=== PATIENT | female | born 1955 | race African-American/Black ===

== ENCOUNTER 2017-01-16 23:35 | Inpatient (IN) | payer MEDICARE, OTHER ==
[~2017-01-16] VITALS: Ht 165.1 cm; Wt 67.1 kg
[~2017-01-16 23:35] MED LIST: CARAFATE1 G1 ORAL; CYCLOBENZAPRINE10 MG ORAL; IBUPROFEN600 M1 PO; LYRICA75 M1 ORAL; NKM; NORCO 5-325 TA1 EAC1 ORAL; OMEPRAZOLE40 M1 ORAL; PERCOCET 5-3251 EACH ORAL; PROTONIX40 MG ORAL; TESSALON PERLE100 MG ORAL; ZOFRAN ODT4 MG ORAL
[2017-01-17] VITALS (8 sets, daily range): BP systolic 127–157; BP diastolic 74–93
[2017-01-17] MEDS ORDERED: Morphine Sulfate 4mg/ml Inj IVP ONE (00:45)
[2017-01-17 00:47] LABS: MEAN CORPUSCULAR HEMOGLOBIN 33.6 PG (27.0-31.0); MEAN CORPUSCULAR HGB CONC 34.5 G/DL (32.0-36.0); MEAN CORPUSCULAR VOLUME 97 FL (80-99); MEAN PLATELET VOLUME 7.5 FL (6.5-10.1); PLATELET COUNT 262 K/UL (150-450); RED BLOOD COUNT 4.36 M/UL (4.20-5.40); RED CELL DISTRIBUTION WIDTH 11.5 % (11.6-14.8); WHITE BLOOD COUNT 11.1 K/UL (4.8-10.8)
[2017-01-17 00:58] LABS: INR 1.1 (0.9-1.1); PROTHROMBIN TIME 11.1 SEC (9.30-11.50)
[2017-01-17] MEDS ORDERED: Metoclopramide 10mg/2ml Inj IVP ONE (01:00)
[2017-01-17 01:05] LABS: ALANINE AMINOTRANSFERASE 18 U/L (3-33); ALBUMIN/GLOBULIN RATIO 1.3 (1.0-2.7); ANION GAP 18 (5-15); ASPARTATE AMINO TRANSFERASE 17 U/L (5-40); CARBON DIOXIDE 24 mEQ/L (20-30); CHLORIDE 99 mEQ/L (98-107); CREATININE 0.7 mg/dL (0.5-0.9); GLOMERULAR FILTRATION RATE > 60 mL/min (>60); HEMOLYSIS 9; POTASSIUM 3.6 mEQ/L (3.4-4.9); SODIUM 141 mEQ/L (135-145); TOTAL PROTEIN 7.6 g/dL (6.6-8.7)
--- NOTE | 2017-01-17 01:06 | Emergency Room Report ---
History of Present Illness General Chief Complaint: Chest Pain Source: Patient, EMS Present Illness HPI Patient is a 61-year-old female who presented after increased tightness in her chest. Patient gradual onset of symptoms. Patient had been given aspirin nitroglycerin by paramedics. Patient noted have no change in her chest pain. Patient states that chronic episodes of back pain which seem to be related to this incident. Patient stated that she had prior history of cardiac disease. She denies any definite fever but she reports having some recent chills. She denied any productive cough. Allergies: Coded Allergies: CODEINE (Unverified Allergy, Unknown, 08/05/14) IBUPROFEN (Verified Allergy, Unknown, 08/05/15) Patient History Past Medical History: see triage record Last Menstrual Period: NA Reviewed Nursing Documentation: PMH: Agreed, PSxH: Agreed Nursing Documentation-PMH Past Medical History: No Stated History Hx Cardiac Problems: No Hx Cancer: No Hx Gastrointestinal Problems: Yes - Hiatal hernia Hx Neurological Problems: No Review of Systems All Other Systems: negative except mentioned in HPI Physical Exam Vital Signs Date Time Temp Pulse Resp B/P Pulse Ox O2 Delivery O2 Flow Rate FiO2 01/16/17 23:36 98.4 98 18 150/96 96 Room Air Sp02 EP Interpretation: reviewed, normal General Appearance: normal inspection, alert, mild distress, thin, Chronically Ill Head: atraumatic ENT: normal ENT inspection, hearing grossly normal, normal voice Neck: normal inspection, full range of motion, supple, no bony tend Respiratory: normal inspection, lungs clear, normal breath sounds, no respiratory distress, no retraction, no wheezing Cardiovascular #1: regular rate, rhythm, no edema Gastrointestinal: normal inspection, normal bowel sounds, non tender, soft, no guarding, no hernia Genitourinary: no CVA tenderness Musculoskeletal: normal inspection, back normal, normal range of motion Neurologic: normal inspection, alert, oriented x3, responsive, customs 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 Differential diagnosis included but was not limited to acute coronary syndrome, pulmonary embolism, pneumonia, aortic dissection, shingles, pneumothorax, aortic dissection, esophageal rupture. Because of complexity of patient's case laboratory testing and imaging studies were ordered. Patient was noted to have evidence of persistent vomiting. Patient was noted to be somewhat dehydrated. Lactic acid levels of the elevated. Initial troponin testing was normalThe patient was given IV antiemetics as well as pain medications. EKG interpreted by me showed normal sinus rhythm with a rate of [address] or T wave changes. Patient noted have some T wave flattening laterally.The patient given IV antibiotics.The patient be admitted hospital for further management of his vomiting and urinary tract infection as well as IV hydration Labs Test 01/17/17 00:14 White Blood Count 11.1 K/UL (4.8-10.8) Red Blood Count 4.36 M/UL (4.20-5.40) Hemoglobin 14.6 G/DL (12.0-16.0) Hematocrit 42.4 % (37.0-47.0) Mean Corpuscular Volume 97 FL (80-99) Mean Corpuscular Hemoglobin 33.6 PG (27.0-31.0) Mean Corpuscular Hemoglobin Concent 34.5 G/DL (32.0-36.0) Red Cell Distribution Width 11.5 % (11.6-14.8) Platelet Count 262 K/UL (150-450) Mean Platelet Volume 7.5 FL (6.5-10.1) Neutrophils (%) (Auto) % (45.0-75.0) Lymphocytes (%) (Auto) % (20.0-45.0) Monocytes (%) (Auto) % (1.0-10.0) Eosinophils (%) (Auto) % (0.0-3.0) Basophils (%) (Auto) % (0.0-2.0) Prothrombin Time 11.1 SEC (9.30-11.50) Prothromb Time International Ratio 1.1 (0.9-1.1) Activated Partial Thromboplast Time 20 SEC (23-33) Sodium Level 141 mEQ/L (135-145) Potassium Level 3.6 mEQ/L (3.4-4.9) Chloride Level 99 mEQ/L (98-107) Carbon Dioxide Level 24 mEQ/L (20-30) Anion Gap 18 (5-15) Blood Urea Nitrogen 12 mg/dL (7-23) Creatinine 0.7 mg/dL (0.5-0.9) Estimat Glomerular Filtration Rate > 60 mL/min (>60) Glucose Level 187 mg/dL (74-106) Lactic Acid Level 2.30 mmol/L (0.66-2.22) Calcium Level 10.0 mg/dL (8.6-10.2) Total Bilirubin 1.1 mg/dL (0.0-1.2) Direct Bilirubin 0.2 mg/dL (0.1-0.3) Aspartate Amino Transf (AST/SGOT) 17 U/L (5-40) Alanine Aminotransferase (ALT/SGPT) 18 U/L (3-33) Alkaline Phosphatase 111 U/L (35-104) Total Creatine Kinase 49 U/L (26-140) Creatine Kinase MB < 1.5 ng/mL (< 3.8) Creatine Kinase MB Relative Index 3.0 Troponin I < 0.30 ng/mL (<=0.30) Pro-B-Type Natriuretic Peptide 10 pg/mL (0-125) Total Protein 7.6 g/dL (6.6-8.7) Albumin 4.4 g/dL (3.5-5.2) Globulin 3.2 g/dL Albumin/Globulin Ratio 1.3 (1.0-2.7) EKG Diagnostic Results Rate: normal Rhythm: NSR ST Segments: no acute changes Rhythm Strip Diag. Results EP Interpretation: yes Rhythm: NSR, no PVC's, no ectopy Chest X-Ray Diagnostic Results EP Interpretation: Yes Findings: no consolidation, no effusion, no pneumothorax, no acute cardiopulmonary disease Number of Views: 1 Last Vital Signs Date Time Temp Pulse Resp B/P Pulse Ox O2 Delivery O2 Flow Rate FiO2 01/16/17 23:36 98.4 98 18 150/96 96 Room Air Status: unchanged Disposition: ADMITTED INPATIENT Condition: Arben Pardo Jan 17, 2017 01:06
[2017-01-17 01:07] LABS: REFLEX LACTIC ACID YES OR NO YES
[2017-01-17 01:08] LABS: TROPONIN I < 0.30 ng/mL (<=0.30)
[2017-01-17] MEDS ORDERED: Unasyn 3gm Inj ONE (01:13)
[2017-01-17] MEDS ORDERED: Ampicillin/Sulbactam Sod 3 GM in NS 110 ML IVPB ONE (01:15)
[2017-01-17 01:16] LABS: CKMB < 1.5 ng/mL (< 3.8)
[2017-01-17 01:27] LABS: BILIRUBIN,DIRECT 0.2 mg/dL (0.1-0.3)
[2017-01-17] MEDS ORDERED: HYDROmorphone 1mg/NS 50ml IVPB 50 ML IVPB ONE (03:00)
[2017-01-17] MEDS ORDERED: Famotidine 20 MG/ 2ML VIAL IVP ONE (03:00)
[2017-01-17 03:34] LABS: APPEARANCE,URINE CLEAR; KETONES,URINE NEGATIVE (NEGATIVE); LEUKOCYTE ESTERASE ,URINE 3+ (NEGATIVE); NITRITE,URINE NEGATIVE (NEGATIVE); PH,URINE 7 (4.5-8.0); PROTEIN,URINE 1+ (NEGATIVE); UROBILINOGEN,URINE NORMAL MG/DL (0.0-1.0)
[2017-01-17 03:47] LABS: BACTERIA,URINE FEW /HPF; SQUAMOUS EPITHELIAL CELL,UR FEW /LPF (NONE/OCC); WBC,URINE 15-20 /HPF (0 - 2)
[2017-01-17] MEDS ORDERED: Miralax 17gm pkt ORAL PRN (06:45)
[2017-01-17] MEDS ORDERED: Nitroglycerin Subl 0.4mg tab (Bottle Of 25) SL PRN (06:45)
[2017-01-17] MEDS ORDERED: DuoNeb 0.5-3(2.5)mg/3ml neb HHN PRN (06:45)
[2017-01-17] MEDS ORDERED: Ketorolac 30mg Inj IV PRN ×2 (06:45→12:45)
[2017-01-17] MEDS: Heparin 5000 units/ml inj SUBQ SCH ×2 (09:00→21:00)
[2017-01-17] MEDS ORDERED: Enalaprilat 2.5mg/2ml Inj IV PRN (09:00)
[2017-01-17] MEDS ORDERED: Diltiazem 25mg/5ml IV PRN (09:00)
--- NOTE | 2017-01-17 09:00 | Diagnostic Imaging Report ---
Indications: Abdominal pain, nausea and vomiting Technique: Continuous helical CT imaging of the abdomen and pelvis was performed with automatic exposure control following administration of nonionic IV contrast only, on a Siemens sensation [address] scanner. Axial, coronal, sagittal images were reconstructed at 5 mm slice thickness. No oral contrast was administered per requesting physician's order, despite no contraindications listed in either submitted clinical data or tech note.. CTDI volume(s): 24 mGy Total DLP: 1170 mGy-cm Findings: Comparison: 08/02/2016 Lack of oral contrast limits evaluation of gastrointestinal tract, nondilated throughout. All hiatal hernia unchanged. Appendix unremarkable. Portions of left colon, rectum poorly distended, limiting evaluation. Multiple images through the lower pelvis degraded by artifact from bilateral hip prostheses, further limiting evaluation. No adjacent stranding, extraluminal gas or fluid collections identified. Multiple subcentimeter circumscribed low-attenuation foci again noted in both renal cortices, not further characterizable, unchanged. Circumscribed soft tissue mass in the posterior pelvis is unchanged, most likely representing uterus, significantly obscured by aforementioned artifact. Bilateral adnexal regions, urinary bladder partially obscured. Scattered arterial mural calcification without obvious flow-limiting stenosis or occlusion. Liver, gallbladder, pancreas, spleen, adrenal glands, unopacified ureters, retroperitoneum, mesentery, remainder visualized abdominopelvic anatomy unremarkable. Irregular pleural-based linear densities in both lung bases. Multilevel disc space narrowing with marginal osteophyte formation, vacuum phenomenon, facet hypertrophy again noted in lumbar spine. IMPRESSION: No evidence of acute abdominopelvic disease, with significant technical limitations as described. Subtle but potentially significant abnormalities the gastrointestinal tract, pelvic organs may be missed. Repeat CT scan with full oral and IV contrast preparation, pelvic ultrasound should be considered for more complete evaluation, as clinically indicated Probable bilateral renal cortical cysts, unchanged Small hiatal hernia, unchanged Arteriosclerosis Pulmonary bibasal subsegmental atelectasis versus scarring Degenerative spondylosis This correlates with [facility] preliminary report.
[2017-01-17] MEDS: Aspirin Baby 81mg ORAL SCH (09:01)
[2017-01-17] MEDS: Sucralfate 1gm tab ORAL SCH ×4 (09:01→21:00)
[2017-01-17] MEDS: Lyrica 50mg cap ORAL SCH (09:01)
[2017-01-17 11:33] LABS: TROPONIN I < 0.30 ng/mL (<=0.30)
--- NOTE | 2017-01-17 12:15 | Consultation ---
History of Present Illness General Date patient seen: Jan 17, 2017 Chief Complaint: Chest Pain Referring physician: Dr. Zapata Reason for Consultation: chest pain Present Illness HPI 61-year-old female with extensive pmhx ( all of them vague) presented to ER with CC of increased tightness in her chest. . Patient had been given aspirin nitroglycerin by paramedics. Patient noted have no change in her chest pain. Patient states that chronic episodes of back pain. She has multiple complains including mid-sternal pain, lower back pain, bilateral knee pain and apparently only [employer] works for her. Allergies: Coded Allergies: CODEINE (Unverified Allergy, Unknown, 08/05/14) IBUPROFEN (Verified Allergy, Unknown, 08/05/15) Medication History Scheduled No Known Medications* (NKM - No Known Medications*), 0 ., (Reported) Omeprazole (Omeprazole), 40 MG ORAL DAILY Pantoprazole* (Protonix*), 40 MG ORAL DAILY, (Reported) Pantoprazole* (Protonix*), 40 MG ORAL DAILY, (Reported) Pregabalin* (Lyrica*), 50 MG ORAL DAILY, (Reported) Pregabalin* (Lyrica*), 75 MG ORAL DAILY, (Reported) Sucralfate* (Carafate*), 1 GM ORAL FOUR TIMES A DAY Scheduled PRN Benzonatate* (Tessalon Perle*), 100 MG ORAL THREE TIMES A DAY PRN for For Cough, (Reported) Ondansetron Odt* (Zofran Odt*), 4 MG ORAL Q6H PRN for Nausea & Vomiting, ( Reported) Patient History Healthcare decision maker Resuscitation status Full Code Advanced Directive on File Past Medical/Surgical History Past Medical/Surgical History: (1) Gastritis (2) Low back pain Review of Systems All Other Systems: negative except mentioned in HPI Physical Exam General Appearance: WD/WN, no apparent distress Lines, tubes and drains: peripheral HEENT: normocephalic, atraumatic Neck: non-tender, normal alignment Respiratory/Chest: chest wall non-tender, lungs clear Cardiovascular/Chest: normal peripheral pulses, normal rate Abdomen: normal bowel sounds, non tender Genitourinary/Rectal: normal genital exam Extremities: normal range of motion Skin Exam: normal pigmentation 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 Last 24 Hour Vital Signs Date Time Temp Pulse Resp B/P Pulse Ox O2 Delivery O2 Flow Rate FiO2 01/17/17 11:22 99.0 96 18 157/87 95 Room Air 01/17/17 08:29 99.1 96 18 148/74 95 Room Air 01/17/17 08:06 98.4 101 18 134/84 96 Room Air 01/17/17 06:56 98.4 104 18 134/84 96 Room Air 01/17/17 05:20 98.4 87 18 134/82 96 Room Air 01/17/17 03:10 98.4 104 18 127/88 96 Room Air 01/17/17 02:05 98.4 01/17/17 01:05 98.4 97 18 143/84 96 Room Air 01/16/17 23:43 98 18 Room Air 01/16/17 23:36 98.4 98 18 150/96 96 Room Air Intake and Output 01/16/17 01/17/17 19:00 07:00 Intake Total 0 ml Balance 0 ml Intake Oral 0 ml Laboratory Tests Test 01/17/17 00:14 01/17/17 01:22 01/17/17 02:40 01/17/17 10:50 White Blood Count 11.1 K/UL (4.8-10.8) H Red Blood Count 4.36 M/UL (4.20-5.40) Hemoglobin 14.6 G/DL (12.0-16.0) Hematocrit 42.4 % (37.0-47.0) Mean Corpuscular Volume 97 FL (80-99) Mean Corpuscular Hemoglobin 33.6 PG (27.0-31.0) H Mean Corpuscular Hemoglobin Concent 34.5 G/DL (32.0-36.0) Red Cell Distribution Width 11.5 % (11.6-14.8) L Platelet Count 262 K/UL (150-450) Mean Platelet Volume 7.5 FL (6.5-10.1) Neutrophils (%) (Auto) % (45.0-75.0) Lymphocytes (%) (Auto) % (20.0-45.0) Monocytes (%) (Auto) % (1.0-10.0) Eosinophils (%) (Auto) % (0.0-3.0) Basophils (%) (Auto) % (0.0-2.0) Prothrombin Time 11.1 SEC (9.30-11.50) Prothromb Time International Ratio 1.1 (0.9-1.1) Activated Partial Thromboplast Time 20 SEC (23-33) L Sodium Level 141 mEQ/L (135-145) Potassium Level 3.6 mEQ/L (3.4-4.9) Chloride Level 99 mEQ/L (98-107) Carbon Dioxide Level 24 mEQ/L (20-30) Anion Gap 18 (5-15) H Blood Urea Nitrogen 12 mg/dL (7-23) Creatinine 0.7 mg/dL (0.5-0.9) Estimat Glomerular Filtration Rate > 60 mL/min (>60) Glucose Level 187 mg/dL (74-106) H Lactic Acid Level 2.30 mmol/L (0.66-2.22) H 1.00 mmol/L (0.66-2.22) Calcium Level 10.0 mg/dL (8.6-10.2) Total Bilirubin 1.1 mg/dL (0.0-1.2) Direct Bilirubin 0.2 mg/dL (0.1-0.3) Aspartate Amino Transf (AST/SGOT) 17 U/L (5-40) Alanine Aminotransferase (ALT/SGPT) 18 U/L (3-33) Alkaline Phosphatase 111 U/L (35-104) H Total Creatine Kinase 49 U/L (26-140) Creatine Kinase MB < 1.5 ng/mL (< 3.8) Creatine Kinase MB Relative Index 3.0 Troponin I < 0.30 ng/mL (<=0.30) < 0.30 ng/mL (<=0.30) Pro-B-Type Natriuretic Peptide 10 pg/mL (0-125) Total Protein 7.6 g/dL (6.6-8.7) Albumin 4.4 g/dL (3.5-5.2) Globulin 3.2 g/dL Albumin/Globulin Ratio 1.3 (1.0-2.7) Urine Color Pale yellow Urine Appearance Clear Urine pH 7 (4.5-8.0) Urine Specific [place] 1.010 (1.005-1.035) Urine Protein 1+ (NEGATIVE) H Urine Glucose (UA) Negative (NEGATIVE) Urine Ketones Negative (NEGATIVE) Urine Occult Blood 2+ (NEGATIVE) H Urine Nitrite Negative (NEGATIVE) Urine Bilirubin Negative (NEGATIVE) Urine Urobilinogen Normal MG/DL (0.0-1.0) Urine Leukocyte Esterase 3+ (NEGATIVE) H Urine RBC 2-4 /HPF (0 - 2) H Urine WBC 15-20 /HPF (0 - 2) H Urine Squamous Epithelial Cells Few /LPF (NONE/OCC) Urine Bacteria Few /HPF (NONE) Urine Opiates Screen Positive (NEGATIVE) H Urine Barbiturates Screen Negative (NEGATIVE) Phencyclidine (PCP) Screen Negative (NEGATIVE) Urine Amphetamines Screen Negative (NEGATIVE) Urine Benzodiazepines Screen Negative (NEGATIVE) Urine Cocaine Screen Negative (NEGATIVE) Urine Marijuana (THC) Screen Negative (NEGATIVE) Microbiology Date/Time Source Procedure Growth Status 01/17/17 00:54 Nasal Nares Influenza Types A,B Antigen (MARC) - Final Complete Height (Feet): 5 Height (Inches): 3.00 Weight (Pounds): 148 Medications Current Medications Medications (Trade) Dose Ordered Sig/Ewa Route PRN Reason Start Time Stop Time Status Last Admin Dose Admin Acetaminophen (Tylenol) 650 mg Q4H PRN ORAL FEVER 01/17/17 06:45 02/16/17 06:44 01/17/17 11:29 Albuterol/ Ipratropium (DuoNeb 0.5-3(2.5)mg/3ml) 3 ml Q4H PRN HHN Shortness of Breath 01/17/17 06:45 01/22/17 06:44 Aspirin (ASA) 162 mg DAILY ORAL 01/17/17 09:00 02/16/17 08:59 01/17/17 09:01 Diltiazem HCl (Cardizem) 10 mg Q1H PRN IV heart rate more than 120, 01/17/17 09:00 02/16/17 08:59 Enalaprilat (Vasotec) 2.5 mg Q6H PRN IV sbp more than 160 01/17/17 09:00 02/16/17 08:59 Heparin Sodium (Porcine) (Heparin 5000 units/ml) 5,000 units EVERY 12 HOURS SUBQ 01/17/17 09:00 02/16/17 08:59 Nitroglycerin (Ntg) 0.4 mg Q5M PRN SL Prn Chest Pain 01/17/17 06:45 02/16/17 06:44 Ondansetron HCl (Zofran) 4 mg Q6H PRN IVP Nausea & Vomiting 01/17/17 06:45 02/16/17 06:44 01/17/17 10:00 Pantoprazole (Protonix) 40 mg DAILY ORAL 01/17/17 09:00 02/16/17 08:59 01/17/17 09:01 Polyethylene Glycol (Miralax) 17 gm DAILYPRN PRN ORAL Constipation 01/17/17 06:45 02/16/17 06:44 Pregabalin (Lyrica) 50 mg DAILY ORAL 01/17/17 09:00 02/16/17 08:59 01/17/17 09:01 Promethazine HCl (Phenergan) 25 mg Q6H PRN IV nausea 01/17/17 06:45 02/16/17 06:44 Sucralfate (Carafate) 1 gm FOUR TIMES A DAY ORAL 01/17/17 09:00 02/16/17 08:59 01/17/17 09:01 Temazepam (Restoril) 15 mg HSPRN PRN ORAL Insomnia 01/17/17 06:45 01/24/17 06:44 Assessment/Plan Problem List: (1) ACS (acute coronary syndrome) ICD Codes: I24.9 - Acute ischemic heart disease, unspecified SNOMED: 750126732 (2) Malingering ICD Codes: Z76.5 - Malingerer [conscious simulation] SNOMED: 00623997 (3) Gastritis ICD Codes: K29.70 - Gastritis, unspecified, without bleeding SNOMED: 8025560 (4) Persistent vomiting ICD Codes: R11.10 - Vomiting, unspecified SNOMED: 654443942 (5) Hiatal hernia ICD Codes: K44.9 - Diaphragmatic hernia without obstruction or gangrene SNOMED: 89852969 (6) Drug-seeking behavior ICD Codes: Z76.5 - Malingerer [conscious simulation] SNOMED: 850851704 Assessment/Plan symptomatic treatment GI/cardiology evaluation might need psych evaluation ERICA LICONA Jan 17, 2017 12:15
[2017-01-17] MEDS: Cefepime HCl 1 GM in D5W 55 ML IVPB SCH ×2 (15:10→22:20)
[2017-01-17] MEDS ORDERED: LORazepam Inj 2mg/ml 1ml IV PRN (17:00)
--- NOTE | 2017-01-17 21:28 | Consultation ---
DATE OF CONSULTATION: CONSULTING PHYSICIAN: Broderick Smith M.D. CHIEF COMPLAINT: Abdominal pain, nausea, and vomiting. HISTORY OF PRESENT ILLNESS: This is a 61-year-old female with past medical history of hiatal hernia. Last endoscopy in 2014. She had a 3-cm hiatal hernia. At that time, she had gastritis. She appeared with a complaint of abdominal pain, chest pain, nausea, and vomiting. PAST MEDICAL HISTORY: 1. History of GERD. 2. Hiatal hernia 3 cm. 3. Osteoarthritis. PAST SURGICAL HISTORY: History of . MEDICATIONS: Please see medication reconciliation list. ALLERGIES: To codeine and ibuprofen. SOCIAL HISTORY: The patient denies any tobacco, alcohol, or illicit drug abuse. REVIEW OF SYSTEMS: A 10-point review of system was performed and pertinent positives in history of present illness. PHYSICAL EXAMINATION: GENERAL: This is a well-developed female, in no acute distress. VITAL SIGNS: Temperature is 99 degrees, pulse 96, respirations 18, and blood pressure is 110/87. HEENT: Normocephalic and atraumatic. Sclerae anicteric. NECK: Supple. No evidence of lymphadenopathy. CARDIOVASCULAR: Regular rhythm. Plus S1 and S2. LUNGS: Clear to auscultation bilaterally. ABDOMEN: Soft. There is a minimal tenderness to palpation in the epigastric area. No rebound. No guarding. No peritoneal sign. Bowel sounds are normal. EXTREMITIES: No cyanosis, no clubbing, no edema. NEUROLOGIC: Nonfocal. LABORATORY AND DIAGNOSTIC DATA: White count is 11, hemoglobin 14, hematocrit 42, and platelets of 262,000. Chem-7 also grossly normal except for glucose of 187. Liver function is grossly normal except for alkaline phosphatase of 111. CT of the abdomen and pelvis without contrast was nondiagnostic. ASSESSMENT AND PLAN: This is a 61-year-old female with abdominal pain of unknown etiology. According to her, this is coming from a hiatal hernia, but explained to her daughter that 3-cm hiatal hernia would cause such significant symptoms. She is asking for Dilaudid. According to her, that is the only thing that helps her symptoms. The patient is currently on Protonix and Zantac. We will recommend advancing diet. Monitor laboratories. Continue Protonix and Zantac. Consider adding Carafate if needed. The patient, at this time, does not want any endoscopy. No colonoscopy. Broderick Smith M.D. DR: William JOB#: [id number] CC:
--- NOTE | 2017-01-17 22:28 | History and Physical Report ---
DATE OF ADMISSION: 01/17/2017 TIME SEEN: At 10 a.m. ATTENDING PHYSICIAN: Aneudy Zapata D.O. CONSULTANTS: 1. Juliet Triplett M.D. 2. Chandler Carson M.D. 3. Broderick Smith M.D. 4. Belinda Pelletier M.D. CHIEF COMPLAINT: Chest pain and vomiting x2 days, UTI. HISTORY OF PRESENT ILLNESS: The patient is a 61-year-old female who lives at home presented with vomiting x2 days, has slight chest pain substernal, intermittent. The patient came to [facility], diagnosed with the above and admitted to telemetry for further care. Currently, slightly anxious in bed, slight short of breath, and no complaints. REVIEW OF SYSTEMS: Chest pain, shortness of breath, slight nausea, and slight vomiting. No diarrhea. PAST MEDICAL HISTORY: Includes vomiting, UTI, and hiatal hernia. PAST SURGICAL HISTORY: Right hip. MEDICATIONS: Protonix, Lyrica, Carafate, aspirin, Vasotec, Cardizem, heparin, DuoNeb, Tylenol, Toradol, Zofran, temazepam, and I think Unasyn was given in the ER. ALLERGIES: Codeine and ibuprofen. SOCIAL HISTORY: No smoking, no alcohol, and no intravenous drug abuse. FAMILY HISTORY: Noncontributory. PHYSICAL EXAMINATION: GENERAL: Calm in bed, oriented x3, and in no acute distress. VITAL SIGNS: Temperature is 99 degrees, pulse 96, respirations 18, and blood pressure 140/74. CARDIOVASCULAR: No murmur. LUNGS: Distant and clear. ABDOMEN: Bowel sounds are positive. Nontender and nondistended. EXTREMITIES: No clubbing, cyanosis, or edema. NEUROLOGIC: She is slightly weak x4, otherwise moves all extremities. LABORATORY DATA: Show white count 11.1, otherwise CBC is normal. BMP shows glucose 187. Lactic acid 2.3. Troponin is less than 0.3. INR is 1.1. Urine toxicology is positive for opiates. Urinalysis 3+ occult blood, 3+ leukocyte esterase. ASSESSMENT: 1. Chest pain. 2. Vomiting x2 days. 3. Urinary tract infection. 4. Diabetes. PLAN: 1. Continue premeds. 2. Blood pressure and blood sugar control. 3. Anti-nausea p.r.n. 4. Troponin q.8 h. x3. EKG in the morning. 5. CBC and BMP in the morning. 6. Dr. Triplett, Dr. Carson, Dr. Smith, and Dr. Pelletier to consult. Aneudy Zapata D.O. DR: Blaze JOB#: [id number] CC:
[2017-01-18] VITALS (7 sets, daily range): BP systolic 120–163; BP diastolic 81–95
[2017-01-18] MEDS: LORazepam Inj 2mg/ml 1ml IV PRN ×3 (00:07→17:14)
--- NOTE | 2017-01-18 02:22 | Infectious Diseases Prog Note ---
Assessment/Plan Problems: (1) Sepsis Assessment & Plan: Due to UTI probably. Could also be reactive due to vomiting. (2) Pyuria Assessment & Plan: Unclear if this is related to the vomiting. Empiric cefepime for now. Follow-up UCx. (3) Hiatal hernia (4) Persistent vomiting Assessment/Plan (Late entry for 01/17/2017) Subjective Allergies: Coded Allergies: CODEINE (Unverified Allergy, Unknown, 08/05/14) IBUPROFEN (Verified Allergy, Unknown, 08/05/15) Objective Vital Signs Last 24 Hour Vital Signs Date Time Temp Pulse Resp B/P Pulse Ox O2 Delivery O2 Flow Rate FiO2 01/18/17 00:00 60 01/18/17 00:00 98.8 70 18 144/93 96 Room Air 01/17/17 20:00 62 01/17/17 20:00 97.5 80 18 137/93 96 Room Air 01/17/17 16:00 98.8 01/17/17 15:36 100.2 87 18 140/83 96 Room Air 01/17/17 14:56 98.8 01/17/17 12:30 104 01/17/17 12:28 99.0 01/17/17 12:00 98 01/17/17 11:22 99.0 96 18 157/87 95 Room Air 01/17/17 09:00 104 01/17/17 08:29 99.1 96 18 148/74 95 Room Air 01/17/17 08:06 98.4 101 18 134/84 96 Room Air 01/17/17 06:56 98.4 104 18 134/84 96 Room Air 01/17/17 05:20 98.4 87 18 134/82 96 Room Air 01/17/17 03:10 98.4 104 18 127/88 96 Room Air Height (Feet): 5 Height (Inches): 3.00 Weight (Pounds): 148 Microbiology Date/Time Source Procedure Growth Status 01/17/17 00:54 Nasal Nares Influenza Types A,B Antigen (MARC) - Final Complete Laboratory Tests Test 01/17/17 02:40 01/17/17 10:50 Lactic Acid Level 1.00 mmol/L (0.66-2.22) Troponin I < 0.30 ng/mL (<=0.30) Current Medications Medications (Trade) Dose Ordered Sig/Ewa Route PRN Reason Start Time Stop Time Status Last Admin Dose Admin Acetaminophen (Tylenol) 650 mg Q4H PRN ORAL FEVER 01/17/17 06:45 02/16/17 06:44 01/17/17 11:29 Albuterol/ Ipratropium (DuoNeb 0.5-3(2.5)mg/3ml) 3 ml Q4H PRN HHN Shortness of Breath 01/17/17 06:45 01/22/17 06:44 Aspirin (ASA) 162 mg DAILY ORAL 01/17/17 09:00 02/16/17 08:59 01/17/17 09:01 Cefepime HCl/ Dextrose (Maxipime/D5W) 55 ml @ 110 mls/hr Q8HR IVPB 01/17/17 15:00 01/24/17 14:59 01/17/17 22:20 Diltiazem HCl (Cardizem) 10 mg Q1H PRN IV heart rate more than 120, 01/17/17 09:00 02/16/17 08:59 Enalaprilat (Vasotec) 2.5 mg Q6H PRN IV sbp more than 160 01/17/17 09:00 02/16/17 08:59 Heparin Sodium (Porcine) (Heparin 5000 units/ml) 5,000 units EVERY 12 HOURS SUBQ 01/17/17 09:00 02/16/17 08:59 Lorazepam (Ativan 2mg/ml 1ml) 0.5 mg Q4H PRN IV For Anxiety 01/17/17 21:00 01/24/17 20:59 01/18/17 00:07 Nitroglycerin (Ntg) 0.4 mg Q5M PRN SL Prn Chest Pain 01/17/17 06:45 02/16/17 06:44 Ondansetron HCl (Zofran) 4 mg Q6H PRN IVP Nausea & Vomiting 01/17/17 06:45 02/16/17 06:44 01/18/17 00:07 Pantoprazole (Protonix) 40 mg DAILY ORAL 01/17/17 09:00 02/16/17 08:59 01/17/17 09:01 Polyethylene Glycol (Miralax) 17 gm DAILYPRN PRN ORAL Constipation 4/22/17 06:45 02/16/17 06:44 Pregabalin (Lyrica) 50 mg DAILY ORAL 01/17/17 09:00 02/16/17 08:59 01/17/17 09:01 Promethazine HCl 25 mg 25 mg Q6H PRN IV nausea 01/17/17 06:45 02/16/17 06:44 Sucralfate (Carafate) 1 gm FOUR TIMES A DAY ORAL 01/17/17 09:00 02/16/17 08:59 01/17/17 13:45 Temazepam (Restoril) 15 mg HSPRN PRN ORAL Insomnia 01/17/17 06:45 01/24/17 06:44 01/17/17 15:28 FLORA DESHPANDE Jan 18, 2017 02:22
[2017-01-18] MEDS: Cefepime HCl 1 GM in D5W 55 ML IVPB SCH ×3 (05:45→23:14)
--- NOTE | 2017-01-18 07:59 | Diagnostic Imaging Report ---
Indications: Shortness of breath Technique: Portable AP chest Findings: Comparison: 08/02/2016 Cardiac silhouette remains normal in size. Pulmonary vasculature remains within normal limits. Inspiratory effort has decreased. Visualized portions of lungs and pleura remain clear. Mild calcification and elongation of the aortic arch unchanged.. IMPRESSION: No evidence of acute disease, unchanged Stable chronic changes as described
--- NOTE | 2017-01-18 08:05 | General Progress Note ---
Assessment/Plan Problem List: (1) Abdominal pain with vomiting ICD Codes: R10.9 - Unspecified abdominal pain; R11.10 - Vomiting, unspecified SNOMED: 90058171, 432489148 (2) Chest pain ICD Codes: R07.9 - Chest pain, unspecified SNOMED: 81461602 (3) Diabetes ICD Codes: E11.9 - Type 2 diabetes mellitus without complications SNOMED: 48341363 (4) UTI (urinary tract infection) ICD Codes: N39.0 - Urinary tract infection, site not specified SNOMED: 78482148 (5) Hiatal hernia ICD Codes: K44.9 - Diaphragmatic hernia without obstruction or gangrene SNOMED: 97387543 Status: stable, progressing, tolerating diet Assessment/Plan ot pt diet antiemetic cardio gi f/u abx cbc bmp am Subjective Constitutional: Reports: weakness Allergies: Coded Allergies: CODEINE (Unverified Allergy, Unknown, 08/05/14) IBUPROFEN (Verified Allergy, Unknown, 08/05/15) All Systems: reviewed and negative except above Subjective sleepy calm Objective Last 24 Hour Vital Signs Date Time Temp Pulse Resp B/P Pulse Ox O2 Delivery O2 Flow Rate FiO2 01/18/17 07:40 21 01/18/17 07:40 70 20 96 Room Air 21 01/18/17 07:40 70 20 Room Air 01/18/17 04:00 62 01/18/17 04:00 98.8 90 20 153/83 96 Room Air 01/18/17 00:00 60 01/18/17 00:00 98.8 70 18 144/93 96 Room Air 01/17/17 20:00 62 01/17/17 20:00 97.5 80 18 137/93 96 Room Air 01/17/17 18:25 90 20 Room Air 01/17/17 16:00 98.8 01/17/17 15:36 100.2 87 18 140/83 96 Room Air 01/17/17 14:56 98.8 01/17/17 12:30 104 01/17/17 12:28 99.0 01/17/17 12:00 98 01/17/17 11:22 99.0 96 18 157/87 95 Room Air 01/17/17 09:00 104 01/17/17 08:29 99.1 96 18 148/74 95 Room Air 01/17/17 08:06 98.4 101 18 134/84 96 Room Air Intake and Output 01/17/17 01/18/17 19:00 07:00 Intake Total 390 ml 350 ml Balance 390 ml 350 ml Intake Oral 390 ml 240 ml IV Total 110 ml # Voids 2 1 Laboratory Tests 01/17/17 10:50: Troponin I < 0.30 Height (Feet): 5 Height (Inches): 3.00 Weight (Pounds): 148 General Appearance: lethargic EENT: normal ENT inspection Neck: normal alignment Cardiovascular: normal peripheral pulses, normal rate, regular rhythm Respiratory/Chest: chest wall non-tender, lungs clear, normal breath sounds Abdomen: normal bowel sounds, non tender, soft Extremities: normal inspection Edema: no edema noted Arm (L), no edema noted Arm (R), no edema noted Leg (L), no edema noted Leg (R), no edema noted Pedal (L), no edema noted Pedal (R), no edema noted Generalized Neurologic: responsive, motor weakness Skin: normal pigmentation, warm/dry JOY GUERRA Jan 18, 2017 08:05
[2017-01-18 08:31] LABS: BASOPHILS % (AUTO) 0.5 % (0.0-2.0); LYMPHOCYTES % (AUTO) 14.2 % (20.0-45.0); MEAN CORPUSCULAR HEMOGLOBIN 31.9 PG (27.0-31.0); MEAN CORPUSCULAR HGB CONC 32.1 G/DL (32.0-36.0); MEAN CORPUSCULAR VOLUME 99 FL (80-99); MEAN PLATELET VOLUME 7.7 FL (6.5-10.1); MONOCYTES % (AUTO) 6.3 % (1.0-10.0); PLATELET COUNT 264 K/UL (150-450); RED BLOOD COUNT 4.42 M/UL (4.20-5.40); RED CELL DISTRIBUTION WIDTH 11.5 % (11.6-14.8); WHITE BLOOD COUNT 14.3 K/UL (4.8-10.8)
[2017-01-18] MEDS: Aspirin Baby 81mg ORAL SCH (08:35)
[2017-01-18] MEDS: Lyrica 50mg cap ORAL SCH (08:35)
[2017-01-18] MEDS: Sucralfate 1gm tab ORAL SCH ×4 (08:38→23:13)
[2017-01-18] MEDS: Heparin 5000 units/ml inj SUBQ SCH ×3 (08:38→23:13)
[2017-01-18 08:39] LABS: INR 1.1 (0.9-1.1); PROTHROMBIN TIME 11.7 SEC (9.30-11.50)
[2017-01-18 08:47] LABS: TROPONIN I < 0.30 ng/mL (<=0.30)
[2017-01-18 08:56] LABS: CHOLESTEROL 247 mg/dL (< 200); CHOLESTEROL/HDL RATIO 4.9 (3.3-4.4); CRP QUANT < 0.3 mg/dL (< 0.5); HEMOLYSIS 6; LDL CHOLESTEROL (CALC.) 173 mg/dL (60-99)
[2017-01-18 08:59] LABS: ANION GAP 18 (5-15); CALCIUM 9.4 mg/dL (8.6-10.2); CARBON DIOXIDE 25 mEQ/L (20-30); CHLORIDE 97 mEQ/L (98-107); CREATININE 0.6 mg/dL (0.5-0.9); GLOMERULAR FILTRATION RATE > 60 mL/min (>60); HEMOLYSIS 6; POTASSIUM 3.2 mEQ/L (3.4-4.9); SODIUM 140 mEQ/L (135-145)
--- NOTE | 2017-01-18 10:38 | General Progress Note ---
Assessment/Plan Problem List: (1) Diabetes ICD Codes: E11.9 - Type 2 diabetes mellitus without complications SNOMED: 25268550 (2) Abdominal pain with vomiting ICD Codes: R10.9 - Unspecified abdominal pain; R11.10 - Vomiting, unspecified SNOMED: 05530395, 023341384 Assessment/Plan pain control fu labs ppi carafate EGD in AM Subjective Allergies: Coded Allergies: CODEINE (Unverified Allergy, Unknown, 08/05/14) IBUPROFEN (Verified Allergy, Unknown, 08/05/15) Subjective c/o abd pain Objective Last 24 Hour Vital Signs Date Time Temp Pulse Resp B/P Pulse Ox O2 Delivery O2 Flow Rate FiO2 01/18/17 08:02 98.1 85 18 163/95 93 Room Air 01/18/17 07:40 21 01/18/17 07:40 70 20 96 Room Air 21 01/18/17 07:40 70 20 Room Air 01/18/17 04:00 62 01/18/17 04:00 98.8 90 20 153/83 96 Room Air 01/18/17 00:00 60 01/18/17 00:00 98.8 70 18 144/93 96 Room Air 01/17/17 20:00 62 01/17/17 20:00 97.5 80 18 137/93 96 Room Air 01/17/17 18:25 90 20 Room Air 01/17/17 16:00 98.8 01/17/17 15:36 100.2 87 18 140/83 96 Room Air 01/17/17 14:56 98.8 01/17/17 12:30 104 01/17/17 12:28 99.0 01/17/17 12:00 98 01/17/17 11:22 99.0 96 18 157/87 95 Room Air Intake and Output 01/17/17 01/18/17 19:00 07:00 Intake Total 390 ml 350 ml Balance 390 ml 350 ml Intake Oral 390 ml 240 ml IV Total 110 ml # Voids 2 1 Laboratory Tests 01/17/17 10:50: Troponin I < 0.30 01/18/17 07:18: Troponin I < 0.30, White Blood Count 14.3H, Red Blood Count 4.42, Hemoglobin 14.1, Hematocrit 43.9, Mean Corpuscular Volume 99, Mean Corpuscular Hemoglobin 31.9H, Mean Corpuscular Hemoglobin Concent 32.1, Red Cell Distribution Width 11.5L, Platelet Count 264, Mean Platelet Volume 7.7, Neutrophils (%) (Auto) 79.0H, Lymphocytes (%) (Auto) 14.2L, Monocytes (%) (Auto) 6.3, Eosinophils (%) ( Auto) 0.0, Basophils (%) (Auto) 0.5, Prothrombin Time 11.7H, Prothromb Time International Ratio 1.1, Activated Partial Thromboplast Time 23, Sodium Level 140, Potassium Level 3.2L, Chloride Level 97L, Carbon Dioxide Level 25, Anion Gap 18H, Blood Urea Nitrogen 11, Creatinine 0.6, Estimat Glomerular Filtration Rate > 60, Glucose Level 124H, Calcium Level 9.4, C-Reactive Protein, Quantitative < 0.3, Triglycerides Level 120, Cholesterol Level 247H, LDL Cholesterol 173H, HDL Cholesterol 50, Cholesterol/HDL Ratio 4.9H, Thyroid Stimulating Hormone (TSH) 2.010 Height (Feet): 5 Height (Inches): 3.00 Weight (Pounds): 148 Cardiovascular: normal rate Respiratory/Chest: lungs clear Abdomen: normal bowel sounds, soft, tender Extremities: non-tender JOHN MOORE Jan 18, 2017 10:38
[2017-01-18] MEDS: Norco 5mg/325mg tab ORAL PRN ×2 (10:46→17:14)
--- NOTE | 2017-01-18 15:43 | Cardiology Progress Note ---
Assessment/Plan Assessment/Plan The patient is seen and examined, full consult note will be dictated shortly. Objective Last 24 Hour Vital Signs Date Time Temp Pulse Resp B/P Pulse Ox O2 Delivery O2 Flow Rate FiO2 01/18/17 15:24 99.7 82 18 151/95 94 Room Air 01/18/17 11:25 97.9 68 18 153/81 94 Room Air 01/18/17 08:02 98.1 85 18 163/95 93 Room Air 01/18/17 08:00 52 01/18/17 07:40 21 01/18/17 07:40 70 20 96 Room Air 21 01/18/17 07:40 70 20 Room Air 01/18/17 04:00 62 01/18/17 04:00 98.8 90 20 153/83 96 Room Air 01/18/17 00:00 60 01/18/17 00:00 98.8 70 18 144/93 96 Room Air 01/17/17 20:00 62 01/17/17 20:00 97.5 80 18 137/93 96 Room Air 01/17/17 18:25 90 20 Room Air 01/17/17 16:00 98.8 Intake and Output 01/17/17 01/18/17 19:00 07:00 Intake Total 390 ml 350 ml Balance 390 ml 350 ml Intake Oral 390 ml 240 ml IV Total 110 ml # Voids 2 1 Laboratory Tests Test 01/18/17 07:18 White Blood Count 14.3 K/UL (4.8-10.8) H Red Blood Count 4.42 M/UL (4.20-5.40) Hemoglobin 14.1 G/DL (12.0-16.0) Hematocrit 43.9 % (37.0-47.0) Mean Corpuscular Volume 99 FL (80-99) Mean Corpuscular Hemoglobin 31.9 PG (27.0-31.0) H Mean Corpuscular Hemoglobin Concent 32.1 G/DL (32.0-36.0) Red Cell Distribution Width 11.5 % (11.6-14.8) L Platelet Count 264 K/UL (150-450) Mean Platelet Volume 7.7 FL (6.5-10.1) Neutrophils (%) (Auto) 79.0 % (45.0-75.0) H Lymphocytes (%) (Auto) 14.2 % (20.0-45.0) L Monocytes (%) (Auto) 6.3 % (1.0-10.0) Eosinophils (%) (Auto) 0.0 % (0.0-3.0) Basophils (%) (Auto) 0.5 % (0.0-2.0) Prothrombin Time 11.7 SEC (9.30-11.50) H Prothromb Time International Ratio 1.1 (0.9-1.1) Activated Partial Thromboplast Time 23 SEC (23-33) Sodium Level 140 mEQ/L (135-145) Potassium Level 3.2 mEQ/L (3.4-4.9) L Chloride Level 97 mEQ/L (98-107) L Carbon Dioxide Level 25 mEQ/L (20-30) Anion Gap 18 (5-15) H Blood Urea Nitrogen 11 mg/dL (7-23) Creatinine 0.6 mg/dL (0.5-0.9) Estimat Glomerular Filtration Rate > 60 mL/min (>60) Glucose Level 124 mg/dL (74-106) H Calcium Level 9.4 mg/dL (8.6-10.2) Troponin I < 0.30 ng/mL (<=0.30) C-Reactive Protein, Quantitative < 0.3 mg/dL (< 0.5) Triglycerides Level 120 mg/dL (< 150) Cholesterol Level 247 mg/dL (< 200) H LDL Cholesterol 173 mg/dL (60-99) H HDL Cholesterol 50 mg/dL (> 60) Cholesterol/HDL Ratio 4.9 (3.3-4.4) H Thyroid Stimulating Hormone (TSH) 2.010 uIU/mL (0.300-4.500) Microbiology Date/Time Source Procedure Growth Status 01/17/17 00:14 Blood Blood Culture - Preliminary NO GROWTH AFTER 24 HOURS Resulted 01/17/17 00:04 Blood Blood Culture - Preliminary NO GROWTH AFTER 24 HOURS Resulted 01/17/17 00:54 Nasal Nares Influenza Types A,B Antigen (MARC) - Final Complete 01/17/17 01:22 Urine,Clean Catch Urine Culture - Preliminary NO GROWTH AFTER 24 HOURS Resulted NEIL LEHMAN Jan 18, 2017 15:43
--- NOTE | 2017-01-18 18:58 | Cardiology Report ---
APPROVED REPORT EXAM: Two-dimensional and M-mode echocardiogram with Doppler and color Doppler. INDICATION Left ventricular function M-Mode DIMENSIONS IVSd0.7 (0.7-1.1cm)Left Atrium (MM)3.4 (1.6-4.0cm) LVDd4.8 (3.5-5.6cm)Aortic Root2.8 (2.0-3.7cm) PWd0.7 (0.7-1.1cm)Aortic Cusp Exc.1.9 (1.5-2.0cm) LVDs2.3 (2.5-4.0cm) PWs0.8 cm Normal left ventricular chamber size, systolic function and wall motion. Left ventricular ejection fraction estimated to be 60-65%. No evidence of left ventricular hypertrophy. No evidence of pericardial fat or effusion. All other cardiac chamber sizes are within normal limits. Focal aortic valve sclerosis with adequate cusp excursion Thickened mitral valve leaflets with normal excursion. Mitral annulus and aortic root calcification. Pulmonic valve is well visualized. Normal tricuspid valve structure. IVC dilated at 2.5cm with minimal physiologic collapse. RA pressure of 15mmHg. A color flow and spectral Doppler study was performed and revealed: No aortic regurgitation. Trace mitral regurgitation. Left ventricular diastolic dysfunction not obtainable due to arrhythmia. No tricuspid regurgitation. Pulmonic regurgitation present.
--- NOTE | 2017-01-18 23:04 | Infectious Diseases Prog Note ---
Assessment/Plan Problems: (1) Sepsis Assessment & Plan: WBC worse. Due to UTI probably. Could also be reactive due to vomiting. (2) Pyuria Assessment & Plan: Unclear if this is related to the vomiting. Continue with empiric cefepime for now. Follow-up UCx. (3) Hiatal hernia (4) Persistent vomiting Subjective Allergies: Coded Allergies: CODEINE (Unverified Allergy, Unknown, 08/05/14) IBUPROFEN (Verified Allergy, Unknown, 08/05/15) Objective Vital Signs Last 24 Hour Vital Signs Date Time Temp Pulse Resp B/P Pulse Ox O2 Delivery O2 Flow Rate FiO2 01/18/17 18:24 97.5 01/18/17 16:00 66 01/18/17 15:24 99.7 82 18 151/95 94 Room Air 01/18/17 12:00 54 01/18/17 11:25 97.9 68 18 153/81 94 Room Air 01/18/17 08:02 98.1 85 18 163/95 93 Room Air 01/18/17 08:00 52 01/18/17 07:40 21 01/18/17 07:40 70 20 96 Room Air 21 01/18/17 07:40 70 20 Room Air 01/18/17 04:00 62 01/18/17 04:00 98.8 90 20 153/83 96 Room Air 01/18/17 00:00 60 01/18/17 00:00 98.8 70 18 144/93 96 Room Air Height (Feet): 5 Height (Inches): 3.00 Weight (Pounds): 148 Microbiology Date/Time Source Procedure Growth Status 01/17/17 00:14 Blood Blood Culture - Preliminary NO GROWTH AFTER 24 HOURS Resulted 01/17/17 00:04 Blood Blood Culture - Preliminary NO GROWTH AFTER 24 HOURS Resulted 01/17/17 00:54 Nasal Nares Influenza Types A,B Antigen (MARC) - Final Complete 01/17/17 01:22 Urine,Clean Catch Urine Culture - Preliminary NO GROWTH AFTER 24 HOURS Resulted Laboratory Tests Test 01/18/17 07:18 White Blood Count 14.3 K/UL (4.8-10.8) H Red Blood Count 4.42 M/UL (4.20-5.40) Hemoglobin 14.1 G/DL (12.0-16.0) Hematocrit 43.9 % (37.0-47.0) Mean Corpuscular Volume 99 FL (80-99) Mean Corpuscular Hemoglobin 31.9 PG (27.0-31.0) H Mean Corpuscular Hemoglobin Concent 32.1 G/DL (32.0-36.0) Red Cell Distribution Width 11.5 % (11.6-14.8) L Platelet Count 264 K/UL (150-450) Mean Platelet Volume 7.7 FL (6.5-10.1) Neutrophils (%) (Auto) 79.0 % (45.0-75.0) H Lymphocytes (%) (Auto) 14.2 % (20.0-45.0) L Monocytes (%) (Auto) 6.3 % (1.0-10.0) Eosinophils (%) (Auto) 0.0 % (0.0-3.0) Basophils (%) (Auto) 0.5 % (0.0-2.0) Prothrombin Time 11.7 SEC (9.30-11.50) H Prothromb Time International Ratio 1.1 (0.9-1.1) Activated Partial Thromboplast Time 23 SEC (23-33) Sodium Level 140 mEQ/L (135-145) Potassium Level 3.2 mEQ/L (3.4-4.9) L Chloride Level 97 mEQ/L (98-107) L Carbon Dioxide Level 25 mEQ/L (20-30) Anion Gap 18 (5-15) H Blood Urea Nitrogen 11 mg/dL (7-23) Creatinine 0.6 mg/dL (0.5-0.9) Estimat Glomerular Filtration Rate > 60 mL/min (>60) Glucose Level 124 mg/dL (74-106) H Calcium Level 9.4 mg/dL (8.6-10.2) Troponin I < 0.30 ng/mL (<=0.30) C-Reactive Protein, Quantitative < 0.3 mg/dL (< 0.5) Triglycerides Level 120 mg/dL (< 150) Cholesterol Level 247 mg/dL (< 200) H LDL Cholesterol 173 mg/dL (60-99) H HDL Cholesterol 50 mg/dL (> 60) Cholesterol/HDL Ratio 4.9 (3.3-4.4) H Thyroid Stimulating Hormone (TSH) 2.010 uIU/mL (0.300-4.500) Current Medications Medications (Trade) Dose Ordered Sig/Ewa Route PRN Reason Start Time Stop Time Status Last Admin Dose Admin Acetaminophen (Tylenol) 650 mg Q4H PRN ORAL FEVER 01/17/17 06:45 02/16/17 06:44 01/17/17 11:29 Acetaminophen/ Hydrocodone Bitart ([place] 5/325) 1 tab Q6H PRN ORAL For Pain 01/18/17 10:15 01/25/17 10:14 01/18/17 17:14 Albuterol/ Ipratropium (DuoNeb 0.5-3(2.5)mg/3ml) 3 ml Q4H PRN HHN Shortness of Breath 01/17/17 06:45 01/22/17 06:44 Aspirin (ASA) 162 mg DAILY ORAL 01/17/17 09:00 02/16/17 08:59 01/18/17 08:35 Cefepime HCl/ Dextrose (Maxipime/D5W) 55 ml @ 110 mls/hr Q8HR IVPB 01/17/17 15:00 01/24/17 14:59 01/18/17 13:30 Diltiazem HCl (Cardizem) 10 mg Q1H PRN IV heart rate more than 120, 01/17/17 09:00 02/16/17 08:59 Enalaprilat (Vasotec) 2.5 mg Q6H PRN IV sbp more than 160 01/17/17 09:00 02/16/17 08:59 Heparin Sodium (Porcine) (Heparin 5000 units/ml) 5,000 units EVERY 12 HOURS SUBQ 01/17/17 09:00 02/16/17 08:59 Lorazepam (Ativan 2mg/ml 1ml) 0.5 mg Q4H PRN IV For Anxiety 01/17/17 21:00 01/24/17 20:59 01/18/17 17:14 Nitroglycerin (Ntg) 0.4 mg Q5M PRN SL Prn Chest Pain 01/17/17 06:45 02/16/17 06:44 Ondansetron HCl (Zofran) 4 mg Q6H PRN IVP Nausea & Vomiting 01/17/17 06:45 02/16/17 06:44 01/18/17 06:26 Pantoprazole (Protonix) 40 mg DAILY ORAL 01/17/17 09:00 02/16/17 08:59 01/18/17 08:36 Polyethylene Glycol (Miralax) 17 gm DAILYPRN PRN ORAL Constipation 01/17/17 06:45 02/16/17 06:44 Pregabalin (Lyrica) 50 mg DAILY ORAL 01/17/17 09:00 02/16/17 08:59 01/18/17 08:35 Promethazine HCl 25 mg 25 mg Q6H PRN IV nausea 01/17/17 06:45 02/16/17 06:44 Sucralfate (Carafate) 1 gm FOUR TIMES A DAY ORAL 01/17/17 09:00 02/16/17 08:59 01/17/17 13:45 Temazepam (Restoril) 15 mg HSPRN PRN ORAL Insomnia 01/17/17 06:45 01/24/17 06:44 01/18/17 13:32 FLORA DESHPANDE Jan 18, 2017 23:03
[2017-01-19] VITALS (11 sets, daily range): BP systolic 86–147; BP diastolic 52–89
[2017-01-19] MEDS ORDERED: Nitroglycerin Subl 0.4mg tab (Bottle Of 25) SL PRN
[2017-01-19] MEDS ORDERED: Diltiazem 25mg/5ml IV PRN
[2017-01-19] MEDS: Norco 5mg/325mg tab ORAL PRN ×2 (00:38→12:08)
[2017-01-19] MEDS: Metoclopramide 10mg/2ml Inj IVP SCH ×2 (00:49→17:03)
[2017-01-19] MEDS: LORazepam Inj 2mg/ml 1ml IV PRN ×3 (02:04→15:51)
[2017-01-19] MEDS ORDERED: DuoNeb 0.5-3(2.5)mg/3ml neb HHN PRN (02:45)
[2017-01-19] MEDS ORDERED: Enalaprilat 2.5mg/2ml Inj IV PRN (03:00)
[2017-01-19] MEDS: Cefepime HCl 1 GM in D5W 55 ML IVPB SCH ×3 (06:01→22:07)
[2017-01-19] MEDS ORDERED: Miralax 17gm pkt ORAL PRN (06:45)
[2017-01-19 07:15] LABS: BASOPHILS % (AUTO) 0.9 % (0.0-2.0); EOSINOPHILS % (AUTO) 0.3 % (0.0-3.0); MEAN CORPUSCULAR HEMOGLOBIN 32.8 PG (27.0-31.0); MEAN CORPUSCULAR HGB CONC 33.1 G/DL (32.0-36.0); MEAN CORPUSCULAR VOLUME 99 FL (80-99); MEAN PLATELET VOLUME 7.5 FL (6.5-10.1); MONOCYTES % (AUTO) 8.2 % (1.0-10.0); NEUTROPHILS % (AUTO) 61.7 % (45.0-75.0); PLATELET COUNT 255 K/UL (150-450); RED BLOOD COUNT 4.42 M/UL (4.20-5.40); RED CELL DISTRIBUTION WIDTH 11.5 % (11.6-14.8); WHITE BLOOD COUNT 10.3 K/UL (4.8-10.8)
[2017-01-19 07:27] LABS: ALANINE AMINOTRANSFERASE 20 U/L (3-33); ALBUMIN/GLOBULIN RATIO 1.3 (1.0-2.7); ANION GAP 14 (5-15); ASPARTATE AMINO TRANSFERASE 20 U/L (5-40); CALCIUM 9.1 mg/dL (8.6-10.2); CARBON DIOXIDE 28 mEQ/L (20-30); CHLORIDE 99 mEQ/L (98-107); CREATININE 0.6 mg/dL (0.5-0.9); GLOMERULAR FILTRATION RATE > 60 mL/min (>60); HEMOLYSIS 6; POTASSIUM 3.2 mEQ/L (3.4-4.9); SODIUM 141 mEQ/L (135-145); TOTAL PROTEIN 6.9 g/dL (6.6-8.7); TROPONIN I < 0.30 ng/mL (<=0.30)
[2017-01-19 08:01] LABS: BILIRUBIN,DIRECT 0.3 mg/dL (0.1-0.3)
[2017-01-19] MEDS ORDERED: Tubing IV Secondary IV ONE (08:48)
[2017-01-19] MEDS ORDERED: NS 275ml ONE (08:48)
[2017-01-19] MEDS: Lyrica 50mg cap ORAL SCH (09:00)
[2017-01-19] MEDS: Aspirin Baby 81mg ORAL SCH (09:00)
[2017-01-19] MEDS: Sucralfate 1gm tab ORAL SCH ×4 (09:00→21:51)
[2017-01-19] MEDS: Heparin 5000 units/ml inj SUBQ SCH ×3 (09:00→21:54)
[2017-01-19] MEDS ORDERED: NS 550ML IV ONE ×2 (09:30→09:35)
[2017-01-19] MEDS ORDERED: Propofol 10mg/ml 20ml IV ONE (09:30)
--- NOTE | 2017-01-19 09:30 | Pre-Procedure Note/Attestation ---
Pre-Procedure Note/Attestation Complete Prior to Procedure Planned Procedure: not applicable Procedure Narrative: egd Indications for Procedure Pre-Operative Diagnosis: gerd Attestation I attest that I discussed the nature of the procedure; its benefits; risks and complications; and alternatives (and the risks and benefits of such alternatives ), prior to the procedure, with the patient (or the patient's legal traveling representative). I attest that, if there was a reasonable possibility of needing a blood transfusion, the patient (or the patient's legal traveling representative) was given the [facility] standardized written summary, pursuant to the [place] Blood Safety Act ([place] Health and Safety Code # 1645, as amended). I attest that I re-evaluated the patient just prior to the surgery and that there has been no change in the patient's H&P, except as documented below: JOHN MOORE Jan 19, 2017 09:30
--- NOTE | 2017-01-19 09:45 | Endoscopy Procedure Note ---
Endoscopy Procedure Note Indication for Procedure: gerd, ABD pain Procedures Performed: EGD Operative Findings/Diagnosis: gastritis Specimen: yes Pt Tolerated Procedure Well: Yes Estimated Blood Loss: none Anesthesiologist: radhika Anesthesia: MAC Implant(s) used?: No 50 yrs or older w/o bx or poly: Not Applicable 10yrs. F/U not recommended: Not Applicable JOHN MOORE Jan 19, 2017 09:45
--- NOTE | 2017-01-19 10:03 | Anethesia Preoperative Eval ---
Anesthesia Pre-op PMH/ROS General Date of Evaluation: Jan 19, 2017 Time of Evaluation: 09:25 Anesthesiologist: Yashira ASA Score: ASA 2 Mallampati Score Class I : Soft palate, uvula, fauces, pillars visible Class II: Soft palate, uvula, fauces visible Class III: Soft palate, base of uvula visible Class IV: Only hard plate visible Mallampati Classification: Class II Surgeon: Luis Diagnosis: Abdominal pain Surgical Procedure: EGD Allergies: Coded Allergies: CODEINE (Unverified Allergy, Unknown, 08/05/14) IBUPROFEN (Verified Allergy, Unknown, 08/05/15) Past Medical History Cardiovascular: Denies: CAD, HTN, TN, arrhythmia, other, valve dz Pulmonary: Denies: COPD, SILVA, asthma, other Gastrointestinal/Genitourinary: Reports: other - Hiatal Hernia, Denies: CRI, ESRD, GERD 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: Denies: CVA, TIA, dementia, depression/anxiety, other Endocrine: Denies: DM, hypothyroidism, other, steroids HEENT: Denies: SUN'AQ (L), SUN'AQ (R), cataract (L), cataract (R), glaucoma, other Hematology/Immune: Denies: DVT, anemia, bleeding disorder, other Musculoskeletal/Integumentary: Reports: OA PMH Narrative: OA, Hiatal Hernia PSxH Narrative: THR Anesthesia Pre-op Phys. Exam Physician Exam Last Vital Signs Date Time Temp Pulse Resp B/P Pulse Ox O2 Delivery O2 Flow Rate FiO2 01/19/17 07:43 91 16 Room Air 21 01/19/17 04:30 98.1 121/84 94 Constitutional: NAD Neurologic: CN 2-12 intact Cardiovascular: RRR, no M/R/G Respiratory: CTA Gastrointestinal: S/NT/ND Airway Exam Mallampati Score: Class II MO: full ROM: full Teeth: intact Anesthesia Pre-op A/P Labs Hematology Test 01/19/17 06:25 White Blood Count 10.3 K/UL (4.8-10.8) Red Blood Count 4.42 M/UL (4.20-5.40) Hemoglobin 14.5 G/DL (12.0-16.0) Hematocrit 43.8 % (37.0-47.0) Mean Corpuscular Volume 99 FL (80-99) Mean Corpuscular Hemoglobin 32.8 PG (27.0-31.0) H Mean Corpuscular Hemoglobin Concent 33.1 G/DL (32.0-36.0) Red Cell Distribution Width 11.5 % (11.6-14.8) L Platelet Count 255 K/UL (150-450) Mean Platelet Volume 7.5 FL (6.5-10.1) Neutrophils (%) (Auto) 61.7 % (45.0-75.0) Lymphocytes (%) (Auto) 29.0 % (20.0-45.0) Monocytes (%) (Auto) 8.2 % (1.0-10.0) Eosinophils (%) (Auto) 0.3 % (0.0-3.0) Basophils (%) (Auto) 0.9 % (0.0-2.0) Chemistry Test 01/19/17 06:25 Sodium Level 141 mEQ/L (135-145) Potassium Level 3.2 mEQ/L (3.4-4.9) L Chloride Level 99 mEQ/L (98-107) Carbon Dioxide Level 28 mEQ/L (20-30) Anion Gap 14 (5-15) Blood Urea Nitrogen 14 mg/dL (7-23) Creatinine 0.6 mg/dL (0.5-0.9) Estimat Glomerular Filtration Rate > 60 mL/min (>60) Glucose Level 109 mg/dL (74-106) H Calcium Level 9.1 mg/dL (8.6-10.2) Total Bilirubin 1.6 mg/dL (0.0-1.2) H Direct Bilirubin 0.3 mg/dL (0.1-0.3) Aspartate Amino Transf (AST/SGOT) 20 U/L (5-40) Alanine Aminotransferase (ALT/SGPT) 20 U/L (3-33) Alkaline Phosphatase 96 U/L (35-104) Troponin I < 0.30 ng/mL (<=0.30) Total Protein 6.9 g/dL (6.6-8.7) Albumin 4.0 g/dL (3.5-5.2) Globulin 2.9 g/dL Albumin/Globulin Ratio 1.3 (1.0-2.7) Risk Assessment & Plan Assessment: Abdominal pain for EGD Plan: GA, TIVA Status Change Before Surgery: No Pre-Antibiotics Drug: None JULIUS RUTHERFORD M.D. Jan 19, 2017 10:03
--- NOTE | 2017-01-19 10:05 | Immediate Post-Op Evaluation ---
Immediate Post-Op Evalulation Immediate Post-Op Evalulation Procedure: EGD Date of Evaluation: Jan 19, 2017 Time of Evaluation: 10:00 IV Fluids: 150 Blood Pressure Systolic: 127 Blood Pressure Diastolic: 81 Pulse Rate: 54 Respiratory Rate: 19 O2 Sat by Pulse Oximetry: 99 Temperature (Fahrenheit): 98.9 Pain Score (1-10): 0 Nausea: Yes Vomiting: Yes - Given Zofran in RR Complications No complication Patient Status: awake, patent, none Hydration Status: adequate Drug: None JULIUS RUTHERFORD M.D. Jan 19, 2017 10:05
--- NOTE | 2017-01-19 10:13 | Infectious Diseases Prog Note ---
Assessment/Plan Problems: (1) Sepsis Assessment & Plan: Resolved. Due to UTI probably. Could also be reactive due to vomiting. (2) Pyuria Assessment & Plan: Unclear if this is related to the vomiting. UCx noted. Finish a short, empiric course of cefepime. Probably 3 days. (3) Hiatal hernia (4) Persistent vomiting Subjective Allergies: Coded Allergies: CODEINE (Unverified Allergy, Unknown, 08/05/14) IBUPROFEN (Verified Allergy, Unknown, 08/05/15) Objective Vital Signs Last 24 Hour Vital Signs Date Time Temp Pulse Resp B/P Pulse Ox O2 Delivery O2 Flow Rate FiO2 01/19/17 10:05 54 19 99 01/19/17 10:02 51 21 133/69 99 Nasal Cannula 3.0 01/19/17 09:57 82 18 127/81 99 Nasal Cannula 3.0 01/19/17 09:52 98.1 57 22 135/70 99 Simple Mask 6.0 01/19/17 08:00 98.6 93 18 131/89 95 01/19/17 07:43 91 16 Room Air 21 01/19/17 04:30 98.1 93 18 121/84 94 01/19/17 00:30 97.9 87 18 101/56 93 Room Air 01/18/17 21:30 96.4 72 18 120/83 92 Room Air 01/18/17 20:30 96.4 72 18 120/83 92 Room Air 01/18/17 18:24 97.5 01/18/17 16:00 66 01/18/17 15:24 99.7 82 18 151/95 94 Room Air 01/18/17 12:00 54 01/18/17 11:25 97.9 68 18 153/81 94 Room Air Height (Feet): 5 Height (Inches): 5.00 Weight (Pounds): 148 Microbiology Date/Time Source Procedure Growth Status 01/17/17 00:14 Blood Blood Culture - Preliminary NO GROWTH AFTER 48 HOURS Resulted 01/17/17 00:04 Blood Blood Culture - Preliminary NO GROWTH AFTER 48 HOURS Resulted 01/17/17 00:54 Nasal Nares Influenza Types A,B Antigen (MARC) - Final Complete 01/17/17 01:22 Urine,Clean Catch Urine Culture - Final Mixed Gram Positive Organism Complete Laboratory Tests Test 01/19/17 06:25 White Blood Count 10.3 K/UL (4.8-10.8) Red Blood Count 4.42 M/UL (4.20-5.40) Hemoglobin 14.5 G/DL (12.0-16.0) Hematocrit 43.8 % (37.0-47.0) Mean Corpuscular Volume 99 FL (80-99) Mean Corpuscular Hemoglobin 32.8 PG (27.0-31.0) H Mean Corpuscular Hemoglobin Concent 33.1 G/DL (32.0-36.0) Red Cell Distribution Width 11.5 % (11.6-14.8) L Platelet Count 255 K/UL (150-450) Mean Platelet Volume 7.5 FL (6.5-10.1) Neutrophils (%) (Auto) 61.7 % (45.0-75.0) Lymphocytes (%) (Auto) 29.0 % (20.0-45.0) Monocytes (%) (Auto) 8.2 % (1.0-10.0) Eosinophils (%) (Auto) 0.3 % (0.0-3.0) Basophils (%) (Auto) 0.9 % (0.0-2.0) Sodium Level 141 mEQ/L (135-145) Potassium Level 3.2 mEQ/L (3.4-4.9) L Chloride Level 99 mEQ/L (98-107) Carbon Dioxide Level 28 mEQ/L (20-30) Anion Gap 14 (5-15) Blood Urea Nitrogen 14 mg/dL (7-23) Creatinine 0.6 mg/dL (0.5-0.9) Estimat Glomerular Filtration Rate > 60 mL/min (>60) Glucose Level 109 mg/dL (74-106) H Calcium Level 9.1 mg/dL (8.6-10.2) Total Bilirubin 1.6 mg/dL (0.0-1.2) H Direct Bilirubin 0.3 mg/dL (0.1-0.3) Aspartate Amino Transf (AST/SGOT) 20 U/L (5-40) Alanine Aminotransferase (ALT/SGPT) 20 U/L (3-33) Alkaline Phosphatase 96 U/L (35-104) Troponin I < 0.30 ng/mL (<=0.30) Total Protein 6.9 g/dL (6.6-8.7) Albumin 4.0 g/dL (3.5-5.2) Globulin 2.9 g/dL Albumin/Globulin Ratio 1.3 (1.0-2.7) Current Medications Medications (Trade) Dose Ordered Sig/Ewa Route PRN Reason Start Time Stop Time Status Last Admin Dose Admin Acetaminophen (Tylenol) 650 mg Q4H PRN ORAL FEVER 01/19/17 02:45 02/18/17 02:44 Acetaminophen (Tylenol) 650 mg Q4H PRN ORAL Mild Pain (Pain Scale 1-3) 01/19/17 10:00 01/19/17 15:30 Acetaminophen/ Hydrocodone Bitart ([place] 5/325) 1 tab Q6H PRN ORAL For Pain 01/19/17 04:15 01/26/17 04:14 01/19/17 00:38 Albuterol/ Ipratropium (DuoNeb 0.5-3(2.5)mg/3ml) 3 ml Q4H PRN HHN Shortness of Breath 01/19/17 02:45 01/24/17 02:44 Aspirin (ASA) 162 mg DAILY ORAL 01/19/17 09:00 02/18/17 08:59 Cefepime HCl/ Dextrose (Maxipime/D5W) 55 ml @ 110 mls/hr Q8HR IVPB 01/19/17 06:00 01/26/17 05:59 01/19/17 06:01 Enalaprilat (Vasotec) 2.5 mg Q6H PRN IV sbp more than 160 01/19/17 03:00 02/18/17 02:59 Heparin Sodium (Porcine) (Heparin 5000 units/ml) 5,000 units EVERY 12 HOURS SUBQ 01/19/17 09:00 02/18/17 08:59 Lorazepam (Ativan 2mg/ml 1ml) 0.5 mg Q4H PRN IV For Anxiety 01/19/17 01:00 01/26/17 00:59 01/19/17 02:04 Nitroglycerin (Ntg) 0.4 mg Q5M PRN SL Prn Chest Pain 01/19/17 00:00 02/18/17 00:00 Ondansetron HCl (Zofran) 4 mg Q6H PRN IVP Nausea & Vomiting 01/19/17 00:45 02/18/17 00:44 Pantoprazole (Protonix) 40 mg DAILY ORAL 01/19/17 09:00 02/18/17 08:59 Polyethylene Glycol (Miralax) 17 gm DAILYPRN PRN ORAL Constipation 01/19/17 06:45 02/18/17 06:44 Pregabalin (Lyrica) 50 mg DAILY ORAL 01/19/17 09:00 02/18/17 08:59 Promethazine HCl (Phenergan) 25 mg Q6H PRN IV nausea 01/19/17 00:45 02/18/17 00:44 Sucralfate (Carafate) 1 gm FOUR TIMES A DAY ORAL 01/19/17 09:00 02/18/17 08:59 Temazepam (Restoril) 15 mg HSPRN PRN ORAL Insomnia 01/19/17 06:45 01/26/17 06:44 FOLRA DESHPANDE Jan 19, 2017 10:13
--- NOTE | 2017-01-19 11:57 | General Progress Note ---
Assessment/Plan Problem List: (1) Abdominal pain with vomiting ICD Codes: R10.9 - Unspecified abdominal pain; R11.10 - Vomiting, unspecified SNOMED: 07423501, 061793611 (2) Chest pain ICD Codes: R07.9 - Chest pain, unspecified SNOMED: 58645214 (3) Diabetes ICD Codes: E11.9 - Type 2 diabetes mellitus without complications SNOMED: 82269605 (4) UTI (urinary tract infection) ICD Codes: N39.0 - Urinary tract infection, site not specified SNOMED: 98211745 (5) Hiatal hernia ICD Codes: K44.9 - Diaphragmatic hernia without obstruction or gangrene SNOMED: 54015509 Status: stable, progressing, tolerating diet Assessment/Plan ot pt diet antiemetic cardio gi f/u abx cbc bmp am Subjective Constitutional: Reports: weakness Allergies: Coded Allergies: CODEINE (Unverified Allergy, Unknown, 08/05/14) IBUPROFEN (Verified Allergy, Unknown, 08/05/15) All Systems: reviewed and negative except above Subjective sleepy vomitting Objective Last 24 Hour Vital Signs Date Time Temp Pulse Resp B/P Pulse Ox O2 Delivery O2 Flow Rate FiO2 01/19/17 10:15 98.6 82 19 138/72 99 Nasal Cannula 3.0 01/19/17 10:05 54 19 99 01/19/17 10:02 51 21 133/69 99 Nasal Cannula 3.0 01/19/17 09:57 82 18 127/81 99 Nasal Cannula 3.0 01/19/17 09:52 98.1 57 22 135/70 99 Simple Mask 6.0 01/19/17 08:00 98.6 93 18 131/89 95 01/19/17 07:43 91 16 Room Air 21 01/19/17 04:30 98.1 93 18 121/84 94 01/19/17 00:30 97.9 87 18 101/56 93 Room Air 01/18/17 21:30 96.4 72 18 120/83 92 Room Air 01/18/17 20:30 96.4 72 18 120/83 92 Room Air 01/18/17 18:24 97.5 01/18/17 16:00 66 01/18/17 15:24 99.7 82 18 151/95 94 Room Air 01/18/17 12:00 54 Intake and Output 01/18/17 01/19/17 19:00 07:00 Intake Total 150 ml Balance 150 ml Intake Oral 150 ml # Voids 3 1 Laboratory Tests 01/19/17 06:25: White Blood Count 10.3, Red Blood Count 4.42, Hemoglobin 14.5, Hematocrit 43.8, Mean Corpuscular Volume 99, Mean Corpuscular Hemoglobin 32.8H, Mean Corpuscular Hemoglobin Concent 33.1, Red Cell Distribution Width 11.5L, Platelet Count 255, Mean Platelet Volume 7.5, Neutrophils (%) (Auto) 61.7, Lymphocytes (%) (Auto) 29.0, Monocytes (%) (Auto) 8.2, Eosinophils (%) (Auto) 0.3, Basophils (%) (Auto ) 0.9, Sodium Level 141, Potassium Level 3.2L, Chloride Level 99, Carbon Dioxide Level 28, Anion Gap 14, Blood Urea Nitrogen 14, Creatinine 0.6, Estimat Glomerular Filtration Rate > 60, Glucose Level 109H, Calcium Level 9.1, Total Bilirubin 1.6H, Direct Bilirubin 0.3, Aspartate Amino Transf (AST/SGOT) 20, Alanine Aminotransferase (ALT/SGPT) 20, Alkaline Phosphatase 96, Troponin I < 0.30, Total Protein 6.9, Albumin 4.0, Globulin 2.9, Albumin/Globulin Ratio 1.3 Height (Feet): 5 Height (Inches): 5.00 Weight (Pounds): 148 General Appearance: lethargic EENT: normal ENT inspection Neck: normal alignment Cardiovascular: normal peripheral pulses, normal rate, regular rhythm Respiratory/Chest: chest wall non-tender, lungs clear, normal breath sounds Abdomen: normal bowel sounds, non tender, soft Extremities: normal inspection Edema: no edema noted Arm (L), no edema noted Arm (R), no edema noted Leg (L), no edema noted Leg (R), no edema noted Pedal (L), no edema noted Pedal (R), no edema noted Generalized Neurologic: responsive, motor weakness Skin: normal pigmentation, warm/dry JOY GUERRA Jan 19, 2017 11:57
[2017-01-19] MEDS: Norco 10mg/325mg tab ORAL PRN ×2 (17:03→22:01)
--- NOTE | 2017-01-19 18:58 | Procedure Note ---
DATE OF PROCEDURE: 01/19/2017 SURGEON: Broderick Smith M.D. PROCEDURE: Upper endoscopy with biopsy. ANESTHESIOLOGIST: Volodymyr Ac M.D. INSTRUMENT: Olympus adult flexible upper endoscope. INDICATION: Chronic abdominal pain, chronic heartburn, and chronic reflux. REASON FOR PROCEDURE: The procedure, risks, benefits, and possible consequences, including hemorrhage, aspiration, perforation and infection, and alternative treatments, were explained to the patient/legal guardian by Dr. Broderick Smith and the patient/legal guardian understood and accepted these risks. DESCRIPTION OF PROCEDURE: After informed consent was obtained and the patient was adequately sedated, Olympus upper endoscope was advanced from the mouth into the second portion of the duodenum and retroflexion was performed in the stomach. The patient has evidence of medium-sized hiatal hernia. No obvious significant esophagitis. No esophageal ulceration. In the stomach, there was diffuse gastritis. Random biopsy from antrum of the stomach was obtained to rule out H. pylori infection. At this time, the scope was slowly retrieved, the patient had a small inlet patch in the proximal esophagus. SUMMARY OF FINDINGS: 1. Small inlet patch. 2. Hiatal hernia. 3. Gastritis, status post biopsy. RECOMMENDATIONS: 1. Follow up biopsies and treat accordingly. 2. We will advance diet. 3. We will change the Protonix to continue on Carafate. Broderick Smith M.D. DR: DARIO JOB#: [id number] CC:
--- NOTE | 2017-01-19 23:56 | Cardiology Progress Note ---
Assessment/Plan Assessment/Plan 1. Non-cardiac chest pain likely due to GI, in view of past history of Hiatal Hernia, 12 lead ECG was non-ischemic. 2. Hypotension, coreg on hold, IV bolus 500 cc ordered. 3. Normal LVEF Subjective Subjective Transferred to med-surg unit. The nurse reported hypotension, coreg was placed on hold. Objective Last 24 Hour Vital Signs Date Time Temp Pulse Resp B/P Pulse Ox O2 Delivery O2 Flow Rate FiO2 01/19/17 22:30 98.1 79 20 86/52 94 Room Air 01/19/17 20:00 98.0 90 20 89/55 93 Room Air 01/19/17 19:30 80 16 Room Air 21 01/19/17 16:00 98.8 60 19 147/79 96 Nasal Cannula 3.0 01/19/17 12:00 98.4 54 19 141/78 99 Nasal Cannula 3.0 01/19/17 10:15 98.6 82 19 138/72 99 Nasal Cannula 3.0 01/19/17 10:05 54 19 99 01/19/17 10:02 51 21 133/69 99 Nasal Cannula 3.0 01/19/17 09:57 82 18 127/81 99 Nasal Cannula 3.0 01/19/17 09:52 98.1 57 22 135/70 99 Simple Mask 6.0 01/19/17 08:00 98.6 93 18 131/89 95 01/19/17 07:43 91 16 Room Air 21 01/19/17 04:30 98.1 93 18 121/84 94 01/19/17 00:30 97.9 87 18 101/56 93 Room Air Intake and Output 01/18/17 01/19/17 19:00 07:00 Intake Total 150 ml Balance 150 ml Intake Oral 150 ml # Voids 3 1 2D Echo: LVEF 65%, Pulmonary Regurgitation, Dilated IVC Laboratory Tests Test 01/19/17 06:25 White Blood Count 10.3 K/UL (4.8-10.8) Red Blood Count 4.42 M/UL (4.20-5.40) Hemoglobin 14.5 G/DL (12.0-16.0) Hematocrit 43.8 % (37.0-47.0) Mean Corpuscular Volume 99 FL (80-99) Mean Corpuscular Hemoglobin 32.8 PG (27.0-31.0) H Mean Corpuscular Hemoglobin Concent 33.1 G/DL (32.0-36.0) Red Cell Distribution Width 11.5 % (11.6-14.8) L Platelet Count 255 K/UL (150-450) Mean Platelet Volume 7.5 FL (6.5-10.1) Neutrophils (%) (Auto) 61.7 % (45.0-75.0) Lymphocytes (%) (Auto) 29.0 % (20.0-45.0) Monocytes (%) (Auto) 8.2 % (1.0-10.0) Eosinophils (%) (Auto) 0.3 % (0.0-3.0) Basophils (%) (Auto) 0.9 % (0.0-2.0) Sodium Level 141 mEQ/L (135-145) Potassium Level 3.2 mEQ/L (3.4-4.9) L Chloride Level 99 mEQ/L (98-107) Carbon Dioxide Level 28 mEQ/L (20-30) Anion Gap 14 (5-15) Blood Urea Nitrogen 14 mg/dL (7-23) Creatinine 0.6 mg/dL (0.5-0.9) Estimat Glomerular Filtration Rate > 60 mL/min (>60) Glucose Level 109 mg/dL (74-106) H Calcium Level 9.1 mg/dL (8.6-10.2) Total Bilirubin 1.6 mg/dL (0.0-1.2) H Direct Bilirubin 0.3 mg/dL (0.1-0.3) Aspartate Amino Transf (AST/SGOT) 20 U/L (5-40) Alanine Aminotransferase (ALT/SGPT) 20 U/L (3-33) Alkaline Phosphatase 96 U/L (35-104) Troponin I < 0.30 ng/mL (<=0.30) Total Protein 6.9 g/dL (6.6-8.7) Albumin 4.0 g/dL (3.5-5.2) Globulin 2.9 g/dL Albumin/Globulin Ratio 1.3 (1.0-2.7) Microbiology Date/Time Source Procedure Growth Status 01/17/17 00:14 Blood Blood Culture - Preliminary NO GROWTH AFTER 48 HOURS Resulted 01/17/17 00:04 Blood Blood Culture - Preliminary NO GROWTH AFTER 48 HOURS Resulted 01/17/17 00:54 Nasal Nares Influenza Types A,B Antigen ([facility]) - Final Complete 01/17/17 01:22 Urine,Clean Catch Urine Culture - Final Mixed Gram Positive Organism Complete Objective Head: atraumatic, normocephalic, PERRLA, EOMI Neck: no JVD, no carotid bruit with 2+ carotid upstroke Respiratory: normal inspection, normal breath sounds Cardiovascular: Normal S1S2, regular rate, rhythm, no murmurs, gallops or rubs. Gastrointestinal: normal bowel sounds, non tender, soft, no guarding, no hernia Musculoskeletal: no edema, clubbing or cyanosis NEIL LEHMAN Jan 19, 2017 23:56
[2017-01-20] VITALS: BP 98/65
[2017-01-20 04:55] VITALS: BP 84/55
[2017-01-20 06:25] VITALS: BP 113/72
[2017-01-20] MEDS: Metoclopramide 10mg/2ml Inj IVP SCH ×2 (06:30→14:24)
[2017-01-20] MEDS: Norco 10mg/325mg tab ORAL PRN ×3 (06:32→14:47)
[2017-01-20] MEDS: Cefepime HCl 1 GM in D5W 55 ML IVPB SCH ×2 (06:32→14:25)
[2017-01-20 07:10] LABS: ANION GAP 12 (5-15); CALCIUM 8.9 mg/dL (8.6-10.2); CARBON DIOXIDE 27 mEQ/L (20-30); CHLORIDE 101 mEQ/L (98-107); CREATININE 0.7 mg/dL (0.5-0.9); GLOMERULAR FILTRATION RATE > 60 mL/min (>60); HEMOLYSIS 4; POTASSIUM 3.8 mEQ/L (3.4-4.9); SODIUM 140 mEQ/L (135-145)
[2017-01-20 07:28] LABS: EOSINOPHILS % (AUTO) 2.7 % (0.0-3.0); LYMPHOCYTES % (AUTO) 37.2 % (20.0-45.0); MEAN CORPUSCULAR HGB CONC 33.1 G/DL (32.0-36.0); MEAN CORPUSCULAR VOLUME 100 FL (80-99); MEAN PLATELET VOLUME 7.4 FL (6.5-10.1); MONOCYTES % (AUTO) 8.8 % (1.0-10.0); NEUTROPHILS % (AUTO) 50.4 % (45.0-75.0); PLATELET COUNT 239 K/UL (150-450); RED BLOOD COUNT 4.27 M/UL (4.20-5.40); RED CELL DISTRIBUTION WIDTH 11.3 % (11.6-14.8); WHITE BLOOD COUNT 9.7 K/UL (4.8-10.8)
[2017-01-20 08:00] VITALS: BP 109/79
--- NOTE | 2017-01-20 08:31 | Consultation ---
History of Present Illness General Date patient seen: Jan 20, 2017 Referring physician: Dr. Zapata Present Illness Allergies: Coded Allergies: CODEINE (Unverified Allergy, Unknown, 08/05/14) IBUPROFEN (Verified Allergy, Unknown, 08/05/15) Medication History Scheduled No Known Medications* (NKM - No Known Medications*), 0 ., (Reported) Omeprazole (Omeprazole), 40 MG ORAL DAILY Pantoprazole* (Protonix*), 40 MG ORAL DAILY, (Reported) Pantoprazole* (Protonix*), 40 MG ORAL DAILY, (Reported) Pregabalin* (Lyrica*), 50 MG ORAL DAILY, (Reported) Pregabalin* (Lyrica*), 75 MG ORAL DAILY, (Reported) Sucralfate* (Carafate*), 1 GM ORAL FOUR TIMES A DAY Scheduled PRN Benzonatate* (Tessalon Perle*), 100 MG ORAL THREE TIMES A DAY PRN for For Cough, (Reported) Ondansetron Odt* (Zofran Odt*), 4 MG ORAL Q6H PRN for Nausea & Vomiting, ( Reported) Patient History Healthcare decision maker Resuscitation status Full Code Advanced Directive on File Physical Exam Last 24 Hour Vital Signs Date Time Temp Pulse Resp B/P Pulse Ox O2 Delivery O2 Flow Rate FiO2 01/20/17 08:00 97.5 98 19 109/79 95 Room Air 01/20/17 07:43 74 16 Room Air 01/20/17 06:25 20 113/72 01/20/17 04:55 98.1 74 20 84/55 95 Room Air 01/20/17 00:00 77 20 98/65 01/19/17 22:30 98.1 79 20 86/52 94 Room Air 01/19/17 20:00 98.0 90 20 89/55 93 Room Air 01/19/17 19:30 80 16 Room Air 21 01/19/17 16:00 98.8 60 19 147/79 96 Nasal Cannula 3.0 01/19/17 12:00 98.4 54 19 141/78 99 Nasal Cannula 3.0 01/19/17 10:15 98.6 82 19 138/72 99 Nasal Cannula 3.0 01/19/17 10:05 54 19 99 01/19/17 10:02 51 21 133/69 99 Nasal Cannula 3.0 01/19/17 09:57 82 18 127/81 99 Nasal Cannula 3.0 01/19/17 09:52 98.1 57 22 135/70 99 Simple Mask 6.0 Intake and Output 01/19/17 01/20/17 19:00 07:00 Intake Total 205 ml 250 ml Output Total 50 ml 400 ml Balance 155 ml -150 ml Intake Oral 250 ml IV Total 205 ml Output Urine Total 400 ml Emesis 50 ml # Voids 3 4 Laboratory Tests Test 01/20/17 05:15 White Blood Count 9.7 K/UL (4.8-10.8) Red Blood Count 4.27 M/UL (4.20-5.40) Hemoglobin 14.1 G/DL (12.0-16.0) Hematocrit 42.6 % (37.0-47.0) Mean Corpuscular Volume 100 FL (80-99) H Mean Corpuscular Hemoglobin 33.0 PG (27.0-31.0) H Mean Corpuscular Hemoglobin Concent 33.1 G/DL (32.0-36.0) Red Cell Distribution Width 11.3 % (11.6-14.8) L Platelet Count 239 K/UL (150-450) Mean Platelet Volume 7.4 FL (6.5-10.1) Neutrophils (%) (Auto) 50.4 % (45.0-75.0) Lymphocytes (%) (Auto) 37.2 % (20.0-45.0) Monocytes (%) (Auto) 8.8 % (1.0-10.0) Eosinophils (%) (Auto) 2.7 % (0.0-3.0) Basophils (%) (Auto) 1.0 % (0.0-2.0) Sodium Level 140 mEQ/L (135-145) Potassium Level 3.8 mEQ/L (3.4-4.9) Chloride Level 101 mEQ/L (98-107) Carbon Dioxide Level 27 mEQ/L (20-30) Anion Gap 12 (5-15) Blood Urea Nitrogen 12 mg/dL (7-23) Creatinine 0.7 mg/dL (0.5-0.9) Estimat Glomerular Filtration Rate > 60 mL/min (>60) Glucose Level 105 mg/dL (74-106) Calcium Level 8.9 mg/dL (8.6-10.2) Height (Feet): 5 Height (Inches): 5.00 Weight (Pounds): 148 Medications Current Medications Medications (Trade) Dose Ordered Sig/Ewa Route PRN Reason Start Time Stop Time Status Last Admin Dose Admin Acetaminophen (Tylenol) 650 mg Q4H PRN ORAL FEVER 01/19/17 02:45 02/18/17 02:44 Acetaminophen/ Hydrocodone Bitart ([place] 10/325) 1 ea Q4H PRN ORAL Severe Pain (Pain Scale 7-10) 01/19/17 16:00 01/26/17 15:59 01/20/17 06:32 Albuterol/ Ipratropium (DuoNeb 0.5-3(2.5)mg/3ml) 3 ml Q4H PRN HHN Shortness of Breath 01/19/17 02:45 01/24/17 02:44 Aspirin (ASA) 162 mg DAILY ORAL 01/19/17 09:00 02/18/17 08:59 Cefepime HCl/ Dextrose (Maxipime/D5W) 55 ml @ 110 mls/hr Q8HR IVPB 01/19/17 06:00 01/26/17 05:59 01/20/17 06:32 Enalaprilat (Vasotec) 2.5 mg Q6H PRN IV sbp more than 160 01/19/17 03:00 02/18/17 02:59 Heparin Sodium (Porcine) (Heparin 5000 units/ml) 5,000 units EVERY 12 HOURS SUBQ 01/19/17 09:00 02/18/17 08:59 Lorazepam (Ativan 2mg/ml 1ml) 0.5 mg Q4H PRN IV For Anxiety 01/19/17 01:00 01/26/17 00:59 01/19/17 15:51 Metoclopramide HCl (Reglan) 5 mg Q8HR IVP 01/19/17 16:00 02/18/17 15:59 01/20/17 06:30 Nitroglycerin (Ntg) 0.4 mg Q5M PRN SL Prn Chest Pain 01/19/17 00:00 02/18/17 00:00 Ondansetron HCl (Zofran) 4 mg Q6H PRN IVP Nausea & Vomiting 01/19/17 00:45 02/18/17 00:44 01/19/17 21:50 Pantoprazole (Protonix) 40 mg DAILY ORAL 01/19/17 09:00 02/18/17 08:59 Polyethylene Glycol (Miralax) 17 gm DAILYPRN PRN ORAL Constipation 01/19/17 06:45 02/18/17 06:44 Pregabalin (Lyrica) 50 mg DAILY ORAL 01/19/17 09:00 02/18/17 08:59 Sucralfate (Carafate) 1 gm FOUR TIMES A DAY ORAL 01/19/17 09:00 02/18/17 08:59 01/19/17 21:51 Temazepam (Restoril) 15 mg HSPRN PRN ORAL Insomnia 01/19/17 06:45 01/26/17 06:44 Assessment/Plan Assessment/Plan (1) Abdominal pain (2) Hiatal Hernia (3) Lumbar DDD (4) Lumbar Spondylosis (5) Multiple Joint Osteoarthritis (6) Multiple Joint pain Seen Dictated LESVIA GUTIERREZ Jan 20, 2017 08:31
[2017-01-20] MEDS: Lyrica 50mg cap ORAL SCH (08:34)
[2017-01-20] MEDS: Sucralfate 1gm tab ORAL SCH ×3 (08:34→18:13)
[2017-01-20] MEDS: Aspirin Baby 81mg ORAL SCH (08:34)
[2017-01-20] MEDS: Heparin 5000 units/ml inj SUBQ SCH (08:35)
--- NOTE | 2017-01-20 08:58 | Nephrology Progress Note ---
Assessment/Plan Assessment 1.hypokalemia 2.intractable nausea 3.hiatal hernia 4.chest pain Plan plan replace k oral hydration monitoring electrolyte Subjective Constitutional: Reports: no symptoms HEENT: Reports: no symptoms Genitourinary: Reports: no symptoms 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: Reports: no symptoms Subjective feeling much better able to tolerate po without vomiting Objective Objective Last 24 Hour Vital Signs Date Time Temp Pulse Resp B/P Pulse Ox O2 Delivery O2 Flow Rate FiO2 01/20/17 08:00 97.5 98 19 109/79 95 Room Air 01/20/17 07:43 74 16 Room Air 21 01/20/17 06:25 20 113/72 01/20/17 04:55 98.1 74 20 84/55 95 Room Air 01/20/17 00:00 77 20 98/65 01/19/17 22:30 98.1 79 20 86/52 94 Room Air 01/19/17 20:00 98.0 90 20 89/55 93 Room Air 01/19/17 19:30 80 16 Room Air 21 01/19/17 16:00 98.8 60 19 147/79 96 Nasal Cannula 3.0 01/19/17 12:00 98.4 54 19 141/78 99 Nasal Cannula 3.0 01/19/17 10:15 98.6 82 19 138/72 99 Nasal Cannula 3.0 01/19/17 10:05 54 19 99 01/19/17 10:02 51 21 133/69 99 Nasal Cannula 3.0 01/19/17 09:57 82 18 127/81 99 Nasal Cannula 3.0 01/19/17 09:52 98.1 57 22 135/70 99 Simple Mask 6.0 Intake and Output 01/19/17 01/20/17 19:00 07:00 Intake Total 205 ml 250 ml Output Total 50 ml 400 ml Balance 155 ml -150 ml Intake Oral 250 ml IV Total 205 ml Output Urine Total 400 ml Emesis 50 ml # Voids 3 4 Laboratory Tests 01/20/17 05:15: White Blood Count 9.7, Red Blood Count 4.27, Hemoglobin 14.1, Hematocrit 42.6, Mean Corpuscular Volume 100H, Mean Corpuscular Hemoglobin 33.0H, Mean Corpuscular Hemoglobin Concent 33.1, Red Cell Distribution Width 11.3L, Platelet Count 239, Mean Platelet Volume 7.4, Neutrophils (%) (Auto) 50.4, Lymphocytes (%) (Auto) 37.2, Monocytes (%) (Auto) 8.8, Eosinophils (%) (Auto) 2.7, Basophils (%) (Auto) 1.0, Sodium Level 140, Potassium Level 3.8, Chloride Level 101, Carbon Dioxide Level 27, Anion Gap 12, Blood Urea Nitrogen 12, Creatinine 0.7, Estimat Glomerular Filtration Rate > 60, Glucose Level 105, Calcium Level 8.9 Height (Feet): 5 Height (Inches): 5.00 Weight (Pounds): 148 Objective Head: atraumatic, normocephalic, PERRLA, EOMI Neck: no JVD, no carotid bruit with 2+ carotid upstroke Respiratory: normal inspection, normal breath sounds Cardiovascular: Normal S1S2, regular rate, rhythm, no murmurs, gallops or rubs. Gastrointestinal: normal bowel sounds, non tender, soft, no guarding, no hernia Musculoskeletal: no edema, clubbing or cyanosis ELEUTERIO SMITH Jan 20, 2017 08:58
--- NOTE | 2017-01-20 10:30 | GI Progress Note ---
Assessment/Plan Problems: (1) Diabetes ICD Codes: E11.9 - Type 2 diabetes mellitus without complications SNOMED: 89841288 (2) Hiatal hernia ICD Codes: K44.9 - Diaphragmatic hernia without obstruction or gangrene SNOMED: 14229519 (3) Gastritis ICD Codes: K29.70 - Gastritis, unspecified, without bleeding SNOMED: 5436887 (4) Persistent vomiting ICD Codes: R11.10 - Vomiting, unspecified SNOMED: 030418935 (5) Fatty liver ICD Codes: K76.0 - Fatty (change of) liver, not elsewhere classified SNOMED: 130200131 (6) Abdominal pain with vomiting ICD Codes: R10.9 - Unspecified abdominal pain; R11.10 - Vomiting, unspecified SNOMED: 94425036, 601493514 Status: stable Status Narrative Discussed with Dr. Smith. Assessment/Plan SUMMARY OF FINDINGS: 1. Small inlet patch. 2. Hiatal hernia. 3. Gastritis, status post biopsy. RECOMMENDATIONS: ok for DC per GI standpoint adv diet, tolerating fu biopsies and treat accordingly continue ppi daily + Carafate 1 gm BID x 1 month, will give rx to RN fu as outpatient Subjective Gastrointestinal/Abdominal: Reports: no symptoms Objective Last 24 Hour Vital Signs Date Time Temp Pulse Resp B/P Pulse Ox O2 Delivery O2 Flow Rate FiO2 01/20/17 08:00 97.5 98 19 109/79 95 Room Air 01/20/17 07:43 74 16 Room Air 21 01/20/17 06:25 20 113/72 01/20/17 04:55 98.1 74 20 84/55 95 Room Air 01/20/17 00:00 77 20 98/65 01/19/17 22:30 98.1 79 20 86/52 94 Room Air 01/19/17 20:00 98.0 90 20 89/55 93 Room Air 01/19/17 19:30 80 16 Room Air 21 01/19/17 16:00 98.8 60 19 147/79 96 Nasal Cannula 3.0 01/19/17 12:00 98.4 54 19 141/78 99 Nasal Cannula 3.0 Intake and Output 01/19/17 01/20/17 19:00 07:00 Intake Total 205 ml 250 ml Output Total 50 ml 400 ml Balance 155 ml -150 ml Intake Oral 250 ml IV Total 205 ml Output Urine Total 400 ml Emesis 50 ml # Voids 3 4 Laboratory Tests Test 01/20/17 05:15 White Blood Count 9.7 K/UL (4.8-10.8) Red Blood Count 4.27 M/UL (4.20-5.40) Hemoglobin 14.1 G/DL (12.0-16.0) Hematocrit 42.6 % (37.0-47.0) Mean Corpuscular Volume 100 FL (80-99) H Mean Corpuscular Hemoglobin 33.0 PG (27.0-31.0) H Mean Corpuscular Hemoglobin Concent 33.1 G/DL (32.0-36.0) Red Cell Distribution Width 11.3 % (11.6-14.8) L Platelet Count 239 K/UL (150-450) Mean Platelet Volume 7.4 FL (6.5-10.1) Neutrophils (%) (Auto) 50.4 % (45.0-75.0) Lymphocytes (%) (Auto) 37.2 % (20.0-45.0) Monocytes (%) (Auto) 8.8 % (1.0-10.0) Eosinophils (%) (Auto) 2.7 % (0.0-3.0) Basophils (%) (Auto) 1.0 % (0.0-2.0) Sodium Level 140 mEQ/L (135-145) Potassium Level 3.8 mEQ/L (3.4-4.9) Chloride Level 101 mEQ/L (98-107) Carbon Dioxide Level 27 mEQ/L (20-30) Anion Gap 12 (5-15) Blood Urea Nitrogen 12 mg/dL (7-23) Creatinine 0.7 mg/dL (0.5-0.9) Estimat Glomerular Filtration Rate > 60 mL/min (>60) Glucose Level 105 mg/dL (74-106) Calcium Level 8.9 mg/dL (8.6-10.2) Height (Feet): 5 Height (Inches): 5.00 Weight (Pounds): 148 General Appearance: no apparent distress, alert Cardiovascular: normal rate Respiratory/Chest: normal breath sounds, no respiratory distress Abdominal Exam: soft Extremities: normal range of motion, non-tender Regina Bradshaw N.P. Jan 20, 2017 10:30
[2017-01-20 11:54] VITALS: BP 105/81
--- NOTE | 2017-01-20 13:09 | General Progress Note ---
Assessment/Plan Problem List: (1) Abdominal pain with vomiting ICD Codes: R10.9 - Unspecified abdominal pain; R11.10 - Vomiting, unspecified SNOMED: 13994529, 654911597 (2) Chest pain ICD Codes: R07.9 - Chest pain, unspecified SNOMED: 63663190 (3) Diabetes ICD Codes: E11.9 - Type 2 diabetes mellitus without complications SNOMED: 42753089 (4) UTI (urinary tract infection) ICD Codes: N39.0 - Urinary tract infection, site not specified SNOMED: 88879122 (5) Hiatal hernia ICD Codes: K44.9 - Diaphragmatic hernia without obstruction or gangrene SNOMED: 93169483 Status: stable, progressing, tolerating diet Assessment/Plan ot pt diet antiemetic cardio gi f/u abx dc home Subjective Allergies: Coded Allergies: CODEINE (Unverified Allergy, Unknown, 08/05/14) IBUPROFEN (Verified Allergy, Unknown, 08/05/15) All Systems: reviewed and negative except above Subjective calm in bed eating ok Objective Last 24 Hour Vital Signs Date Time Temp Pulse Resp B/P Pulse Ox O2 Delivery O2 Flow Rate FiO2 01/20/17 11:54 97.7 86 19 105/81 96 Room Air 01/20/17 08:00 97.5 98 19 109/79 95 Room Air 01/20/17 07:43 74 16 Room Air 01/20/17 06:25 20 113/72 01/20/17 04:55 98.1 74 20 84/55 95 Room Air 01/20/17 00:00 77 20 98/65 01/19/17 22:30 98.1 79 20 86/52 94 Room Air 01/19/17 20:00 98.0 90 20 89/55 93 Room Air 01/19/17 19:30 80 16 Room Air 21 01/19/17 16:00 98.8 60 19 147/79 96 Nasal Cannula 3.0 Intake and Output 01/19/17 01/20/17 19:00 07:00 Intake Total 205 ml 250 ml Output Total 50 ml 400 ml Balance 155 ml -150 ml Intake Oral 250 ml IV Total 205 ml Output Urine Total 400 ml Emesis 50 ml # Voids 3 4 Laboratory Tests 01/20/17 05:15: White Blood Count 9.7, Red Blood Count 4.27, Hemoglobin 14.1, Hematocrit 42.6, Mean Corpuscular Volume 100H, Mean Corpuscular Hemoglobin 33.0H, Mean Corpuscular Hemoglobin Concent 33.1, Red Cell Distribution Width 11.3L, Platelet Count 239, Mean Platelet Volume 7.4, Neutrophils (%) (Auto) 50.4, Lymphocytes (%) (Auto) 37.2, Monocytes (%) (Auto) 8.8, Eosinophils (%) (Auto) 2.7, Basophils (%) (Auto) 1.0, Sodium Level 140, Potassium Level 3.8, Chloride Level 101, Carbon Dioxide Level 27, Anion Gap 12, Blood Urea Nitrogen 12, Creatinine 0.7, Estimat Glomerular Filtration Rate > 60, Glucose Level 105, Calcium Level 8.9 Height (Feet): 5 Height (Inches): 5.00 Weight (Pounds): 148 General Appearance: alert EENT: PERRL/EOMI Neck: normal alignment Cardiovascular: normal peripheral pulses, normal rate, regular rhythm Respiratory/Chest: chest wall non-tender, lungs clear, normal breath sounds Abdomen: normal bowel sounds, non tender, soft Extremities: normal inspection Edema: no edema noted Arm (L), no edema noted Arm (R), no edema noted Leg (L), no edema noted Leg (R), no edema noted Pedal (L), no edema noted Pedal (R), no edema noted Generalized Neurologic: responsive, motor weakness Skin: normal pigmentation, warm/dry JOY GUERRA Jan 20, 2017 13:09
--- NOTE | 2017-01-20 14:08 | Consultation ---
DATE OF CONSULTATION: 01/20/2017 PAIN MANAGEMENT CONSULTATION CONSULTING PHYSICIAN: Ernesto Valencia M.D. REFERRING PHYSICIAN: Aneudy Zapata D.O. PHYSICIAN SQL REPORT DEVELOPER: Pham Santillan CHIEF COMPLAINT: Abdominal pain, low back pain and joint pain. HISTORY OF PRESENT ILLNESS: This is a 61-year-old female, who is being seen on the Med/Surg floor of [facility] for initial comprehensive pain management. The patient was admitted to the hospital under the care of Dr. Aneudy Zapata, complaining of abdominal pain status post EGD with Dr. Smith, found to have a hiatal hernia and gastritis and she was having complaints of nausea, vomiting with severe pain. As an outpatient, the patient is given [place] 7.5/325 mg three times a day due to back and joint pain. Here in the hospital was on [place] 5/325 mg once every 4 hours as needed for pain with minimal pain relief. We were consulted, the patient would have adequate pain control while here in the hospital. PAST MEDICAL HISTORY: Denies. PAST SURGICAL HISTORY: Right total hip replacement. MEDICATIONS: Protonix, Lyrica, Carafate, aspirin, Vasotec, Cardizem, heparin, DuoNeb, Tylenol, Toradol, Zofran, and temazepam. ALLERGIES: Codeine and ibuprofen. SOCIAL HISTORY: Denies smoking, drinking, or drug abuse. REVIEW OF SYSTEMS: Denies rash, fever, chills, sweating, dizziness, drowsiness, blurred vision, sore throat, and change in weight. No shortness of breath or chest pain. No nausea, vomiting, diarrhea, or blood in the stool or urine. No bowel or bladder incontinence. No dysuria. She is complaining of low back and joint pain. PHYSICAL EXAMINATION: GENERAL: Alert, awake, and oriented x3. VITAL SIGNS: Blood pressure is 109/79, heart rate is 98, oxygen saturation is 95%, respirations 19, and temperature is 97.5 degrees Fahrenheit. Height is 5 feet and weight is 148 pounds. HEENT: PERRLA. NECK: Range of motion is decreased due to the patient's clinical condition. No tenderness to paracervical muscles. No adenopathy. LUNGS: Decreased breath sounds bilaterally. HEART: Regular. ABDOMEN: Tenderness to palpation. BACK: Range of motion is decreased in flexion and extension with tenderness to paraspinal muscles. No tenderness to trapezius or rhomboid muscles. EXTREMITIES: Upper extremity motion is decreased due to the patient's clinical condition. Motor is intact. No cyanosis. No clubbing. No edema. Sensory is intact. Reflexes are not obtainable. No adenopathy. Lower extremity motion is decreased due to the patient's clinical condition. Motor is 4/5 in all muscles bilaterally. No cyanosis. No clubbing. No edema. Sensory is intact. Reflexes are not obtainable. No adenopathy. ASSESSMENT AND PLAN: This is a 61-year-old female with abdominal pain, hiatal hernia, lumbar degenerative disease, lumbar spondylosis, multiple joint osteoarthritis, multiple joint pain. The patient will be continued on the [place] for pain. The patient was discussed with Dr. Valencia and Dr. Valencia concurred. We will follow up the patient. Thank you very much for the courtesy of this consultation. Ernesto Valencia M.D. YANDY Santillan DR: Lucas JOB#: [id number] CC: EDDIE
[2017-01-20] MEDS ORDERED: ASPIR 8181 MG ORAL (16:04)
[2017-01-20 16:23] VITALS: BP 99/65
--- NOTE | 2017-01-20 17:38 | Consultation ---
DATE OF CONSULTATION: 01/19/2017 NEPHROLOGY CONSULTATION REFERRING PHYSICIAN: Aneudy Zapata D.O. REASON FOR CONSULTATION: Hypokalemia. HISTORY OF PRESENT ILLNESS: The patient is a 61-year-old female with past medical history significant for history of hiatal hernia, history of possible cardiac disease, who presented to emergency room complaining of substernal chest pain. Upon arrival in ER, the patient had a complete evaluation, including giving nitro and aspirin without any improvement and actually also had an EKG and chest x-ray. The patient consequently was admitted and later on the patient was seen by GI for possible gastritis. The patient had an endoscopy this morning and continues to have potassium below 3.5. I was called for management of renal disease and electrolyte imbalance. PAST MEDICAL HISTORY: Including hiatal hernia and osteoarthritis. PAST SURGICAL HISTORY: History of . MEDICATIONS: Includin. Omeprazole 40 mg p.o. daily. 2. Lyrica 75 mg p.o. daily. 3. Carafate 1 g p.r.n. ALLERGIES: She is allergic to codeine and ibuprofen. SOCIAL HISTORY: The patient denies any tobacco, alcohol, or drug use. FAMILY HISTORY: Noncontributory. REVIEW OF SYSTEMS: General: She complained of chills. No weight loss. No fever. Head And Neck: Denies any dysphagia, odynophagia, blurry vision, headache, or neck stiffness. Pulmonary: Mild shortness of breath. No cough or sputum. Cardiovascular: Complained of chest pain, nonradiating, did not respond to nitro or aspirin, radiating into the back. Mild shortness of breath. Gastrointestinal: Denies any nausea, vomiting, diarrhea, hematemesis, or hematochezia. Genitourinary: Denies any dysuria, frequency, or hematuria. Musculoskeletal: She denies any weakness or numbness. PHYSICAL EXAMINATION: VITAL SIGNS: Her temperature of 98 degrees, blood pressure 127/81, pulse rate of 82, and respiratory rate of 18. HEAD AND NECK: No JVP. No LAD. No thyromegaly. Extraocular movement intact. Pupils are reactive to light and accommodation. Pharynx clear to auscultation. CARDIAC: Regular rate and rhythm. S1-S2. No murmur. No rub. ABDOMEN: Soft, nontender, and nondistended. EXTREMITIES: No edema. No clubbing. No cyanosis. NEUROLOGIC: Cranial nerves II through XII within normal limits. Upper and lower extremities are grossly intact. LABORATORY AND DIAGNOSTIC DATA: Lab values, sodium 141, potassium 3.2, 99 chloride, 28 bicarbonate, BUN of 14, creatinine of 0.5, glucose of 109, calcium of 9.1, total bilirubin of 1.6. AST of 20, ALT of 20, alkaline phosphatase of 96, albumin of 4. CBC revealed WBC count of 10.3, hemoglobin of 14, hematocrit of 43, and platelet count of 265,000. UA revealed specific gravity of 1.010, protein 1+, leukocyte esterase 3+, RBC of 2 to 4, WBC count of 15 to 20. Urine toxicology is positive for opiates. ASSESSMENT: Hypokalemia, most likely GI loss. PLAN: Plan for the patient is to replace the potassium. Check the magnesium level. Monitoring renal failure function and electrolytes closely. Check the urine for evaluation of GI versus renal loss. Monitor renal function and electrolytes closely. Stefany Juarez M.D. DR: Neema JOB#: [id number] CC:
[2017-01-20] MEDS ORDERED: NS 550ML IV ONE (19:14)
--- NOTE | 2017-01-21 20:35 | Discharge Summary ---
Discharge Summary Hospital Course Date of Admission Jan 17, 2017 at 02:29 Date of Discharge Jan 20, 2017 at 19:15 Admitting Diagnosis chest pain, Acute Coronary Syndrome HPI Marisol Mar is a 61 year old female who was admitted on Jan 17, 2017 at 02: 29 for Chest Pain Hospital Course [id number] Discharge Discharge Disposition Patient was discharged to Home (01) Discharge Diagnoses: Marisa Peterson NP Jan 21, 2017 20:35
--- NOTE | 2017-01-22 06:08 | Discharge Summary 2 SIG ---
DATE OF ADMISSION: 01/17/2017 DATE OF DISCHARGE: 01/20/2017 CONSULTANTS: 1. Stefany Juarez M.D. 2. Ernesto Valencia M.D. 3. Broderick Smith M.D. 4. Chandler Carson M.D. 5. Anish Brooks M.D. 6. Belinda Pelletier M.D. BRIEF HOSPITAL COURSE: The patient is a 61-year-old female, who presented to ED complaining of chest tightness and was given aspirin and nitroglycerin by paramedics. On evaluation, lactic acid was elevated and the patient was noted to be dehydrated. Initial troponin was negative. EKG showed normal sinus rhythm with no acute ST to T-wave changes, however, with some T-wave flattening laterally. The patient was admitted for further management of vomiting and urinary tract infection as well as IV hydration and was followed by Dr. Smith. The patient was given Zantac and Protonix and Carafate was added. She underwent endoscopy on 01/19/2017 with findings of a small inlet patch, hiatal hernia, and gastritis. She was continued on proton pump inhibitors and Carafate 1 g b.i.d. for a month. Diet was eventually advanced. She was followed by by Dr. Juarez for evaluation of hypokalemia. Hypokalemia assessed to be likely secondary to gastrointestinal blood loss. Electrolyte was repleted. Dr. Carson was consulted. Chest pain was noncardiac and likely due to gastrointestinal in view of hiatal hernia and gastritis. A 12-lead echocardiogram was nonischemic. Echocardiogram showed normal ejection fraction. She was given pain management and was given [place] for pain. Pyuria was treated with cefepime. Urine culture showed growth of gram-positive organisms mostly contaminant. Influenza A and B was negative. Blood culture did not isolate any growth. She was eventually discharged home. FINAL DIAGNOSES: 1. Abdominal pain with vomiting, possibly from hiatal hernia. 2. Gastritis. 3. Chest pain, noncardiac, possibly secondary to gastritis. 4. Diabetes mellitus. 5. Urinary tract infection. 6. Hypokalemia. 7. Hypertension with episode of hypotension. 8. Status post esophagogastroduodenoscopy. Aneudy Zapata D.O. I have been assigned to dictate discharge summary on this account and I was not involved in the patient's management. Marisa Peterson N.P. DR: CONOR JOB#: [id number] CC:
== END 2017-01-20 19:15 | disposition home or self-care (01) | DRG 392 ==
LOC: EDBD 23:35 → EMR 23:47 → 2E 01-17 02:29 → EDBEDREQ 01-17 05:49 → 2E 01-18 10:36 → 4E 01-18 20:36
PROC: 0DB68ZX Excision of Stomach, Via Natural or Artificial Opening Endoscopic, Diagnostic (ICD-10-PCS; principal; 2017-01-19 09:39)
DX: K29.70 Gastritis, unspecified, without bleeding (principal); I24.9 Acute ischemic heart disease, unspecified; I95.9 Hypotension, unspecified; N39.0 Urinary tract infection, site not specified; K44.9 Diaphragmatic hernia without obstruction or gangrene; R11.10 Vomiting, unspecified; E87.6 Hypokalemia; E11.9 Type 2 diabetes mellitus without complications; E86.0 Dehydration; R10.9 Unspecified abdominal pain; R07.89 Other chest pain; I10 Essential (primary) hypertension; Z88.6 Allergy status to analgesic agent; M19.90 Unspecified osteoarthritis, unspecified site; M51.36 Other intervertebral disc degeneration, lumbar region; M47.896 Other spondylosis, lumbar region
CPT/HCPCS: 36415; 71010; 74177; 80048; 80053; 80061; 80300; 81003; 82248; 82550; 82553; 83605; 83880; 84443; 84484; 85025; 85610; 85730; 86140; 86710; 87040; 87086; 93005; 93306; 94003; 94150; 94640; 94664; J2405; J2765; J8499

== ENCOUNTER 2017-04-11 16:16 | Inpatient (IN) | payer MEDICARE, OTHER ==
[~2017-04-11] VITALS: Ht 167.6 cm; Wt 59.0 kg
[~2017-04-11 16:16] MED LIST changes: +ASPIR 8181 MG ORAL; +NORCO 5-325 TA1 EACH ORAL; +PEPCID20 MG ORAL; +TYLENOL325 MG ORAL
[2017-04-11 16:30] VITALS: BP 160/71
[2017-04-11] MEDS ORDERED: HYDROmorphone 1mg/ml Carpuject IVP ONE (16:45)
[2017-04-11 17:24] LABS: BASOPHILS % (AUTO) 0.5 % (0.0-2.0); LYMPHOCYTES % (AUTO) 11.1 % (20.0-45.0); MEAN CORPUSCULAR HEMOGLOBIN 32.8 PG (27.0-31.0); MEAN CORPUSCULAR HGB CONC 32.8 G/DL (32.0-36.0); MEAN CORPUSCULAR VOLUME 100 FL (80-99); MEAN PLATELET VOLUME 6.9 FL (6.5-10.1); MONOCYTES % (AUTO) 6.7 % (1.0-10.0); NEUTROPHILS % (AUTO) 81.8 % (45.0-75.0); PLATELET COUNT 320 K/UL (150-450); RED BLOOD COUNT 4.24 M/UL (4.20-5.40); WHITE BLOOD COUNT 14.9 K/UL (4.8-10.8)
[2017-04-11 17:26] LABS: APPEARANCE,URINE CLEAR; KETONES,URINE 2+ (NEGATIVE); LEUKOCYTE ESTERASE ,URINE 1+ (NEGATIVE); NITRITE,URINE NEGATIVE (NEGATIVE); PH,URINE 6 (4.5-8.0); PROTEIN,URINE 2+ (NEGATIVE); UROBILINOGEN,URINE 1 MG/DL (0.0-1.0)
[2017-04-11 17:30] VITALS: BP 150/71
[2017-04-11 17:31] LABS: INR 1.1 (0.9-1.1); PROTHROMBIN TIME 11.4 SEC (9.30-11.50)
[2017-04-11 17:33] LABS: ALANINE AMINOTRANSFERASE 14 U/L (3-33); ALBUMIN/GLOBULIN RATIO 1.3 (1.0-2.7); ANION GAP 15 (5-15); ASPARTATE AMINO TRANSFERASE 21 U/L (5-40); CALCIUM 9.7 mg/dL (8.6-10.2); CARBON DIOXIDE 26 mEQ/L (20-30); CHLORIDE 104 mEQ/L (98-107); CREATININE 0.6 mg/dL (0.5-0.9); GLOMERULAR FILTRATION RATE > 60 mL/min (>60); HEMOLYSIS 71; LIPASE 37 U/L (< 60); POTASSIUM 3.6 mEQ/L (3.4-4.9); SODIUM 145 mEQ/L (135-145); TOTAL PROTEIN 7.6 g/dL (6.6-8.7); TROPONIN I < 0.30 ng/mL (<=0.30)
[2017-04-11 17:49] LABS: BILIRUBIN,DIRECT 0.2 mg/dL (0.1-0.3)
[2017-04-11 17:49] LABS: AMORPHOUS SEDIMENT,UR FEW /LPF; BACTERIA,URINE FEW /HPF; SQUAMOUS EPITHELIAL CELL,UR FEW /LPF (NONE/OCC)
[2017-04-11 18:30] VITALS: BP 118/73
[2017-04-11] MEDS ORDERED: cefTRIAXone 1 GM in NS 55 ML IVPB ONE (18:45)
[2017-04-11] MEDS ORDERED: Miralax 17gm pkt ORAL PRN (19:45)
[2017-04-11] MEDS ORDERED: Nitroglycerin Subl 0.4mg tab (Bottle Of 25) SL PRN (19:45)
[2017-04-11] MEDS ORDERED: Mylanta II UD 30ml ORAL PRN (19:45)
[2017-04-11 19:50] VITALS: BP 118/70
--- NOTE | 2017-04-11 20:38 | Emergency Room Report ---
History of Present Illness General Chief Complaint: Nausea, Vomiting, and Diarrhea Source: Patient Present Illness HPI The patient is a 62-year-old female who presented after increased epigastric pain and vomiting. Patient had been noted to have similar symptoms and been in the emergency department last night. Patient was offered admission but decided to leave hospital. Patient returned after she began having increased vomiting again. The patient had not been having fever. She reported having episodes of vomiting of bilious material. She denied any hematemesis or bloody stools. Patient reported having normal bowel movements. She had prior C-sections. She denied other abdominal surgeries. She had previous endoscopy performed which showed evidence of the gastritis as well as esophageal abnormalities. Allergies: Coded Allergies: CODEINE (Unverified Allergy, Unknown, 08/05/14) IBUPROFEN (Verified Allergy, Unknown, 08/05/15) Patient History Past Medical History: see triage record Now: No Reviewed Nursing Documentation: PMH: Agreed, PSxH: Agreed Nursing Documentation-PMH Past Medical History: No Stated History Hx Cancer: No Hx Neurological Problems: No Review of Systems All Other Systems: negative except mentioned in HPI Physical Exam Vital Signs Date Time Temp Pulse Resp B/P Pulse Ox O2 Delivery O2 Flow Rate FiO2 04/11/17 16:12 98.1 98 16 120/80 99 Room Air Sp02 EP Interpretation: reviewed, normal General Appearance: normal inspection, alert, GCS 15, moderate distress Head: atraumatic ENT: normal ENT inspection, hearing grossly normal, normal voice Neck: normal inspection, full range of motion, supple, no bony tend Respiratory: normal inspection, lungs clear, normal breath sounds, no respiratory distress, no retraction, no wheezing Cardiovascular #1: regular rate, rhythm, no edema Gastrointestinal: normal bowel sounds, non tender, soft, no guarding, no hernia , tenderness - epigastric Genitourinary: no CVA tenderness Musculoskeletal: normal inspection, back normal, normal range of motion Neurologic: normal inspection, alert, oriented x3, responsive, drilling foreman III-XII nml as tested, speech normal Psychiatric: normal inspection, judgement/insight normal, mood/affect normal Skin: normal inspection, normal color, no rash Medical Decision Making Diagnostic Impression: Primary Impression: Nausea, vomiting, and diarrhea Additional Impressions: Hiatal hernia Gastritis ER Course Patient presented for abdominal pain. Differential diagnoses included ischemic bowel, appendicitis, perforated viscus, abdominal aortic aneurysm, inferior myocardial infarction, viral gastroenteritis Because of complexity of patient's case laboratory testing and imaging studies were ordered. I laboratory testing was over mildly elevated white blood count. Patient was noted to have emesis was given IV antiemetics. The patient given IV pain medications. The patient is being admitted for persistent pain vomiting as well as dehydration the Dr. Aneudy Zapata was contacted for inpatient management due to prior admission. Labs Test 04/11/17 17:00 04/11/17 17:11 White Blood Count 14.9 K/UL (4.8-10.8) Red Blood Count 4.24 M/UL (4.20-5.40) Hemoglobin 13.9 G/DL (12.0-16.0) Hematocrit 42.3 % (37.0-47.0) Mean Corpuscular Volume 100 FL (80-99) Mean Corpuscular Hemoglobin 32.8 PG (27.0-31.0) Mean Corpuscular Hemoglobin Concent 32.8 G/DL (32.0-36.0) Red Cell Distribution Width 11.0 % (11.6-14.8) Platelet Count 320 K/UL (150-450) Mean Platelet Volume 6.9 FL (6.5-10.1) Neutrophils (%) (Auto) 81.8 % (45.0-75.0) Lymphocytes (%) (Auto) 11.1 % (20.0-45.0) Monocytes (%) (Auto) 6.7 % (1.0-10.0) Eosinophils (%) (Auto) 0.0 % (0.0-3.0) Basophils (%) (Auto) 0.5 % (0.0-2.0) Prothrombin Time 11.4 SEC (9.30-11.50) Prothromb Time International Ratio 1.1 (0.9-1.1) Activated Partial Thromboplast Time 21 SEC (23-33) Sodium Level 145 mEQ/L (135-145) Potassium Level 3.6 mEQ/L (3.4-4.9) Chloride Level 104 mEQ/L (98-107) Carbon Dioxide Level 26 mEQ/L (20-30) Anion Gap 15 (5-15) Blood Urea Nitrogen 12 mg/dL (7-23) Creatinine 0.6 mg/dL (0.5-0.9) Estimat Glomerular Filtration Rate > 60 mL/min (>60) Glucose Level 139 mg/dL (74-106) Calcium Level 9.7 mg/dL (8.6-10.2) Total Bilirubin 1.2 mg/dL (0.0-1.2) Direct Bilirubin 0.2 mg/dL (0.1-0.3) Aspartate Amino Transf (AST/SGOT) 21 U/L (5-40) Alanine Aminotransferase (ALT/SGPT) 14 U/L (3-33) Alkaline Phosphatase 92 U/L (35-104) Troponin I < 0.30 ng/mL (<=0.30) Total Protein 7.6 g/dL (6.6-8.7) Albumin 4.4 g/dL (3.5-5.2) Globulin 3.2 g/dL Albumin/Globulin Ratio 1.3 (1.0-2.7) Lipase 37 U/L (< 60) Urine Color Yellow Urine Appearance Clear Urine pH 6 (4.5-8.0) Urine Specific [place] 1.020 (1.005-1.035) Urine Protein 2+ (NEGATIVE) Urine Glucose (UA) Negative (NEGATIVE) Urine Ketones 2+ (NEGATIVE) Urine Occult Blood 4+ (NEGATIVE) Urine Nitrite Negative (NEGATIVE) Urine Bilirubin Negative (NEGATIVE) Urine Urobilinogen 1 MG/DL (0.0-1.0) Urine Leukocyte Esterase 1+ (NEGATIVE) Urine RBC 5-10 /HPF (0 - 2) Urine WBC 2-4 /HPF (0 - 2) Urine Squamous Epithelial Cells Few /LPF (NONE/OCC) Urine Amorphous Sediment Few /LPF (NONE) Urine Bacteria Few /HPF (NONE) Urine Opiates Screen Negative (NEGATIVE) Urine Barbiturates Screen Negative (NEGATIVE) Phencyclidine (PCP) Screen Negative (NEGATIVE) Urine Amphetamines Screen Negative (NEGATIVE) Urine Benzodiazepines Screen Negative (NEGATIVE) Urine Cocaine Screen Negative (NEGATIVE) Urine Marijuana (THC) Screen Negative (NEGATIVE) Last Vital Signs Date Time Temp Pulse Resp B/P Pulse Ox O2 Delivery O2 Flow Rate FiO2 04/11/17 19:50 62 16 118/70 100 Room Air 04/11/17 19:50 98.2 Status: unchanged Disposition: ADMITTED INPATIENT Condition: Serious Referrals: NOT CHOSEN IPA/,REFERRING (PCP) Arben Carreno Apr 11, 2017 20:38
[2017-04-11] MEDS: Sucralfate 1gm tab ORAL SCH ×2 (21:00→21:31)
[2017-04-11] MEDS: Heparin 5000 units/ml inj SUBQ SCH ×2 (21:00→21:32)
[2017-04-11] MEDS: D5 1/2NS 1,000 ML IV SCH (21:31)
[2017-04-11] MEDS: Piperacillin/Tazobactam 3.375 GM in NS 110 ML IVPB SCH (21:32)
--- NOTE | 2017-04-11 21:38 | Consultation ---
Consult Note Consult Note ID CONSULT: Dict# [id number] Assessment/Plan ASSESSMENT: 62 y/o female with: // Acute gastritis - GI eval pending - LFTs, lipase WNL, trop neg x1, UDS(-) - KUB: Nonobstructive and nonspecific bowel gas pattern. - h/o H.pylori(-) gastritis, small hiatal hernia // Doubt UTI - asymptomatic // Leukocytosis, afebrile ( some component of hemoconcentration ) // No ABX allergies // Full Code PLAN: - continue empiric zosyn d# 1 for now, may DC soon - f/u GI eval - monitor CBC, temperatures - monitor BMP - supportive care Thanks! Will follow JENN QUINTANA Apr 11, 2017 21:38
[2017-04-11 22:15] VITALS: BP 113/69
[2017-04-11] MEDS: HYDROmorphone 1mg/ml Carpuject IVP PRN (23:25)
--- NOTE | 2017-04-12 | Consultation ---
DATE OF CONSULTATION: 04/11/2017 INFECTIOUS DISEASE CONSULTATION REQUESTING PHYSICIAN: Aneudy Zapata D.O. REASON FOR CONSULTATION: Gastroenteritis and leukocytosis. HISTORY OF PRESENT ILLNESS: This is a 62-year-old female, admitted on 04/11/2017 with epigastric pain, nausea and vomiting. Denies hematemesis or melena. She has no hiatal hernia and H. pylori negative gastritis. Liver function tests and lipase are within normal limits and troponin is negative x1. She has associated mild leukocytosis, but no fevers. No cultures have been sent or imaging obtained. ID now consulted to assist in management. PAST MEDICAL HISTORY: 1. H. pylori negative gastritis. 2. Small hiatal hernia. 3. Osteoarthritis. 4. Carpal tunnel syndrome. PAST SURGICAL HISTORY: 1. . 2. Bilateral total hip replacement. MEDICATIONS: 1. Zosyn. 2. Protonix. 3. Lyrica. 4. Carafate. 5. Subcutaneous heparin. ALLERGIES: 1. Codeine. 2. Ibuprofen. SOCIAL HISTORY: Denies tobacco, alcohol, or illicit drug abuse. FAMILY HISTORY: Noncontributory. REVIEW OF SYSTEMS: As per history of present illness. Ten systems reviewed all pertinent positives and negatives as noted. PHYSICAL EXAMINATION: GENERAL: No apparent distress. Nontoxic appearing. VITAL SIGNS: Maximum temperature 99.8 degrees, blood pressure 118/70, heart rate in the 50s, respiratory rate 16, and saturating 100% on room air. CARDIOVASCULAR: Regular rate and rhythm. No murmurs. PULMONARY: Clear to auscultation bilaterally. ABDOMEN: Bowel sounds present. Soft and nondistended with mild diffuse tenderness to palpation. EXTREMITIES: No edema. SKIN: No rash. NEUROLOGICAL: Alert and oriented x3, nonfocal. LABORATORY AND DIAGNOSTIC DATA: White blood cell count 14.9 with left shift, hemoglobin 13.9, and platelets 320,000. Sodium 145, potassium 3.6, chloride 104, bicarbonate 26, BUN 12, and and creatinine 0.6. Liver function tests and lipase within normal limits. Urine drug screen negative. Troponin was 0.33. Microbiology, none. Imaging, KUB, nonobstructive and nonspecific bowel gas pattern. ASSESSMENT: 1. Acute gastritis. Gastrointestinal evaluation is pending. Liver function tests and lipase are within normal limits. Urine drug screen is negative and troponin is negative x1. KUB has nonobstructive bowel gas pattern and the patient has known Helicobacter pylori negative gastritis and small hiatal hernia. 2. Doubt urinary tract infection. The patient is asymptomatic. 3. Leukocytosis, afebrile, may be strictly hemoconcentration. 4. No antibiotic allergies. 5. Full Code. PLAN: 1. Continue empiric Zosyn day #1 for now, may discontinue soon. 2. Followup GI evaluation. 3. Monitor CBC and temperatures. 4. Monitor BMP. 5. Supportive care. Thank you. We will follow. Chris Quintero M.D. DR: CLARA JOB#: [id number] CC: Pari Mahoney M.D. Arash Alborzi, M.D
[2017-04-12 00:55] VITALS: BP 113/73
[2017-04-12 04:37] VITALS: BP 105/59
[2017-04-12] MEDS: Piperacillin/Tazobactam 3.375 GM in NS 110 ML IVPB SCH ×3 (05:43→22:06)
--- NOTE | 2017-04-12 07:36 | Consultation ---
History of Present Illness General Date patient seen: Apr 12, 2017 Time patient seen: 06:00 Chief Complaint: Nausea, Vomiting, and Diarrhea Referring physician: dr Zapata Reason for Consultation: inpatient management Present Illness HPI 62-year-old female with PMH of gastritis ( H pylori negative), small hiatal hernia, arthritis, presented with increased epigastric pain, nausea and vomiting. Patient had similar symptoms previous night, went to ED, offered admission but patient decided to leave hospital. Patient returned after increased vomiting episodes of bilious material . No hematemesis No bloody stools. denied fevers, chills no chest pain, no SOB She denied other abdominal surgeries. She had previous endoscopy performed which showed evidence of the gastritis and esophageal abnormalities. ( 3 months ago) Workup in ED revealed no fever Leukocytosis-14.9 stable lytes, LFT, amylase, lipase troponin negative KUB with nonobstructive gas pattern troponin negative urine tox screen negative UA no pyuria, few bacteria, patient was admitted for further management this am admits to intermittent nausea, but no vomiting, epigastric pain, gnawing, no hx of smoking, no ETOH abuse leukocytosis persist, K-3.3 mild elevation in lipase-66 and T bili-1.4 Allergies: Coded Allergies: CODEINE (Unverified Allergy, Unknown, 08/05/14) IBUPROFEN (Verified Allergy, Unknown, 08/05/15) Medication History Scheduled Aspirin* (Aspir 81*), 162 MG ORAL DAILY, (Reported) Famotidine (Pepcid), 20 MG ORAL DAILY No Known Medications* (NKM - No Known Medications*), 0 ., (Reported) Omeprazole (Omeprazole), 40 MG ORAL DAILY Pantoprazole* (Protonix*), 40 MG ORAL DAILY, (Reported) Pregabalin* (Lyrica*), 75 MG ORAL THREE TIMES A DAY, (Reported) Sucralfate* (Carafate*), 1 GM ORAL FOUR TIMES A DAY Scheduled PRN Acetaminophen (Tylenol), 650 MG ORAL Q6H PRN for Prn Pain/Headache/Temp > 101 Benzonatate* (Tessalon Perle*), 100 MG ORAL THREE TIMES A DAY PRN for For Cough, (Reported) Hydrocodone Bit/Acetaminophen 5-325* ([place] 5-325*), 1 TAB ORAL Q6H PRN for For Pain Ondansetron Odt* (Zofran Odt*), 4 MG ORAL Q6H PRN for Nausea & Vomiting, ( Reported) Ondansetron Odt* (Zofran Odt*), 4 MG ORAL Q8HR PRN for Nausea & Vomiting Patient History Healthcare decision maker Resuscitation status Full Code Advanced Directive on File Past Medical/Surgical History Past Medical/Surgical History: (1) Fatty liver (2) Gastritis (3) Hiatal hernia (4) Arthritis Review of Systems Constitutional: Reports: malaise, weakness Eye: Reports: no symptoms Respiratory: Reports: no symptoms Cardiovascular: Reports: no symptoms Gastrointestinal: Reports: see HPI Genitourinary: Reports: no symptoms Musculoskeletal: Reports: muscle stiffness, other - arthritis Skin: Reports: no symptoms Psychiatric: Reports: no symptoms Neurological: Reports: no symptoms Endocrine: Reports: no symptoms Hematologic/Lymphatic: Reports: no symptoms Physical Exam General Appearance: WD/WN, no apparent distress, alert - AAO x 4 Lines, tubes and drains: peripheral HEENT: normocephalic, atraumatic, anicteric, PERRL Neck: non-tender, supple Respiratory/Chest: chest wall non-tender, lungs clear, no respiratory distress , no accessory muscle use Cardiovascular/Chest: normal peripheral pulses, normal rate, regular rhythm, no JVD Abdomen: normal bowel sounds - TTP epigastric area, diffused tenderness , soft Extremities: normal range of motion, non-tender, no calf tenderness, normal capillary refill Skin Exam: warm/dry Neurologic: no motor/sensory deficits, alert, oriented x 3, responsive, normal mood/affect Musculoskeletal: normal muscle bulk Last 24 Hour Vital Signs Date Time Temp Pulse Resp B/P Pulse Ox O2 Delivery O2 Flow Rate FiO2 04/12/17 04:37 98.1 59 18 105/59 96 Room Air 04/12/17 00:55 98.1 87 20 113/73 93 Room Air 04/11/17 23:57 97.5 04/11/17 22:15 97.5 57 20 113/69 98 Room Air 04/11/17 19:50 62 16 118/70 100 Room Air 04/11/17 19:50 98.2 62 16 118/70 100 Room Air 04/11/17 18:30 98.2 95 19 118/73 96 Room Air 04/11/17 17:45 99.8 7/15/17 17:30 99.3 52 13 150/71 98 Room Air 04/11/17 16:30 54 16 160/71 98 Room Air 04/11/17 16:12 98.1 98 16 120/80 99 Room Air Intake and Output 04/11/17 04/12/17 19:00 07:00 Intake Total 460.0 ml Balance 460.0 ml Intake IV Total 460.0 ml # Voids 2 # Bowel Movements 1 Laboratory Tests Test 04/11/17 17:00 04/11/17 17:11 White Blood Count 14.9 K/UL (4.8-10.8) H Red Blood Count 4.24 M/UL (4.20-5.40) Hemoglobin 13.9 G/DL (12.0-16.0) Hematocrit 42.3 % (37.0-47.0) Mean Corpuscular Volume 100 FL (80-99) H Mean Corpuscular Hemoglobin 32.8 PG (27.0-31.0) H Mean Corpuscular Hemoglobin Concent 32.8 G/DL (32.0-36.0) Red Cell Distribution Width 11.0 % (11.6-14.8) L Platelet Count 320 K/UL (150-450) Mean Platelet Volume 6.9 FL (6.5-10.1) Neutrophils (%) (Auto) 81.8 % (45.0-75.0) H Lymphocytes (%) (Auto) 11.1 % (20.0-45.0) L Monocytes (%) (Auto) 6.7 % (1.0-10.0) Eosinophils (%) (Auto) 0.0 % (0.0-3.0) Basophils (%) (Auto) 0.5 % (0.0-2.0) Prothrombin Time 11.4 SEC (9.30-11.50) Prothromb Time International Ratio 1.1 (0.9-1.1) Activated Partial Thromboplast Time 21 SEC (23-33) L Sodium Level 145 mEQ/L (135-145) Potassium Level 3.6 mEQ/L (3.4-4.9) Chloride Level 104 mEQ/L (98-107) Carbon Dioxide Level 26 mEQ/L (20-30) Anion Gap 15 (5-15) Blood Urea Nitrogen 12 mg/dL (7-23) Creatinine 0.6 mg/dL (0.5-0.9) Estimat Glomerular Filtration Rate > 60 mL/min (>60) Glucose Level 139 mg/dL (74-106) H Calcium Level 9.7 mg/dL (8.6-10.2) Total Bilirubin 1.2 mg/dL (0.0-1.2) Direct Bilirubin 0.2 mg/dL (0.1-0.3) Aspartate Amino Transf (AST/SGOT) 21 U/L (5-40) Alanine Aminotransferase (ALT/SGPT) 14 U/L (3-33) Alkaline Phosphatase 92 U/L (35-104) Troponin I < 0.30 ng/mL (<=0.30) Total Protein 7.6 g/dL (6.6-8.7) Albumin 4.4 g/dL (3.5-5.2) Globulin 3.2 g/dL Albumin/Globulin Ratio 1.3 (1.0-2.7) Lipase 37 U/L (< 60) Urine Color Yellow Urine Appearance Clear Urine pH 6 (4.5-8.0) Urine Specific [place] 1.020 (1.005-1.035) Urine Protein 2+ (NEGATIVE) H Urine Glucose (UA) Negative (NEGATIVE) Urine Ketones 2+ (NEGATIVE) H Urine Occult Blood 4+ (NEGATIVE) H Urine Nitrite Negative (NEGATIVE) Urine Bilirubin Negative (NEGATIVE) Urine Urobilinogen 1 MG/DL (0.0-1.0) H Urine Leukocyte Esterase 1+ (NEGATIVE) H Urine RBC 5-10 /HPF (0 - 2) H Urine WBC 2-4 /HPF (0 - 2) Urine Squamous Epithelial Cells Few /LPF (NONE/OCC) Urine Amorphous Sediment Few /LPF (NONE) H Urine Bacteria Few /HPF (NONE) Urine Opiates Screen Negative (NEGATIVE) Urine Barbiturates Screen Negative (NEGATIVE) Phencyclidine (PCP) Screen Negative (NEGATIVE) Urine Amphetamines Screen Negative (NEGATIVE) Urine Benzodiazepines Screen Negative (NEGATIVE) Urine Cocaine Screen Negative (NEGATIVE) Urine Marijuana (THC) Screen Negative (NEGATIVE) Height (Feet): 5 Height (Inches): 6.00 Weight (Pounds): 130 Medications Current Medications Medications (Trade) Dose Ordered Sig/Ewa Route PRN Reason Start Time Stop Time Status Last Admin Dose Admin Acetaminophen (Tylenol) 650 mg Q4H PRN ORAL fever 04/11/17 19:45 05/11/17 19:44 Al Hydroxide/Mg Hydroxide (Mylanta II) 30 ml Q6H PRN ORAL dyspepsia 04/11/17 19:45 05/11/17 19:44 Dextrose STAT PRN IV Hypoglycemia 04/11/17 19:45 05/11/17 19:44 Dextrose/Sodium Chloride (D5 0.45% NS) 1,000 ml @ 75 mls/hr [id number] IV 04/11/17 21:00 05/11/17 20:59 04/11/17 21:31 Diphenhydramine HCl (Benadryl) 25 mg Q6H PRN ORAL Itching/Pruritis 04/11/17 19:45 05/11/17 19:44 Heparin Sodium (Porcine) (Heparin 5000 units/ml) 5,000 units EVERY 12 HOURS SUBQ 04/11/17 21:00 05/11/17 20:59 Hydromorphone HCl (Dilaudid) 1 mg Q4H PRN IVP For Severe Pain 04/11/17 22:00 04/18/17 21:59 04/11/17 23:25 Nitroglycerin (Ntg) 0.4 mg Q5M X 3 DOSES PRN SL Prn Chest Pain 04/11/17 19:45 05/11/17 19:44 Ondansetron HCl (Zofran) 4 mg Q6H PRN IVP Nausea & Vomiting 04/11/17 19:45 05/11/17 19:44 Pantoprazole (Protonix) 40 mg DAILY IVP 04/12/17 09:00 05/12/17 08:59 Piperacillin Sod/ Tazobactam Sod/ Sodium Chloride (Zosyn/Sodium Chloride) 110 ml @ 27.5 mls/hr EVERY 8 HOURS IVPB 04/11/17 22:00 04/18/17 21:59 04/12/17 05:43 Polyethylene Glycol (Miralax) 17 gm HSPRN PRN ORAL Constipation 04/11/17 19:45 05/11/17 19:44 Pregabalin (Lyrica) 75 mg THREE TIMES A DAY ORAL 04/12/17 21:00 8/15/17 20:59 Sucralfate 1 gm 1 gm FOUR TIMES A DAY ORAL 04/11/17 21:00 05/11/17 20:59 Temazepam (Restoril) 15 mg HSPRN PRN ORAL Insomnia 04/11/17 19:45 04/18/17 19:44 Assessment/Plan Assessment/Plan ASSESSMENT acute gastritis possible gastroenteritis abdominal pain ( due to above) nausea with vomiting leukocytosis hypokalemia PLAN OF CARE [facility] floor NPO IVF empiric abx ID consult GI consult DVT, GI prophylaxis Carafate a/emetic prn prior EGD with evidence of gastritis, H pylori negative ( done 3 months ago) this am mild elevation in liapse -66 and T bili-1.4 get abdominal US replace K, check K and Mg in am pain management bowel regimen case discussed and evaluated by supervising physician Murphy (Geoffreymariano)Nani NP Apr 12, 2017 07:36
[2017-04-12 07:38] LABS: BASOPHILS % (AUTO) 0.8 % (0.0-2.0); EOSINOPHILS % (AUTO) 0.1 % (0.0-3.0); LYMPHOCYTES % (AUTO) 26.8 % (20.0-45.0); MEAN CORPUSCULAR HEMOGLOBIN 33.4 PG (27.0-31.0); MEAN CORPUSCULAR HGB CONC 33.2 G/DL (32.0-36.0); MEAN CORPUSCULAR VOLUME 101 FL (80-99); MEAN PLATELET VOLUME 7.1 FL (6.5-10.1); MONOCYTES % (AUTO) 6.2 % (1.0-10.0); NEUTROPHILS % (AUTO) 66.2 % (45.0-75.0); PLATELET COUNT 306 K/UL (150-450); RED BLOOD COUNT 3.88 M/UL (4.20-5.40); WHITE BLOOD COUNT 13.8 K/UL (4.8-10.8)
--- NOTE | 2017-04-12 07:45 | Infectious Diseases Prog Note ---
Assessment/Plan Assessment/Plan ASSESSMENT: 62 y/o female with: // Acute gastritis - GI eval pending - LFTs, lipase WNL, trop neg x1, UDS(-) - KUB: Nonobstructive and nonspecific bowel gas pattern. - h/o H.pylori(-) gastritis, small hiatal hernia // Doubt UTI - asymptomatic // Leukocytosis - improved, afebrile ( some component of hemoconcentration ) // No ABX allergies // Full Code PLAN: - continue empiric zosyn d# 2 for now, may DC soon - f/u GI eval - monitor CBC, temperatures - monitor BMP - supportive care Subjective Allergies: Coded Allergies: CODEINE (Unverified Allergy, Unknown, 08/05/14) IBUPROFEN (Verified Allergy, Unknown, 08/05/15) Subjective remains afebrile N/V, pain improved Objective Vital Signs Last 24 Hour Vital Signs Date Time Temp Pulse Resp B/P Pulse Ox O2 Delivery O2 Flow Rate FiO2 04/12/17 04:37 98.1 59 18 105/59 96 Room Air 04/12/17 00:55 98.1 87 20 113/73 93 Room Air 04/11/17 23:57 97.5 04/11/17 22:15 97.5 57 20 113/69 98 Room Air 04/11/17 19:50 62 16 118/70 100 Room Air 04/11/17 19:50 98.2 62 16 118/70 100 Room Air 04/11/17 18:30 98.2 95 19 118/73 96 Room Air 04/11/17 17:45 99.8 04/11/17 17:30 99.3 52 13 150/71 98 Room Air 04/11/17 16:30 54 16 160/71 98 Room Air 04/11/17 16:12 98.1 98 16 120/80 99 Room Air Height (Feet): 5 Height (Inches): 6.00 Weight (Pounds): 130 General Appearance: no acute distress Respiratory/Chest: no respiratory distress Cardiovascular: normal rate, regular rhythm Abdomen: normal bowel sounds, non distended, tender Laboratory Tests Test 04/11/17 17:00 04/11/17 17:11 04/12/17 06:00 White Blood Count 14.9 K/UL (4.8-10.8) H 13.8 K/UL (4.8-10.8) H Red Blood Count 4.24 M/UL (4.20-5.40) 3.88 M/UL (4.20-5.40) L Hemoglobin 13.9 G/DL (12.0-16.0) 13.0 G/DL (12.0-16.0) Hematocrit 42.3 % (37.0-47.0) 39.0 % (37.0-47.0) Mean Corpuscular Volume 100 FL (80-99) H 101 FL (80-99) H Mean Corpuscular Hemoglobin 32.8 PG (27.0-31.0) H 33.4 PG (27.0-31.0) H Mean Corpuscular Hemoglobin Concent 32.8 G/DL (32.0-36.0) 33.2 G/DL (32.0-36.0) Red Cell Distribution Width 11.0 % (11.6-14.8) L 11.0 % (11.6-14.8) L Platelet Count 320 K/UL (150-450) 306 K/UL (150-450) Mean Platelet Volume 6.9 FL (6.5-10.1) 7.1 FL (6.5-10.1) Neutrophils (%) (Auto) 81.8 % (45.0-75.0) H 66.2 % (45.0-75.0) Lymphocytes (%) (Auto) 11.1 % (20.0-45.0) L 26.8 % (20.0-45.0) Monocytes (%) (Auto) 6.7 % (1.0-10.0) 6.2 % (1.0-10.0) Eosinophils (%) (Auto) 0.0 % (0.0-3.0) 0.1 % (0.0-3.0) Basophils (%) (Auto) 0.5 % (0.0-2.0) 0.8 % (0.0-2.0) Prothrombin Time 11.4 SEC (9.30-11.50) Prothromb Time International Ratio 1.1 (0.9-1.1) Activated Partial Thromboplast Time 21 SEC (23-33) L 23 SEC (23-33) Sodium Level 145 mEQ/L (135-145) Pending Potassium Level 3.6 mEQ/L (3.4-4.9) Pending Chloride Level 104 mEQ/L (98-107) Pending Carbon Dioxide Level 26 mEQ/L (20-30) Pending Anion Gap 15 (5-15) Blood Urea Nitrogen 12 mg/dL (7-23) Pending Creatinine 0.6 mg/dL (0.5-0.9) Pending Estimat Glomerular Filtration Rate > 60 mL/min (>60) Pending Glucose Level 139 mg/dL (74-106) H Pending Calcium Level 9.7 mg/dL (8.6-10.2) Pending Total Bilirubin 1.2 mg/dL (0.0-1.2) Pending Direct Bilirubin 0.2 mg/dL (0.1-0.3) Aspartate Amino Transf (AST/SGOT) 21 U/L (5-40) Pending Alanine Aminotransferase (ALT/SGPT) 14 U/L (3-33) Pending Alkaline Phosphatase 92 U/L (35-104) Pending Troponin I < 0.30 ng/mL (<=0.30) Total Protein 7.6 g/dL (6.6-8.7) Pending Albumin 4.4 g/dL (3.5-5.2) Pending Globulin 3.2 g/dL Pending Albumin/Globulin Ratio 1.3 (1.0-2.7) Lipase 37 U/L (< 60) Pending Urine Color Yellow Urine Appearance Clear Urine pH 6 (4.5-8.0) Urine Specific [place] 1.020 (1.005-1.035) Urine Protein 2+ (NEGATIVE) H Urine Glucose (UA) Negative (NEGATIVE) Urine Ketones 2+ (NEGATIVE) H Urine Occult Blood 4+ (NEGATIVE) H Urine Nitrite Negative (NEGATIVE) Urine Bilirubin Negative (NEGATIVE) Urine Urobilinogen 1 MG/DL (0.0-1.0) H Urine Leukocyte Esterase 1+ (NEGATIVE) H Urine RBC 5-10 /HPF (0 - 2) H Urine WBC 2-4 /HPF (0 - 2) Urine Squamous Epithelial Cells Few /LPF (NONE/OCC) Urine Amorphous Sediment Few /LPF (NONE) H Urine Bacteria Few /HPF (NONE) Urine Opiates Screen Negative (NEGATIVE) Urine Barbiturates Screen Negative (NEGATIVE) Phencyclidine (PCP) Screen Negative (NEGATIVE) Urine Amphetamines Screen Negative (NEGATIVE) Urine Benzodiazepines Screen Negative (NEGATIVE) Urine Cocaine Screen Negative (NEGATIVE) Urine Marijuana (THC) Screen Negative (NEGATIVE) Amylase Level Pending Current Medications Medications (Trade) Dose Ordered Sig/Ewa Route PRN Reason Start Time Stop Time Status Last Admin Dose Admin Acetaminophen (Tylenol) 650 mg Q4H PRN ORAL fever 04/11/17 19:45 05/11/17 19:44 Al Hydroxide/Mg Hydroxide (Mylanta II) 30 ml Q6H PRN ORAL dyspepsia 04/11/17 19:45 05/11/17 19:44 Dextrose STAT PRN IV Hypoglycemia 04/11/17 19:45 05/11/17 19:44 Dextrose/Sodium Chloride (D5 0.45% NS) 1,000 ml @ 75 mls/hr [id number] IV 04/11/17 21:00 05/11/17 20:59 04/11/17 21:31 Diphenhydramine HCl (Benadryl) 25 mg Q6H PRN ORAL Itching/Pruritis 04/11/17 19:45 05/11/17 19:44 Heparin Sodium (Porcine) (Heparin 5000 units/ml) 5,000 units EVERY 12 HOURS SUBQ 04/11/17 21:00 05/11/17 20:59 Hydromorphone HCl (Dilaudid) 1 mg Q4H PRN IVP For Severe Pain 04/11/17 22:00 04/18/17 21:59 04/11/17 23:25 Nitroglycerin (Ntg) 0.4 mg Q5M X 3 DOSES PRN SL Prn Chest Pain 04/11/17 19:45 05/11/17 19:44 Ondansetron HCl (Zofran) 4 mg Q6H PRN IVP Nausea & Vomiting 04/11/17 19:45 05/11/17 19:44 Pantoprazole (Protonix) 40 mg DAILY IVP 04/12/17 09:00 05/12/17 08:59 Piperacillin Sod/ Tazobactam Sod/ Sodium Chloride (Zosyn/Sodium Chloride) 110 ml @ 27.5 mls/hr EVERY 8 HOURS IVPB 04/11/17 22:00 04/18/17 21:59 04/12/17 05:43 Polyethylene Glycol (Miralax) 17 gm HSPRN PRN ORAL Constipation 04/11/17 19:45 05/11/17 19:44 Pregabalin (Lyrica) 75 mg THREE TIMES A DAY ORAL 04/12/17 21:00 05/12/17 20:59 Sucralfate 1 gm 1 gm FOUR TIMES A DAY ORAL 04/11/17 21:00 05/11/17 20:59 Temazepam (Restoril) 15 mg HSPRN PRN ORAL Insomnia 04/11/17 19:45 04/18/17 19:44 JENN QUINTANA Apr 12, 2017 07:45
[2017-04-12] MEDS: HYDROmorphone 1mg/ml Carpuject IVP PRN ×4 (07:58→20:13)
[2017-04-12 08:03] LABS: ALANINE AMINOTRANSFERASE 13 U/L (3-33); ALBUMIN/GLOBULIN RATIO 1.3 (1.0-2.7); AMYLASE 91 U/L (10-110); ANION GAP 17 (5-15); ASPARTATE AMINO TRANSFERASE 15 U/L (5-40); CALCIUM 9.6 mg/dL (8.6-10.2); CARBON DIOXIDE 26 mEQ/L (20-30); CHLORIDE 103 mEQ/L (98-107); CREATININE 0.6 mg/dL (0.5-0.9); GLOMERULAR FILTRATION RATE > 60 mL/min (>60); HEMOLYSIS 10; LIPASE 66 U/L (< 60); POTASSIUM 3.3 mEQ/L (3.4-4.9); SODIUM 146 mEQ/L (135-145); TOTAL PROTEIN 7.2 g/dL (6.6-8.7)
[2017-04-12 08:20] LABS: BILIRUBIN,DIRECT 0.2 mg/dL (0.1-0.3)
[2017-04-12 08:37] VITALS: BP 111/76
[2017-04-12] MEDS: Sucralfate 1gm tab ORAL SCH ×4 (08:51→20:02)
[2017-04-12] MEDS: Pantoprazole Inj IVP SCH (08:52)
[2017-04-12] MEDS: Heparin 5000 units/ml inj SUBQ SCH ×2 (08:52→20:13)
[2017-04-12] MEDS: D5 1/2NS 1,000 ML IV SCH ×2 (10:25→23:57)
[2017-04-12 12:35] VITALS: BP 120/74
--- NOTE | 2017-04-12 14:00 | History and Physical Report ---
DATE OF ADMISSION: 04/11/2017 TIME SEEN: 8 a.m. CONSULTANTS: 1. Broderick Smith M.D. 2. Belinda Pelletier M.D. CHIEF COMPLAINT: Abdominal pain, vomiting, UTI, and hiatal hernia. BRIEF HISTORY: This is a 62-year-old female, who lives at home presents with one day increased nausea and vomiting. She does have history of hiatal hernia and last episode of vomiting was about three months ago. She became very weak and dehydrated and came into [facility], diagnosed with above, and admitted to Medical floor. Currently, calm in bed, feeling little bit better. No vomiting this morning. No complaints . PAST MEDICAL HISTORY: Include hiatal hernia and diabetes. PAST SURGICAL HISTORY: Hip replacement. MEDICATION: Include Lyrica, Protonix, Zosyn, Dilaudid, Carafate, heparin subcu, Tylenol, MiraLax, Zofran, Restoril, Benadryl, Mylanta, and nitroglycerin. ALLERGIES: Codeine and Motrin. SOCIAL HISTORY: No smoking or alcohol. No intravenous drug abuse. FAMILY HISTORY: Noncontributory. REVIEW OF SYSTEMS: No chest pain/short of breath. No nausea or vomiting. No diarrhea. PHYSICAL EXAMINATION: GENERAL: Slightly anxious in bed, oriented x3, in no acute distress. VITAL SIGNS: Temperature 98.0 degrees, pulse 59, respiratory rate 18, and blood pressure 105/59. CARDIOVASCULAR: No murmurs. LUNGS: Poor exchange. ABDOMEN: Bowel sound positive. Nontender and nondistended. EXTREMITIES: No cyanosis, clubbing, or edema. NEUROLOGIC: Cranial nerves II through XII are grossly intact. . Strength 4/5. LABORATORY AND DIAGNOSTIC DATA: Lab data show white count 13.8, otherwise CBC is normal. BMP show sodium of 146, potassium 3.3, glucose 107, otherwise BMP is normal. INR is 1.1. Urinalysis show 1+ leukocyte esterase. Urine toxicology is negative. ASSESSMENT: 1. Pain. 2. Vomiting. 3. Dehydration. 4. Urinary tract infection. 5. Hiatal hernia. 6. Diabetes. 7. Hypernatremia. 8. Hypokalemia. PLAN: 1. Continue premedications. 2. OT, PT, and dietary evaluation. 3. Dr. Smith, Dr. Brooks, Dr. Pelletier, and Dr. Howard to consult. 4. We will continue to follow this patient. Aneudy Zapata D.O. DR: Elen JOB#: [id number] CC:
[2017-04-12 16:31] VITALS: BP 102/63
[2017-04-12] MEDS: Lyrica 75mg cap ORAL SCH (20:01)
[2017-04-12 20:18] VITALS: BP 134/83
[2017-04-13 00:28] VITALS: BP 103/72
[2017-04-13] MEDS: HYDROmorphone 1mg/ml Carpuject IVP PRN ×4 (03:38→17:19)
[2017-04-13 04:00] VITALS: BP 113/76
[2017-04-13] MEDS: Piperacillin/Tazobactam 3.375 GM in NS 110 ML IVPB SCH (06:00)
[2017-04-13 06:57] LABS: EOSINOPHILS % (AUTO) 2.5 % (0.0-3.0); LYMPHOCYTES % (AUTO) 34.1 % (20.0-45.0); MEAN CORPUSCULAR HGB CONC 33.8 G/DL (32.0-36.0); MEAN CORPUSCULAR VOLUME 101 FL (80-99); MEAN PLATELET VOLUME 7.3 FL (6.5-10.1); MONOCYTES % (AUTO) 7.1 % (1.0-10.0); NEUTROPHILS % (AUTO) 55.3 % (45.0-75.0); PLATELET COUNT 259 K/UL (150-450); RED BLOOD COUNT 3.62 M/UL (4.20-5.40); WHITE BLOOD COUNT 8.7 K/UL (4.8-10.8)
[2017-04-13 07:14] LABS: ALANINE AMINOTRANSFERASE 13 U/L (3-33); ALBUMIN/GLOBULIN RATIO 1.3 (1.0-2.7); ANION GAP 12 (5-15); ASPARTATE AMINO TRANSFERASE 16 U/L (5-40); CALCIUM 8.8 mg/dL (8.6-10.2); CARBON DIOXIDE 27 mEQ/L (20-30); CHLORIDE 104 mEQ/L (98-107); CREATININE 0.7 mg/dL (0.5-0.9); GLOMERULAR FILTRATION RATE > 60 mL/min (>60); HEMOLYSIS 1; LIPASE 70 U/L (< 60); SODIUM 143 mEQ/L (135-145); TOTAL PROTEIN 6.1 g/dL (6.6-8.7)
[2017-04-13 07:55] VITALS: BP 116/67
[2017-04-13] MEDS: Pantoprazole Inj IVP SCH (08:19)
[2017-04-13] MEDS: Lyrica 75mg cap ORAL SCH ×3 (08:19→17:19)
[2017-04-13] MEDS: Sucralfate 1gm tab ORAL SCH ×4 (08:19→21:13)
[2017-04-13] MEDS: Heparin 5000 units/ml inj SUBQ SCH ×2 (08:24→21:16)
--- NOTE | 2017-04-13 10:26 | Infectious Diseases Prog Note ---
Assessment/Plan Assessment/Plan ASSESSMENT: 62 y/o female with: // Acute gastritis - GI eval pending - LFTs, lipase WNL, trop neg x1, UDS(-) - KUB: Nonobstructive and nonspecific bowel gas pattern. - h/o H.pylori(-) gastritis, small hiatal hernia // Doubt UTI - asymptomatic // Leukocytosis - SP // No ABX allergies // Full Code PLAN: - DC zosyn d# 3 , and monitor pt off of AB Rx - f/u GI eval - monitor CBC, temperatures - monitor BMP - supportive care Subjective Constitutional: Denies: anorexia, chills, drenching sweats, fatigue, fever, no symptoms, other Allergies: Coded Allergies: CODEINE (Unverified Allergy, Unknown, 08/05/14) IBUPROFEN (Verified Allergy, Unknown, 08/05/15) Objective Vital Signs Last 24 Hour Vital Signs Date Time Temp Pulse Resp B/P Pulse Ox O2 Delivery O2 Flow Rate FiO2 04/13/17 09:24 97.5 04/13/17 09:18 97.5 04/13/17 07:55 97.5 74 20 116/67 95 Room Air 04/13/17 04:00 97.7 67 18 113/76 93 Room Air 04/13/17 00:28 97.3 56 19 103/72 95 Room Air 04/12/17 20:18 98.1 63 18 134/83 95 Room Air 04/12/17 16:31 97.7 57 19 102/63 95 Room Air 04/12/17 12:35 96.6 53 19 120/74 96 Room Air Height (Feet): 5 Height (Inches): 6.00 Weight (Pounds): 130 HEENT: anicteric Respiratory/Chest: normal breath sounds Cardiovascular: regular rhythm Abdomen: no organomegaly Laboratory Tests Test 04/13/17 04:55 White Blood Count 8.7 K/UL (4.8-10.8) Red Blood Count 3.62 M/UL (4.20-5.40) L Hemoglobin 12.3 G/DL (12.0-16.0) Hematocrit 36.5 % (37.0-47.0) L Mean Corpuscular Volume 101 FL (80-99) H Mean Corpuscular Hemoglobin 34.0 PG (27.0-31.0) H Mean Corpuscular Hemoglobin Concent 33.8 G/DL (32.0-36.0) Red Cell Distribution Width 11.0 % (11.6-14.8) L Platelet Count 259 K/UL (150-450) Mean Platelet Volume 7.3 FL (6.5-10.1) Neutrophils (%) (Auto) 55.3 % (45.0-75.0) Lymphocytes (%) (Auto) 34.1 % (20.0-45.0) Monocytes (%) (Auto) 7.1 % (1.0-10.0) Eosinophils (%) (Auto) 2.5 % (0.0-3.0) Basophils (%) (Auto) 1.0 % (0.0-2.0) Sodium Level 143 mEQ/L (135-145) Potassium Level 3.0 mEQ/L (3.4-4.9) L Chloride Level 104 mEQ/L (98-107) Carbon Dioxide Level 27 mEQ/L (20-30) Anion Gap 12 (5-15) Blood Urea Nitrogen 19 mg/dL (7-23) Creatinine 0.7 mg/dL (0.5-0.9) Estimat Glomerular Filtration Rate > 60 mL/min (>60) Glucose Level 95 mg/dL (74-106) Calcium Level 8.8 mg/dL (8.6-10.2) Magnesium Level 2.0 mg/dL (1.7-2.5) Total Bilirubin 1.0 mg/dL (0.0-1.2) Aspartate Amino Transf (AST/SGOT) 16 U/L (5-40) Alanine Aminotransferase (ALT/SGPT) 13 U/L (3-33) Alkaline Phosphatase 77 U/L (35-104) Total Protein 6.1 g/dL (6.6-8.7) L Albumin 3.5 g/dL (3.5-5.2) Globulin 2.6 g/dL Albumin/Globulin Ratio 1.3 (1.0-2.7) Lipase 70 U/L (< 60) H Current Medications Medications (Trade) Dose Ordered Sig/Ewa Route PRN Reason Start Time Stop Time Status Last Admin Dose Admin Acetaminophen (Tylenol) 650 mg Q4H PRN ORAL fever 04/11/17 19:45 05/11/17 19:44 Al Hydroxide/Mg Hydroxide (Mylanta II) 30 ml Q6H PRN ORAL dyspepsia 04/11/17 19:45 05/11/17 19:44 Dextrose STAT PRN IV Hypoglycemia 04/11/17 19:45 05/11/17 19:44 Dextrose/Sodium Chloride (D5 0.45% NS) 1,000 ml @ 75 mls/hr [id number] IV 04/11/17 21:00 05/11/17 20:59 04/12/17 23:57 Diphenhydramine HCl (Benadryl) 25 mg Q6H PRN ORAL Itching/Pruritis 04/11/17 19:45 05/11/17 19:44 Heparin Sodium (Porcine) (Heparin 5000 units/ml) 5,000 units EVERY 12 HOURS SUBQ 04/11/17 21:00 05/11/17 20:59 04/13/17 08:24 Hydromorphone HCl 1 mg 1 mg Q4H PRN IVP For Severe Pain 04/11/17 22:00 04/18/17 21:59 04/13/17 08:54 Nitroglycerin (Ntg) 0.4 mg Q5M X 3 DOSES PRN SL Prn Chest Pain 04/11/17 19:45 05/11/17 19:44 Ondansetron HCl (Zofran) 4 mg Q6H PRN IVP Nausea & Vomiting 04/11/17 19:45 05/11/17 19:44 04/13/17 07:37 Pantoprazole (Protonix) 40 mg DAILY IVP 04/12/17 09:00 05/12/17 08:59 04/13/17 08:19 Piperacillin Sod/ Tazobactam Sod/ Sodium Chloride (Zosyn/Sodium Chloride) 110 ml @ 27.5 mls/hr EVERY 8 HOURS IVPB 04/11/17 22:00 04/18/17 21:59 04/13/17 06:00 Polyethylene Glycol (Miralax) 17 gm HSPRN PRN ORAL Constipation 04/11/17 19:45 05/11/17 19:44 Potassium Chloride (KCl 10mEq/100ml Premix) 100 ml @ 100 mls/hr Q1HR IVPB 04/13/17 11:00 04/13/17 14:59 Pregabalin (Lyrica) 75 mg THREE TIMES A DAY ORAL 04/12/17 21:00 05/12/17 20:59 04/13/17 08:19 Sucralfate 1 gm 1 gm FOUR TIMES A DAY ORAL 04/11/17 21:00 05/11/17 20:59 04/13/17 08:19 Temazepam (Restoril) 15 mg HSPRN PRN ORAL Insomnia 04/11/17 19:45 04/18/17 19:44 MIGUEL ANGEL CHRISTENSEN M.D. Apr 13, 2017 10:26
[2017-04-13 12:00] VITALS: BP 140/80
[2017-04-13] MEDS: D5 1/2NS 1,000 ML IV SCH (12:29)
--- NOTE | 2017-04-13 13:31 | Pulmonology Progress Note ---
Assessment/Plan Problems: (1) Persistent vomiting (2) Gastritis (3) Pyuria Assessment/Plan wbc decreasing advance diet symptomatic treatment GI evaluation Subjective ROS Limited/Unobtainable: No Interval Events: feeling better, less nauseous Allergies: Coded Allergies: CODEINE (Unverified Allergy, Unknown, 08/05/14) IBUPROFEN (Verified Allergy, Unknown, 08/05/15) Objective Last 24 Hour Vital Signs Date Time Temp Pulse Resp B/P Pulse Ox O2 Delivery O2 Flow Rate FiO2 04/13/17 12:00 97.9 83 18 140/80 92 Room Air 04/13/17 09:24 97.5 04/13/17 09:18 97.5 04/13/17 07:55 97.5 74 20 116/67 95 Room Air 04/13/17 04:00 97.7 67 18 113/76 93 Room Air 04/13/17 00:28 97.3 56 19 103/72 95 Room Air 04/12/17 20:18 98.1 63 18 134/83 95 Room Air 04/12/17 16:31 97.7 57 19 102/63 95 Room Air Intake and Output 04/12/17 04/13/17 19:00 07:00 Intake Total 539.5 ml 750 ml Balance 539.5 ml 750 ml Intake IV Total 539.5 ml 750 ml # Voids 4 General Appearance: WD/WN HEENT: normocephalic, atraumatic Respiratory/Chest: chest wall non-tender, lungs clear Breasts: no masses Cardiovascular: normal peripheral pulses, normal rate, regular rhythm Abdomen: normal bowel sounds, soft, non tender Extremities: no cyanosis, no clubbing 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, no motor/sensory deficits, normal mood/affect Lymphatic: no groin adenopathy Musculoskeletal: no effusion Laboratory Tests 04/13/17 04:55: White Blood Count 8.7, Red Blood Count 3.62L, Hemoglobin 12.3, Hematocrit 36.5L , Mean Corpuscular Volume 101H, Mean Corpuscular Hemoglobin 34.0H, Mean Corpuscular Hemoglobin Concent 33.8, Red Cell Distribution Width 11.0L, Platelet Count 259, Mean Platelet Volume 7.3, Neutrophils (%) (Auto) 55.3, Lymphocytes (%) (Auto) 34.1, Monocytes (%) (Auto) 7.1, Eosinophils (%) (Auto) 2.5, Basophils (%) (Auto) 1.0, Sodium Level 143, Potassium Level 3.0L, Chloride Level 104, Carbon Dioxide Level 27, Anion Gap 12, Blood Urea Nitrogen 19, Creatinine 0.7, Estimat Glomerular Filtration Rate > 60, Glucose Level 95, Calcium Level 8.8, Magnesium Level 2.0, Total Bilirubin 1.0, Aspartate Amino Transf (AST/SGOT) 16, Alanine Aminotransferase (ALT/SGPT) 13, Alkaline Phosphatase 77, Total Protein 6.1L, Albumin 3.5, Globulin 2.6, Albumin/Globulin Ratio 1.3, Lipase 70H Current Medications Medications (Trade) Dose Ordered Sig/Ewa Route PRN Reason Start Time Stop Time Status Last Admin Dose Admin Acetaminophen (Tylenol) 650 mg Q4H PRN ORAL fever 04/11/17 19:45 05/11/17 19:44 Al Hydroxide/Mg Hydroxide (Mylanta II) 30 ml Q6H PRN ORAL dyspepsia 04/11/17 19:45 05/11/17 19:44 Dextrose (Dextrose 50%) STAT PRN IV Hypoglycemia 04/11/17 19:45 05/11/17 19:44 Dextrose/Sodium Chloride (D5 0.45% NS) 1,000 ml @ 75 mls/hr [id number] IV 04/11/17 21:00 05/11/17 20:59 04/13/17 12:29 Diphenhydramine HCl (Benadryl) 25 mg Q6H PRN ORAL Itching/Pruritis 04/11/17 19:45 05/11/17 19:44 Heparin Sodium (Porcine) (Heparin 5000 units/ml) 5,000 units EVERY 12 HOURS SUBQ 04/11/17 21:00 05/11/17 20:59 04/13/17 08:24 Hydromorphone HCl 1 mg 1 mg Q4H PRN IVP For Severe Pain 04/11/17 22:00 04/18/17 21:59 04/13/17 12:56 Nitroglycerin (Ntg) 0.4 mg Q5M X 3 DOSES PRN SL Prn Chest Pain 04/11/17 19:45 05/11/17 19:44 Ondansetron HCl (Zofran) 4 mg Q6H PRN IVP Nausea & Vomiting 04/11/17 19:45 05/11/17 19:44 04/13/17 13:22 Pantoprazole (Protonix) 40 mg DAILY IVP 04/12/17 09:00 05/12/17 08:59 04/13/17 08:19 Polyethylene Glycol (Miralax) 17 gm HSPRN PRN ORAL Constipation 04/11/17 19:45 05/11/17 19:44 Potassium Chloride (KCl 10mEq/100ml Premix) 100 ml @ 100 mls/hr Q1HR IVPB 04/13/17 11:00 04/13/17 14:59 04/13/17 13:23 Pregabalin (Lyrica) 75 mg THREE TIMES A DAY ORAL 04/12/17 21:00 05/12/17 20:59 04/13/17 12:28 Sucralfate 1 gm 1 gm FOUR TIMES A DAY ORAL 04/11/17 21:00 05/11/17 20:59 04/13/17 12:28 Temazepam (Restoril) 15 mg HSPRN PRN ORAL Insomnia 04/11/17 19:45 04/18/17 19:44 ERICA LICONA Apr 13, 2017 13:31
--- NOTE | 2017-04-13 13:45 | General Progress Note ---
Assessment/Plan Problem List: (1) Chest pain ICD Codes: R07.9 - Chest pain, unspecified SNOMED: 74941144 (2) Abdominal pain with vomiting ICD Codes: R10.9 - Unspecified abdominal pain; R11.10 - Vomiting, unspecified SNOMED: 27993574, 039827920 (3) Hiatal hernia ICD Codes: K44.9 - Diaphragmatic hernia without obstruction or gangrene SNOMED: 91151415 (4) Pyuria ICD Codes: N39.0 - Urinary tract infection, site not specified SNOMED: 1554680, 378820039, 823833395 (5) Persistent vomiting ICD Codes: R11.10 - Vomiting, unspecified SNOMED: 599124892 Status: stable, progressing, tolerating diet Assessment/Plan ot pt diet gi f/u adv diet cbc bmp am Subjective Constitutional: Reports: weakness Gastrointestinal/Abdominal: Reports: nausea Allergies: Coded Allergies: CODEINE (Unverified Allergy, Unknown, 08/05/14) IBUPROFEN (Verified Allergy, Unknown, 08/05/15) All Systems: reviewed and negative except above Subjective on clears Objective Last 24 Hour Vital Signs Date Time Temp Pulse Resp B/P Pulse Ox O2 Delivery O2 Flow Rate FiO2 04/13/17 13:27 97.9 04/13/17 13:26 97.9 04/13/17 12:00 97.9 83 18 140/80 92 Room Air 04/13/17 07:55 97.5 74 20 116/67 95 Room Air 04/13/17 04:00 97.7 67 18 113/76 93 Room Air 04/13/17 00:28 97.3 56 19 103/72 95 Room Air 04/12/17 20:18 98.1 63 18 134/83 95 Room Air 04/12/17 16:31 97.7 57 19 102/63 95 Room Air Intake and Output 04/12/17 04/13/17 19:00 07:00 Intake Total 539.5 ml 750 ml Balance 539.5 ml 750 ml Intake IV Total 539.5 ml 750 ml # Voids 4 Laboratory Tests 04/13/17 04:55: White Blood Count 8.7, Red Blood Count 3.62L, Hemoglobin 12.3, Hematocrit 36.5L , Mean Corpuscular Volume 101H, Mean Corpuscular Hemoglobin 34.0H, Mean Corpuscular Hemoglobin Concent 33.8, Red Cell Distribution Width 11.0L, Platelet Count 259, Mean Platelet Volume 7.3, Neutrophils (%) (Auto) 55.3, Lymphocytes (%) (Auto) 34.1, Monocytes (%) (Auto) 7.1, Eosinophils (%) (Auto) 2.5, Basophils (%) (Auto) 1.0, Sodium Level 143, Potassium Level 3.0L, Chloride Level 104, Carbon Dioxide Level 27, Anion Gap 12, Blood Urea Nitrogen 19, Creatinine 0.7, Estimat Glomerular Filtration Rate > 60, Glucose Level 95, Calcium Level 8.8, Magnesium Level 2.0, Total Bilirubin 1.0, Aspartate Amino Transf (AST/SGOT) 16, Alanine Aminotransferase (ALT/SGPT) 13, Alkaline Phosphatase 77, Total Protein 6.1L, Albumin 3.5, Globulin 2.6, Albumin/Globulin Ratio 1.3, Lipase 70H Height (Feet): 5 Height (Inches): 6.00 Weight (Pounds): 130 General Appearance: lethargic EENT: normal ENT inspection Neck: normal alignment Cardiovascular: normal peripheral pulses, normal rate, regular rhythm Respiratory/Chest: chest wall non-tender, lungs clear, normal breath sounds Extremities: normal inspection Edema: no edema noted Arm (L), no edema noted Arm (R), no edema noted Leg (L), no edema noted Leg (R), no edema noted Pedal (L), no edema noted Pedal (R), no edema noted Generalized Neurologic: responsive, motor weakness Skin: normal pigmentation, warm/dry JOY GUERRA Apr 13, 2017 13:45
--- NOTE | 2017-04-13 15:05 | Diagnostic Imaging Report ---
Indication:Elevated LFTs and lipase Technique: Grayscale and duplex Doppler imaging of the abdomen performed. Comparison: None Findings: The liver, demonstrated part of the pancreas, gallbladder, aorta and IVC, both kidneys, spleen appear unremarkable. There is no biliary ductal dilatation identified. CBD is 7 mm. Doppler evaluation of the main portal vein shows patency. There is no ascites. No hydronephrosis seen. Impression: Negative abdominal ultrasound.
[2017-04-13 16:00] VITALS: BP 120/72
--- NOTE | 2017-04-13 16:06 | GI Initial Consult Note ---
History of Present Illness General Date patient seen: Apr 13, 2017 Time patient seen: 11:00 Reason for Hospitalization: Nausea, Vomiting, and Diarrhea Referring physician: dr Zapata Reason for Consultation: GASTROENTERITIS Present Illness HPI The patient is a 62-year-old female who presented after increased epigastric pain and vomiting. Patient had been noted to have similar symptoms and been in the emergency department last night. Patient was offered admission but decided to leave hospital. Patient returned after she began having increased vomiting again. The patient had not been having fever. She reported having episodes of vomiting of bilious material. She denied any hematemesis or bloody stools. Patient reported having normal bowel movements. She had prior C-sections. She denied other abdominal surgeries. She had previous endoscopy performed which showed evidence of the gastritis as well as esophageal abnormalities. GI Consult. HPI as noted above. GI consulted for management of gastroenteritis. Pt seen on floor, awake A&Ox4 NAD with no active s/sx of N/V/ D. Per patient, she' had multiple episodes of emesis over a period of 2 days. She contributes the emesis due to her hiatal hernia which was dx during a recent EGD performed here at [facility] on 01/22/17 >> bx report shows NO H. Pylori. In addition, the patient stated she had a colonoscopy x 2.5 years ago with unremarkable results. She presents today with elevated lipase. CBC, LFTs , utox unremarkable. Abdominal U/S negative. Denies any hematemesis or coffee grounds. States she had 25 lbs intentional weight loss. Eats healthy. Home Meds Active Scripts Ondansetron Odt* (ZOFRAN ODT*) 4 Mg Tab.rapdis, 4 MG ORAL Q8HR Y for Nausea & Vomiting, #6 TAB 1 Refill Prov:Emilio Lee M.D. 04/11/17 Acetaminophen (Tylenol) 325 Mg Tablet, 650 MG ORAL Q6H Y for Prn Pain/Headache/ Temp > 101, #30 TAB 0 Refills Prov:Emilio Lee M.D. 04/11/17 Hydrocodone Bit/Acetaminophen 5-325* (NORCO 5-325*) 1 Each Tablet, 1 TAB ORAL Q6H Y for For Pain, #10 TAB 0 Refills Prov:Emilio Lee M.D. 04/11/17 Famotidine (PEPCID) 20 Mg Tablet, 20 MG ORAL DAILY, #30 TAB 0 Refills Prov:Emilio Lee M.D. 04/11/17 Omeprazole (OMEPRAZOLE) 40 Mg Capsule., 40 MG ORAL DAILY, #30 CAP Prov:WALLY FARIA 08/07/15 Sucralfate* (CARAFATE*) 1 Gm Tablet, 1 GM ORAL FOUR TIMES A DAY, #120 TAB Prov:WALLY FARIA 08/07/15 Reported Medications Pregabalin* (LYRICA*) 75 Mg Capsule, 75 MG ORAL THREE TIMES A DAY, CAP 04/10/17 Aspirin* (ASPIR 81*) 81 Mg Tablet., 162 MG ORAL DAILY, TAB 01/20/17 Benzonatate* (TESSALON PERLE*) 100 Mg Capsule, 100 MG ORAL THREE TIMES A DAY Y for For Cough, #40 PERLE 08/05/16 Pantoprazole* (PROTONIX*) 40 Mg Tablet.dr, 40 MG ORAL DAILY, #30 TAB 08/05/16 Ondansetron Odt* (ZOFRAN ODT*) 4 Mg Tab.rapdis, 4 MG ORAL Q6H Y for Nausea & Vomiting, #40 TAB 08/05/16 No Known Medications* (NKM - No Known Medications*) ., 0 ., 0 Refills 08/05/15 Med list reviewed/reconciled: Yes Allergies: Coded Allergies: CODEINE (Unverified Allergy, Unknown, 08/05/14) IBUPROFEN (Verified Allergy, Unknown, 08/05/15) Patient History History Provided By: Patient, Medical Record PMH Narrative Past Medical History: see triage record Now: No Reviewed Nursing Documentation: PMH: Agreed, PSxH: Agreed Nursing Documentation-PMH Past Medical History: No Stated History Hx Cancer: No Hx Neurological Problems: No Social History: Denies: alcohol use, drug use, other, smoking Review of Systems All Other Systems: negative except mentioned in HPI Physical Exam Vital Signs Date Time Temp Pulse Resp B/P Pulse Ox O2 Delivery O2 Flow Rate FiO2 04/11/17 16:12 98.1 98 16 120/80 99 Room Air Sp02 EP Interpretation: reviewed Labs Laboratory Tests Test 04/13/17 04:55 White Blood Count 8.7 K/UL (4.8-10.8) Red Blood Count 3.62 M/UL (4.20-5.40) L Hemoglobin 12.3 G/DL (12.0-16.0) Hematocrit 36.5 % (37.0-47.0) L Mean Corpuscular Volume 101 FL (80-99) H Mean Corpuscular Hemoglobin 34.0 PG (27.0-31.0) H Mean Corpuscular Hemoglobin Concent 33.8 G/DL (32.0-36.0) Red Cell Distribution Width 11.0 % (11.6-14.8) L Platelet Count 259 K/UL (150-450) Mean Platelet Volume 7.3 FL (6.5-10.1) Neutrophils (%) (Auto) 55.3 % (45.0-75.0) Lymphocytes (%) (Auto) 34.1 % (20.0-45.0) Monocytes (%) (Auto) 7.1 % (1.0-10.0) Eosinophils (%) (Auto) 2.5 % (0.0-3.0) Basophils (%) (Auto) 1.0 % (0.0-2.0) Sodium Level 143 mEQ/L (135-145) Potassium Level 3.0 mEQ/L (3.4-4.9) L Chloride Level 104 mEQ/L (98-107) Carbon Dioxide Level 27 mEQ/L (20-30) Anion Gap 12 (5-15) Blood Urea Nitrogen 19 mg/dL (7-23) Creatinine 0.7 mg/dL (0.5-0.9) Estimat Glomerular Filtration Rate > 60 mL/min (>60) Glucose Level 95 mg/dL (74-106) Calcium Level 8.8 mg/dL (8.6-10.2) Magnesium Level 2.0 mg/dL (1.7-2.5) Total Bilirubin 1.0 mg/dL (0.0-1.2) Aspartate Amino Transf (AST/SGOT) 16 U/L (5-40) Alanine Aminotransferase (ALT/SGPT) 13 U/L (3-33) Alkaline Phosphatase 77 U/L (35-104) Total Protein 6.1 g/dL (6.6-8.7) L Albumin 3.5 g/dL (3.5-5.2) Globulin 2.6 g/dL Albumin/Globulin Ratio 1.3 (1.0-2.7) Lipase 70 U/L (< 60) H General Appearance: well appearing, no apparent distress, alert Head: normocephalic EENT: PERRL/EOMI, normal ENT inspection Neck: normal inspection, full range of motion, supple Respiratory: normal inspection, normal breath sounds, no respiratory distress Cardiovascular: normal rate Gastrointestinal: normal inspection, non tender, soft, normal bowel sounds Rectal: deferred Genitourinary: no CVA tenderness Musculoskeletal: normal inspection Neurologic: normal inspection, alert, oriented x3, responsive Psychiatric: normal inspection, judgement/insight normal, memory normal Skin: normal inspection, normal color, no rash, warm/dry, palpation normal, well hydrated, normal turgor Lymphatic: normal inspection, no adenopathy Current Medications Current Medications Medications (Trade) Dose Ordered Sig/Ewa Route PRN Reason Start Time Stop Time Status Last Admin Dose Admin Acetaminophen (Tylenol) 650 mg Q4H PRN ORAL fever 04/11/17 19:45 05/11/17 19:44 Al Hydroxide/Mg Hydroxide (Mylanta II) 30 ml Q6H PRN ORAL dyspepsia 04/11/17 19:45 05/11/17 19:44 Dextrose (Dextrose 50%) STAT PRN IV Hypoglycemia 04/11/17 19:45 05/11/17 19:44 Dextrose/Sodium Chloride (D5 0.45% NS) 1,000 ml @ 75 mls/hr [id number] IV 04/11/17 21:00 05/11/17 20:59 04/13/17 12:29 Diphenhydramine HCl (Benadryl) 25 mg Q6H PRN ORAL Itching/Pruritis 04/11/17 19:45 05/11/17 19:44 Heparin Sodium (Porcine) (Heparin 5000 units/ml) 5,000 units EVERY 12 HOURS SUBQ 04/11/17 21:00 05/11/17 20:59 04/13/17 08:24 Hydromorphone HCl (Dilaudid) 1 mg Q4H PRN IVP For Severe Pain 04/11/17 22:00 04/18/17 21:59 04/13/17 12:56 Nitroglycerin (Ntg) 0.4 mg Q5M X 3 DOSES PRN SL Prn Chest Pain 04/11/17 19:45 05/11/17 19:44 Ondansetron HCl (Zofran) 4 mg Q6H PRN IVP Nausea & Vomiting 04/11/17 19:45 05/11/17 19:44 04/13/17 13:22 Pantoprazole (Protonix) 40 mg DAILY IVP 04/12/17 09:00 05/12/17 08:59 04/13/17 08:19 Polyethylene Glycol (Miralax) 17 gm HSPRN PRN ORAL Constipation 04/11/17 19:45 05/11/17 19:44 Pregabalin (Lyrica) 75 mg THREE TIMES A DAY ORAL 04/12/17 21:00 05/12/17 20:59 04/13/17 12:28 Sucralfate 1 gm 1 gm FOUR TIMES A DAY ORAL 04/11/17 21:00 05/11/17 20:59 04/13/17 12:28 Temazepam (Restoril) 15 mg HSPRN PRN ORAL Insomnia 04/11/17 19:45 04/18/17 19:44 GI: Plan Problems: (1) Abdominal pain with vomiting (2) Persistent vomiting (3) Gastritis (4) Nausea, vomiting, and diarrhea Plan abdominal U/S reviewed >> negative s/p EGD SUMMARY OF FINDINGS: 1. Small inlet patch. 2. Hiatal hernia. 3. Gastritis, status post biopsy. >> negative for H. Pylori utox >> negative supportive measures IV hydration + electrolyte replacement CLD, adv as tolerated ppi probiotics low dose reglan TID zofran prn repeat lipase level fu B12/folate fu labs Discussed with Dr. Smith. Thank you for referring this patient, we will follow. Regina Bradshaw N.P. Apr 13, 2017 16:06
[2017-04-13] MEDS ORDERED: Metoclopramide 10mg/2ml Inj IVP PRN (16:15)
[2017-04-13] MEDS: Lactobacillus-GG tablet ORAL SCH (17:19)
[2017-04-13 20:00] VITALS: BP 117/66
[2017-04-14] VITALS: BP 114/72
[2017-04-14] MEDS: HYDROmorphone 1mg/ml Carpuject IVP PRN ×3 (00:12→12:01)
[2017-04-14] MEDS: D5 1/2NS 1,000 ML IV SCH (01:51)
[2017-04-14 04:00] VITALS: BP 131/70
[2017-04-14] MEDS: Pantoprazole Inj IVP SCH (07:48)
[2017-04-14] MEDS: Lactobacillus-GG tablet ORAL SCH ×2 (07:48→11:58)
[2017-04-14] MEDS: Sucralfate 1gm tab ORAL SCH ×2 (07:49→11:57)
[2017-04-14] MEDS: Lyrica 75mg cap ORAL SCH ×2 (07:51→11:59)
[2017-04-14] MEDS: Heparin 5000 units/ml inj SUBQ SCH (07:52)
[2017-04-14 08:21] VITALS: BP 125/76
--- NOTE | 2017-04-14 10:13 | Infectious Diseases Prog Note ---
Assessment/Plan Assessment/Plan ASSESSMENT: 62 y/o female with: // Acute gastritis - GI eval improving - US: Negative abdominal ultrasound - LFTs, lipase WNL, trop neg x1, UDS(-) - KUB: Nonobstructive and nonspecific bowel gas pattern. - h/o H.pylori(-) gastritis, small hiatal hernia // Doubt UTI - asymptomatic // Leukocytosis - SP // No ABX allergies // Full Code PLAN: - monitor pt off of AB Rx 04/13 zosyn d# 3 - f/u GI eval - monitor CBC, temperatures - monitor BMP - supportive care will sing off , plz call PRN , thanks Subjective Constitutional: Denies: anorexia, chills, drenching sweats, fatigue, fever, no symptoms, other Allergies: Coded Allergies: CODEINE (Unverified Allergy, Unknown, 08/05/14) IBUPROFEN (Verified Allergy, Unknown, 08/05/15) Objective Vital Signs Last 24 Hour Vital Signs Date Time Temp Pulse Resp B/P Pulse Ox O2 Delivery O2 Flow Rate FiO2 04/14/17 08:21 98.1 73 20 125/76 94 Room Air 04/14/17 04:00 98.3 75 17 131/70 95 Room Air 04/14/17 00:00 98.0 78 17 114/72 94 Room Air 04/13/17 20:00 98.6 76 18 117/66 96 Room Air 04/13/17 18:18 97.9 04/13/17 17:49 97.9 04/13/17 16:00 97.9 64 18 120/72 94 Room Air 04/13/17 12:00 97.9 83 18 140/80 92 Room Air Height (Feet): 5 Height (Inches): 6.00 Weight (Pounds): 130 HEENT: anicteric Respiratory/Chest: normal breath sounds Cardiovascular: normal peripheral pulses Abdomen: soft, non tender Current Medications Medications (Trade) Dose Ordered Sig/Ewa Route PRN Reason Start Time Stop Time Status Last Admin Dose Admin Acetaminophen (Tylenol) 650 mg Q4H PRN ORAL fever 04/11/17 19:45 05/11/17 19:44 Al Hydroxide/Mg Hydroxide (Mylanta II) 30 ml Q6H PRN ORAL dyspepsia 04/11/17 19:45 05/11/17 19:44 Dextrose (Dextrose 50%) STAT PRN IV Hypoglycemia 04/11/17 19:45 05/11/17 19:44 Dextrose/Sodium Chloride (D5 0.45% NS) 1,000 ml @ 75 mls/hr [id number] IV 04/11/17 21:00 05/11/17 20:59 04/14/17 01:51 Diphenhydramine HCl (Benadryl) 25 mg Q6H PRN ORAL Itching/Pruritis 04/11/17 19:45 05/11/17 19:44 Heparin Sodium (Porcine) (Heparin 5000 units/ml) 5,000 units EVERY 12 HOURS SUBQ 04/11/17 21:00 05/11/17 20:59 04/14/17 07:52 Hydromorphone HCl (Dilaudid) 1 mg Q4H PRN IVP For Severe Pain 04/11/17 22:00 04/18/17 21:59 04/14/17 07:53 Lactobacillus Acidophilus (Culturelle) 1 tab THREE TIMES A DAY ORAL 04/13/17 18:00 05/13/17 17:59 04/14/17 07:48 Metoclopramide HCl (Reglan) 5 mg Q8H PRN IVP Nausea & Vomiting 04/13/17 16:15 05/13/17 16:14 Nitroglycerin (Ntg) 0.4 mg Q5M X 3 DOSES PRN SL Prn Chest Pain 04/11/17 19:45 05/11/17 19:44 Ondansetron HCl (Zofran) 4 mg Q6H PRN IVP Nausea & Vomiting 04/11/17 19:45 05/11/17 19:44 04/13/17 13:22 Pantoprazole (Protonix) 40 mg DAILY IVP 04/12/17 09:00 05/12/17 08:59 04/14/17 07:48 Polyethylene Glycol (Miralax) 17 gm HSPRN PRN ORAL Constipation 04/11/17 19:45 05/11/17 19:44 Pregabalin (Lyrica) 75 mg THREE TIMES A DAY ORAL 04/12/17 21:00 05/12/17 20:59 04/14/17 07:51 Sucralfate 1 gm 1 gm FOUR TIMES A DAY ORAL 04/11/17 21:00 8/14/17 20:59 04/14/17 07:49 Temazepam (Restoril) 15 mg HSPRN PRN ORAL Insomnia 04/11/17 19:45 04/18/17 19:44 04/14/17 01:50 MIGUEL ANGEL CHRISTENSEN M.D. Apr 14, 2017 10:13
[2017-04-14 10:25] LABS: BASOPHILS % (AUTO) 0.9 % (0.0-2.0); EOSINOPHILS % (AUTO) 5.7 % (0.0-3.0); LYMPHOCYTES % (AUTO) 36.8 % (20.0-45.0); MEAN CORPUSCULAR HEMOGLOBIN 33.7 PG (27.0-31.0); MEAN CORPUSCULAR HGB CONC 33.7 G/DL (32.0-36.0); MEAN CORPUSCULAR VOLUME 100 FL (80-99); MEAN PLATELET VOLUME 7.4 FL (6.5-10.1); MONOCYTES % (AUTO) 7.6 % (1.0-10.0); NEUTROPHILS % (AUTO) 48.9 % (45.0-75.0); PLATELET COUNT 264 K/UL (150-450); RED BLOOD COUNT 3.72 M/UL (4.20-5.40); RED CELL DISTRIBUTION WIDTH 10.9 % (11.6-14.8); WHITE BLOOD COUNT 7.2 K/UL (4.8-10.8)
[2017-04-14 10:42] LABS: ANION GAP 11 (5-15); CALCIUM 8.8 mg/dL (8.6-10.2); CARBON DIOXIDE 28 mEQ/L (20-30); CHLORIDE 102 mEQ/L (98-107); CREATININE 0.6 mg/dL (0.5-0.9); GLOMERULAR FILTRATION RATE > 60 mL/min (>60); HEMOLYSIS 6; POTASSIUM 3.7 mEQ/L (3.4-4.9); SODIUM 141 mEQ/L (135-145)
[2017-04-14 11:57] VITALS: BP 126/76
--- NOTE | 2017-04-14 12:43 | GI Progress Note ---
Assessment/Plan Problems: (1) Abdominal pain with vomiting ICD Codes: R10.9 - Unspecified abdominal pain; R11.10 - Vomiting, unspecified SNOMED: 25823255, 945203007 (2) Hiatal hernia ICD Codes: K44.9 - Diaphragmatic hernia without obstruction or gangrene SNOMED: 22694250 (3) Persistent vomiting ICD Codes: R11.10 - Vomiting, unspecified SNOMED: 951886939 (4) Diabetes ICD Codes: E11.9 - Type 2 diabetes mellitus without complications SNOMED: 77667370 Status: stable Status Narrative Discussed with Dr. Smith. Assessment/Plan abdominal U/S reviewed >> negative s/p EGD SUMMARY OF FINDINGS: 1. Small inlet patch. 2. Hiatal hernia. 3. Gastritis, status post biopsy. >> negative for H. Pylori utox >> negative will adv diet, ok for DC if tolerates IV hydration + electrolyte replacement ppi probiotics low dose reglan TID zofran prn fu labs Subjective Gastrointestinal/Abdominal: Reports: abdominal pain Subjective nausea with no vomiting Objective Last 24 Hour Vital Signs Date Time Temp Pulse Resp B/P Pulse Ox O2 Delivery O2 Flow Rate FiO2 04/14/17 11:57 97.9 63 20 126/76 92 Room Air 04/14/17 08:21 98.1 73 20 125/76 94 Room Air 04/14/17 04:00 98.3 75 17 131/70 95 Room Air 04/14/17 00:00 98.0 78 17 114/72 94 Room Air 04/13/17 20:00 98.6 76 18 117/66 96 Room Air 04/13/17 18:18 97.9 04/13/17 17:49 97.9 04/13/17 16:00 97.9 64 18 120/72 94 Room Air Intake and Output 04/13/17 04/14/17 19:00 07:00 Intake Total 1285 ml 1100 ml Balance 1285 ml 1100 ml Intake Oral 460 ml 200 ml IV Total 825 ml 900 ml # Voids 5 2 Laboratory Tests Test 04/14/17 09:55 White Blood Count 7.2 K/UL (4.8-10.8) Red Blood Count 3.72 M/UL (4.20-5.40) L Hemoglobin 12.5 G/DL (12.0-16.0) Hematocrit 37.1 % (37.0-47.0) Mean Corpuscular Volume 100 FL (80-99) H Mean Corpuscular Hemoglobin 33.7 PG (27.0-31.0) H Mean Corpuscular Hemoglobin Concent 33.7 G/DL (32.0-36.0) Red Cell Distribution Width 10.9 % (11.6-14.8) L Platelet Count 264 K/UL (150-450) Mean Platelet Volume 7.4 FL (6.5-10.1) Neutrophils (%) (Auto) 48.9 % (45.0-75.0) Lymphocytes (%) (Auto) 36.8 % (20.0-45.0) Monocytes (%) (Auto) 7.6 % (1.0-10.0) Eosinophils (%) (Auto) 5.7 % (0.0-3.0) H Basophils (%) (Auto) 0.9 % (0.0-2.0) Sodium Level 141 mEQ/L (135-145) Potassium Level 3.7 mEQ/L (3.4-4.9) Chloride Level 102 mEQ/L (98-107) Carbon Dioxide Level 28 mEQ/L (20-30) Anion Gap 11 (5-15) Blood Urea Nitrogen 6 mg/dL (7-23) L Creatinine 0.6 mg/dL (0.5-0.9) Estimat Glomerular Filtration Rate > 60 mL/min (>60) Glucose Level 114 mg/dL (74-106) H Calcium Level 8.8 mg/dL (8.6-10.2) Vitamin B12 Level 1078 pg/mL (211-946) H Folate Pending Height (Feet): 5 Height (Inches): 6.00 Weight (Pounds): 130 General Appearance: no apparent distress, alert Cardiovascular: normal rate Respiratory/Chest: normal breath sounds, no respiratory distress Abdominal Exam: normal bowel sounds, non tender, soft Extremities: normal range of motion Regina Bradshaw N.P. Apr 14, 2017 12:43
--- NOTE | 2017-04-14 13:31 | General Progress Note ---
Assessment/Plan Problem List: (1) Chest pain ICD Codes: R07.9 - Chest pain, unspecified SNOMED: 71552890 (2) Abdominal pain with vomiting ICD Codes: R10.9 - Unspecified abdominal pain; R11.10 - Vomiting, unspecified SNOMED: 48600446, 214701952 (3) Hiatal hernia ICD Codes: K44.9 - Diaphragmatic hernia without obstruction or gangrene SNOMED: 49901016 (4) Pyuria ICD Codes: N39.0 - Urinary tract infection, site not specified SNOMED: 7287068, 310589133, 193264806 (5) Persistent vomiting ICD Codes: R11.10 - Vomiting, unspecified SNOMED: 078149016 Status: stable, progressing, tolerating diet Assessment/Plan ot pt diet gi f/u adv diet dc Subjective Constitutional: Reports: weakness Allergies: Coded Allergies: CODEINE (Unverified Allergy, Unknown, 08/05/14) IBUPROFEN (Verified Allergy, Unknown, 08/05/15) All Systems: reviewed and negative except above Subjective ate solids ok Objective Last 24 Hour Vital Signs Date Time Temp Pulse Resp B/P Pulse Ox O2 Delivery O2 Flow Rate FiO2 04/14/17 11:57 97.9 63 20 126/76 92 Room Air 04/14/17 08:21 98.1 73 20 125/76 94 Room Air 04/14/17 04:00 98.3 75 17 131/70 95 Room Air 04/14/17 00:00 98.0 78 17 114/72 94 Room Air 04/13/17 20:00 98.6 76 18 117/66 96 Room Air 04/13/17 18:18 97.9 04/13/17 17:49 97.9 04/13/17 16:00 97.9 64 18 120/72 94 Room Air Intake and Output 04/13/17 04/14/17 19:00 07:00 Intake Total 1285 ml 1100 ml Balance 1285 ml 1100 ml Intake Oral 460 ml 200 ml IV Total 825 ml 900 ml # Voids 5 2 Laboratory Tests 04/14/17 09:55: White Blood Count 7.2, Red Blood Count 3.72L, Hemoglobin 12.5, Hematocrit 37.1, Mean Corpuscular Volume 100H, Mean Corpuscular Hemoglobin 33.7H, Mean Corpuscular Hemoglobin Concent 33.7, Red Cell Distribution Width 10.9L, Platelet Count 264, Mean Platelet Volume 7.4, Neutrophils (%) (Auto) 48.9, Lymphocytes (%) (Auto) 36.8, Monocytes (%) (Auto) 7.6, Eosinophils (%) (Auto) 5.7H, Basophils (%) (Auto) 0.9, Sodium Level 141, Potassium Level 3.7, Chloride Level 102, Carbon Dioxide Level 28, Anion Gap 11, Blood Urea Nitrogen 6L, Creatinine 0.6, Estimat Glomerular Filtration Rate > 60, Glucose Level 114H, Calcium Level 8.8, Vitamin B12 Level 1078H, Folate [Pending] Height (Feet): 5 Height (Inches): 6.00 Weight (Pounds): 130 General Appearance: alert EENT: normal ENT inspection Neck: normal alignment Cardiovascular: normal peripheral pulses, normal rate, regular rhythm Respiratory/Chest: chest wall non-tender, lungs clear, normal breath sounds Abdomen: normal bowel sounds, non tender, soft Extremities: normal inspection Edema: no edema noted Arm (L), no edema noted Arm (R), no edema noted Leg (L), no edema noted Leg (R), no edema noted Pedal (L), no edema noted Pedal (R), no edema noted Generalized Skin: normal pigmentation, warm/dry JOY GUERRA Apr 14, 2017 13:31
[2017-04-14] MEDS ORDERED: NS 275ml ONE (15:31)
[2017-04-14] MEDS ORDERED: Tubing IV Secondary IV ONE (15:31)
[2017-04-14] MEDS ORDERED: D5 1/2NS 1000ml IV ONE (15:31)
--- NOTE | 2017-04-14 18:58 | Pulmonology Progress Note ---
Assessment/Plan Problems: (1) Persistent vomiting (2) Gastritis (3) Pyuria Assessment/Plan improving wbc decreasing advance diet symptomatic treatment dc planning Subjective ROS Limited/Unobtainable: No Constitutional: Reports: no symptoms HEENT: Repors: no symptoms Respiratory: Reports: no symptoms Cardiovascular: Reports: no symptoms Allergies: Coded Allergies: CODEINE (Unverified Allergy, Unknown, 08/05/14) IBUPROFEN (Verified Allergy, Unknown, 08/05/15) Objective Last 24 Hour Vital Signs Date Time Temp Pulse Resp B/P Pulse Ox O2 Delivery O2 Flow Rate FiO2 04/14/17 11:57 97.9 63 20 126/76 92 Room Air 04/14/17 08:21 98.1 73 20 125/76 94 Room Air 04/14/17 04:00 98.3 75 17 131/70 95 Room Air 04/14/17 00:00 98.0 78 17 114/72 94 Room Air 04/13/17 20:00 98.6 76 18 117/66 96 Room Air Intake and Output 04/13/17 04/14/17 19:00 07:00 Intake Total 1285 ml 1100 ml Balance 1285 ml 1100 ml Intake Oral 460 ml 200 ml IV Total 825 ml 900 ml # Voids 5 2 General Appearance: WD/WN HEENT: normocephalic, atraumatic Respiratory/Chest: chest wall non-tender, lungs clear Breasts: no masses Cardiovascular: normal peripheral pulses Abdomen: normal bowel sounds, soft, non tender Genitourinary: normal external genitalia Extremities: no cyanosis Laboratory Tests 04/14/17 09:55: White Blood Count 7.2, Red Blood Count 3.72L, Hemoglobin 12.5, Hematocrit 37.1, Mean Corpuscular Volume 100H, Mean Corpuscular Hemoglobin 33.7H, Mean Corpuscular Hemoglobin Concent 33.7, Red Cell Distribution Width 10.9L, Platelet Count 264, Mean Platelet Volume 7.4, Neutrophils (%) (Auto) 48.9, Lymphocytes (%) (Auto) 36.8, Monocytes (%) (Auto) 7.6, Eosinophils (%) (Auto) 5.7H, Basophils (%) (Auto) 0.9, Sodium Level 141, Potassium Level 3.7, Chloride Level 102, Carbon Dioxide Level 28, Anion Gap 11, Blood Urea Nitrogen 6L, Creatinine 0.6, Estimat Glomerular Filtration Rate > 60, Glucose Level 114H, Calcium Level 8.8, Vitamin B12 Level 1078H, Folate [Pending] ERICA LICONA Apr 14, 2017 18:58
--- NOTE | 2017-04-16 19:38 | Discharge Summary ---
Discharge Summary Hospital Course Date of Admission Apr 11, 2017 at 17:44 Date of Discharge Apr 14, 2017 at 15:32 Admitting Diagnosis gastroenteritis, dehydration HPI Marisol Mar is a 62 year old female who was admitted on Apr 11, 2017 at 17: 44 for Gastroenteritis, Dehydration Hospital Course [id number] Discharge Discharge Disposition Patient was discharged to Home (01) Discharge Diagnoses: Marisa Peterson NP Apr 16, 2017 19:38
--- NOTE | 2017-04-17 01:15 | Discharge Summary 2 SIG ---
DATE OF ADMISSION: 04/11/2017 DATE OF DISCHARGE: 04/14/2017 CONSULTANTS: 1. Belinda Pelletier M.D. 2. Broderick Smith M.D. 3. Woodrow Nguyen M.D. BRIEF HOSPITAL COURSE: The patient is a 62-year-old female, who lives at home presented with one-day increased nausea and vomiting. She has a history of hiatal hernia and last episode of vomiting was three months ago. She was very weak and dehydrated and presented to [place] ER. On evaluation at ED, laboratories showed elevated white count with 14.9. She was noted to have emesis and was given IV Zofran and IV Dilaudid. She continued to have persistent vomiting as well as dehydration and the patient was then admitted to medical floor for abdominal pain and vomiting with dehydration and acute gastritis possible gastroenteritis. She was started empirically on Zosyn. Liver function tests and lipase were within normal limits. Urine drug screen was negative. KUB showed nonobstructive gas pattern. The patient has a known H. pylori negative gastritis and a small hiatal hernia. Lipase eventually became elevated. Diet was advanced. WBC improved. Abdominal ultrasound was negative. She was given proton pump inhibitors, probiotics and low-dose Reglan. She was eventually discharged home. FINAL DIAGNOSES: 1. Acute gastritis possible gastroenteritis. 2. Pyuria. 3. Persistent vomiting. 4. Hiatal hernia. 5. Diabetes mellitus. Aneudy Zapata D.O. I have been assigned to dictate discharge summary on this account and I was not involved in the patient's management. Marisa Peterson N.P. DR: ALANA JOB#: [id number] CC:
== END 2017-04-14 15:32 | disposition home or self-care (01) | DRG 392 ==
LOC: EDBD 16:16 → EMR 16:31 → 4W 17:44 → EDBEDREQ 18:51 → 3E 04-12 18:22
DX: K29.00 Acute gastritis without bleeding (principal); E87.0 Hyperosmolality and hypernatremia; K44.9 Diaphragmatic hernia without obstruction or gangrene; E86.0 Dehydration; K52.9 Noninfective gastroenteritis and colitis, unspecified; E11.9 Type 2 diabetes mellitus without complications; Z96.649 Presence of unspecified artificial hip joint; E87.6 Hypokalemia; M19.90 Unspecified osteoarthritis, unspecified site; Z88.6 Allergy status to analgesic agent
CPT/HCPCS: 36415; 71010; 74000; 76700; 80048; 80053; 80300; 81003; 82150; 82248; 82607; 82746; 83690; 83735; 84484; 85025; 85610; 85730; 93005; 96361; 96374; 96375; 97803; J2405

== ENCOUNTER 2017-08-02 15:35 | Inpatient (IN) | payer MEDICARE, OTHER ==
[~2017-08-02] VITALS: Ht 162.6 cm; Wt 69.4 kg
[2017-08-02 15:40] VITALS: BP 142/82
[2017-08-02] MEDS ORDERED: Metoclopramide 10mg/2ml Inj IVP ONE (15:45)
[2017-08-02] MEDS ORDERED: Hydromorphone 0.5mg/0.5ml inj IVP ONE ×2 (15:45→19:15)
[2017-08-02] MEDS ORDERED: DiphenhydrAMINE 50mg/ml Inj IVP ONE (15:45)
--- NOTE | 2017-08-02 16:01 | Emergency Room Report ---
History of Present Illness General Chief Complaint: Vomiting Source: Patient, Medical Record Present Illness HPI The patient presents via ALS complaining of chest pain and abdominal pain today' s. She states that this is her hiatal hernia is acting up. She's been vomiting and unable to keep down medication. She has nothing to help her with nausea. She states the pain is severe at this time. Somewhat exertional. She denies vomiting blood or melena. She feels weak and dehydrated. She has been admitted in the past for similar complaints with cyclic and intractable vomiting. She was last admitted in March. Discharge Dx: 1. Acute gastritis possible gastroenteritis. 2. Pyuria. 3. Persistent vomiting. 4. Hiatal hernia. 5. Diabetes mellitus. No cough, sore throat, rashes. She is depressed at this condition. Allergies: Coded Allergies: CODEINE (Unverified Allergy, Unknown, 08/05/14) IBUPROFEN (Verified Allergy, Unknown, 08/05/15) Patient History Past Medical History: see triage record Past Surgical History: other - hip replacements Social History: Denies: smoking Social History Narrative from home Reviewed Nursing Documentation: PMH: Agreed, PSxH: Agreed Nursing Documentation-PMH Past Medical History: No History, Except For Hx Cancer: No Hx Neurological Problems: No Review of Systems All Other Systems: negative except mentioned in HPI Physical Exam Vital Signs Date Time Temp Pulse Resp B/P (MAP) Pulse Ox O2 Delivery O2 Flow Rate FiO2 08/02/17 15:30 98.4 68 18 137/74 99 Room Air Sp02 EP Interpretation: reviewed, normal General Appearance: well appearing, mild distress Head: normocephalic Eyes: bilateral eye PERRL, bilateral eye Scleral Injection ENT: moist mucus membranes Neck: supple Respiratory: lungs clear, normal breath sounds Cardiovascular #1: regular rate, rhythm Cardiovascular #2: 2+ radial (R) Gastrointestinal: normal inspection, normal bowel sounds, no mass, non- distended, no rebound, tenderness - epigastric, other - vomit without blood Musculoskeletal: back normal, gait/station normal, normal range of motion Neurologic: alert, oriented x3, grossly normal Psychiatric: other - In pain Skin: normal inspection, warm/dry Medical Decision Making Diagnostic Impression: Primary Impression: Abdominal pain with vomiting Additional Impressions: Hypokalemia UTI (urinary tract infection) Qualified Codes: N30.00 - Acute cystitis without hematuria ER Course Patient presents with chest pain abdominal pain with vomiting. She feels this is her hiatal hernia. Differential and includes acute myocardial infarction, acute coronary syndrome, gastritis, GERD, peptic ulcer disease, pancreatitis amongst others. The patient's been seen for this problem in the past. She'll be evaluated with an EKG, chest x-ray and labs are. She'll be treated with IV hydration, Reglan, Benadryl, Pepcid and Dilaudid. EKG is unremarkable. Labs are significant for low potassium a normal white count. Clinically the patient is somewhat improved but still feels ill and nauseated and unable to tolerate oral liquids medication. She also has evidence of UTI. Antibiotic were began. She had another episode of vomiting. The patient is to medical floor Dr. Zapata. Laboratory Tests Test 08/02/17 15:45 08/02/17 16:55 08/03/17 05:20 White Blood Count 9.2 K/UL (4.8-10.8) 12.4 K/UL (4.8-10.8) H Red Blood Count 4.60 M/UL (4.20-5.40) 4.11 M/UL (4.20-5.40) L Hemoglobin 14.8 G/DL (12.0-16.0) 13.7 G/DL (12.0-16.0) Hematocrit 45.3 % (37.0-47.0) 41.1 % (37.0-47.0) Mean Corpuscular Volume 99 FL (80-99) 100 FL (80-99) H Mean Corpuscular Hemoglobin 32.3 PG (27.0-31.0) H 33.4 PG (27.0-31.0) H Mean Corpuscular Hemoglobin Concent 32.8 G/DL (32.0-36.0) 33.3 G/DL (32.0-36.0) Red Cell Distribution Width 11.1 % (11.6-14.8) L 11.1 % (11.6-14.8) L Platelet Count 323 K/UL (150-450) 294 K/UL (150-450) Mean Platelet Volume 6.1 FL (6.5-10.1) L 6.2 FL (6.5-10.1) L Neutrophils (%) (Auto) 83.9 % (45.0-75.0) H 76.3 % (45.0-75.0) H Lymphocytes (%) (Auto) 12.9 % (20.0-45.0) L 15.8 % (20.0-45.0) L Monocytes (%) (Auto) 2.4 % (1.0-10.0) 7.2 % (1.0-10.0) Eosinophils (%) (Auto) 0.0 % (0.0-3.0) 0.0 % (0.0-3.0) Basophils (%) (Auto) 0.8 % (0.0-2.0) 0.7 % (0.0-2.0) Prothrombin Time 11.3 SEC (9.30-11.50) Prothrombin Time INR 1.1 (0.9-1.1) PTT 20 SEC (23-33) L 24 SEC (23-33) Sodium Level 141 MMOL/L (136-145) 140 MMOL/L (136-145) Potassium Level 3.3 MMOL/L (3.5-5.1) L 3.8 MMOL/L (3.5-5.1) Chloride Level 102 MMOL/L (98-107) 104 MMOL/L (98-107) Carbon Dioxide Level 25 MMOL/L (21-32) 22 MMOL/L (21-32) Anion Gap 14 mmol/L (5-15) 14 mmol/L (5-15) Blood Urea Nitrogen 10 mg/dL (7-18) 9 mg/dL (7-18) Creatinine 0.8 MG/DL (0.55-1.30) 0.7 MG/DL (0.55-1.30) Estimate Glomerular Filtration Rate > 60 mL/min (>60) > 60 mL/min (>60) Glucose Level 163 MG/DL (74-106) H 125 MG/DL (74-106) H Calcium Level 10.0 MG/DL (8.5-10.1) 9.1 MG/DL (8.5-10.1) Total Bilirubin 1.8 MG/DL (0.2-1.0) H 1.4 MG/DL (0.2-1.0) H Direct Bilirubin 0.3 MG/DL (0.0-0.3) 0.2 MG/DL (0.0-0.3) Aspartate Amino Transferase (AST) 19 U/L (15-37) 20 U/L (15-37) Alanine Aminotransferase (ALT) 26 U/L (12-78) 20 U/L (12-78) Alkaline Phosphatase 106 U/L (46-116) 91 U/L (46-116) Troponin I 0.000 ng/mL (0.000-0.056) Total Protein 8.5 G/DL (6.4-8.2) H 7.8 G/DL (6.4-8.2) Albumin 4.5 G/DL (3.4-5.0) 3.9 G/DL (3.4-5.0) Globulin 4.0 g/dL 3.9 g/dL Albumin/Globulin Ratio 1.1 (1.0-2.7) 1.0 (1.0-2.7) Lipase 143 U/L (73-393) Serum Alcohol < 3 mg/dL Urine Color Ana Cristina Urine Appearance Slightly cloudy Urine pH 8 (4.5-8.0) Urine Specific [address] 1.015 (1.005-1.035) Urine Protein 2+ (NEGATIVE) H Urine Glucose (UA) Negative (NEGATIVE) Urine Ketones 4+ (NEGATIVE) H Urine Occult Blood 1+ (NEGATIVE) H Urine Nitrite Negative (NEGATIVE) Urine Bilirubin Negative (NEGATIVE) Urine Ictotest Negative Urine Urobilinogen 4 MG/DL (0.0-1.0) H Urine Leukocyte Esterase 3+ (NEGATIVE) H Urine RBC 2-4 /HPF (0 - 2) H Urine WBC 5-10 /HPF (0 - 2) H Urine Squamous Epithelial Cells Moderate /LPF (NONE/OCC) H Urine Bacteria Moderate /HPF (NONE) H Urine Opiates Screen Negative (NEGATIVE) Urine Barbiturates Screen Negative (NEGATIVE) Phencyclidine (PCP) Screen Negative (NEGATIVE) Urine Amphetamines Screen Negative (NEGATIVE) Urine Benzodiazepines Screen Negative (NEGATIVE) Urine Cocaine Screen Negative (NEGATIVE) Urine Marijuana (THC) Screen Negative (NEGATIVE) Amylase Level 69 U/L (25-115) EKG Diagnostic Results Rate: normal Rhythm: NSR ST Segments: no acute changes - Right axis Rhythm Strip Diag. Results EP Interpretation: yes Rhythm: NSR, no PVC's, no ectopy Chest X-Ray Diagnostic Results Chest X-Ray Diagnostic Results : Chest X-Ray Ordered: Yes # of Views/Limited/Complete: 1 View Indication: Chest Pain EP Interpretation: Yes Interpretation: no consolidation, no effusion, no pneumothorax, no acute cardiopulmonary disease Impression: No acute disease Electronically Signed by: Emilio Lee MD Other X-Ray Diagnostic Results Other X-Ray Diagnostic Results : X-Ray ordered: abd # of Views/Limited Vs Complete: 1 View Indication: Pain EP Interpretation: Yes Interpretation: nonspecific bowel gas, no sbo, other - hip prostheses Status: improved Disposition: ADMITTED INPATIENT Condition: Serious Emilio Lee M.D. Aug 02, 2017 16:01
[2017-08-02 16:15] LABS: BASOPHILS % (AUTO) 0.8 % (0.0-2.0); HEMATOCRIT 45.3 % (37.0-47.0); HEMOGLOBIN 14.8 G/DL (12.0-16.0); LYMPHOCYTES % (AUTO) 12.9 % (20.0-45.0); MEAN CORPUSCULAR VOLUME 99 FL (80-99); MONOCYTES % (AUTO) 2.4 % (1.0-10.0); NEUTROPHILS % (AUTO) 83.9 % (45.0-75.0); PLATELET COUNT 323 K/UL (150-450); RED CELL DISTRIBUTION WIDTH 11.1 % (11.6-14.8); WHITE BLOOD COUNT 9.2 K/UL (4.8-10.8)
[2017-08-02 16:32] LABS: INR 1.1 (0.9-1.1)
[2017-08-02 16:44] LABS: ALANINE AMINOTRANSFERASE 26 U/L (12-78); ALBUMIN 4.5 G/DL (3.4-5.0); ALBUMIN/GLOBULIN RATIO 1.1 (1.0-2.7); ALKALINE PHOSPHATASE 106 U/L (46-116); ANION GAP 14 mmol/L (5-15); ASPARTATE AMINO TRANSFERASE 19 U/L (15-37); BILIRUBIN,TOTAL 1.8 MG/DL (0.2-1.0); BLOOD UREA NITROGEN 10 mg/dL (7-18); CARBON DIOXIDE 25 MMOL/L (21-32); CHLORIDE 102 MMOL/L (98-107); CREATININE 0.8 MG/DL (0.55-1.30); POTASSIUM 3.3 MMOL/L (3.5-5.1); SODIUM 141 MMOL/L (136-145)
[2017-08-02 16:46] LABS: BILIRUBIN,DIRECT 0.3 MG/DL (0.0-0.3)
[2017-08-02 17:19] LABS: APPEARANCE,URINE SLIGHTLY CLOUDY; BILIRUBIN, URINE NEGATIVE (NEGATIVE); COLOR,URINE AMBER; GLUCOSE, URINE (UA) NEGATIVE (NEGATIVE); KETONES,URINE 4+ (NEGATIVE); LEUKOCYTE ESTERASE ,URINE 3+ (NEGATIVE); NITRITE,URINE NEGATIVE (NEGATIVE); PH,URINE 8 (4.5-8.0); PROTEIN,URINE 2+ (NEGATIVE); UROBILINOGEN,URINE 4 MG/DL (0.0-1.0)
[2017-08-02] MEDS ORDERED: cefTRIAXone 1 GM in NS 55 ML IVPB ONE (18:00)
[2017-08-02 18:21] VITALS: BP 137/88
[2017-08-02 19:00] VITALS: BP 151/82
--- NOTE | 2017-08-02 20:59 | Infectious Diseases Prog Note ---
Assessment/Plan Problems: (1) Acute pyelonephritis Assessment & Plan: will start iv cefepime and send blood culture, obtain US of the kidney to rule out obstructive stone (2) Sepsis Assessment & Plan: due to the above, will send blood culture and start cefepime empirically (3) Abdominal pain with vomiting Assessment & Plan: due to the above, continue supportive care, will order renal US, to rule out obstructive stone Subjective Allergies: Coded Allergies: CODEINE (Unverified Allergy, Unknown, 08/05/14) IBUPROFEN (Verified Allergy, Unknown, 08/05/15) Objective Vital Signs Last 24 Hour Vital Signs Date Time Temp Pulse Resp B/P (MAP) Pulse Ox O2 Delivery O2 Flow Rate FiO2 08/02/17 18:21 71 16 137/88 97 Room Air 08/02/17 16:30 98.5 08/02/17 15:40 68 17 142/82 98 Room Air 08/02/17 15:30 98.4 68 18 137/74 99 Room Air Height (Feet): 5 Height (Inches): 4.00 Weight (Pounds): 153 Laboratory Tests Test 08/02/17 15:45 08/02/17 16:55 White Blood Count 9.2 K/UL (4.8-10.8) Red Blood Count 4.60 M/UL (4.20-5.40) Hemoglobin 14.8 G/DL (12.0-16.0) Hematocrit 45.3 % (37.0-47.0) Mean Corpuscular Volume 99 FL (80-99) Mean Corpuscular Hemoglobin 32.3 PG (27.0-31.0) H Mean Corpuscular Hemoglobin Concent 32.8 G/DL (32.0-36.0) Red Cell Distribution Width 11.1 % (11.6-14.8) L Platelet Count 323 K/UL (150-450) Mean Platelet Volume 6.1 FL (6.5-10.1) L Neutrophils (%) (Auto) 83.9 % (45.0-75.0) H Lymphocytes (%) (Auto) 12.9 % (20.0-45.0) L Monocytes (%) (Auto) 2.4 % (1.0-10.0) Eosinophils (%) (Auto) 0.0 % (0.0-3.0) Basophils (%) (Auto) 0.8 % (0.0-2.0) Prothrombin Time 11.3 SEC (9.30-11.50) Prothromb Time International Ratio 1.1 (0.9-1.1) Activated Partial Thromboplast Time 20 SEC (23-33) L Sodium Level 141 MMOL/L (136-145) Potassium Level 3.3 MMOL/L (3.5-5.1) L Chloride Level 102 MMOL/L (98-107) Carbon Dioxide Level 25 MMOL/L (21-32) Anion Gap 14 mmol/L (5-15) Blood Urea Nitrogen 10 mg/dL (7-18) Creatinine 0.8 MG/DL (0.55-1.30) Estimat Glomerular Filtration Rate > 60 mL/min (>60) Glucose Level 163 MG/DL (74-106) H Calcium Level 10.0 MG/DL (8.5-10.1) Total Bilirubin 1.8 MG/DL (0.2-1.0) H Direct Bilirubin 0.3 MG/DL (0.0-0.3) Aspartate Amino Transf (AST/SGOT) 19 U/L (15-37) Alanine Aminotransferase (ALT/SGPT) 26 U/L (12-78) Alkaline Phosphatase 106 U/L (46-116) Troponin I 0.000 ng/mL (0.000-0.056) Total Protein 8.5 G/DL (6.4-8.2) H Albumin 4.5 G/DL (3.4-5.0) Globulin 4.0 g/dL Albumin/Globulin Ratio 1.1 (1.0-2.7) Lipase 143 U/L (73-393) Serum Alcohol < 3 mg/dL Urine Color Ana Cristina Urine Appearance Slightly cloudy Urine pH 8 (4.5-8.0) Urine Specific [place] 1.015 (1.005-1.035) Urine Protein 2+ (NEGATIVE) H Urine Glucose (UA) Negative (NEGATIVE) Urine Ketones 4+ (NEGATIVE) H Urine Occult Blood 1+ (NEGATIVE) H Urine Nitrite Negative (NEGATIVE) Urine Bilirubin Negative (NEGATIVE) Urine Ictotest Negative Urine Urobilinogen 4 MG/DL (0.0-1.0) H Urine Leukocyte Esterase 3+ (NEGATIVE) H Urine RBC 2-4 /HPF (0 - 2) H Urine WBC 5-10 /HPF (0 - 2) H Urine Squamous Epithelial Cells Moderate /LPF (NONE/OCC) H Urine Bacteria Moderate /HPF (NONE) H Urine Opiates Screen Negative (NEGATIVE) Urine Barbiturates Screen Negative (NEGATIVE) Phencyclidine (PCP) Screen Negative (NEGATIVE) Urine Amphetamines Screen Negative (NEGATIVE) Urine Benzodiazepines Screen Negative (NEGATIVE) Urine Cocaine Screen Negative (NEGATIVE) Urine Marijuana (THC) Screen Negative (NEGATIVE) Current Medications Medications (Trade) Dose Ordered Sig/Ewa Route PRN Reason Start Time Stop Time Status Last Admin Dose Admin Cefepime HCl 1 gm/ Dextrose 55 ml @ 110 mls/hr EVERY 12 HOURS IVPB 08/02/17 21:00 08/09/17 20:59 UNV Sodium Chloride 1,000 ml @ 300 mls/hr Q3H20M IV 08/02/17 15:45 09/01/17 15:44 08/02/17 17:44 Juliet Triplett M.D. Aug 02, 2017 20:59
[2017-08-02] MEDS ORDERED: Mylanta II UD 30ml ORAL PRN (21:00)
[2017-08-02] MEDS ORDERED: Nitroglycerin Subl 0.4mg tab SL PRN (21:00)
[2017-08-02] MEDS ORDERED: Miralax 17gm pkt ORAL PRN (21:00)
[2017-08-02 21:34] VITALS: BP 135/78
[2017-08-02] MEDS ORDERED: Zosyn 3.375gm/50ml Premix 50 ML IVPB SCH (22:00)
[2017-08-02 22:01] VITALS: BP 157/81
[2017-08-02] MEDS: D5 1/2NS 1,000 ML IV SCH (22:28)
[2017-08-02] MEDS ORDERED: LORazepam Inj 2mg/ml 1ml IV ONE (23:15)
[2017-08-03] MEDS: Heparin 5000 units/ml inj SUBQ SCH ×3 (00:24→21:39)
[2017-08-03] MEDS: Cefepime HCl 1 GM in D5W 55 ML IVPB SCH ×3 (00:25→21:35)
[2017-08-03 04:00] VITALS: BP 147/79
[2017-08-03 07:49] VITALS: BP 150/78
[2017-08-03 08:01] LABS: BASOPHILS % (AUTO) 0.7 % (0.0-2.0); HEMATOCRIT 41.1 % (37.0-47.0); HEMOGLOBIN 13.7 G/DL (12.0-16.0); LYMPHOCYTES % (AUTO) 15.8 % (20.0-45.0); MEAN CORPUSCULAR VOLUME 100 FL (80-99); MONOCYTES % (AUTO) 7.2 % (1.0-10.0); NEUTROPHILS % (AUTO) 76.3 % (45.0-75.0); PLATELET COUNT 294 K/UL (150-450); RED BLOOD COUNT 4.11 M/UL (4.20-5.40); RED CELL DISTRIBUTION WIDTH 11.1 % (11.6-14.8); WHITE BLOOD COUNT 12.4 K/UL (4.8-10.8)
[2017-08-03] MEDS: Sucralfate 1gm tab ORAL SCH ×2 (08:19→08:40)
[2017-08-03] MEDS: Lyrica 75mg cap ORAL SCH ×4 (08:21→17:54)
[2017-08-03 08:53] LABS: ALANINE AMINOTRANSFERASE 20 U/L (12-78); ALBUMIN 3.9 G/DL (3.4-5.0); ALKALINE PHOSPHATASE 91 U/L (46-116); ANION GAP 14 mmol/L (5-15); ASPARTATE AMINO TRANSFERASE 20 U/L (15-37); BILIRUBIN,TOTAL 1.4 MG/DL (0.2-1.0); BLOOD UREA NITROGEN 9 mg/dL (7-18); CALCIUM 9.1 MG/DL (8.5-10.1); CARBON DIOXIDE 22 MMOL/L (21-32); CHLORIDE 104 MMOL/L (98-107); CREATININE 0.7 MG/DL (0.55-1.30); POTASSIUM 3.8 MMOL/L (3.5-5.1); SODIUM 140 MMOL/L (136-145)
[2017-08-03 09:00] LABS: AMYLASE 69 U/L (25-115); BILIRUBIN,DIRECT 0.2 MG/DL (0.0-0.3)
[2017-08-03] MEDS ORDERED: Pantoprazole Inj IVP SCH (10:00)
[2017-08-03] MEDS ORDERED: Metoclopramide 10mg/2ml Inj IVP PRN (11:00)
[2017-08-03] MEDS: D5 1/2NS 1,000 ML IV SCH ×3 (11:20→17:54)
--- NOTE | 2017-08-03 12:07 | Diagnostic Imaging Report ---
Indication: Abdominal pain Comparison: 04/10/17 Single view of the abdomen obtained Findings: Bowel gas pattern is nonspecific. No mass, ectopic calcifications, or abnormal gas collections are identified. The bones are unremarkable. Bilateral hip prosthetics noted. Impression: No acute findings
--- NOTE | 2017-08-03 12:10 | Diagnostic Imaging Report ---
Indication: Dyspnea Comparison: 04/10/17 A single view chest radiograph was obtained. Findings: Cardiomediastinal appearance is within normal limits for age. Pulmonary vascularity is appropriate. The diaphragmatic contour is smooth and costophrenic angles are sharp. No pleural effusions are identified. The bones are unremarkable. Impression: No acute findings
[2017-08-03 12:40] VITALS: BP 144/82
--- NOTE | 2017-08-03 14:35 | GI Initial Consult Note ---
History of Present Illness General Date patient seen: Aug 03, 2017 Time patient seen: 10:00 Reason for Hospitalization: Vomiting Referring physician: JOY GUERRA Reason for Consultation: ABDOMINAL PAIN Present Illness HPI The patient presents via ALS complaining of chest pain and abdominal pain today' s. She states that this his arrival hernia is acting up. She's been vomiting and unable to keep down medication. She was nothing to help her with nausea. She states the pain is severe at this time. Somewhat exertional. She denies vomiting blood or melena. GI consulted for abdominal pain. HPI as noted above. Pt seen on floor, awake A&Ox4 NAD with no active s/sx of N/V/D. Patient c/o of severe abdominal pain + multiple episodes of emesis. She contributes the emesis due to her hiatal hernia which was dx during a recent EGD performed here at [facility] on 01/22 >> bx report shows NO H. Pylori. In addition, the patient stated she had a colonoscopy x 2.5 years ago with unremarkable results. Pt presents today with leukocytosis. Home Meds Active Scripts Ondansetron Odt* (ZOFRAN ODT*) 4 Mg Tab.rapdis, 4 MG ORAL Q8HR Y for Nausea & Vomiting, #6 TAB 1 Refill Prov:Emilio Lee M.D. 04/11/17 Acetaminophen (Tylenol) 325 Mg Tablet, 650 MG ORAL Q6H Y for Prn Pain/Headache/ Temp > 101, #30 TAB 0 Refills Prov:Emilio Lee M.D. 04/11/17 Hydrocodone Bit/Acetaminophen 5-325* (NORCO 5-325*) 1 Each Tablet, 1 TAB ORAL Q6H Y for For Pain, #10 TAB 0 Refills Prov:Emilio Lee M.D. 04/11/17 Famotidine (PEPCID) 20 Mg Tablet, 20 MG ORAL DAILY, #30 TAB 0 Refills Prov:Emilio Lee M.D. 04/11/17 Omeprazole (OMEPRAZOLE) 40 Mg Capsule.dr, 40 MG ORAL DAILY, #30 CAP Prov:WALLY FARIA 08/07/15 Sucralfate* (CARAFATE*) 1 Gm Tablet, 1 GM ORAL FOUR TIMES A DAY, #120 TAB Prov:WALLY FARIA 08/07/15 Reported Medications Pregabalin* (LYRICA*) 75 Mg Capsule, 75 MG ORAL THREE TIMES A DAY, CAP 04/10/17 Aspirin* (ASPIR 81*) 81 Mg Tablet.dr, 162 MG ORAL DAILY, TAB 01/20/17 Benzonatate* (TESSALON PERLE*) 100 Mg Capsule, 100 MG ORAL THREE TIMES A DAY Y for For Cough, #40 PERLE 08/05/16 Pantoprazole* (PROTONIX*) 40 Mg Tablet.dr, 40 MG ORAL DAILY, #30 TAB 08/05/16 Ondansetron Odt* (ZOFRAN ODT*) 4 Mg Tab.rapdis, 4 MG ORAL Q6H Y for Nausea & Vomiting, #40 TAB 08/05/16 No Known Medications* (NKM - No Known Medications*) ., 0 ., 0 Refills 08/05/15 Med list reviewed/reconciled: Yes Allergies: Coded Allergies: CODEINE (Unverified Allergy, Unknown, 08/05/14) IBUPROFEN (Verified Allergy, Unknown, 08/05/15) Patient History History Provided By: Patient, Medical Record [facility] Narrative Past Medical History: see triage record Social History: Denies: smoking Social History Narrative from home Nursing Documentation-[facility] Past Medical History: No History, Except For Hx Cancer: No Hx Neurological Problems: No Review of Systems All Other Systems: negative except mentioned in HPI Physical Exam Vital Signs Date Time Temp Pulse Resp B/P (MAP) Pulse Ox O2 Delivery O2 Flow Rate FiO2 08/02/17 15:30 98.4 68 18 137/74 99 Room Air Sp02 EP Interpretation: reviewed, normal Labs Laboratory Tests Test 08/02/17 15:45 08/02/17 16:55 08/03/17 05:20 White Blood Count 9.2 K/UL (4.8-10.8) 12.4 K/UL (4.8-10.8) H Red Blood Count 4.60 M/UL (4.20-5.40) 4.11 M/UL (4.20-5.40) L Hemoglobin 14.8 G/DL (12.0-16.0) 13.7 G/DL (12.0-16.0) Hematocrit 45.3 % (37.0-47.0) 41.1 % (37.0-47.0) Mean Corpuscular Volume 99 FL (80-99) 100 FL (80-99) H Mean Corpuscular Hemoglobin 32.3 PG (27.0-31.0) H 33.4 PG (27.0-31.0) H Mean Corpuscular Hemoglobin Concent 32.8 G/DL (32.0-36.0) 33.3 G/DL (32.0-36.0) Red Cell Distribution Width 11.1 % (11.6-14.8) L 11.1 % (11.6-14.8) L Platelet Count 323 K/UL (150-450) 294 K/UL (150-450) Mean Platelet Volume 6.1 FL (6.5-10.1) L 6.2 FL (6.5-10.1) L Neutrophils (%) (Auto) 83.9 % (45.0-75.0) H 76.3 % (45.0-75.0) H Lymphocytes (%) (Auto) 12.9 % (20.0-45.0) L 15.8 % (20.0-45.0) L Monocytes (%) (Auto) 2.4 % (1.0-10.0) 7.2 % (1.0-10.0) Eosinophils (%) (Auto) 0.0 % (0.0-3.0) 0.0 % (0.0-3.0) Basophils (%) (Auto) 0.8 % (0.0-2.0) 0.7 % (0.0-2.0) Prothrombin Time 11.3 SEC (9.30-11.50) Prothromb Time International Ratio 1.1 (0.9-1.1) Activated Partial Thromboplast Time 20 SEC (23-33) L 24 SEC (23-33) Sodium Level 141 MMOL/L (136-145) 140 MMOL/L (136-145) Potassium Level 3.3 MMOL/L (3.5-5.1) L 3.8 MMOL/L (3.5-5.1) Chloride Level 102 MMOL/L (98-107) 104 MMOL/L (98-107) Carbon Dioxide Level 25 MMOL/L (21-32) 22 MMOL/L (21-32) Anion Gap 14 mmol/L (5-15) 14 mmol/L (5-15) Blood Urea Nitrogen 10 mg/dL (7-18) 9 mg/dL (7-18) Creatinine 0.8 MG/DL (0.55-1.30) 0.7 MG/DL (0.55-1.30) Estimat Glomerular Filtration Rate > 60 mL/min (>60) > 60 mL/min (>60) Glucose Level 163 MG/DL (74-106) H 125 MG/DL (74-106) H Calcium Level 10.0 MG/DL (8.5-10.1) 9.1 MG/DL (8.5-10.1) Total Bilirubin 1.8 MG/DL (0.2-1.0) H 1.4 MG/DL (0.2-1.0) H Direct Bilirubin 0.3 MG/DL (0.0-0.3) 0.2 MG/DL (0.0-0.3) Aspartate Amino Transf (AST/SGOT) 19 U/L (15-37) 20 U/L (15-37) Alanine Aminotransferase (ALT/SGPT) 26 U/L (12-78) 20 U/L (12-78) Alkaline Phosphatase 106 U/L (46-116) 91 U/L (46-116) Troponin I 0.000 ng/mL (0.000-0.056) Total Protein 8.5 G/DL (6.4-8.2) H 7.8 G/DL (6.4-8.2) Albumin 4.5 G/DL (3.4-5.0) 3.9 G/DL (3.4-5.0) Globulin 4.0 g/dL 3.9 g/dL Albumin/Globulin Ratio 1.1 (1.0-2.7) 1.0 (1.0-2.7) Lipase 143 U/L (73-393) Serum Alcohol < 3 mg/dL Urine Color Ana Cristina Urine Appearance Slightly cloudy Urine pH 8 (4.5-8.0) Urine Specific [place] 1.015 (1.005-1.035) Urine Protein 2+ (NEGATIVE) H Urine Glucose (UA) Negative (NEGATIVE) Urine Ketones 4+ (NEGATIVE) H Urine Occult Blood 1+ (NEGATIVE) H Urine Nitrite Negative (NEGATIVE) Urine Bilirubin Negative (NEGATIVE) Urine Ictotest Negative Urine Urobilinogen 4 MG/DL (0.0-1.0) H Urine Leukocyte Esterase 3+ (NEGATIVE) H Urine RBC 2-4 /HPF (0 - 2) H Urine WBC 5-10 /HPF (0 - 2) H Urine Squamous Epithelial Cells Moderate /LPF (NONE/OCC) H Urine Bacteria Moderate /HPF (NONE) H Urine Opiates Screen Negative (NEGATIVE) Urine Barbiturates Screen Negative (NEGATIVE) Phencyclidine (PCP) Screen Negative (NEGATIVE) Urine Amphetamines Screen Negative (NEGATIVE) Urine Benzodiazepines Screen Negative (NEGATIVE) Urine Cocaine Screen Negative (NEGATIVE) Urine Marijuana (THC) Screen Negative (NEGATIVE) Amylase Level 69 U/L (25-115) General Appearance: well appearing, no apparent distress, alert, thin Head: normocephalic EENT: PERRL/EOMI, normal ENT inspection Neck: supple Respiratory: normal breath sounds, no respiratory distress Cardiovascular: normal rate Gastrointestinal: normal inspection, non tender, soft, normal bowel sounds, non -distended Rectal: deferred Genitourinary: no CVA tenderness Musculoskeletal: normal inspection, back normal Neurologic: normal inspection, alert, oriented x3, responsive Psychiatric: normal inspection, judgement/insight normal, memory normal Skin: normal inspection, normal color, no rash, warm/dry, palpation normal, well hydrated Lymphatic: normal inspection, no adenopathy Current Medications Current Medications Medications (Trade) Dose Ordered Sig/Ewa Route PRN Reason Start Time Stop Time Status Last Admin Dose Admin Acetaminophen (Tylenol) 650 mg Q4H PRN ORAL fever 08/02/17 21:00 09/01/17 20:59 08/03/17 13:56 Al Hydroxide/Mg Hydroxide (Mylanta II) 30 ml Q6H PRN ORAL dyspepsia 08/02/17 21:00 09/01/17 20:59 Cefepime HCl 1 gm/ Dextrose 55 ml @ 110 mls/hr EVERY 12 HOURS IVPB 08/02/17 23:00 08/09/17 22:59 08/03/17 08:19 Dextrose (Dextrose 50%) STAT PRN IV Hypoglycemia 08/02/17 21:00 09/01/17 20:59 Dextrose/Sodium Chloride 1,000 ml @ 75 mls/hr [id number] IV 08/02/17 22:00 09/01/17 21:59 08/03/17 12:00 Diphenhydramine HCl (Benadryl) 25 mg Q6H PRN ORAL Itching/Pruritis 08/02/17 21:00 09/01/17 20:59 Heparin Sodium (Porcine) (Heparin 5000 units/ml) 5,000 units EVERY 12 HOURS SUBQ 08/02/17 22:00 09/01/17 21:59 08/03/17 08:23 Metoclopramide HCl (Reglan) 10 mg Q8H PRN IVP Nausea & Vomiting 08/03/17 11:00 09/02/17 10:59 08/03/17 11:54 Nitroglycerin (Ntg) 0.4 mg Q5M X 3 DOSES PRN SL Prn Chest Pain 08/02/17 21:00 09/01/17 20:59 Ondansetron HCl (Zofran) 4 mg Q6H PRN IVP Nausea & Vomiting 08/02/17 21:00 09/01/17 20:59 08/02/17 23:31 Pantoprazole (Protonix) 40 mg DAILY IVP 08/03/17 10:00 09/02/17 09:59 08/03/17 09:57 Polyethylene Glycol (Miralax) 17 gm HSPRN PRN ORAL Constipation 08/02/17 21:00 09/01/17 20:59 Pregabalin (Lyrica) 75 mg THREE TIMES A DAY ORAL 08/03/17 09:00 09/02/17 08:59 08/03/17 13:56 Temazepam (Restoril) 15 mg HSPRN PRN ORAL Insomnia 08/02/17 21:00 08/09/17 20:59 08/03/17 01:45 GI: Plan Problems: (1) Drug-seeking behavior (2) Abdominal pain with vomiting (3) Nausea, vomiting, and diarrhea (4) Diabetes (5) Persistent vomiting (6) Fatty liver (7) Gastritis Plan s/p EGD SUMMARY OF FINDINGS 01/19/17: 1. Small inlet patch. 2. Hiatal hernia. 3. Gastritis, status post biopsy. >> negative for H. Pylori KUB reviewed >> no acute process symptomatic treatment pain mgmt zofran prn, reglan prn for persistent vomiting ppi fu labs Discussed with Dr. Smith. Thank you for this patient referral, we will follow. Regina Bradshaw N.P. Aug 03, 2017 14:35
--- NOTE | 2017-08-03 15:16 | Diagnostic Imaging Report ---
Indication:Flank pain. Technique: Grayscale and duplex Doppler imaging of the kidneys performed. Comparison: None Findings: The size, contour, and echogenicity of both kidneys are within normal limits. There is no hydronephrosis. The IVC and urinary bladder are unremarkable. Right kidney is 12 CM. Left kidney 12.4 CM in length. Impression: Negative exam
[2017-08-03] MEDS ORDERED: D5 1/2NS 1000ml IV ONE (15:40)
--- NOTE | 2017-08-03 15:57 | Infectious Diseases Prog Note ---
Assessment/Plan Problems: (1) Acute pyelonephritis Assessment & Plan: on iv cefepime pending urine and blood culture, US of the kidney ruled out obstructive stone (2) Sepsis Assessment & Plan: due to the above, await blood culture and continue cefepime empirically (3) Abdominal pain with vomiting Assessment & Plan: due to the above, continue supportive care, will order renal US, to rule out obstructive stone Subjective Constitutional: Reports: fatigue, anorexia HEENT: Reports: no symptoms Respiratory: Reports: no symptoms Breasts: Reports: no symptoms Cardiovascular: Reports: chest pain Gastrointestinal/Abdominal: Reports: nausea, vomiting, bloating Genitourinary: Reports: no symptoms Neurologic: Reports: no symptoms Psychiatric: Reports: no symptoms Skin: Reports: no symptoms Endocrine: Reports: no symptoms Hematologic: Reports: no symptoms Musculoskeletal: Reports: no symptoms Allergies: Coded Allergies: CODEINE (Unverified Allergy, Unknown, 08/05/14) IBUPROFEN (Verified Allergy, Unknown, 08/05/15) Objective Vital Signs Last 24 Hour Vital Signs Date Time Temp Pulse Resp B/P (MAP) Pulse Ox O2 Delivery O2 Flow Rate FiO2 08/03/17 12:40 98.1 83 19 144/82 Room Air 08/03/17 07:49 98.9 19 150/78 96 Room Air 08/03/17 04:00 97.3 16 147/79 96 Room Air 08/02/17 22:18 89 20 121/70 98 Room Air 08/02/17 22:01 99.9 17 157/81 97 Room Air 08/02/17 21:34 98.4 72 28 135/78 98 Room Air 08/02/17 19:49 98.5 08/02/17 19:00 98.2 88 26 151/82 99 Room Air 08/02/17 18:21 71 16 137/88 97 Room Air 08/02/17 16:30 98.5 Height (Feet): 5 Height (Inches): 4.00 Weight (Pounds): 153 General Appearance: WD/WN, no acute distress HEENT: normocephalic, atraumatic, anicteric, mucous membranes moist Respiratory/Chest: chest wall non-tender, lungs clear, normal breath sounds, no respiratory distress, no accessory muscle use Cardiovascular: normal peripheral pulses, normal rate, regular rhythm, no gallop/murmur, no JVD Abdomen: normal bowel sounds, no organomegaly, non distended, no mass, no scars , hypoactive bowel sounds, tender Genitourinary: normal external genitalia Extremities: no cyanosis, no clubbing Skin: no rash, no lesions, no ulcers 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: alert, oriented x 3 Lymphatic: no neck adenopathy, no groin adenopathy Microbiology Date/Time Source Procedure Growth Status 08/02/17 16:55 Urine,Clean Catch Urine Culture - Preliminary Resulted Laboratory Tests Test 08/02/17 16:55 08/03/17 05:20 Urine Color Ana Cristina Urine Appearance Slightly cloudy Urine pH 8 (4.5-8.0) Urine Specific [place] 1.015 (1.005-1.035) Urine Protein 2+ (NEGATIVE) H Urine Glucose (UA) Negative (NEGATIVE) Urine Ketones 4+ (NEGATIVE) H Urine Occult Blood 1+ (NEGATIVE) H Urine Nitrite Negative (NEGATIVE) Urine Bilirubin Negative (NEGATIVE) Urine Ictotest Negative Urine Urobilinogen 4 MG/DL (0.0-1.0) H Urine Leukocyte Esterase 3+ (NEGATIVE) H Urine RBC 2-4 /HPF (0 - 2) H Urine WBC 5-10 /HPF (0 - 2) H Urine Squamous Epithelial Cells Moderate /LPF (NONE/OCC) H Urine Bacteria Moderate /HPF (NONE) H Urine Opiates Screen Negative (NEGATIVE) Urine Barbiturates Screen Negative (NEGATIVE) Phencyclidine (PCP) Screen Negative (NEGATIVE) Urine Amphetamines Screen Negative (NEGATIVE) Urine Benzodiazepines Screen Negative (NEGATIVE) Urine Cocaine Screen Negative (NEGATIVE) Urine Marijuana (THC) Screen Negative (NEGATIVE) White Blood Count 12.4 K/UL (4.8-10.8) H Red Blood Count 4.11 M/UL (4.20-5.40) L Hemoglobin 13.7 G/DL (12.0-16.0) Hematocrit 41.1 % (37.0-47.0) Mean Corpuscular Volume 100 FL (80-99) H Mean Corpuscular Hemoglobin 33.4 PG (27.0-31.0) H Mean Corpuscular Hemoglobin Concent 33.3 G/DL (32.0-36.0) Red Cell Distribution Width 11.1 % (11.6-14.8) L Platelet Count 294 K/UL (150-450) Mean Platelet Volume 6.2 FL (6.5-10.1) L Neutrophils (%) (Auto) 76.3 % (45.0-75.0) H Lymphocytes (%) (Auto) 15.8 % (20.0-45.0) L Monocytes (%) (Auto) 7.2 % (1.0-10.0) Eosinophils (%) (Auto) 0.0 % (0.0-3.0) Basophils (%) (Auto) 0.7 % (0.0-2.0) Activated Partial Thromboplast Time 24 SEC (23-33) Sodium Level 140 MMOL/L (136-145) Potassium Level 3.8 MMOL/L (3.5-5.1) Chloride Level 104 MMOL/L (98-107) Carbon Dioxide Level 22 MMOL/L (21-32) Anion Gap 14 mmol/L (5-15) Blood Urea Nitrogen 9 mg/dL (7-18) Creatinine 0.7 MG/DL (0.55-1.30) Estimat Glomerular Filtration Rate > 60 mL/min (>60) Glucose Level 125 MG/DL (74-106) H Calcium Level 9.1 MG/DL (8.5-10.1) Total Bilirubin 1.4 MG/DL (0.2-1.0) H Direct Bilirubin 0.2 MG/DL (0.0-0.3) Aspartate Amino Transf (AST/SGOT) 20 U/L (15-37) Alanine Aminotransferase (ALT/SGPT) 20 U/L (12-78) Alkaline Phosphatase 91 U/L (46-116) Total Protein 7.8 G/DL (6.4-8.2) Albumin 3.9 G/DL (3.4-5.0) Globulin 3.9 g/dL Albumin/Globulin Ratio 1.0 (1.0-2.7) Amylase Level 69 U/L (25-115) Current Medications Medications (Trade) Dose Ordered Sig/Ewa Route PRN Reason Start Time Stop Time Status Last Admin Dose Admin Acetaminophen (Tylenol) 650 mg Q4H PRN ORAL fever 08/02/17 21:00 09/01/17 20:59 08/03/17 13:56 Al Hydroxide/Mg Hydroxide (Mylanta II) 30 ml Q6H PRN ORAL dyspepsia 08/02/17 21:00 09/01/17 20:59 Cefepime HCl 1 gm/ Dextrose 55 ml @ 110 mls/hr EVERY 12 HOURS IVPB 08/02/17 23:00 08/09/17 22:59 08/03/17 08:19 Dextrose (Dextrose 50%) STAT PRN IV Hypoglycemia 08/02/17 21:00 09/01/17 20:59 Dextrose/Sodium Chloride 1,000 ml @ 75 mls/hr [id number] IV 08/02/17 22:00 09/01/17 21:59 08/03/17 12:00 Diphenhydramine HCl (Benadryl) 25 mg Q6H PRN ORAL Itching/Pruritis 08/02/17 21:00 09/01/17 20:59 Heparin Sodium (Porcine) (Heparin 5000 units/ml) 5,000 units EVERY 12 HOURS SUBQ 08/02/17 22:00 09/01/17 21:59 08/03/17 08:23 Metoclopramide HCl (Reglan) 10 mg Q8H PRN IVP Nausea & Vomiting 08/03/17 11:00 09/02/17 10:59 08/03/17 11:54 Nitroglycerin (Ntg) 0.4 mg Q5M X 3 DOSES PRN SL Prn Chest Pain 08/02/17 21:00 09/01/17 20:59 Ondansetron HCl (Zofran) 4 mg Q6H PRN IVP Nausea & Vomiting 08/02/17 21:00 09/01/17 20:59 08/02/17 23:31 Pantoprazole (Protonix) 40 mg DAILY IVP 08/04/17 09:00 09/03/17 08:59 Polyethylene Glycol (Miralax) 17 gm HSPRN PRN ORAL Constipation 08/02/17 21:00 09/01/17 20:59 Pregabalin (Lyrica) 75 mg THREE TIMES A DAY ORAL 08/03/17 09:00 09/02/17 08:59 08/03/17 13:56 Temazepam (Restoril) 15 mg HSPRN PRN ORAL Insomnia 08/02/17 21:00 08/09/17 20:59 08/03/17 01:45 Juliet Triplett M.D. Aug 03, 2017 15:57
[2017-08-03 16:00] VITALS: BP 140/71
[2017-08-03 20:00] VITALS: BP 150/77
--- NOTE | 2017-08-03 20:17 | Cardiology Report ---
APPROVED REPORT EKG Measurement Heart [id number] 166P51 [id number] Normal sinus rhythm Rightward axis Borderline ECG
--- NOTE | 2017-08-03 20:17 | Cardiology Report ---
APPROVED REPORT EKG Measurement Heart [id number] 166P51 [id number] Normal sinus rhythm Rightward axis Borderline ECG
--- NOTE | 2017-08-03 20:17 | Cardiology Report ---
APPROVED REPORT EKG Measurement Heart [id number] 166P51 [id number] Normal sinus rhythm Rightward axis Borderline ECG
--- NOTE | 2017-08-03 21:00 | Consultation ---
DATE OF CONSULTATION: 08/03/2017 INFECTIOUS DISEASE CONSULTATION CONSULTING PHYSICIAN: Juliet Triplett M.D. REQUESTING PHYSICIAN: Aneudy Zapata D.O. REASON FOR CONSULTATION: Acute pyelonephritis, sepsis, and recommendation for antibiotics treatment. HISTORY OF PRESENT ILLNESS: The patient is a 62-year-old female, who was brought in to [facility] emergency room for progressive epigastric and substernal chest pain associated with nausea and vomiting. The patient had hiatal hernia and she felt pressure in her chest with recurrent vomiting. She felt her hernia is way up in the middle of her chest and she vomited several times. There was no blood in her vomits. Denied any fever or chills. No significant abdominal pain. No diarrhea or blood in the stool. Denied any dysuria or hematuria, but she had also flank pain. The patient tried some medication at home, but it did not help with her nausea. So, she was brought into the emergency room for evaluation where she was found to have evidence of strong urine infection, possible acute pyelonephritis with systemic presentation. So, I was consulted by the primary provider for antibiotics treatment and further management. PAST MEDICAL HISTORY: Significant for hiatal hernia and hypertension. PAST SURGICAL HISTORY: Negative. ALLERGIES: She is allergic to codeine and ibuprofen. MEDICATIONS: The patient received ceftriaxone in the emergency room. For the rest of her medications, please refer to MAR. SOCIAL HISTORY: She is unemployed. Denied using any drugs, tobacco, or alcohol. FAMILY HISTORY: Not contributory. REVIEW OF SYSTEMS: A 14-point of system reviewed and all are negative apart from the one I mentioned above in my History and Physical. PHYSICAL EXAMINATION: VITAL SIGNS: Temperature 99.9, pulse 72, respirations 17, blood pressure 157/81, and saturation 97% on room air. GENERAL: A middle-aged female complaining of epigastric discomfort with nausea, lying in bed, awake, alert, not in acute distress. HEENT: Normocephalic and atraumatic. Pupils are reactive to light. Moist oral mucosa. No exudate or thrush. NECK: Supple. No lymphadenopathy. CARDIOVASCULAR: Regular rate and rhythm. No murmur or gallop. LUNGS: Clear bilaterally. No wheezing or rhonchi. No respiratory distress. ABDOMEN: Soft. Tender in the epigastric area. No rebound. No ascites. No organomegaly. EXTREMITIES: No edema or cyanosis. LABORATORY DATA: Showed white count of 9.2, hemoglobin of 14.8, and platelet count of 323. BUN of 10 and creatinine of 0.8. AST of 19 and ALT of 26. Urinalysis showed +3 leukocyte esterase, WBC 5 to 10, and moderate amount of bacteria. IMAGING STUDIES: Chest x-ray showed no acute finding. Abdominal x-ray showed no acute finding. Renal ultrasound showed negative exam with no evidence of hydronephrosis. ASSESSMENT AND RECOMMENDATION: 1. Acute pyelonephritis. We will start cefepime and send blood culture. Obtain ultrasound of the kidney to rule out obstructive stone. Continue hydration and pain management as needed. 2. Sepsis due to the above. We will send blood culture and start cefepime empiric treatment. Pending culture. 3. Abdominal pain with vomiting, rule out obstructive stone. We will screen with ultrasound. Continue supportive care and management. Recommend Gastrointestinal consultation for possible endoscopy if no improvement. Juliet Triplett M.D. DR: MINA JOB#: [id number] CC:
[2017-08-03] MEDS ORDERED: HYDROmorphone 1mg/NS 50ml IVPB 50 ML IVPB PRN (21:30)
--- NOTE | 2017-08-03 21:45 | History and Physical Report ---
DATE OF ADMISSION: 08/02/2017 TIME SEEN: 3 p.m. ATTENDING PHYSICIAN: Aneudy Zapata D.O. CONSULTANTS: 1. Dr. Brooks. 2. Broderick Smith M.D. 3. Belinda Pelletier M.D. 4. Ernesto Valencia M.D. CHIEF COMPLAINT: Abdominal pain, nausea, vomiting, and UTI. BRIEF HISTORY: This is a 62-year-old female who lives at home, presented with increased nausea, vomiting, and weakness. The patient does have a history of hiatal hernia and was diagnosed with UTI in the ER. Currently calm, slightly nauseous, complains of abdominal pain, 7/10. No complaints. REVIEW OF SYSTEMS: No chest pain. Slight shortness of breath. Slight nausea and vomiting. No diarrhea. PAST MEDICAL HISTORY: Include as mentioned. PAST SURGICAL HISTORY: Hip replacement. MEDICATIONS: Protonix, Reglan, Lyrica, cefepime, heparin, and Tylenol. ALLERGIES: Codeine and Motrin. SOCIAL HISTORY: No smoke. No alcohol. No intravenous drug abuse. FAMILY HISTORY: Noncontributory. PHYSICAL EXAMINATION: GENERAL: Slightly anxious in bed, oriented x3, in no acute distress. VITAL SIGNS: Temperature is 98, pulse 82, respirations 19, and blood pressure 144/82. CARDIOVASCULAR: No murmurs. LUNGS: Distant and clear. ABDOMEN: Bowel sounds are positive. Slightly tender. No guarding. No rigidity. No rebound. EXTREMITIES: No cyanosis or edema. NEUROLOGIC: The patient moves all extremities, but slightly weak. LABORATORY DATA: Labs at this time show white count 12.4, hemoglobin and hematocrit 13 and 41, and platelets 294. Glucose 125. Bilirubin 1.4. Otherwise, BMP is normal. INR is 1.1. PTT is 20. Urine toxicology is negative. Urinalysis shows 3+ leukocyte esterase. ASSESSMENT: 1. Abdominal pain. 2. Vomiting. 3. Urinary tract infection. 4. Hiatal hernia. 5. Chronic pain. PLAN: 1. Continue pre-medications. 2. GI followup. 3. Antibiotics per Infectious Disease. 4. OT, PT, and dietary evaluation. 5. CBC and BMP in the morning. 6. Dr. Brooks, Dr. Smith, Dr. Pelletier, and Dr. Johnson to consult. Aneudy Zapata D.O. DR: KARTHIKEYAN JOB#: [id number] CC:
[2017-08-03] MEDS ORDERED: HYDROmorphone 1 MG in NS 55 ML IVPB PRN (22:00)
[2017-08-03 23:50] VITALS: BP 143/88
[2017-08-04] MEDS: D5 1/2NS 1,000 ML IV SCH ×4 (00:40→23:53)
[2017-08-04] MEDS ORDERED: Norco 5mg/325mg tab ORAL PRN ×2 (01:00→01:21)
[2017-08-04] MEDS ORDERED: HYDROmorphone 1mg/ml Carpuject ONE (03:58)
[2017-08-04] MEDS: HYDROmorphone 1 MG in NS 55 ML IVPB PRN ×5 (04:13→23:54)
[2017-08-04 04:14] VITALS: BP 155/83
[2017-08-04 08:04] LABS: BASOPHILS % (AUTO) 1.2 % (0.0-2.0); HEMATOCRIT 40.3 % (37.0-47.0); HEMOGLOBIN 13.7 G/DL (12.0-16.0); LYMPHOCYTES % (AUTO) 22.2 % (20.0-45.0); MEAN CORPUSCULAR VOLUME 98 FL (80-99); MONOCYTES % (AUTO) 7.1 % (1.0-10.0); NEUTROPHILS % (AUTO) 69.5 % (45.0-75.0); PLATELET COUNT 295 K/UL (150-450); RED BLOOD COUNT 4.11 M/UL (4.20-5.40); RED CELL DISTRIBUTION WIDTH 11.2 % (11.6-14.8); WHITE BLOOD COUNT 12.2 K/UL (4.8-10.8)
[2017-08-04 08:31] LABS: ANION GAP 12 mmol/L (5-15); BLOOD UREA NITROGEN 8 mg/dL (7-18); CALCIUM 9.1 MG/DL (8.5-10.1); CARBON DIOXIDE 25 MMOL/L (21-32); CHLORIDE 102 MMOL/L (98-107); CREATININE 0.6 MG/DL (0.55-1.30); PHOSPHORUS 3.3 MG/DL (2.5-4.9); POTASSIUM 3.4 MMOL/L (3.5-5.1); SODIUM 139 MMOL/L (136-145)
[2017-08-04 08:34] VITALS: BP 105/68
[2017-08-04] MEDS: Pantoprazole Inj IVP SCH (08:34)
[2017-08-04] MEDS: Lyrica 75mg cap ORAL SCH ×3 (08:35→17:34)
[2017-08-04] MEDS: Heparin 5000 units/ml inj SUBQ SCH ×2 (08:40→21:09)
--- NOTE | 2017-08-04 08:52 | Consultation ---
History of Present Illness General Date patient seen: Aug 04, 2017 Chief Complaint: Referring physician: Reason for Consultation: Present Illness Allergies: Coded Allergies: CODEINE (Unverified Allergy, Unknown, 08/05/14) IBUPROFEN (Verified Allergy, Unknown, 08/05/15) Medication History Scheduled Aspirin* (Aspir 81*), 162 MG ORAL DAILY, (Reported) Famotidine (Pepcid), 20 MG ORAL DAILY No Known Medications* (NKM - No Known Medications*), 0 ., (Reported) Omeprazole (Omeprazole), 40 MG ORAL DAILY Pantoprazole* (Protonix*), 40 MG ORAL DAILY, (Reported) Pregabalin* (Lyrica*), 75 MG ORAL THREE TIMES A DAY, (Reported) Sucralfate* (Carafate*), 1 GM ORAL FOUR TIMES A DAY Scheduled PRN Acetaminophen (Tylenol), 650 MG ORAL Q6H PRN for Prn Pain/Headache/Temp > 101 Benzonatate* (Tessalon Perle*), 100 MG ORAL THREE TIMES A DAY PRN for For Cough, (Reported) Hydrocodone Bit/Acetaminophen 5-325* ([place] 5-325*), 1 TAB ORAL Q6H PRN for For Pain Ondansetron Odt* (Zofran Odt*), 4 MG ORAL Q6H PRN for Nausea & Vomiting, ( Reported) Ondansetron Odt* (Zofran Odt*), 4 MG ORAL Q8HR PRN for Nausea & Vomiting Patient History Healthcare decision maker N Resuscitation status Full Code Advanced Directive on File No Physical Exam Last 24 Hour Vital Signs Date Time Temp Pulse Resp B/P (MAP) Pulse Ox O2 Delivery O2 Flow Rate FiO2 08/04/17 08:34 97.2 76 19 105/68 95 Room Air 08/04/17 04:14 98.7 56 20 155/83 95 Room Air 08/03/17 23:50 98.7 84 21 143/88 94 Room Air 08/03/17 20:00 98.2 61 19 150/77 94 Room Air 08/03/17 16:00 99.5 59 140/71 Room Air 08/03/17 12:40 98.1 83 19 144/82 Room Air Laboratory Tests Test 08/04/17 07:40 White Blood Count 12.2 K/UL (4.8-10.8) H Red Blood Count 4.11 M/UL (4.20-5.40) L Hemoglobin 13.7 G/DL (12.0-16.0) Hematocrit 40.3 % (37.0-47.0) Mean Corpuscular Volume 98 FL (80-99) Mean Corpuscular Hemoglobin 33.3 PG (27.0-31.0) H Mean Corpuscular Hemoglobin Concent 34.0 G/DL (32.0-36.0) Red Cell Distribution Width 11.2 % (11.6-14.8) L Platelet Count 295 K/UL (150-450) Mean Platelet Volume 6.6 FL (6.5-10.1) Neutrophils (%) (Auto) 69.5 % (45.0-75.0) Lymphocytes (%) (Auto) 22.2 % (20.0-45.0) Monocytes (%) (Auto) 7.1 % (1.0-10.0) Eosinophils (%) (Auto) 0.0 % (0.0-3.0) Basophils (%) (Auto) 1.2 % (0.0-2.0) Sodium Level 139 MMOL/L (136-145) Potassium Level 3.4 MMOL/L (3.5-5.1) L Chloride Level 102 MMOL/L (98-107) Carbon Dioxide Level 25 MMOL/L (21-32) Anion Gap 12 mmol/L (5-15) Blood Urea Nitrogen 8 mg/dL (7-18) Creatinine 0.6 MG/DL (0.55-1.30) Estimat Glomerular Filtration Rate > 60 mL/min (>60) Glucose Level 124 MG/DL (74-106) H Calcium Level 9.1 MG/DL (8.5-10.1) Phosphorus Level 3.3 MG/DL (2.5-4.9) Magnesium Level 2.0 MG/DL (1.8-2.4) Height (Feet): 5 Height (Inches): 4.00 Weight (Pounds): 153 Medications Current Medications Medications (Trade) Dose Ordered Sig/Ewa Route PRN Reason Start Time Stop Time Status Last Admin Dose Admin Acetaminophen (Tylenol) 650 mg Q4H PRN ORAL fever, pain 08/03/17 21:00 09/02/17 20:59 Acetaminophen/ Hydrocodone Bitart ([place] 5/325) 1 tab Q6H PRN ORAL Severe Breakthru Pain (>7) 08/04/17 01:21 08/11/17 01:20 08/04/17 01:30 Al Hydroxide/Mg Hydroxide (Mylanta II) 30 ml Q6H PRN ORAL dyspepsia 08/02/17 21:00 09/01/17 20:59 Cefepime HCl 1 gm/ Dextrose 55 ml @ 110 mls/hr EVERY 12 HOURS IVPB 08/02/17 23:00 08/09/17 22:59 08/03/17 21:35 Dextrose (Dextrose 50%) STAT PRN IV Hypoglycemia 08/02/17 21:00 09/01/17 20:59 Dextrose/Sodium Chloride 1,000 ml @ 75 mls/hr [id number] IV 08/02/17 22:00 09/01/17 21:59 08/04/17 07:00 Diphenhydramine HCl (Benadryl) 25 mg Q6H PRN ORAL Itching/Pruritis 08/02/17 21:00 09/01/17 20:59 Heparin Sodium (Porcine) (Heparin 5000 units/ml) 5,000 units EVERY 12 HOURS SUBQ 08/02/17 22:00 09/01/17 21:59 08/04/17 08:40 Hydromorphone HCl 1 mg/Sodium Chloride 56 ml @ 224 mls/hr Q4H PRN IVPB Severe Pain (Pain Scale 7-10) 08/04/17 01:22 08/11/17 01:21 08/04/17 08:47 Metoclopramide HCl (Reglan) 10 mg Q8H PRN IVP Nausea & Vomiting 08/03/17 11:00 09/02/17 10:59 08/03/17 11:54 Nitroglycerin (Ntg) 0.4 mg Q5M X 3 DOSES PRN SL Prn Chest Pain 08/02/17 21:00 09/01/17 20:59 Ondansetron HCl (Zofran) 4 mg Q6H PRN IVP Nausea & Vomiting 08/02/17 21:00 09/01/17 20:59 08/02/17 23:31 Pantoprazole (Protonix) 40 mg DAILY IVP 08/04/17 09:00 09/03/17 08:59 08/04/17 08:34 Polyethylene Glycol (Miralax) 17 gm HSPRN PRN ORAL Constipation 08/02/17 21:00 09/01/17 20:59 Pregabalin (Lyrica) 75 mg THREE TIMES A DAY ORAL 08/03/17 09:00 09/02/17 08:59 08/04/17 08:35 Temazepam (Restoril) 15 mg HSPRN PRN ORAL Insomnia 08/02/17 21:00 08/09/17 20:59 08/03/17 21:35 Assessment/Plan Assessment/Plan (1) Lumbar and Cervical DDD (2) Lumbar and Cervical Spondylosis (3) Lumbar and Cervical Radiculopathy (4) Multiple Joint pain and OA (5) Abdominal pain (6) Hiatal Hernia (7) Gastritis seen dictated LESVIA GUTIERREZ Aug 04, 2017 08:52
[2017-08-04] MEDS: Cefepime HCl 1 GM in D5W 55 ML IVPB SCH ×2 (09:03→21:09)
--- NOTE | 2017-08-04 10:30 | General Progress Note ---
Assessment/Plan Problem List: (1) Leukocytosis ICD Codes: D72.829 - Elevated white blood cell count, unspecified SNOMED: 652340746, 163827992 (2) Hiatal hernia ICD Codes: K44.9 - Diaphragmatic hernia without obstruction or gangrene SNOMED: 28614018 (3) Persistent vomiting ICD Codes: R11.10 - Vomiting, unspecified SNOMED: 227879098 (4) Nausea, vomiting, and diarrhea ICD Codes: R11.2 - Nausea with vomiting, unspecified; R19.7 - Diarrhea, unspecified SNOMED: 7546312 (5) Hypokalemia ICD Codes: E87.6 - Hypokalemia SNOMED: 38694976 (6) UTI (urinary tract infection) ICD Codes: N39.0 - Urinary tract infection, site not specified SNOMED: 04980183 Qualifiers: Qualified Codes: N30.00 - Acute cystitis without hematuria (7) Abdominal pain with vomiting ICD Codes: R10.9 - Unspecified abdominal pain; R11.10 - Vomiting, unspecified SNOMED: 43912868, 812278358 Status: stable, progressing Assessment/Plan ot pt diet ivf abx pain control cbc bmp am Subjective Constitutional: Reports: weakness Allergies: Coded Allergies: CODEINE (Unverified Allergy, Unknown, 08/05/14) IBUPROFEN (Verified Allergy, Unknown, 08/05/15) All Systems: reviewed and negative except above Subjective weak, c/o abd pain and nausea Objective Last 24 Hour Vital Signs Date Time Temp Pulse Resp B/P (MAP) Pulse Ox O2 Delivery O2 Flow Rate FiO2 08/04/17 08:34 97.2 76 19 105/68 95 Room Air 08/04/17 04:14 98.7 56 20 155/83 95 Room Air 08/03/17 23:50 98.7 84 21 143/88 94 Room Air 08/03/17 20:00 98.2 61 19 150/77 94 Room Air 08/03/17 16:00 99.5 59 140/71 Room Air 08/03/17 12:40 98.1 83 19 144/82 Room Air Laboratory Tests 08/04/17 07:40: White Blood Count 12.2H, Red Blood Count 4.11L, Hemoglobin 13.7, Hematocrit 40.3 , Mean Corpuscular Volume 98, Mean Corpuscular Hemoglobin 33.3H, Mean Corpuscular Hemoglobin Concent 34.0, Red Cell Distribution Width 11.2L, Platelet Count 295, Mean Platelet Volume 6.6, Neutrophils (%) (Auto) 69.5, Lymphocytes (%) (Auto) 22.2, Monocytes (%) (Auto) 7.1, Eosinophils (%) (Auto) 0.0, Basophils (%) (Auto) 1.2, Sodium Level 139, Potassium Level 3.4L, Chloride Level 102, Carbon Dioxide Level 25, Anion Gap 12, Blood Urea Nitrogen 8, Creatinine 0.6, Estimat Glomerular Filtration Rate > 60, Glucose Level 124H, Calcium Level 9.1, Phosphorus Level 3.3, Magnesium Level 2.0 Height (Feet): 5 Height (Inches): 4.00 Weight (Pounds): 153 General Appearance: alert EENT: normal ENT inspection Neck: normal alignment Cardiovascular: normal peripheral pulses, normal rate, regular rhythm Respiratory/Chest: chest wall non-tender, lungs clear, normal breath sounds Abdomen: normal bowel sounds, non tender, soft Extremities: normal inspection Edema: no edema noted Arm (L), no edema noted Arm (R), no edema noted Leg (L), no edema noted Leg (R), no edema noted Pedal (L), no edema noted Pedal (R), no edema noted Generalized Neurologic: responsive, motor weakness Skin: normal pigmentation, warm/dry JOY GUERRA Aug 04, 2017 10:30
--- NOTE | 2017-08-04 10:30 | General Progress Note ---
Assessment/Plan Problem List: (1) Leukocytosis ICD Codes: D72.829 - Elevated white blood cell count, unspecified SNOMED: 988911923, 326450459 (2) Hiatal hernia ICD Codes: K44.9 - Diaphragmatic hernia without obstruction or gangrene SNOMED: 30197016 (3) Persistent vomiting ICD Codes: R11.10 - Vomiting, unspecified SNOMED: 837759096 (4) Nausea, vomiting, and diarrhea ICD Codes: R11.2 - Nausea with vomiting, unspecified; R19.7 - Diarrhea, unspecified SNOMED: 3457711 (5) Hypokalemia ICD Codes: E87.6 - Hypokalemia SNOMED: 00890269 (6) UTI (urinary tract infection) ICD Codes: N39.0 - Urinary tract infection, site not specified SNOMED: 38236930 Qualifiers: Qualified Codes: N30.00 - Acute cystitis without hematuria (7) Abdominal pain with vomiting ICD Codes: R10.9 - Unspecified abdominal pain; R11.10 - Vomiting, unspecified SNOMED: 27876273, 201193617 Status: stable, progressing Assessment/Plan ot pt diet ivf abx pain control cbc bmp am Subjective Constitutional: Reports: weakness Allergies: Coded Allergies: CODEINE (Unverified Allergy, Unknown, 08/05/14) IBUPROFEN (Verified Allergy, Unknown, 08/05/15) All Systems: reviewed and negative except above Subjective weak, c/o abd pain and nausea Objective Last 24 Hour Vital Signs Date Time Temp Pulse Resp B/P (MAP) Pulse Ox O2 Delivery O2 Flow Rate FiO2 08/04/17 08:34 97.2 76 19 105/68 95 Room Air 08/04/17 04:14 98.7 56 20 155/83 95 Room Air 08/03/17 23:50 98.7 84 21 143/88 94 Room Air 08/03/17 20:00 98.2 61 19 150/77 94 Room Air 08/03/17 16:00 99.5 59 140/71 Room Air 08/03/17 12:40 98.1 83 19 144/82 Room Air Laboratory Tests 08/04/17 07:40: White Blood Count 12.2H, Red Blood Count 4.11L, Hemoglobin 13.7, Hematocrit 40.3 , Mean Corpuscular Volume 98, Mean Corpuscular Hemoglobin 33.3H, Mean Corpuscular Hemoglobin Concent 34.0, Red Cell Distribution Width 11.2L, Platelet Count 295, Mean Platelet Volume 6.6, Neutrophils (%) (Auto) 69.5, Lymphocytes (%) (Auto) 22.2, Monocytes (%) (Auto) 7.1, Eosinophils (%) (Auto) 0.0, Basophils (%) (Auto) 1.2, Sodium Level 139, Potassium Level 3.4L, Chloride Level 102, Carbon Dioxide Level 25, Anion Gap 12, Blood Urea Nitrogen 8, Creatinine 0.6, Estimat Glomerular Filtration Rate > 60, Glucose Level 124H, Calcium Level 9.1, Phosphorus Level 3.3, Magnesium Level 2.0 Height (Feet): 5 Height (Inches): 4.00 Weight (Pounds): 153 General Appearance: alert EENT: normal ENT inspection Neck: normal alignment Cardiovascular: normal peripheral pulses, normal rate, regular rhythm Respiratory/Chest: chest wall non-tender, lungs clear, normal breath sounds Abdomen: normal bowel sounds, non tender, soft Extremities: normal inspection Edema: no edema noted Arm (L), no edema noted Arm (R), no edema noted Leg (L), no edema noted Leg (R), no edema noted Pedal (L), no edema noted Pedal (R), no edema noted Generalized Neurologic: responsive, motor weakness Skin: normal pigmentation, warm/dry JOY GUERRA Aug 04, 2017 10:30
--- NOTE | 2017-08-04 10:30 | General Progress Note ---
Assessment/Plan Problem List: (1) Leukocytosis ICD Codes: D72.829 - Elevated white blood cell count, unspecified SNOMED: 762333719, 655889853 (2) Hiatal hernia ICD Codes: K44.9 - Diaphragmatic hernia without obstruction or gangrene SNOMED: 97152116 (3) Persistent vomiting ICD Codes: R11.10 - Vomiting, unspecified SNOMED: 505950742 (4) Nausea, vomiting, and diarrhea ICD Codes: R11.2 - Nausea with vomiting, unspecified; R19.7 - Diarrhea, unspecified SNOMED: 3237517 (5) Hypokalemia ICD Codes: E87.6 - Hypokalemia SNOMED: 43974877 (6) UTI (urinary tract infection) ICD Codes: N39.0 - Urinary tract infection, site not specified SNOMED: 93887487 Qualifiers: Qualified Codes: N30.00 - Acute cystitis without hematuria (7) Abdominal pain with vomiting ICD Codes: R10.9 - Unspecified abdominal pain; R11.10 - Vomiting, unspecified SNOMED: 05591560, 756331108 Status: stable, progressing Assessment/Plan ot pt diet ivf abx pain control cbc bmp am Subjective Constitutional: Reports: weakness Allergies: Coded Allergies: CODEINE (Unverified Allergy, Unknown, 08/05/14) IBUPROFEN (Verified Allergy, Unknown, 08/05/15) All Systems: reviewed and negative except above Subjective weak, c/o abd pain and nausea Objective Last 24 Hour Vital Signs Date Time Temp Pulse Resp B/P (MAP) Pulse Ox O2 Delivery O2 Flow Rate FiO2 08/04/17 08:34 97.2 76 19 105/68 95 Room Air 08/04/17 04:14 98.7 56 20 155/83 95 Room Air 08/03/17 23:50 98.7 84 21 143/88 94 Room Air 08/03/17 20:00 98.2 61 19 150/77 94 Room Air 08/03/17 16:00 99.5 59 140/71 Room Air 08/03/17 12:40 98.1 83 19 144/82 Room Air Laboratory Tests 08/04/17 07:40: White Blood Count 12.2H, Red Blood Count 4.11L, Hemoglobin 13.7, Hematocrit 40.3 , Mean Corpuscular Volume 98, Mean Corpuscular Hemoglobin 33.3H, Mean Corpuscular Hemoglobin Concent 34.0, Red Cell Distribution Width 11.2L, Platelet Count 295, Mean Platelet Volume 6.6, Neutrophils (%) (Auto) 69.5, Lymphocytes (%) (Auto) 22.2, Monocytes (%) (Auto) 7.1, Eosinophils (%) (Auto) 0.0, Basophils (%) (Auto) 1.2, Sodium Level 139, Potassium Level 3.4L, Chloride Level 102, Carbon Dioxide Level 25, Anion Gap 12, Blood Urea Nitrogen 8, Creatinine 0.6, Estimat Glomerular Filtration Rate > 60, Glucose Level 124H, Calcium Level 9.1, Phosphorus Level 3.3, Magnesium Level 2.0 Height (Feet): 5 Height (Inches): 4.00 Weight (Pounds): 153 General Appearance: alert EENT: normal ENT inspection Neck: normal alignment Cardiovascular: normal peripheral pulses, normal rate, regular rhythm Respiratory/Chest: chest wall non-tender, lungs clear, normal breath sounds Abdomen: normal bowel sounds, non tender, soft Extremities: normal inspection Edema: no edema noted Arm (L), no edema noted Arm (R), no edema noted Leg (L), no edema noted Leg (R), no edema noted Pedal (L), no edema noted Pedal (R), no edema noted Generalized Neurologic: responsive, motor weakness Skin: normal pigmentation, warm/dry JOY GUERRA Aug 04, 2017 10:30
--- NOTE | 2017-08-04 11:20 | GI Progress Note ---
Assessment/Plan Problems: (1) Hiatal hernia ICD Codes: K44.9 - Diaphragmatic hernia without obstruction or gangrene SNOMED: 58761452 (2) Abdominal pain with vomiting ICD Codes: R10.9 - Unspecified abdominal pain; R11.10 - Vomiting, unspecified SNOMED: 17514531, 209373906 (3) Nausea, vomiting, and diarrhea ICD Codes: R11.2 - Nausea with vomiting, unspecified; R19.7 - Diarrhea, unspecified SNOMED: 2705481 (4) Diabetes ICD Codes: E11.9 - Type 2 diabetes mellitus without complications SNOMED: 65087356 (5) Persistent vomiting ICD Codes: R11.10 - Vomiting, unspecified SNOMED: 528931463 (6) Malingering ICD Codes: Z76.5 - Malingerer [conscious simulation] SNOMED: 23906337 Status: stable Status Narrative Discussed with Dr. Smith. Assessment/Plan s/p EGD SUMMARY OF FINDINGS 01/19/17: 1. Small inlet patch. 2. Hiatal hernia. 3. Gastritis, status post biopsy. >> negative for H. Pylori KUB reviewed >> no acute process symptomatic treatment pain mgmt zofran prn, reglan prn for persistent vomiting ppi fu labs Subjective Subjective generalized pain Objective Last 24 Hour Vital Signs Date Time Temp Pulse Resp B/P (MAP) Pulse Ox O2 Delivery O2 Flow Rate FiO2 08/04/17 08:34 97.2 76 19 105/68 95 Room Air 08/04/17 04:14 98.7 56 20 155/83 95 Room Air 08/03/17 23:50 98.7 84 21 143/88 94 Room Air 08/03/17 20:00 98.2 61 19 150/77 94 Room Air 08/03/17 16:00 99.5 59 140/71 Room Air 08/03/17 12:40 98.1 83 19 144/82 Room Air Intake and Output 08/04/17 08/05/17 19:00 07:00 Intake Total 261 ml Balance 261 ml IV Total 261 ml Laboratory Tests Test 08/04/17 07:40 White Blood Count 12.2 K/UL (4.8-10.8) H Red Blood Count 4.11 M/UL (4.20-5.40) L Hemoglobin 13.7 G/DL (12.0-16.0) Hematocrit 40.3 % (37.0-47.0) Mean Corpuscular Volume 98 FL (80-99) Mean Corpuscular Hemoglobin 33.3 PG (27.0-31.0) H Mean Corpuscular Hemoglobin Concent 34.0 G/DL (32.0-36.0) Red Cell Distribution Width 11.2 % (11.6-14.8) L Platelet Count 295 K/UL (150-450) Mean Platelet Volume 6.6 FL (6.5-10.1) Neutrophils (%) (Auto) 69.5 % (45.0-75.0) Lymphocytes (%) (Auto) 22.2 % (20.0-45.0) Monocytes (%) (Auto) 7.1 % (1.0-10.0) Eosinophils (%) (Auto) 0.0 % (0.0-3.0) Basophils (%) (Auto) 1.2 % (0.0-2.0) Sodium Level 139 MMOL/L (136-145) Potassium Level 3.4 MMOL/L (3.5-5.1) L Chloride Level 102 MMOL/L (98-107) Carbon Dioxide Level 25 MMOL/L (21-32) Anion Gap 12 mmol/L (5-15) Blood Urea Nitrogen 8 mg/dL (7-18) Creatinine 0.6 MG/DL (0.55-1.30) Estimat Glomerular Filtration Rate > 60 mL/min (>60) Glucose Level 124 MG/DL (74-106) H Calcium Level 9.1 MG/DL (8.5-10.1) Phosphorus Level 3.3 MG/DL (2.5-4.9) Magnesium Level 2.0 MG/DL (1.8-2.4) Height (Feet): 5 Height (Inches): 4.00 Weight (Pounds): 153 General Appearance: WD/WN, no apparent distress, alert Cardiovascular: normal rate Respiratory/Chest: normal breath sounds, no respiratory distress Abdominal Exam: normal bowel sounds, non tender, soft Extremities: normal range of motion, non-tender Regina Bradshaw N.P. Aug 04, 2017 11:20
--- NOTE | 2017-08-04 11:20 | GI Progress Note ---
Assessment/Plan Problems: (1) Hiatal hernia ICD Codes: K44.9 - Diaphragmatic hernia without obstruction or gangrene SNOMED: 24379302 (2) Abdominal pain with vomiting ICD Codes: R10.9 - Unspecified abdominal pain; R11.10 - Vomiting, unspecified SNOMED: 44211377, 265908017 (3) Nausea, vomiting, and diarrhea ICD Codes: R11.2 - Nausea with vomiting, unspecified; R19.7 - Diarrhea, unspecified SNOMED: 7373963 (4) Diabetes ICD Codes: E11.9 - Type 2 diabetes mellitus without complications SNOMED: 39386666 (5) Persistent vomiting ICD Codes: R11.10 - Vomiting, unspecified SNOMED: 267891273 (6) Malingering ICD Codes: Z76.5 - Malingerer [conscious simulation] SNOMED: 30308796 Status: stable Status Narrative Discussed with Dr. Smith. Assessment/Plan s/p EGD SUMMARY OF FINDINGS 01/19/17: 1. Small inlet patch. 2. Hiatal hernia. 3. Gastritis, status post biopsy. >> negative for H. Pylori KUB reviewed >> no acute process symptomatic treatment pain mgmt zofran prn, reglan prn for persistent vomiting ppi fu labs Subjective Subjective generalized pain Objective Last 24 Hour Vital Signs Date Time Temp Pulse Resp B/P (MAP) Pulse Ox O2 Delivery O2 Flow Rate FiO2 08/04/17 08:34 97.2 76 19 105/68 95 Room Air 08/04/17 04:14 98.7 56 20 155/83 95 Room Air 08/03/17 23:50 98.7 84 21 143/88 94 Room Air 08/03/17 20:00 98.2 61 19 150/77 94 Room Air 08/03/17 16:00 99.5 59 140/71 Room Air 08/03/17 12:40 98.1 83 19 144/82 Room Air Intake and Output 08/04/17 08/05/17 19:00 07:00 Intake Total 261 ml Balance 261 ml IV Total 261 ml Laboratory Tests Test 08/04/17 07:40 White Blood Count 12.2 K/UL (4.8-10.8) H Red Blood Count 4.11 M/UL (4.20-5.40) L Hemoglobin 13.7 G/DL (12.0-16.0) Hematocrit 40.3 % (37.0-47.0) Mean Corpuscular Volume 98 FL (80-99) Mean Corpuscular Hemoglobin 33.3 PG (27.0-31.0) H Mean Corpuscular Hemoglobin Concent 34.0 G/DL (32.0-36.0) Red Cell Distribution Width 11.2 % (11.6-14.8) L Platelet Count 295 K/UL (150-450) Mean Platelet Volume 6.6 FL (6.5-10.1) Neutrophils (%) (Auto) 69.5 % (45.0-75.0) Lymphocytes (%) (Auto) 22.2 % (20.0-45.0) Monocytes (%) (Auto) 7.1 % (1.0-10.0) Eosinophils (%) (Auto) 0.0 % (0.0-3.0) Basophils (%) (Auto) 1.2 % (0.0-2.0) Sodium Level 139 MMOL/L (136-145) Potassium Level 3.4 MMOL/L (3.5-5.1) L Chloride Level 102 MMOL/L (98-107) Carbon Dioxide Level 25 MMOL/L (21-32) Anion Gap 12 mmol/L (5-15) Blood Urea Nitrogen 8 mg/dL (7-18) Creatinine 0.6 MG/DL (0.55-1.30) Estimat Glomerular Filtration Rate > 60 mL/min (>60) Glucose Level 124 MG/DL (74-106) H Calcium Level 9.1 MG/DL (8.5-10.1) Phosphorus Level 3.3 MG/DL (2.5-4.9) Magnesium Level 2.0 MG/DL (1.8-2.4) Height (Feet): 5 Height (Inches): 4.00 Weight (Pounds): 153 General Appearance: WD/WN, no apparent distress, alert Cardiovascular: normal rate Respiratory/Chest: normal breath sounds, no respiratory distress Abdominal Exam: normal bowel sounds, non tender, soft Extremities: normal range of motion, non-tender Regina Bradshaw N.P. Aug 04, 2017 11:20
--- NOTE | 2017-08-04 11:20 | GI Progress Note ---
Assessment/Plan Problems: (1) Hiatal hernia ICD Codes: K44.9 - Diaphragmatic hernia without obstruction or gangrene SNOMED: 28529051 (2) Abdominal pain with vomiting ICD Codes: R10.9 - Unspecified abdominal pain; R11.10 - Vomiting, unspecified SNOMED: 03802719, 528605610 (3) Nausea, vomiting, and diarrhea ICD Codes: R11.2 - Nausea with vomiting, unspecified; R19.7 - Diarrhea, unspecified SNOMED: 7587424 (4) Diabetes ICD Codes: E11.9 - Type 2 diabetes mellitus without complications SNOMED: 66169077 (5) Persistent vomiting ICD Codes: R11.10 - Vomiting, unspecified SNOMED: 228830584 (6) Malingering ICD Codes: Z76.5 - Malingerer [conscious simulation] SNOMED: 95140829 Status: stable Status Narrative Discussed with Dr. Smith. Assessment/Plan s/p EGD SUMMARY OF FINDINGS 01/19/17: 1. Small inlet patch. 2. Hiatal hernia. 3. Gastritis, status post biopsy. >> negative for H. Pylori KUB reviewed >> no acute process symptomatic treatment pain mgmt zofran prn, reglan prn for persistent vomiting ppi fu labs Subjective Subjective generalized pain Objective Last 24 Hour Vital Signs Date Time Temp Pulse Resp B/P (MAP) Pulse Ox O2 Delivery O2 Flow Rate FiO2 08/04/17 08:34 97.2 76 19 105/68 95 Room Air 08/04/17 04:14 98.7 56 20 155/83 95 Room Air 08/03/17 23:50 98.7 84 21 143/88 94 Room Air 08/03/17 20:00 98.2 61 19 150/77 94 Room Air 08/03/17 16:00 99.5 59 140/71 Room Air 08/03/17 12:40 98.1 83 19 144/82 Room Air Intake and Output 08/04/17 08/05/17 19:00 07:00 Intake Total 261 ml Balance 261 ml IV Total 261 ml Laboratory Tests Test 08/04/17 07:40 White Blood Count 12.2 K/UL (4.8-10.8) H Red Blood Count 4.11 M/UL (4.20-5.40) L Hemoglobin 13.7 G/DL (12.0-16.0) Hematocrit 40.3 % (37.0-47.0) Mean Corpuscular Volume 98 FL (80-99) Mean Corpuscular Hemoglobin 33.3 PG (27.0-31.0) H Mean Corpuscular Hemoglobin Concent 34.0 G/DL (32.0-36.0) Red Cell Distribution Width 11.2 % (11.6-14.8) L Platelet Count 295 K/UL (150-450) Mean Platelet Volume 6.6 FL (6.5-10.1) Neutrophils (%) (Auto) 69.5 % (45.0-75.0) Lymphocytes (%) (Auto) 22.2 % (20.0-45.0) Monocytes (%) (Auto) 7.1 % (1.0-10.0) Eosinophils (%) (Auto) 0.0 % (0.0-3.0) Basophils (%) (Auto) 1.2 % (0.0-2.0) Sodium Level 139 MMOL/L (136-145) Potassium Level 3.4 MMOL/L (3.5-5.1) L Chloride Level 102 MMOL/L (98-107) Carbon Dioxide Level 25 MMOL/L (21-32) Anion Gap 12 mmol/L (5-15) Blood Urea Nitrogen 8 mg/dL (7-18) Creatinine 0.6 MG/DL (0.55-1.30) Estimat Glomerular Filtration Rate > 60 mL/min (>60) Glucose Level 124 MG/DL (74-106) H Calcium Level 9.1 MG/DL (8.5-10.1) Phosphorus Level 3.3 MG/DL (2.5-4.9) Magnesium Level 2.0 MG/DL (1.8-2.4) Height (Feet): 5 Height (Inches): 4.00 Weight (Pounds): 153 General Appearance: WD/WN, no apparent distress, alert Cardiovascular: normal rate Respiratory/Chest: normal breath sounds, no respiratory distress Abdominal Exam: normal bowel sounds, non tender, soft Extremities: normal range of motion, non-tender Regina Bradshaw N.P. Aug 04, 2017 11:20
--- NOTE | 2017-08-04 11:42 | Consultation ---
History of Present Illness General Date patient seen: Aug 03, 2017 Chief Complaint: Vomiting Referring physician: Dr. Zapata Reason for Consultation: inpatient management Present Illness HPI 62 year old female with hx Hiatal hernia, Diabetes mellitus, cyclical vomiting presented to ER with CC of chest pain and abdominal pain. She's been vomiting and unable to keep down medication. The pain is severe at this time. Somewhat exertional. She denies vomiting blood or melena. She feels weak and dehydrated. She is admitted for intractable nausea and vomiting with possibility of UTI and sepsis. Allergies: Coded Allergies: CODEINE (Unverified Allergy, Unknown, 08/05/14) IBUPROFEN (Verified Allergy, Unknown, 08/05/15) Medication History Scheduled Aspirin* (Aspir 81*), 162 MG ORAL DAILY, (Reported) Famotidine (Pepcid), 20 MG ORAL DAILY No Known Medications* (NKM - No Known Medications*), 0 ., (Reported) Omeprazole (Omeprazole), 40 MG ORAL DAILY Pantoprazole* (Protonix*), 40 MG ORAL DAILY, (Reported) Pregabalin* (Lyrica*), 75 MG ORAL THREE TIMES A DAY, (Reported) Sucralfate* (Carafate*), 1 GM ORAL FOUR TIMES A DAY Scheduled PRN Acetaminophen (Tylenol), 650 MG ORAL Q6H PRN for Prn Pain/Headache/Temp > 101 Benzonatate* (Tessalon Perle*), 100 MG ORAL THREE TIMES A DAY PRN for For Cough, (Reported) Hydrocodone Bit/Acetaminophen 5-325* ([place] 5-325*), 1 TAB ORAL Q6H PRN for For Pain Ondansetron Odt* (Zofran Odt*), 4 MG ORAL Q6H PRN for Nausea & Vomiting, ( Reported) Ondansetron Odt* (Zofran Odt*), 4 MG ORAL Q8HR PRN for Nausea & Vomiting Patient History Healthcare decision maker N Resuscitation status Full Code Advanced Directive on File No Past Medical/Surgical History Past Medical/Surgical History: (1) Diabetes (2) Low back pain Review of Systems Constitutional: Reports: malaise, weakness Gastrointestinal: Reports: abdominal pain, nausea, vomiting Physical Exam General Appearance: WD/WN Lines, tubes and drains: peripheral HEENT: normocephalic, atraumatic Neck: non-tender, supple Respiratory/Chest: chest wall non-tender, normal breath sounds Breasts: no masses Cardiovascular/Chest: normal peripheral pulses, regular rhythm Abdomen: normal bowel sounds, non tender Genitourinary/Rectal: normal genital exam Extremities: normal range of motion, non-tender Neurologic: adobe developer II-XII grossly normal Last 24 Hour Vital Signs Date Time Temp Pulse Resp B/P (MAP) Pulse Ox O2 Delivery O2 Flow Rate FiO2 08/04/17 08:34 97.2 76 19 105/68 95 Room Air 08/04/17 04:14 98.7 56 20 155/83 95 Room Air 08/03/17 23:50 98.7 84 21 143/88 94 Room Air 08/03/17 20:00 98.2 61 19 150/77 94 Room Air 08/03/17 16:00 99.5 59 140/71 Room Air 08/03/17 12:40 98.1 83 19 144/82 Room Air Intake and Output 08/04/17 08/05/17 19:00 07:00 Intake Total 261 ml Balance 261 ml IV Total 261 ml Laboratory Tests Test 08/04/17 07:40 White Blood Count 12.2 K/UL (4.8-10.8) H Red Blood Count 4.11 M/UL (4.20-5.40) L Hemoglobin 13.7 G/DL (12.0-16.0) Hematocrit 40.3 % (37.0-47.0) Mean Corpuscular Volume 98 FL (80-99) Mean Corpuscular Hemoglobin 33.3 PG (27.0-31.0) H Mean Corpuscular Hemoglobin Concent 34.0 G/DL (32.0-36.0) Red Cell Distribution Width 11.2 % (11.6-14.8) L Platelet Count 295 K/UL (150-450) Mean Platelet Volume 6.6 FL (6.5-10.1) Neutrophils (%) (Auto) 69.5 % (45.0-75.0) Lymphocytes (%) (Auto) 22.2 % (20.0-45.0) Monocytes (%) (Auto) 7.1 % (1.0-10.0) Eosinophils (%) (Auto) 0.0 % (0.0-3.0) Basophils (%) (Auto) 1.2 % (0.0-2.0) Sodium Level 139 MMOL/L (136-145) Potassium Level 3.4 MMOL/L (3.5-5.1) L Chloride Level 102 MMOL/L (98-107) Carbon Dioxide Level 25 MMOL/L (21-32) Anion Gap 12 mmol/L (5-15) Blood Urea Nitrogen 8 mg/dL (7-18) Creatinine 0.6 MG/DL (0.55-1.30) Estimat Glomerular Filtration Rate > 60 mL/min (>60) Glucose Level 124 MG/DL (74-106) H Calcium Level 9.1 MG/DL (8.5-10.1) Phosphorus Level 3.3 MG/DL (2.5-4.9) Magnesium Level 2.0 MG/DL (1.8-2.4) Height (Feet): 5 Height (Inches): 4.00 Weight (Pounds): 153 Medications Current Medications Medications (Trade) Dose Ordered Sig/Ewa Route PRN Reason Start Time Stop Time Status Last Admin Dose Admin Acetaminophen (Tylenol) 650 mg Q4H PRN ORAL fever, pain 08/03/17 21:00 09/02/17 20:59 Acetaminophen/ Hydrocodone Bitart ([place] 5/325) 1 tab Q6H PRN ORAL Severe Breakthru Pain (>7) 08/04/17 01:21 08/11/17 01:20 08/04/17 01:30 Al Hydroxide/Mg Hydroxide (Mylanta II) 30 ml Q6H PRN ORAL dyspepsia 08/02/17 21:00 09/01/17 20:59 Cefepime HCl 1 gm/ Dextrose 55 ml @ 110 mls/hr EVERY 12 HOURS IVPB 08/02/17 23:00 08/09/17 22:59 08/04/17 09:03 Dextrose (Dextrose 50%) STAT PRN IV Hypoglycemia 08/02/17 21:00 09/01/17 20:59 Dextrose/Sodium Chloride 1,000 ml @ 75 mls/hr [id number] IV 08/02/17 22:00 09/01/17 21:59 08/04/17 07:00 Diphenhydramine HCl (Benadryl) 25 mg Q6H PRN ORAL Itching/Pruritis 08/02/17 21:00 09/01/17 20:59 Heparin Sodium (Porcine) (Heparin 5000 units/ml) 5,000 units EVERY 12 HOURS SUBQ 08/02/17 22:00 09/01/17 21:59 08/04/17 08:40 Hydromorphone HCl 1 mg/Sodium Chloride 56 ml @ 224 mls/hr Q4H PRN IVPB Severe Pain (Pain Scale 7-10) 08/04/17 01:22 08/11/17 01:21 08/04/17 08:47 Metoclopramide HCl (Reglan) 10 mg Q8H PRN IVP Nausea & Vomiting 08/03/17 11:00 09/02/17 10:59 08/03/17 11:54 Nitroglycerin (Ntg) 0.4 mg Q5M X 3 DOSES PRN SL Prn Chest Pain 08/02/17 21:00 09/01/17 20:59 Ondansetron HCl (Zofran) 4 mg Q6H PRN IVP Nausea & Vomiting 08/02/17 21:00 09/01/17 20:59 08/02/17 23:31 Pantoprazole (Protonix) 40 mg DAILY IVP 08/04/17 09:00 09/03/17 08:59 08/04/17 08:34 Polyethylene Glycol (Miralax) 17 gm HSPRN PRN ORAL Constipation 08/02/17 21:00 09/01/17 20:59 Pregabalin (Lyrica) 75 mg THREE TIMES A DAY ORAL 08/03/17 09:00 09/02/17 08:59 08/04/17 08:35 Temazepam (Restoril) 15 mg HSPRN PRN ORAL Insomnia 08/02/17 21:00 08/09/17 20:59 08/03/17 21:35 Assessment/Plan Problem List: (1) Pyuria ICD Codes: N39.0 - Urinary tract infection, site not specified SNOMED: 0129140, 597389286, 342788298 (2) Persistent vomiting ICD Codes: R11.10 - Vomiting, unspecified SNOMED: 743654549 (3) Chest pain ICD Codes: R07.9 - Chest pain, unspecified SNOMED: 97863134 (4) Diabetes ICD Codes: E11.9 - Type 2 diabetes mellitus without complications SNOMED: 30221267 Assessment/Plan NPO IV hydration check electrolytes check urine cultures GI evaluation symptomatic treatment. ERICA LICONA Aug 04, 2017 11:42
--- NOTE | 2017-08-04 11:42 | Consultation ---
History of Present Illness General Date patient seen: Aug 03, 2017 Chief Complaint: Vomiting Referring physician: Dr. Zapata Reason for Consultation: inpatient management Present Illness HPI 62 year old female with hx Hiatal hernia, Diabetes mellitus, cyclical vomiting presented to ER with CC of chest pain and abdominal pain. She's been vomiting and unable to keep down medication. The pain is severe at this time. Somewhat exertional. She denies vomiting blood or melena. She feels weak and dehydrated. She is admitted for intractable nausea and vomiting with possibility of UTI and sepsis. Allergies: Coded Allergies: CODEINE (Unverified Allergy, Unknown, 08/05/14) IBUPROFEN (Verified Allergy, Unknown, 08/05/15) Medication History Scheduled Aspirin* (Aspir 81*), 162 MG ORAL DAILY, (Reported) Famotidine (Pepcid), 20 MG ORAL DAILY No Known Medications* (NKM - No Known Medications*), 0 ., (Reported) Omeprazole (Omeprazole), 40 MG ORAL DAILY Pantoprazole* (Protonix*), 40 MG ORAL DAILY, (Reported) Pregabalin* (Lyrica*), 75 MG ORAL THREE TIMES A DAY, (Reported) Sucralfate* (Carafate*), 1 GM ORAL FOUR TIMES A DAY Scheduled PRN Acetaminophen (Tylenol), 650 MG ORAL Q6H PRN for Prn Pain/Headache/Temp > 101 Benzonatate* (Tessalon Perle*), 100 MG ORAL THREE TIMES A DAY PRN for For Cough, (Reported) Hydrocodone Bit/Acetaminophen 5-325* ([place] 5-325*), 1 TAB ORAL Q6H PRN for For Pain Ondansetron Odt* (Zofran Odt*), 4 MG ORAL Q6H PRN for Nausea & Vomiting, ( Reported) Ondansetron Odt* (Zofran Odt*), 4 MG ORAL Q8HR PRN for Nausea & Vomiting Patient History Healthcare decision maker N Resuscitation status Full Code Advanced Directive on File No Past Medical/Surgical History Past Medical/Surgical History: (1) Diabetes (2) Low back pain Review of Systems Constitutional: Reports: malaise, weakness Gastrointestinal: Reports: abdominal pain, nausea, vomiting Physical Exam General Appearance: WD/WN Lines, tubes and drains: peripheral HEENT: normocephalic, atraumatic Neck: non-tender, supple Respiratory/Chest: chest wall non-tender, normal breath sounds Breasts: no masses Cardiovascular/Chest: normal peripheral pulses, regular rhythm Abdomen: normal bowel sounds, non tender Genitourinary/Rectal: normal genital exam Extremities: normal range of motion, non-tender Neurologic: american sign language interpreter II-XII grossly normal Last 24 Hour Vital Signs Date Time Temp Pulse Resp B/P (MAP) Pulse Ox O2 Delivery O2 Flow Rate FiO2 08/04/17 08:34 97.2 76 19 105/68 95 Room Air 08/04/17 04:14 98.7 56 20 155/83 95 Room Air 08/03/17 23:50 98.7 84 21 143/88 94 Room Air 08/03/17 20:00 98.2 61 19 150/77 94 Room Air 08/03/17 16:00 99.5 59 140/71 Room Air 08/03/17 12:40 98.1 83 19 144/82 Room Air Intake and Output 08/04/17 08/05/17 19:00 07:00 Intake Total 261 ml Balance 261 ml IV Total 261 ml Laboratory Tests Test 08/04/17 07:40 White Blood Count 12.2 K/UL (4.8-10.8) H Red Blood Count 4.11 M/UL (4.20-5.40) L Hemoglobin 13.7 G/DL (12.0-16.0) Hematocrit 40.3 % (37.0-47.0) Mean Corpuscular Volume 98 FL (80-99) Mean Corpuscular Hemoglobin 33.3 PG (27.0-31.0) H Mean Corpuscular Hemoglobin Concent 34.0 G/DL (32.0-36.0) Red Cell Distribution Width 11.2 % (11.6-14.8) L Platelet Count 295 K/UL (150-450) Mean Platelet Volume 6.6 FL (6.5-10.1) Neutrophils (%) (Auto) 69.5 % (45.0-75.0) Lymphocytes (%) (Auto) 22.2 % (20.0-45.0) Monocytes (%) (Auto) 7.1 % (1.0-10.0) Eosinophils (%) (Auto) 0.0 % (0.0-3.0) Basophils (%) (Auto) 1.2 % (0.0-2.0) Sodium Level 139 MMOL/L (136-145) Potassium Level 3.4 MMOL/L (3.5-5.1) L Chloride Level 102 MMOL/L (98-107) Carbon Dioxide Level 25 MMOL/L (21-32) Anion Gap 12 mmol/L (5-15) Blood Urea Nitrogen 8 mg/dL (7-18) Creatinine 0.6 MG/DL (0.55-1.30) Estimat Glomerular Filtration Rate > 60 mL/min (>60) Glucose Level 124 MG/DL (74-106) H Calcium Level 9.1 MG/DL (8.5-10.1) Phosphorus Level 3.3 MG/DL (2.5-4.9) Magnesium Level 2.0 MG/DL (1.8-2.4) Height (Feet): 5 Height (Inches): 4.00 Weight (Pounds): 153 Medications Current Medications Medications (Trade) Dose Ordered Sig/Ewa Route PRN Reason Start Time Stop Time Status Last Admin Dose Admin Acetaminophen (Tylenol) 650 mg Q4H PRN ORAL fever, pain 08/03/17 21:00 09/02/17 20:59 Acetaminophen/ Hydrocodone Bitart ([place] 5/325) 1 tab Q6H PRN ORAL Severe Breakthru Pain (>7) 08/04/17 01:21 08/11/17 01:20 08/04/17 01:30 Al Hydroxide/Mg Hydroxide (Mylanta II) 30 ml Q6H PRN ORAL dyspepsia 08/02/17 21:00 09/01/17 20:59 Cefepime HCl 1 gm/ Dextrose 55 ml @ 110 mls/hr EVERY 12 HOURS IVPB 08/02/17 23:00 08/09/17 22:59 08/04/17 09:03 Dextrose (Dextrose 50%) STAT PRN IV Hypoglycemia 08/02/17 21:00 09/01/17 20:59 Dextrose/Sodium Chloride 1,000 ml @ 75 mls/hr [id number] IV 08/02/17 22:00 09/01/17 21:59 08/04/17 07:00 Diphenhydramine HCl (Benadryl) 25 mg Q6H PRN ORAL Itching/Pruritis 08/02/17 21:00 09/01/17 20:59 Heparin Sodium (Porcine) (Heparin 5000 units/ml) 5,000 units EVERY 12 HOURS SUBQ 08/02/17 22:00 09/01/17 21:59 08/04/17 08:40 Hydromorphone HCl 1 mg/Sodium Chloride 56 ml @ 224 mls/hr Q4H PRN IVPB Severe Pain (Pain Scale 7-10) 08/04/17 01:22 08/11/17 01:21 08/04/17 08:47 Metoclopramide HCl (Reglan) 10 mg Q8H PRN IVP Nausea & Vomiting 08/03/17 11:00 09/02/17 10:59 08/03/17 11:54 Nitroglycerin (Ntg) 0.4 mg Q5M X 3 DOSES PRN SL Prn Chest Pain 08/02/17 21:00 09/01/17 20:59 Ondansetron HCl (Zofran) 4 mg Q6H PRN IVP Nausea & Vomiting 08/02/17 21:00 09/01/17 20:59 08/02/17 23:31 Pantoprazole (Protonix) 40 mg DAILY IVP 08/04/17 09:00 09/03/17 08:59 08/04/17 08:34 Polyethylene Glycol (Miralax) 17 gm HSPRN PRN ORAL Constipation 08/02/17 21:00 09/01/17 20:59 Pregabalin (Lyrica) 75 mg THREE TIMES A DAY ORAL 08/03/17 09:00 09/02/17 08:59 08/04/17 08:35 Temazepam (Restoril) 15 mg HSPRN PRN ORAL Insomnia 08/02/17 21:00 08/09/17 20:59 08/03/17 21:35 Assessment/Plan Problem List: (1) Pyuria ICD Codes: N39.0 - Urinary tract infection, site not specified SNOMED: 5224420, 083077210, 710745554 (2) Persistent vomiting ICD Codes: R11.10 - Vomiting, unspecified SNOMED: 658466455 (3) Chest pain ICD Codes: R07.9 - Chest pain, unspecified SNOMED: 07376073 (4) Diabetes ICD Codes: E11.9 - Type 2 diabetes mellitus without complications SNOMED: 08795270 Assessment/Plan NPO IV hydration check electrolytes check urine cultures GI evaluation symptomatic treatment. ERICA LICONA Aug 04, 2017 11:42
--- NOTE | 2017-08-04 11:42 | Consultation ---
History of Present Illness General Date patient seen: Aug 03, 2017 Chief Complaint: Vomiting Referring physician: Dr. Zapata Reason for Consultation: inpatient management Present Illness HPI 62 year old female with hx Hiatal hernia, Diabetes mellitus, cyclical vomiting presented to ER with CC of chest pain and abdominal pain. She's been vomiting and unable to keep down medication. The pain is severe at this time. Somewhat exertional. She denies vomiting blood or melena. She feels weak and dehydrated. She is admitted for intractable nausea and vomiting with possibility of UTI and sepsis. Allergies: Coded Allergies: CODEINE (Unverified Allergy, Unknown, 08/05/14) IBUPROFEN (Verified Allergy, Unknown, 08/05/15) Medication History Scheduled Aspirin* (Aspir 81*), 162 MG ORAL DAILY, (Reported) Famotidine (Pepcid), 20 MG ORAL DAILY No Known Medications* (NKM - No Known Medications*), 0 ., (Reported) Omeprazole (Omeprazole), 40 MG ORAL DAILY Pantoprazole* (Protonix*), 40 MG ORAL DAILY, (Reported) Pregabalin* (Lyrica*), 75 MG ORAL THREE TIMES A DAY, (Reported) Sucralfate* (Carafate*), 1 GM ORAL FOUR TIMES A DAY Scheduled PRN Acetaminophen (Tylenol), 650 MG ORAL Q6H PRN for Prn Pain/Headache/Temp > 101 Benzonatate* (Tessalon Perle*), 100 MG ORAL THREE TIMES A DAY PRN for For Cough, (Reported) Hydrocodone Bit/Acetaminophen 5-325* ([place] 5-325*), 1 TAB ORAL Q6H PRN for For Pain Ondansetron Odt* (Zofran Odt*), 4 MG ORAL Q6H PRN for Nausea & Vomiting, ( Reported) Ondansetron Odt* (Zofran Odt*), 4 MG ORAL Q8HR PRN for Nausea & Vomiting Patient History Healthcare decision maker N Resuscitation status Full Code Advanced Directive on File No Past Medical/Surgical History Past Medical/Surgical History: (1) Diabetes (2) Low back pain Review of Systems Constitutional: Reports: malaise, weakness Gastrointestinal: Reports: abdominal pain, nausea, vomiting Physical Exam General Appearance: WD/WN Lines, tubes and drains: peripheral HEENT: normocephalic, atraumatic Neck: non-tender, supple Respiratory/Chest: chest wall non-tender, normal breath sounds Breasts: no masses Cardiovascular/Chest: normal peripheral pulses, regular rhythm Abdomen: normal bowel sounds, non tender Genitourinary/Rectal: normal genital exam Extremities: normal range of motion, non-tender 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 Last 24 Hour Vital Signs Date Time Temp Pulse Resp B/P (MAP) Pulse Ox O2 Delivery O2 Flow Rate FiO2 08/04/17 08:34 97.2 76 19 105/68 95 Room Air 08/04/17 04:14 98.7 56 20 155/83 95 Room Air 08/03/17 23:50 98.7 84 21 143/88 94 Room Air 08/03/17 20:00 98.2 61 19 150/77 94 Room Air 08/03/17 16:00 99.5 59 140/71 Room Air 08/03/17 12:40 98.1 83 19 144/82 Room Air Intake and Output 08/04/17 08/05/17 19:00 07:00 Intake Total 261 ml Balance 261 ml IV Total 261 ml Laboratory Tests Test 08/04/17 07:40 White Blood Count 12.2 K/UL (4.8-10.8) H Red Blood Count 4.11 M/UL (4.20-5.40) L Hemoglobin 13.7 G/DL (12.0-16.0) Hematocrit 40.3 % (37.0-47.0) Mean Corpuscular Volume 98 FL (80-99) Mean Corpuscular Hemoglobin 33.3 PG (27.0-31.0) H Mean Corpuscular Hemoglobin Concent 34.0 G/DL (32.0-36.0) Red Cell Distribution Width 11.2 % (11.6-14.8) L Platelet Count 295 K/UL (150-450) Mean Platelet Volume 6.6 FL (6.5-10.1) Neutrophils (%) (Auto) 69.5 % (45.0-75.0) Lymphocytes (%) (Auto) 22.2 % (20.0-45.0) Monocytes (%) (Auto) 7.1 % (1.0-10.0) Eosinophils (%) (Auto) 0.0 % (0.0-3.0) Basophils (%) (Auto) 1.2 % (0.0-2.0) Sodium Level 139 MMOL/L (136-145) Potassium Level 3.4 MMOL/L (3.5-5.1) L Chloride Level 102 MMOL/L (98-107) Carbon Dioxide Level 25 MMOL/L (21-32) Anion Gap 12 mmol/L (5-15) Blood Urea Nitrogen 8 mg/dL (7-18) Creatinine 0.6 MG/DL (0.55-1.30) Estimat Glomerular Filtration Rate > 60 mL/min (>60) Glucose Level 124 MG/DL (74-106) H Calcium Level 9.1 MG/DL (8.5-10.1) Phosphorus Level 3.3 MG/DL (2.5-4.9) Magnesium Level 2.0 MG/DL (1.8-2.4) Height (Feet): 5 Height (Inches): 4.00 Weight (Pounds): 153 Medications Current Medications Medications (Trade) Dose Ordered Sig/Ewa Route PRN Reason Start Time Stop Time Status Last Admin Dose Admin Acetaminophen (Tylenol) 650 mg Q4H PRN ORAL fever, pain 08/03/17 21:00 09/02/17 20:59 Acetaminophen/ Hydrocodone Bitart ([place] 5/325) 1 tab Q6H PRN ORAL Severe Breakthru Pain (>7) 08/04/17 01:21 08/11/17 01:20 08/04/17 01:30 Al Hydroxide/Mg Hydroxide (Mylanta II) 30 ml Q6H PRN ORAL dyspepsia 08/02/17 21:00 09/01/17 20:59 Cefepime HCl 1 gm/ Dextrose 55 ml @ 110 mls/hr EVERY 12 HOURS IVPB 08/02/17 23:00 08/09/17 22:59 08/04/17 09:03 Dextrose (Dextrose 50%) STAT PRN IV Hypoglycemia 08/02/17 21:00 09/01/17 20:59 Dextrose/Sodium Chloride 1,000 ml @ 75 mls/hr [id number] IV 08/02/17 22:00 09/01/17 21:59 08/04/17 07:00 Diphenhydramine HCl (Benadryl) 25 mg Q6H PRN ORAL Itching/Pruritis 08/02/17 21:00 09/01/17 20:59 Heparin Sodium (Porcine) (Heparin 5000 units/ml) 5,000 units EVERY 12 HOURS SUBQ 08/02/17 22:00 09/01/17 21:59 08/04/17 08:40 Hydromorphone HCl 1 mg/Sodium Chloride 56 ml @ 224 mls/hr Q4H PRN IVPB Severe Pain (Pain Scale 7-10) 08/04/17 01:22 08/11/17 01:21 08/04/17 08:47 Metoclopramide HCl (Reglan) 10 mg Q8H PRN IVP Nausea & Vomiting 08/03/17 11:00 09/02/17 10:59 08/03/17 11:54 Nitroglycerin (Ntg) 0.4 mg Q5M X 3 DOSES PRN SL Prn Chest Pain 08/02/17 21:00 09/01/17 20:59 Ondansetron HCl (Zofran) 4 mg Q6H PRN IVP Nausea & Vomiting 08/02/17 21:00 09/01/17 20:59 08/02/17 23:31 Pantoprazole (Protonix) 40 mg DAILY IVP 08/04/17 09:00 09/03/17 08:59 08/04/17 08:34 Polyethylene Glycol (Miralax) 17 gm HSPRN PRN ORAL Constipation 08/02/17 21:00 09/01/17 20:59 Pregabalin (Lyrica) 75 mg THREE TIMES A DAY ORAL 08/03/17 09:00 09/02/17 08:59 08/04/17 08:35 Temazepam (Restoril) 15 mg HSPRN PRN ORAL Insomnia 08/02/17 21:00 08/09/17 20:59 08/03/17 21:35 Assessment/Plan Problem List: (1) Pyuria ICD Codes: N39.0 - Urinary tract infection, site not specified SNOMED: 8401853, 304281287, 273732695 (2) Persistent vomiting ICD Codes: R11.10 - Vomiting, unspecified SNOMED: 762883109 (3) Chest pain ICD Codes: R07.9 - Chest pain, unspecified SNOMED: 18603802 (4) Diabetes ICD Codes: E11.9 - Type 2 diabetes mellitus without complications SNOMED: 27954565 Assessment/Plan NPO IV hydration check electrolytes check urine cultures GI evaluation symptomatic treatment. ERICA LICONA Aug 04, 2017 11:42
--- NOTE | 2017-08-04 11:48 | Pulmonology Progress Note ---
Assessment/Plan Problems: (1) Pyuria (2) Persistent vomiting (3) Chest pain (4) Diabetes Assessment/Plan feeling better continue iv abx advance diet symptomatic treatment Subjective ROS Limited/Unobtainable: No Constitutional: Reports: no symptoms HEENT: Repors: no symptoms Respiratory: Reports: no symptoms Allergies: Coded Allergies: CODEINE (Unverified Allergy, Unknown, 08/05/14) IBUPROFEN (Verified Allergy, Unknown, 08/05/15) Objective Last 24 Hour Vital Signs Date Time Temp Pulse Resp B/P (MAP) Pulse Ox O2 Delivery O2 Flow Rate FiO2 08/04/17 08:34 97.2 76 19 105/68 95 Room Air 08/04/17 04:14 98.7 56 20 155/83 95 Room Air 08/03/17 23:50 98.7 84 21 143/88 94 Room Air 08/03/17 20:00 98.2 61 19 150/77 94 Room Air 08/03/17 16:00 99.5 59 140/71 Room Air 08/03/17 12:40 98.1 83 19 144/82 Room Air Intake and Output 08/04/17 08/05/17 19:00 07:00 Intake Total 261 ml Balance 261 ml IV Total 261 ml General Appearance: WD/WN HEENT: normocephalic, atraumatic Respiratory/Chest: chest wall non-tender, lungs clear Breasts: no masses Cardiovascular: normal peripheral pulses, normal rate, no JVD Abdomen: normal bowel sounds, soft, non tender Genitourinary: normal external genitalia Skin: no rash 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: 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-XII grossly normal Microbiology Date/Time Source Procedure Growth Status 08/02/17 16:55 Urine,Clean Catch Urine Culture - Preliminary Resulted Laboratory Tests 08/04/17 07:40: White Blood Count 12.2H, Red Blood Count 4.11L, Hemoglobin 13.7, Hematocrit 40.3 , Mean Corpuscular Volume 98, Mean Corpuscular Hemoglobin 33.3H, Mean Corpuscular Hemoglobin Concent 34.0, Red Cell Distribution Width 11.2L, Platelet Count 295, Mean Platelet Volume 6.6, Neutrophils (%) (Auto) 69.5, Lymphocytes (%) (Auto) 22.2, Monocytes (%) (Auto) 7.1, Eosinophils (%) (Auto) 0.0, Basophils (%) (Auto) 1.2, Sodium Level 139, Potassium Level 3.4L, Chloride Level 102, Carbon Dioxide Level 25, Anion Gap 12, Blood Urea Nitrogen 8, Creatinine 0.6, Estimat Glomerular Filtration Rate > 60, Glucose Level 124H, Calcium Level 9.1, Phosphorus Level 3.3, Magnesium Level 2.0 Current Medications Medications (Trade) Dose Ordered Sig/Ewa Route PRN Reason Start Time Stop Time Status Last Admin Dose Admin Acetaminophen (Tylenol) 650 mg Q4H PRN ORAL fever, pain 08/03/17 21:00 09/02/17 20:59 Acetaminophen/ Hydrocodone Bitart ([place] 5/325) 1 tab Q6H PRN ORAL Severe Breakthru Pain (>7) 08/04/17 01:21 08/11/17 01:20 08/04/17 01:30 Al Hydroxide/Mg Hydroxide (Mylanta II) 30 ml Q6H PRN ORAL dyspepsia 08/02/17 21:00 09/01/17 20:59 Cefepime HCl 1 gm/ Dextrose 55 ml @ 110 mls/hr EVERY 12 HOURS IVPB 08/02/17 23:00 08/09/17 22:59 08/04/17 09:03 Dextrose (Dextrose 50%) STAT PRN IV Hypoglycemia 08/02/17 21:00 09/01/17 20:59 Dextrose/Sodium Chloride 1,000 ml @ 75 mls/hr [id number] IV 08/02/17 22:00 09/01/17 21:59 08/04/17 07:00 Diphenhydramine HCl (Benadryl) 25 mg Q6H PRN ORAL Itching/Pruritis 08/02/17 21:00 09/01/17 20:59 Heparin Sodium (Porcine) (Heparin 5000 units/ml) 5,000 units EVERY 12 HOURS SUBQ 08/02/17 22:00 09/01/17 21:59 08/04/17 08:40 Hydromorphone HCl 1 mg/Sodium Chloride 56 ml @ 224 mls/hr Q4H PRN IVPB Severe Pain (Pain Scale 7-10) 08/04/17 01:22 08/11/17 01:21 08/04/17 08:47 Metoclopramide HCl (Reglan) 10 mg Q8H PRN IVP Nausea & Vomiting 08/03/17 11:00 09/02/17 10:59 08/03/17 11:54 Nitroglycerin (Ntg) 0.4 mg Q5M X 3 DOSES PRN SL Prn Chest Pain 08/02/17 21:00 09/01/17 20:59 Ondansetron HCl (Zofran) 4 mg Q6H PRN IVP Nausea & Vomiting 08/02/17 21:00 09/01/17 20:59 08/02/17 23:31 Pantoprazole (Protonix) 40 mg DAILY IVP 08/04/17 09:00 09/03/17 08:59 08/04/17 08:34 Polyethylene Glycol (Miralax) 17 gm HSPRN PRN ORAL Constipation 08/02/17 21:00 09/01/17 20:59 Pregabalin (Lyrica) 75 mg THREE TIMES A DAY ORAL 08/03/17 09:00 09/02/17 08:59 08/04/17 08:35 Temazepam (Restoril) 15 mg HSPRN PRN ORAL Insomnia 08/02/17 21:00 08/09/17 20:59 08/03/17 21:35 ERICA LICONA Aug 04, 2017 11:48
[2017-08-04 12:00] VITALS: BP 106/75
--- NOTE | 2017-08-04 13:34 | Infectious Diseases Prog Note ---
Assessment/Plan Problems: (1) Acute pyelonephritis Assessment & Plan: on iv cefepime pending urine and blood culture, US of the kidney ruled out obstructive stone (2) Sepsis Assessment & Plan: due to the above, await blood culture and continue cefepime empirically (3) Abdominal pain with vomiting Assessment & Plan: with gastritis and H.H, S/P EGD . continue supportive care , renal US ruled out obstructive stone Subjective Constitutional: Reports: anorexia HEENT: Reports: no symptoms Respiratory: Reports: no symptoms Breasts: Reports: no symptoms Cardiovascular: Reports: no symptoms Gastrointestinal/Abdominal: Reports: nausea, vomiting, bloating Genitourinary: Reports: no symptoms Neurologic: Reports: no symptoms Psychiatric: Reports: no symptoms Skin: Reports: no symptoms Endocrine: Reports: no symptoms Hematologic: Reports: no symptoms Musculoskeletal: Reports: no symptoms Allergies: Coded Allergies: CODEINE (Unverified Allergy, Unknown, 08/05/14) IBUPROFEN (Verified Allergy, Unknown, 08/05/15) Objective Vital Signs Last 24 Hour Vital Signs Date Time Temp Pulse Resp B/P (MAP) Pulse Ox O2 Delivery O2 Flow Rate FiO2 08/04/17 12:00 98.3 88 19 106/75 94 Room Air 08/04/17 08:34 97.2 76 19 105/68 95 Room Air 08/04/17 04:14 98.7 56 20 155/83 95 Room Air 08/03/17 23:50 98.7 84 21 143/88 94 Room Air 08/03/17 20:00 98.2 61 19 150/77 94 Room Air 08/03/17 16:00 99.5 59 140/71 Room Air Height (Feet): 5 Height (Inches): 4.00 Weight (Pounds): 153 General Appearance: WD/WN, no acute distress HEENT: normocephalic, atraumatic, anicteric, mucous membranes moist, PERRL Respiratory/Chest: chest wall non-tender, lungs clear, normal breath sounds, no respiratory distress, no accessory muscle use Cardiovascular: normal peripheral pulses, normal rate, regular rhythm, no gallop/murmur, no JVD Abdomen: normal bowel sounds, soft, non tender, no organomegaly, non distended , no mass, no scars Extremities: no cyanosis, no clubbing Skin: no rash, no lesions, no ulcers 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: alert Microbiology Date/Time Source Procedure Growth Status 08/02/17 16:55 Urine,Clean Catch Urine Culture - Preliminary Resulted Laboratory Tests Test 08/04/17 07:40 White Blood Count 12.2 K/UL (4.8-10.8) H Red Blood Count 4.11 M/UL (4.20-5.40) L Hemoglobin 13.7 G/DL (12.0-16.0) Hematocrit 40.3 % (37.0-47.0) Mean Corpuscular Volume 98 FL (80-99) Mean Corpuscular Hemoglobin 33.3 PG (27.0-31.0) H Mean Corpuscular Hemoglobin Concent 34.0 G/DL (32.0-36.0) Red Cell Distribution Width 11.2 % (11.6-14.8) L Platelet Count 295 K/UL (150-450) Mean Platelet Volume 6.6 FL (6.5-10.1) Neutrophils (%) (Auto) 69.5 % (45.0-75.0) Lymphocytes (%) (Auto) 22.2 % (20.0-45.0) Monocytes (%) (Auto) 7.1 % (1.0-10.0) Eosinophils (%) (Auto) 0.0 % (0.0-3.0) Basophils (%) (Auto) 1.2 % (0.0-2.0) Sodium Level 139 MMOL/L (136-145) Potassium Level 3.4 MMOL/L (3.5-5.1) L Chloride Level 102 MMOL/L (98-107) Carbon Dioxide Level 25 MMOL/L (21-32) Anion Gap 12 mmol/L (5-15) Blood Urea Nitrogen 8 mg/dL (7-18) Creatinine 0.6 MG/DL (0.55-1.30) Estimat Glomerular Filtration Rate > 60 mL/min (>60) Glucose Level 124 MG/DL (74-106) H Calcium Level 9.1 MG/DL (8.5-10.1) Phosphorus Level 3.3 MG/DL (2.5-4.9) Magnesium Level 2.0 MG/DL (1.8-2.4) Current Medications Medications (Trade) Dose Ordered Sig/Ewa Route PRN Reason Start Time Stop Time Status Last Admin Dose Admin Acetaminophen (Tylenol) 650 mg Q4H PRN ORAL fever, pain 08/03/17 21:00 09/02/17 20:59 Acetaminophen/ Hydrocodone Bitart ([place] 5/325) 1 tab Q6H PRN ORAL Severe Breakthru Pain (>7) 08/04/17 01:21 08/11/17 01:20 08/04/17 01:30 Al Hydroxide/Mg Hydroxide (Mylanta II) 30 ml Q6H PRN ORAL dyspepsia 08/02/17 21:00 09/01/17 20:59 Cefepime HCl 1 gm/ Dextrose 55 ml @ 110 mls/hr EVERY 12 HOURS IVPB 08/02/17 23:00 08/09/17 22:59 08/04/17 09:03 Dextrose (Dextrose 50%) STAT PRN IV Hypoglycemia 08/02/17 21:00 09/01/17 20:59 Dextrose/Sodium Chloride 1,000 ml @ 75 mls/hr [id number] IV 08/02/17 22:00 09/01/17 21:59 08/04/17 07:00 Diphenhydramine HCl (Benadryl) 25 mg Q6H PRN ORAL Itching/Pruritis 08/02/17 21:00 09/01/17 20:59 Heparin Sodium (Porcine) (Heparin 5000 units/ml) 5,000 units EVERY 12 HOURS SUBQ 08/02/17 22:00 09/01/17 21:59 08/04/17 08:40 Hydromorphone HCl 1 mg/Sodium Chloride 56 ml @ 224 mls/hr Q4H PRN IVPB Severe Pain (Pain Scale 7-10) 08/04/17 01:22 08/11/17 01:21 08/04/17 13:01 Metoclopramide HCl (Reglan) 10 mg Q8H PRN IVP Nausea & Vomiting 08/03/17 11:00 09/02/17 10:59 08/03/17 11:54 Nitroglycerin (Ntg) 0.4 mg Q5M X 3 DOSES PRN SL Prn Chest Pain 08/02/17 21:00 09/01/17 20:59 Ondansetron HCl (Zofran) 4 mg Q6H PRN IVP Nausea & Vomiting 08/02/17 21:00 09/01/17 20:59 08/02/17 23:31 Pantoprazole (Protonix) 40 mg DAILY IVP 08/04/17 09:00 09/03/17 08:59 08/04/17 08:34 Polyethylene Glycol (Miralax) 17 gm HSPRN PRN ORAL Constipation 08/02/17 21:00 09/01/17 20:59 Pregabalin (Lyrica) 75 mg THREE TIMES A DAY ORAL 08/03/17 09:00 09/02/17 08:59 08/04/17 13:00 Temazepam (Restoril) 15 mg HSPRN PRN ORAL Insomnia 08/02/17 21:00 08/09/17 20:59 08/03/17 21:35 Juliet Triplett M.D. Aug 04, 2017 13:34
[2017-08-04 16:15] VITALS: BP 97/67
--- NOTE | 2017-08-04 18:45 | Consultation ---
DATE OF CONSULTATION: 08/04/2017 PAIN MANAGEMENT CONSULTATION CONSULTING PHYSICIAN: Ernesto Valencia M.D. REFERRING PHYSICIAN: Aneudy Zapata D.O. PHYSICIAN BLOCKER HAND: Pham Santillan CHIEF COMPLAINT: Epigastric pain, low back pain, and neck pain. HISTORY OF PRESENT ILLNESS: This is a 62-year-old female, who is being seen on the Med/Surg floor of [facility] for initial comprehensive pain management consultation. The patient reports that she has been having epigastric pain for the past two days rating at 9/10 and describing as stabbing sharp pain with increased nausea and vomiting, which also aggravates her pain. The patient also has low back pain and neck pain, which is chronic, seeing a paint line supervisor as an outpatient, receiving [place] 3 to 4 times a day as needed, and was admitted under the care of Dr. Zapata, seen by stringer machine tender, found to have a hiatal hernia and gastritis, status post EGD. At this time, the patient was started as per Dr. Valencia on Dilaudid 1 mg IV piggyback every four hours as needed for severe pain and [place] 5/325 one tablet every six hours as needed for severe breakthrough pain. At this time, the patient is comfortable, in no acute distress or pain at this time, and has no other complaints. PAST MEDICAL HISTORY: Hiatal hernia, hypertension, diabetes, and neck and low back pain. PAST SURGICAL HISTORY: Bilateral hip replacement. MEDICATIONS: Lyrica, Tylenol, and [place]. ALLERGIES: Codeine and ibuprofen. SOCIAL HISTORY: Denies smoking tobacco, drinking alcohol, or IV drug abuse. REVIEW OF SYSTEMS: Denies rash, fever, chills, sweating, dizziness, drowsiness, blurred vision, sore throat, or change in weight. No shortness of breath or chest pain. No nausea, vomiting, or blood in the stool or urine. No bowel or bladder incontinence. No dysuria. She is complaining of abdominal pain, neck and low back pain. PHYSICAL EXAMINATION: GENERAL: Alert, awake, and oriented. VITAL SIGNS: Blood pressure 105/68, heart rate 72, oxygen saturation 95%, respiratory rate is 19, and temperature is 98.2 degrees Fahrenheit. HEENT: PERRLA. NECK: Range of motion is decreased due to the patient's pain and condition. No tenderness to paracervical muscles. No adenopathy. LUNGS: Decreased breath sounds bilaterally. ABDOMEN: Tenderness to palpation. BACK: Range of motion is decreased in flexion and extension with tenderness to paraspinal muscles, trapezius, and rhomboid muscles. EXTREMITY: Upper extremity range of motion is decreased due to the patient's pain and condition and motor being 4/5 in all muscles bilaterally. No cyanosis. No clubbing. No edema. Sensory is intact. Reflexes are not obtainable. No adenopathy. Lower extremity range of motion is decreased due to the patient's pain and condition with motor being 4/5 in all muscles bilaterally. No cyanosis. No clubbing. No edema. Sensory is intact. Reflexes are not obtainable. No adenopathy. ASSESSMENT AND PLAN: This is a 62-year-old female with lumbar and cervical degenerative disk disease, lumbar and cervical stenosis, cervical radiculopathy, multiple joint osteoarthritis, multiple joint pain, abdominal pain, hiatal hernia, and gastritis. The patient be continued on Dilaudid and [place] as needed. The patient was discussed with Dr. Valencia and Dr. Valencia concurred. We will follow the patient. Thank you very much for the courtesy of this consultation. Ernesto Valencia M.D. YANDY Santillan DR: ACOSTA JOB#: [id number] CC:
--- NOTE | 2017-08-04 18:45 | Consultation ---
DATE OF CONSULTATION: 08/04/2017 PAIN MANAGEMENT CONSULTATION CONSULTING PHYSICIAN: Ernesto Valencia M.D. REFERRING PHYSICIAN: Aneudy Zapata D.O. PHYSICIAN PARK SERVICES SPECIALIST: Pham Santillan CHIEF COMPLAINT: Epigastric pain, low back pain, and neck pain. HISTORY OF PRESENT ILLNESS: This is a 62-year-old female, who is being seen on the Med/Surg floor of [facility] for initial comprehensive pain management consultation. The patient reports that she has been having epigastric pain for the past two days rating at 9/10 and describing as stabbing sharp pain with increased nausea and vomiting, which also aggravates her pain. The patient also has low back pain and neck pain, which is chronic, seeing a painter apprentice as an outpatient, receiving [place] 3 to 4 times a day as needed, and was admitted under the care of Dr. Zapata, seen by livestock producer, found to have a hiatal hernia and gastritis, status post EGD. At this time, the patient was started as per Dr. Valencia on Dilaudid 1 mg IV piggyback every four hours as needed for severe pain and [place] 5/325 one tablet every six hours as needed for severe breakthrough pain. At this time, the patient is comfortable, in no acute distress or pain at this time, and has no other complaints. PAST MEDICAL HISTORY: Hiatal hernia, hypertension, diabetes, and neck and low back pain. PAST SURGICAL HISTORY: Bilateral hip replacement. MEDICATIONS: Lyrica, Tylenol, and [place]. ALLERGIES: Codeine and ibuprofen. SOCIAL HISTORY: Denies smoking tobacco, drinking alcohol, or IV drug abuse. REVIEW OF SYSTEMS: Denies rash, fever, chills, sweating, dizziness, drowsiness, blurred vision, sore throat, or change in weight. No shortness of breath or chest pain. No nausea, vomiting, or blood in the stool or urine. No bowel or bladder incontinence. No dysuria. She is complaining of abdominal pain, neck and low back pain. PHYSICAL EXAMINATION: GENERAL: Alert, awake, and oriented. VITAL SIGNS: Blood pressure 105/68, heart rate 72, oxygen saturation 95%, respiratory rate is 19, and temperature is 98.2 degrees Fahrenheit. HEENT: PERRLA. NECK: Range of motion is decreased due to the patient's pain and condition. No tenderness to paracervical muscles. No adenopathy. LUNGS: Decreased breath sounds bilaterally. ABDOMEN: Tenderness to palpation. BACK: Range of motion is decreased in flexion and extension with tenderness to paraspinal muscles, trapezius, and rhomboid muscles. EXTREMITY: Upper extremity range of motion is decreased due to the patient's pain and condition and motor being 4/5 in all muscles bilaterally. No cyanosis. No clubbing. No edema. Sensory is intact. Reflexes are not obtainable. No adenopathy. Lower extremity range of motion is decreased due to the patient's pain and condition with motor being 4/5 in all muscles bilaterally. No cyanosis. No clubbing. No edema. Sensory is intact. Reflexes are not obtainable. No adenopathy. ASSESSMENT AND PLAN: This is a 62-year-old female with lumbar and cervical degenerative disk disease, lumbar and cervical stenosis, cervical radiculopathy, multiple joint osteoarthritis, multiple joint pain, abdominal pain, hiatal hernia, and gastritis. The patient be continued on Dilaudid and [place] as needed. The patient was discussed with Dr. Valencia and Dr. Valencia concurred. We will follow the patient. Thank you very much for the courtesy of this consultation. Ernesto Valencia M.D. YANDY Santillan DR: A[place]STA JOB#: [id number] CC:
--- NOTE | 2017-08-04 18:45 | Consultation ---
DATE OF CONSULTATION: 08/04/2017 PAIN MANAGEMENT CONSULTATION CONSULTING PHYSICIAN: Ernesto Valencia M.D. REFERRING PHYSICIAN: Aneudy Zapata D.O. PHYSICIAN SYSTEMS TECHNOLOGIST: Pham Santillan CHIEF COMPLAINT: Epigastric pain, low back pain, and neck pain. HISTORY OF PRESENT ILLNESS: This is a 62-year-old female, who is being seen on the Med/Surg floor of [facility] for initial comprehensive pain management consultation. The patient reports that she has been having epigastric pain for the past two days rating at 9/10 and describing as stabbing sharp pain with increased nausea and vomiting, which also aggravates her pain. The patient also has low back pain and neck pain, which is chronic, seeing a tumbling barrel painter as an outpatient, receiving [place] 3 to 4 times a day as needed, and was admitted under the care of Dr. Zapata, seen by hand gluer and slicer, found to have a hiatal hernia and gastritis, status post EGD. At this time, the patient was started as per Dr. Valencia on Dilaudid 1 mg IV piggyback every four hours as needed for severe pain and [place] 5/325 one tablet every six hours as needed for severe breakthrough pain. At this time, the patient is comfortable, in no acute distress or pain at this time, and has no other complaints. PAST MEDICAL HISTORY: Hiatal hernia, hypertension, diabetes, and neck and low back pain. PAST SURGICAL HISTORY: Bilateral hip replacement. MEDICATIONS: Lyrica, Tylenol, and [place]. ALLERGIES: Codeine and ibuprofen. SOCIAL HISTORY: Denies smoking tobacco, drinking alcohol, or IV drug abuse. REVIEW OF SYSTEMS: Denies rash, fever, chills, sweating, dizziness, drowsiness, blurred vision, sore throat, or change in weight. No shortness of breath or chest pain. No nausea, vomiting, or blood in the stool or urine. No bowel or bladder incontinence. No dysuria. She is complaining of abdominal pain, neck and low back pain. PHYSICAL EXAMINATION: GENERAL: Alert, awake, and oriented. VITAL SIGNS: Blood pressure 105/68, heart rate 72, oxygen saturation 95%, respiratory rate is 19, and temperature is 98.2 degrees Fahrenheit. HEENT: PERRLA. NECK: Range of motion is decreased due to the patient's pain and condition. No tenderness to paracervical muscles. No adenopathy. LUNGS: Decreased breath sounds bilaterally. ABDOMEN: Tenderness to palpation. BACK: Range of motion is decreased in flexion and extension with tenderness to paraspinal muscles, trapezius, and rhomboid muscles. EXTREMITY: Upper extremity range of motion is decreased due to the patient's pain and condition and motor being 4/5 in all muscles bilaterally. No cyanosis. No clubbing. No edema. Sensory is intact. Reflexes are not obtainable. No adenopathy. Lower extremity range of motion is decreased due to the patient's pain and condition with motor being 4/5 in all muscles bilaterally. No cyanosis. No clubbing. No edema. Sensory is intact. Reflexes are not obtainable. No adenopathy. ASSESSMENT AND PLAN: This is a 62-year-old female with lumbar and cervical degenerative disk disease, lumbar and cervical stenosis, cervical radiculopathy, multiple joint osteoarthritis, multiple joint pain, abdominal pain, hiatal hernia, and gastritis. The patient be continued on Dilaudid and [place] as needed. The patient was discussed with Dr. Valencia and Dr. Valencia concurred. We will follow the patient. Thank you very much for the courtesy of this consultation. Ernesto Valencia M.D. YANDY Santillan DR: A[place]STA JOB#: [id number] CC:
[2017-08-04 20:00] VITALS: BP 96/65
[2017-08-05 00:24] VITALS: BP 103/63
[2017-08-05 04:00] VITALS: BP 110/68
[2017-08-05 06:41] LABS: BASOPHILS % (AUTO) 1.2 % (0.0-2.0); EOSINOPHILS % (AUTO) 0.7 % (0.0-3.0); HEMATOCRIT 42.3 % (37.0-47.0); HEMOGLOBIN 13.9 G/DL (12.0-16.0); MEAN CORPUSCULAR VOLUME 102 FL (80-99); MONOCYTES % (AUTO) 6.3 % (1.0-10.0); NEUTROPHILS % (AUTO) 42.8 % (45.0-75.0); PLATELET COUNT 278 K/UL (150-450); RED BLOOD COUNT 4.14 M/UL (4.20-5.40); RED CELL DISTRIBUTION WIDTH 12.5 % (11.6-14.8); WHITE BLOOD COUNT 9.7 K/UL (4.8-10.8)
[2017-08-05 06:47] LABS: ANION GAP 8 mmol/L (5-15); BLOOD UREA NITROGEN 13 mg/dL (7-18); CALCIUM 9.1 MG/DL (8.5-10.1); CARBON DIOXIDE 29 MMOL/L (21-32); CHLORIDE 103 MMOL/L (98-107); CREATININE 0.7 MG/DL (0.55-1.30); POTASSIUM 3.2 MMOL/L (3.5-5.1); SODIUM 140 MMOL/L (136-145)
[2017-08-05 08:00] VITALS: BP 106/62
--- NOTE | 2017-08-05 08:12 | General Progress Note ---
Assessment/Plan Assessment/Plan (1) Lumbar and Cervical DDD (2) Lumbar and Cervical Spondylosis (3) Lumbar and Cervical Radiculopathy (4) Multiple Joint pain and OA (5) Abdominal pain (6) Hiatal Hernia (7) Gastritis Pt will be continued on the Dilaudid and [place]. D/w Dr. Valencia and he concurred. Subjective Date patient seen: Aug 05, 2017 Time patient seen: 07:30 - am Allergies: Coded Allergies: CODEINE (Unverified Allergy, Unknown, 08/05/14) IBUPROFEN (Verified Allergy, Unknown, 08/05/15) Subjective REVIEW OF SYSTEMS: Denies rash, fever, chills, sweating, dizziness, drowsiness, blurred vision, sore throat, or change in weight. No shortness of breath or chest pain. No nausea, vomiting, or blood in the stool or urine. No bowel or bladder incontinence. No dysuria. She is complaining of abdominal pain, neck and low back pain. SUBJECTIVE: Patient is in bed no signs of pain or distress. The pain has been reduced from /10 to 6/10. Objective Last 24 Hour Vital Signs Date Time Temp Pulse Resp B/P (MAP) Pulse Ox O2 Delivery O2 Flow Rate FiO2 08/05/17 04:00 98.1 87 18 110/68 96 Room Air 08/05/17 00:24 97.3 60 18 103/63 96 Room Air 08/04/17 20:00 97.4 68 18 96/65 97 Room Air 08/04/17 18:04 97.4 08/04/17 16:15 97.4 78 20 97/67 96 Room Air 08/04/17 12:00 98.3 88 19 106/75 94 Room Air 08/04/17 08:34 97.2 76 19 105/68 95 Room Air Laboratory Tests 08/05/17 05:35: White Blood Count 9.7, Red Blood Count 4.14L, Hemoglobin 13.9, Hematocrit 42.3, Mean Corpuscular Volume 102H, Mean Corpuscular Hemoglobin 33.7H, Mean Corpuscular Hemoglobin Concent 32.9, Red Cell Distribution Width 12.5, Platelet Count 278, Mean Platelet Volume 7.2, Neutrophils (%) (Auto) 42.8L, Lymphocytes ( %) (Auto) 49.0H, Monocytes (%) (Auto) 6.3, Eosinophils (%) (Auto) 0.7, Basophils (%) (Auto) 1.2, Sodium Level 140, Potassium Level 3.2L, Chloride Level 103, Carbon Dioxide Level 29, Anion Gap 8, Blood Urea Nitrogen 13, Creatinine 0.7, Estimat Glomerular Filtration Rate > 60, Glucose Level 88, Calcium Level 9.1 Height (Feet): 5 Height (Inches): 4.00 Weight (Pounds): 153 LESVIA GUTIERREZ Aug 05, 2017 08:12
[2017-08-05] MEDS: Pantoprazole Inj IVP SCH (08:23)
[2017-08-05] MEDS: Heparin 5000 units/ml inj SUBQ SCH ×2 (08:24→21:48)
[2017-08-05] MEDS: Lyrica 75mg cap ORAL SCH ×3 (08:24→17:36)
[2017-08-05] MEDS: Cefepime HCl 1 GM in D5W 55 ML IVPB SCH ×2 (08:25→21:46)
[2017-08-05] MEDS: HYDROmorphone 1 MG in NS 55 ML IVPB PRN ×3 (08:26→21:58)
[2017-08-05] MEDS ORDERED: Tubing IV Secondary IV ONE (11:00)
[2017-08-05] MEDS ORDERED: D5NS 1000ml IV ONE (11:00)
--- NOTE | 2017-08-05 11:14 | GI Progress Note ---
Assessment/Plan Problems: (1) Hiatal hernia ICD Codes: K44.9 - Diaphragmatic hernia without obstruction or gangrene SNOMED: 81276328 (2) Abdominal pain with vomiting ICD Codes: R10.9 - Unspecified abdominal pain; R11.10 - Vomiting, unspecified SNOMED: 47306002, 165848089 (3) Nausea, vomiting, and diarrhea ICD Codes: R11.2 - Nausea with vomiting, unspecified; R19.7 - Diarrhea, unspecified SNOMED: 0317908 (4) Diabetes ICD Codes: E11.9 - Type 2 diabetes mellitus without complications SNOMED: 85083744 (5) Persistent vomiting ICD Codes: R11.10 - Vomiting, unspecified SNOMED: 616048895 (6) Malingering ICD Codes: Z76.5 - Malingerer [conscious simulation] SNOMED: 39158785 Status: stable Status Narrative Discussed with Dr. Smith. Assessment/Plan s/p EGD SUMMARY OF FINDINGS 01/19/17: 1. Small inlet patch. 2. Hiatal hernia. 3. Gastritis, status post biopsy. >> negative for H. Pylori KUB reviewed >> no acute process okay for DC per GI standpoint if tolerates lunch symptomatic treatment pain mgmt zofran prn, reglan prn for persistent vomiting ppi fu labs Subjective Subjective generalized pain Objective Last 24 Hour Vital Signs Date Time Temp Pulse Resp B/P (MAP) Pulse Ox O2 Delivery O2 Flow Rate FiO2 08/05/17 08:00 98.5 58 18 106/62 97 Room Air 08/05/17 04:00 98.1 87 18 110/68 96 Room Air 08/05/17 00:24 97.3 60 18 103/63 96 Room Air 08/04/17 20:00 97.4 68 18 96/65 97 Room Air 08/04/17 18:04 97.4 08/04/17 16:15 97.4 78 20 97/67 96 Room Air 08/04/17 12:00 98.3 88 19 106/75 94 Room Air Laboratory Tests Test 08/05/17 05:35 White Blood Count 9.7 K/UL (4.8-10.8) Red Blood Count 4.14 M/UL (4.20-5.40) L Hemoglobin 13.9 G/DL (12.0-16.0) Hematocrit 42.3 % (37.0-47.0) Mean Corpuscular Volume 102 FL (80-99) H Mean Corpuscular Hemoglobin 33.7 PG (27.0-31.0) H Mean Corpuscular Hemoglobin Concent 32.9 G/DL (32.0-36.0) Red Cell Distribution Width 12.5 % (11.6-14.8) Platelet Count 278 K/UL (150-450) Mean Platelet Volume 7.2 FL (6.5-10.1) Neutrophils (%) (Auto) 42.8 % (45.0-75.0) L Lymphocytes (%) (Auto) 49.0 % (20.0-45.0) H Monocytes (%) (Auto) 6.3 % (1.0-10.0) Eosinophils (%) (Auto) 0.7 % (0.0-3.0) Basophils (%) (Auto) 1.2 % (0.0-2.0) Sodium Level 140 MMOL/L (136-145) Potassium Level 3.2 MMOL/L (3.5-5.1) L Chloride Level 103 MMOL/L (98-107) Carbon Dioxide Level 29 MMOL/L (21-32) Anion Gap 8 mmol/L (5-15) Blood Urea Nitrogen 13 mg/dL (7-18) Creatinine 0.7 MG/DL (0.55-1.30) Estimat Glomerular Filtration Rate > 60 mL/min (>60) Glucose Level 88 MG/DL (74-106) Calcium Level 9.1 MG/DL (8.5-10.1) Height (Feet): 5 Height (Inches): 4.00 Weight (Pounds): 153 General Appearance: WD/WN, no apparent distress, alert Cardiovascular: normal rate Respiratory/Chest: normal breath sounds, no respiratory distress Abdominal Exam: normal bowel sounds, non tender, soft Extremities: normal range of motion, non-tender Regina Bradshaw.Vasu Aug 05, 2017 11:14
--- NOTE | 2017-08-05 11:14 | GI Progress Note ---
Assessment/Plan Problems: (1) Hiatal hernia ICD Codes: K44.9 - Diaphragmatic hernia without obstruction or gangrene SNOMED: 22896525 (2) Abdominal pain with vomiting ICD Codes: R10.9 - Unspecified abdominal pain; R11.10 - Vomiting, unspecified SNOMED: 59823186, 577569403 (3) Nausea, vomiting, and diarrhea ICD Codes: R11.2 - Nausea with vomiting, unspecified; R19.7 - Diarrhea, unspecified SNOMED: 2528812 (4) Diabetes ICD Codes: E11.9 - Type 2 diabetes mellitus without complications SNOMED: 03727701 (5) Persistent vomiting ICD Codes: R11.10 - Vomiting, unspecified SNOMED: 915096116 (6) Malingering ICD Codes: Z76.5 - Malingerer [conscious simulation] SNOMED: 05371403 Status: stable Status Narrative Discussed with Dr. Smith. Assessment/Plan s/p EGD SUMMARY OF FINDINGS 01/19/17: 1. Small inlet patch. 2. Hiatal hernia. 3. Gastritis, status post biopsy. >> negative for H. Pylori KUB reviewed >> no acute process okay for DC per GI standpoint if tolerates lunch symptomatic treatment pain mgmt zofran prn, reglan prn for persistent vomiting ppi fu labs Subjective Subjective generalized pain Objective Last 24 Hour Vital Signs Date Time Temp Pulse Resp B/P (MAP) Pulse Ox O2 Delivery O2 Flow Rate FiO2 08/05/17 08:00 98.5 58 18 106/62 97 Room Air 08/05/17 04:00 98.1 87 18 110/68 96 Room Air 08/05/17 00:24 97.3 60 18 103/63 96 Room Air 08/04/17 20:00 97.4 68 18 96/65 97 Room Air 08/04/17 18:04 97.4 08/04/17 16:15 97.4 78 20 97/67 96 Room Air 08/04/17 12:00 98.3 88 19 106/75 94 Room Air Laboratory Tests Test 08/05/17 05:35 White Blood Count 9.7 K/UL (4.8-10.8) Red Blood Count 4.14 M/UL (4.20-5.40) L Hemoglobin 13.9 G/DL (12.0-16.0) Hematocrit 42.3 % (37.0-47.0) Mean Corpuscular Volume 102 FL (80-99) H Mean Corpuscular Hemoglobin 33.7 PG (27.0-31.0) H Mean Corpuscular Hemoglobin Concent 32.9 G/DL (32.0-36.0) Red Cell Distribution Width 12.5 % (11.6-14.8) Platelet Count 278 K/UL (150-450) Mean Platelet Volume 7.2 FL (6.5-10.1) Neutrophils (%) (Auto) 42.8 % (45.0-75.0) L Lymphocytes (%) (Auto) 49.0 % (20.0-45.0) H Monocytes (%) (Auto) 6.3 % (1.0-10.0) Eosinophils (%) (Auto) 0.7 % (0.0-3.0) Basophils (%) (Auto) 1.2 % (0.0-2.0) Sodium Level 140 MMOL/L (136-145) Potassium Level 3.2 MMOL/L (3.5-5.1) L Chloride Level 103 MMOL/L (98-107) Carbon Dioxide Level 29 MMOL/L (21-32) Anion Gap 8 mmol/L (5-15) Blood Urea Nitrogen 13 mg/dL (7-18) Creatinine 0.7 MG/DL (0.55-1.30) Estimat Glomerular Filtration Rate > 60 mL/min (>60) Glucose Level 88 MG/DL (74-106) Calcium Level 9.1 MG/DL (8.5-10.1) Height (Feet): 5 Height (Inches): 4.00 Weight (Pounds): 153 General Appearance: WD/WN, no apparent distress, alert Cardiovascular: normal rate Respiratory/Chest: normal breath sounds, no respiratory distress Abdominal Exam: normal bowel sounds, non tender, soft Extremities: normal range of motion, non-tender Regina Bradshaw.Vasu Aug 05, 2017 11:14
--- NOTE | 2017-08-05 11:14 | GI Progress Note ---
Assessment/Plan Problems: (1) Hiatal hernia ICD Codes: K44.9 - Diaphragmatic hernia without obstruction or gangrene SNOMED: 52441649 (2) Abdominal pain with vomiting ICD Codes: R10.9 - Unspecified abdominal pain; R11.10 - Vomiting, unspecified SNOMED: 83488290, 939280260 (3) Nausea, vomiting, and diarrhea ICD Codes: R11.2 - Nausea with vomiting, unspecified; R19.7 - Diarrhea, unspecified SNOMED: 3395395 (4) Diabetes ICD Codes: E11.9 - Type 2 diabetes mellitus without complications SNOMED: 84117272 (5) Persistent vomiting ICD Codes: R11.10 - Vomiting, unspecified SNOMED: 759369389 (6) Malingering ICD Codes: Z76.5 - Malingerer [conscious simulation] SNOMED: 14479124 Status: stable Status Narrative Discussed with Dr. Smith. Assessment/Plan s/p EGD SUMMARY OF FINDINGS 01/19/17: 1. Small inlet patch. 2. Hiatal hernia. 3. Gastritis, status post biopsy. >> negative for H. Pylori KUB reviewed >> no acute process okay for DC per GI standpoint if tolerates lunch symptomatic treatment pain mgmt zofran prn, reglan prn for persistent vomiting ppi fu labs Subjective Subjective generalized pain Objective Last 24 Hour Vital Signs Date Time Temp Pulse Resp B/P (MAP) Pulse Ox O2 Delivery O2 Flow Rate FiO2 08/05/17 08:00 98.5 58 18 106/62 97 Room Air 08/05/17 04:00 98.1 87 18 110/68 96 Room Air 08/05/17 00:24 97.3 60 18 103/63 96 Room Air 08/04/17 20:00 97.4 68 18 96/65 97 Room Air 08/04/17 18:04 97.4 08/04/17 16:15 97.4 78 20 97/67 96 Room Air 08/04/17 12:00 98.3 88 19 106/75 94 Room Air Laboratory Tests Test 08/05/17 05:35 White Blood Count 9.7 K/UL (4.8-10.8) Red Blood Count 4.14 M/UL (4.20-5.40) L Hemoglobin 13.9 G/DL (12.0-16.0) Hematocrit 42.3 % (37.0-47.0) Mean Corpuscular Volume 102 FL (80-99) H Mean Corpuscular Hemoglobin 33.7 PG (27.0-31.0) H Mean Corpuscular Hemoglobin Concent 32.9 G/DL (32.0-36.0) Red Cell Distribution Width 12.5 % (11.6-14.8) Platelet Count 278 K/UL (150-450) Mean Platelet Volume 7.2 FL (6.5-10.1) Neutrophils (%) (Auto) 42.8 % (45.0-75.0) L Lymphocytes (%) (Auto) 49.0 % (20.0-45.0) H Monocytes (%) (Auto) 6.3 % (1.0-10.0) Eosinophils (%) (Auto) 0.7 % (0.0-3.0) Basophils (%) (Auto) 1.2 % (0.0-2.0) Sodium Level 140 MMOL/L (136-145) Potassium Level 3.2 MMOL/L (3.5-5.1) L Chloride Level 103 MMOL/L (98-107) Carbon Dioxide Level 29 MMOL/L (21-32) Anion Gap 8 mmol/L (5-15) Blood Urea Nitrogen 13 mg/dL (7-18) Creatinine 0.7 MG/DL (0.55-1.30) Estimat Glomerular Filtration Rate > 60 mL/min (>60) Glucose Level 88 MG/DL (74-106) Calcium Level 9.1 MG/DL (8.5-10.1) Height (Feet): 5 Height (Inches): 4.00 Weight (Pounds): 153 General Appearance: WD/WN, no apparent distress, alert Cardiovascular: normal rate Respiratory/Chest: normal breath sounds, no respiratory distress Abdominal Exam: normal bowel sounds, non tender, soft Extremities: normal range of motion, non-tender Regina Bradshaw.Vasu Aug 05, 2017 11:14
[2017-08-05 12:00] VITALS: BP 105/71
--- NOTE | 2017-08-05 12:03 | General Progress Note ---
Assessment/Plan Problem List: (1) Leukocytosis ICD Codes: D72.829 - Elevated white blood cell count, unspecified SNOMED: 834695853, 375979748 (2) Hiatal hernia ICD Codes: K44.9 - Diaphragmatic hernia without obstruction or gangrene SNOMED: 70694689 (3) Persistent vomiting ICD Codes: R11.10 - Vomiting, unspecified SNOMED: 191081130 (4) Nausea, vomiting, and diarrhea ICD Codes: R11.2 - Nausea with vomiting, unspecified; R19.7 - Diarrhea, unspecified SNOMED: 3645497 (5) Hypokalemia ICD Codes: E87.6 - Hypokalemia SNOMED: 51762717 (6) UTI (urinary tract infection) ICD Codes: N39.0 - Urinary tract infection, site not specified SNOMED: 41694752 Qualifiers: Qualified Codes: N30.00 - Acute cystitis without hematuria (7) Abdominal pain with vomiting ICD Codes: R10.9 - Unspecified abdominal pain; R11.10 - Vomiting, unspecified SNOMED: 20453405, 616899576 Status: stable, progressing, tolerating diet Assessment/Plan ot pt diet ivf abx pain control mcbc bmp am dc plan w hh Subjective Constitutional: Reports: weakness Allergies: Coded Allergies: CODEINE (Unverified Allergy, Unknown, 08/05/14) IBUPROFEN (Verified Allergy, Unknown, 08/05/15) All Systems: reviewed and negative except above Subjective weak, c/o abd pain and nausea not eating yet Objective Last 24 Hour Vital Signs Date Time Temp Pulse Resp B/P (MAP) Pulse Ox O2 Delivery O2 Flow Rate FiO2 08/05/17 08:00 98.5 58 18 106/62 97 Room Air 08/05/17 04:00 98.1 87 18 110/68 96 Room Air 08/05/17 00:24 97.3 60 18 103/63 96 Room Air 08/04/17 20:00 97.4 68 18 96/65 97 Room Air 08/04/17 18:04 97.4 08/04/17 16:15 97.4 78 20 97/67 96 Room Air Laboratory Tests 08/05/17 05:35: White Blood Count 9.7, Red Blood Count 4.14L, Hemoglobin 13.9, Hematocrit 42.3, Mean Corpuscular Volume 102H, Mean Corpuscular Hemoglobin 33.7H, Mean Corpuscular Hemoglobin Concent 32.9, Red Cell Distribution Width 12.5, Platelet Count 278, Mean Platelet Volume 7.2, Neutrophils (%) (Auto) 42.8L, Lymphocytes ( %) (Auto) 49.0H, Monocytes (%) (Auto) 6.3, Eosinophils (%) (Auto) 0.7, Basophils (%) (Auto) 1.2, Sodium Level 140, Potassium Level 3.2L, Chloride Level 103, Carbon Dioxide Level 29, Anion Gap 8, Blood Urea Nitrogen 13, Creatinine 0.7, Estimat Glomerular Filtration Rate > 60, Glucose Level 88, Calcium Level 9.1 Height (Feet): 5 Height (Inches): 4.00 Weight (Pounds): 153 General Appearance: confused EENT: normal ENT inspection Neck: normal alignment Cardiovascular: normal peripheral pulses, normal rate, regular rhythm Respiratory/Chest: chest wall non-tender, lungs clear, normal breath sounds Abdomen: normal bowel sounds, non tender, soft Extremities: normal inspection Edema: no edema noted Arm (L), no edema noted Arm (R), no edema noted Leg (L), no edema noted Leg (R), no edema noted Pedal (L), no edema noted Pedal (R), no edema noted Generalized Neurologic: responsive, motor weakness Skin: normal pigmentation, warm/dry JOY GUERRA Aug 05, 2017 12:03
--- NOTE | 2017-08-05 12:03 | General Progress Note ---
Assessment/Plan Problem List: (1) Leukocytosis ICD Codes: D72.829 - Elevated white blood cell count, unspecified SNOMED: 104722467, 522874628 (2) Hiatal hernia ICD Codes: K44.9 - Diaphragmatic hernia without obstruction or gangrene SNOMED: 75283578 (3) Persistent vomiting ICD Codes: R11.10 - Vomiting, unspecified SNOMED: 938665304 (4) Nausea, vomiting, and diarrhea ICD Codes: R11.2 - Nausea with vomiting, unspecified; R19.7 - Diarrhea, unspecified SNOMED: 6940915 (5) Hypokalemia ICD Codes: E87.6 - Hypokalemia SNOMED: 05406259 (6) UTI (urinary tract infection) ICD Codes: N39.0 - Urinary tract infection, site not specified SNOMED: 24500915 Qualifiers: Qualified Codes: N30.00 - Acute cystitis without hematuria (7) Abdominal pain with vomiting ICD Codes: R10.9 - Unspecified abdominal pain; R11.10 - Vomiting, unspecified SNOMED: 88134621, 353592955 Status: stable, progressing, tolerating diet Assessment/Plan ot pt diet ivf abx pain control mcbc bmp am dc plan w hh Subjective Constitutional: Reports: weakness Allergies: Coded Allergies: CODEINE (Unverified Allergy, Unknown, 08/05/14) IBUPROFEN (Verified Allergy, Unknown, 08/05/15) All Systems: reviewed and negative except above Subjective weak, c/o abd pain and nausea not eating yet Objective Last 24 Hour Vital Signs Date Time Temp Pulse Resp B/P (MAP) Pulse Ox O2 Delivery O2 Flow Rate FiO2 08/05/17 08:00 98.5 58 18 106/62 97 Room Air 08/05/17 04:00 98.1 87 18 110/68 96 Room Air 08/05/17 00:24 97.3 60 18 103/63 96 Room Air 08/04/17 20:00 97.4 68 18 96/65 97 Room Air 08/04/17 18:04 97.4 08/04/17 16:15 97.4 78 20 97/67 96 Room Air Laboratory Tests 08/05/17 05:35: White Blood Count 9.7, Red Blood Count 4.14L, Hemoglobin 13.9, Hematocrit 42.3, Mean Corpuscular Volume 102H, Mean Corpuscular Hemoglobin 33.7H, Mean Corpuscular Hemoglobin Concent 32.9, Red Cell Distribution Width 12.5, Platelet Count 278, Mean Platelet Volume 7.2, Neutrophils (%) (Auto) 42.8L, Lymphocytes ( %) (Auto) 49.0H, Monocytes (%) (Auto) 6.3, Eosinophils (%) (Auto) 0.7, Basophils (%) (Auto) 1.2, Sodium Level 140, Potassium Level 3.2L, Chloride Level 103, Carbon Dioxide Level 29, Anion Gap 8, Blood Urea Nitrogen 13, Creatinine 0.7, Estimat Glomerular Filtration Rate > 60, Glucose Level 88, Calcium Level 9.1 Height (Feet): 5 Height (Inches): 4.00 Weight (Pounds): 153 General Appearance: confused EENT: normal ENT inspection Neck: normal alignment Cardiovascular: normal peripheral pulses, normal rate, regular rhythm Respiratory/Chest: chest wall non-tender, lungs clear, normal breath sounds Abdomen: normal bowel sounds, non tender, soft Extremities: normal inspection Edema: no edema noted Arm (L), no edema noted Arm (R), no edema noted Leg (L), no edema noted Leg (R), no edema noted Pedal (L), no edema noted Pedal (R), no edema noted Generalized Neurologic: responsive, motor weakness Skin: normal pigmentation, warm/dry JOY GUERRA Aug 05, 2017 12:03
--- NOTE | 2017-08-05 12:03 | General Progress Note ---
Assessment/Plan Problem List: (1) Leukocytosis ICD Codes: D72.829 - Elevated white blood cell count, unspecified SNOMED: 501277322, 933408456 (2) Hiatal hernia ICD Codes: K44.9 - Diaphragmatic hernia without obstruction or gangrene SNOMED: 80128064 (3) Persistent vomiting ICD Codes: R11.10 - Vomiting, unspecified SNOMED: 443177123 (4) Nausea, vomiting, and diarrhea ICD Codes: R11.2 - Nausea with vomiting, unspecified; R19.7 - Diarrhea, unspecified SNOMED: 9181348 (5) Hypokalemia ICD Codes: E87.6 - Hypokalemia SNOMED: 78241433 (6) UTI (urinary tract infection) ICD Codes: N39.0 - Urinary tract infection, site not specified SNOMED: 70339515 Qualifiers: Qualified Codes: N30.00 - Acute cystitis without hematuria (7) Abdominal pain with vomiting ICD Codes: R10.9 - Unspecified abdominal pain; R11.10 - Vomiting, unspecified SNOMED: 18585686, 130561007 Status: stable, progressing, tolerating diet Assessment/Plan ot pt diet ivf abx pain control mcbc bmp am dc plan w hh Subjective Constitutional: Reports: weakness Allergies: Coded Allergies: CODEINE (Unverified Allergy, Unknown, 08/05/14) IBUPROFEN (Verified Allergy, Unknown, 08/05/15) All Systems: reviewed and negative except above Subjective weak, c/o abd pain and nausea not eating yet Objective Last 24 Hour Vital Signs Date Time Temp Pulse Resp B/P (MAP) Pulse Ox O2 Delivery O2 Flow Rate FiO2 08/05/17 08:00 98.5 58 18 106/62 97 Room Air 08/05/17 04:00 98.1 87 18 110/68 96 Room Air 08/05/17 00:24 97.3 60 18 103/63 96 Room Air 08/04/17 20:00 97.4 68 18 96/65 97 Room Air 08/04/17 18:04 97.4 08/04/17 16:15 97.4 78 20 97/67 96 Room Air Laboratory Tests 08/05/17 05:35: White Blood Count 9.7, Red Blood Count 4.14L, Hemoglobin 13.9, Hematocrit 42.3, Mean Corpuscular Volume 102H, Mean Corpuscular Hemoglobin 33.7H, Mean Corpuscular Hemoglobin Concent 32.9, Red Cell Distribution Width 12.5, Platelet Count 278, Mean Platelet Volume 7.2, Neutrophils (%) (Auto) 42.8L, Lymphocytes ( %) (Auto) 49.0H, Monocytes (%) (Auto) 6.3, Eosinophils (%) (Auto) 0.7, Basophils (%) (Auto) 1.2, Sodium Level 140, Potassium Level 3.2L, Chloride Level 103, Carbon Dioxide Level 29, Anion Gap 8, Blood Urea Nitrogen 13, Creatinine 0.7, Estimat Glomerular Filtration Rate > 60, Glucose Level 88, Calcium Level 9.1 Height (Feet): 5 Height (Inches): 4.00 Weight (Pounds): 153 General Appearance: confused EENT: normal ENT inspection Neck: normal alignment Cardiovascular: normal peripheral pulses, normal rate, regular rhythm Respiratory/Chest: chest wall non-tender, lungs clear, normal breath sounds Abdomen: normal bowel sounds, non tender, soft Extremities: normal inspection Edema: no edema noted Arm (L), no edema noted Arm (R), no edema noted Leg (L), no edema noted Leg (R), no edema noted Pedal (L), no edema noted Pedal (R), no edema noted Generalized Neurologic: responsive, motor weakness Skin: normal pigmentation, warm/dry JOY GUERRA Aug 05, 2017 12:03
--- NOTE | 2017-08-05 14:31 | Infectious Diseases Prog Note ---
Assessment/Plan Problems: (1) Acute pyelonephritis Assessment & Plan: with urine culture positive for strep agalactia, continue iv cefepime pending blood culture , US of the kidney ruled out obstructive stone (2) Sepsis Assessment & Plan: due to the above, await blood culture and continue cefepime empirically (3) Abdominal pain with vomiting Assessment & Plan: with gastritis and H.H, S/P EGD . continue supportive care , renal US ruled out obstructive stone Subjective Constitutional: Reports: no symptoms HEENT: Reports: no symptoms Respiratory: Reports: no symptoms Breasts: Reports: no symptoms Cardiovascular: Reports: no symptoms Gastrointestinal/Abdominal: Reports: no symptoms Genitourinary: Reports: no symptoms Neurologic: Reports: no symptoms Psychiatric: Reports: no symptoms Skin: Reports: no symptoms Endocrine: Reports: no symptoms Hematologic: Reports: no symptoms Allergies: Coded Allergies: CODEINE (Unverified Allergy, Unknown, 08/05/14) IBUPROFEN (Verified Allergy, Unknown, 08/05/15) Objective Vital Signs Last 24 Hour Vital Signs Date Time Temp Pulse Resp B/P (MAP) Pulse Ox O2 Delivery O2 Flow Rate FiO2 08/05/17 12:00 98.3 74 17 105/71 95 Room Air 08/05/17 08:00 98.5 58 18 106/62 97 Room Air 08/05/17 04:00 98.1 87 18 110/68 96 Room Air 08/05/17 00:24 97.3 60 18 103/63 96 Room Air 08/04/17 20:00 97.4 68 18 96/65 97 Room Air 08/04/17 18:04 97.4 08/04/17 16:15 97.4 78 20 97/67 96 Room Air Height (Feet): 5 Height (Inches): 4.00 Weight (Pounds): 153 General Appearance: WD/WN, no acute distress HEENT: normocephalic, atraumatic, anicteric, mucous membranes moist Respiratory/Chest: chest wall non-tender, lungs clear, normal breath sounds, no respiratory distress, no accessory muscle use Cardiovascular: normal peripheral pulses, normal rate, regular rhythm, no gallop/murmur, no JVD Abdomen: normal bowel sounds, soft, non tender, no organomegaly, non distended , no mass, no scars Extremities: no cyanosis, no clubbing Skin: no rash, no lesions, no ulcers 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: alert, oriented x 3 Microbiology Date/Time Source Procedure Growth Status 08/02/17 16:55 Urine,Clean Catch Urine Culture - Final Strep Agalactiae Group B Mixed Urogenital Contaminants Complete Laboratory Tests Test 08/05/17 05:35 White Blood Count 9.7 K/UL (4.8-10.8) Red Blood Count 4.14 M/UL (4.20-5.40) L Hemoglobin 13.9 G/DL (12.0-16.0) Hematocrit 42.3 % (37.0-47.0) Mean Corpuscular Volume 102 FL (80-99) H Mean Corpuscular Hemoglobin 33.7 PG (27.0-31.0) H Mean Corpuscular Hemoglobin Concent 32.9 G/DL (32.0-36.0) Red Cell Distribution Width 12.5 % (11.6-14.8) Platelet Count 278 K/UL (150-450) Mean Platelet Volume 7.2 FL (6.5-10.1) Neutrophils (%) (Auto) 42.8 % (45.0-75.0) L Lymphocytes (%) (Auto) 49.0 % (20.0-45.0) H Monocytes (%) (Auto) 6.3 % (1.0-10.0) Eosinophils (%) (Auto) 0.7 % (0.0-3.0) Basophils (%) (Auto) 1.2 % (0.0-2.0) Sodium Level 140 MMOL/L (136-145) Potassium Level 3.2 MMOL/L (3.5-5.1) L Chloride Level 103 MMOL/L (98-107) Carbon Dioxide Level 29 MMOL/L (21-32) Anion Gap 8 mmol/L (5-15) Blood Urea Nitrogen 13 mg/dL (7-18) Creatinine 0.7 MG/DL (0.55-1.30) Estimat Glomerular Filtration Rate > 60 mL/min (>60) Glucose Level 88 MG/DL (74-106) Calcium Level 9.1 MG/DL (8.5-10.1) Current Medications Medications (Trade) Dose Ordered Sig/Ewa Route PRN Reason Start Time Stop Time Status Last Admin Dose Admin Acetaminophen (Tylenol) 650 mg Q4H PRN ORAL fever, pain 08/03/17 21:00 09/02/17 20:59 Acetaminophen/ Hydrocodone Bitart ([place] 5/325) 1 tab Q6H PRN ORAL Severe Breakthru Pain (>7) 08/04/17 01:21 08/11/17 01:20 08/04/17 01:30 Al Hydroxide/Mg Hydroxide (Mylanta II) 30 ml Q6H PRN ORAL dyspepsia 08/02/17 21:00 09/01/17 20:59 Dextrose (Dextrose 50%) STAT PRN IV Hypoglycemia 08/02/17 21:00 09/01/17 20:59 Dextrose/Sodium Chloride 1,000 ml @ 75 mls/hr [id number] IV 08/02/17 22:00 09/01/17 21:59 08/04/17 23:53 Diphenhydramine HCl (Benadryl) 25 mg Q6H PRN ORAL Itching/Pruritis 08/02/17 21:00 09/01/17 20:59 Heparin Sodium (Porcine) (Heparin 5000 units/ml) 5,000 units EVERY 12 HOURS SUBQ 08/02/17 22:00 09/01/17 21:59 08/05/17 08:24 Hydromorphone HCl 1 mg/Sodium Chloride 56 ml @ 224 mls/hr Q4H PRN IVPB Severe Pain (Pain Scale 7-10) 08/04/17 01:22 08/11/17 01:21 08/05/17 08:26 Metoclopramide HCl (Reglan) 10 mg Q8H PRN IVP Nausea & Vomiting 08/03/17 11:00 09/02/17 10:59 08/03/17 11:54 Nitroglycerin (Ntg) 0.4 mg Q5M X 3 DOSES PRN SL Prn Chest Pain 08/02/17 21:00 09/01/17 20:59 Ondansetron HCl (Zofran) 4 mg Q6H PRN IVP Nausea & Vomiting 08/02/17 21:00 09/01/17 20:59 08/02/17 23:31 Pantoprazole (Protonix) 40 mg DAILY IVP 08/04/17 09:00 09/03/17 08:59 08/05/17 08:23 Polyethylene Glycol (Miralax) 17 gm HSPRN PRN ORAL Constipation 08/02/17 21:00 09/01/17 20:59 Pregabalin (Lyrica) 75 mg THREE TIMES A DAY ORAL 08/03/17 09:00 09/02/17 08:59 08/05/17 13:37 Temazepam (Restoril) 15 mg HSPRN PRN ORAL Insomnia 08/02/17 21:00 08/09/17 20:59 08/03/17 21:35 Juliet Triplett M.D. Aug 05, 2017 14:31
[2017-08-05] MEDS: D5 1/2NS 1,000 ML IV SCH (14:40)
[2017-08-05 16:01] VITALS: BP 112/77
--- NOTE | 2017-08-05 16:57 | Pulmonology Progress Note ---
Assessment/Plan Problems: (1) Pyuria (2) Persistent vomiting (3) Chest pain (4) Diabetes Assessment/Plan feeling better advance diet symptomatic treatment dc planning Subjective ROS Limited/Unobtainable: No Constitutional: Reports: no symptoms HEENT: Repors: no symptoms Allergies: Coded Allergies: CODEINE (Unverified Allergy, Unknown, 08/05/14) IBUPROFEN (Verified Allergy, Unknown, 08/05/15) Objective Last 24 Hour Vital Signs Date Time Temp Pulse Resp B/P (MAP) Pulse Ox O2 Delivery O2 Flow Rate FiO2 08/05/17 16:01 97.8 72 19 112/77 94 Room Air 08/05/17 12:00 98.3 74 17 105/71 95 Room Air 08/05/17 08:00 98.5 58 18 106/62 97 Room Air 08/05/17 04:00 98.1 87 18 110/68 96 Room Air 08/05/17 00:24 97.3 60 18 103/63 96 Room Air 08/04/17 20:00 97.4 68 18 96/65 97 Room Air 08/04/17 18:04 97.4 Intake and Output 08/05/17 08/06/17 19:00 07:00 Intake Total 825 ml Balance 825 ml IV Total 825 ml General Appearance: WD/WN HEENT: normocephalic, atraumatic Respiratory/Chest: chest wall non-tender, lungs clear Breasts: no masses Cardiovascular: normal rate Abdomen: normal bowel sounds, soft, non tender Extremities: no cyanosis Skin: no rash 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: cook italian style food II-XII grossly normal Laboratory Tests 08/05/17 05:35: White Blood Count 9.7, Red Blood Count 4.14L, Hemoglobin 13.9, Hematocrit 42.3, Mean Corpuscular Volume 102H, Mean Corpuscular Hemoglobin 33.7H, Mean Corpuscular Hemoglobin Concent 32.9, Red Cell Distribution Width 12.5, Platelet Count 278, Mean Platelet Volume 7.2, Neutrophils (%) (Auto) 42.8L, Lymphocytes ( %) (Auto) 49.0H, Monocytes (%) (Auto) 6.3, Eosinophils (%) (Auto) 0.7, Basophils (%) (Auto) 1.2, Sodium Level 140, Potassium Level 3.2L, Chloride Level 103, Carbon Dioxide Level 29, Anion Gap 8, Blood Urea Nitrogen 13, Creatinine 0.7, Estimat Glomerular Filtration Rate > 60, Glucose Level 88, Calcium Level 9.1 Current Medications Medications (Trade) Dose Ordered Sig/Ewa Route PRN Reason Start Time Stop Time Status Last Admin Dose Admin Acetaminophen (Tylenol) 650 mg Q4H PRN ORAL fever, pain 08/03/17 21:00 09/02/17 20:59 Acetaminophen/ Hydrocodone Bitart ([place] 5/325) 1 tab Q6H PRN ORAL Severe Breakthru Pain (>7) 08/04/17 01:21 08/11/17 01:20 08/04/17 01:30 Al Hydroxide/Mg Hydroxide (Mylanta II) 30 ml Q6H PRN ORAL dyspepsia 08/02/17 21:00 09/01/17 20:59 Cefepime HCl 1 gm/ Dextrose 55 ml @ 110 mls/hr EVERY 12 HOURS IVPB 08/05/17 21:00 08/12/17 20:59 Dextrose (Dextrose 50%) STAT PRN IV Hypoglycemia 08/02/17 21:00 09/01/17 20:59 Dextrose/Sodium Chloride 1,000 ml @ 75 mls/hr [id number] IV 08/02/17 22:00 09/01/17 21:59 08/05/17 14:40 Diphenhydramine HCl (Benadryl) 25 mg Q6H PRN ORAL Itching/Pruritis 08/02/17 21:00 09/01/17 20:59 Heparin Sodium (Porcine) (Heparin 5000 units/ml) 5,000 units EVERY 12 HOURS SUBQ 08/02/17 22:00 09/01/17 21:59 08/05/17 08:24 Hydromorphone HCl 1 mg/Sodium Chloride 56 ml @ 224 mls/hr Q4H PRN IVPB Severe Pain (Pain Scale 7-10) 08/04/17 01:22 08/11/17 01:21 08/05/17 14:36 Metoclopramide HCl (Reglan) 10 mg Q8H PRN IVP Nausea & Vomiting 08/03/17 11:00 09/02/17 10:59 08/03/17 11:54 Nitroglycerin (Ntg) 0.4 mg Q5M X 3 DOSES PRN SL Prn Chest Pain 08/02/17 21:00 09/01/17 20:59 Ondansetron HCl (Zofran) 4 mg Q6H PRN IVP Nausea & Vomiting 08/02/17 21:00 09/01/17 20:59 08/02/17 23:31 Pantoprazole (Protonix) 40 mg DAILY IVP 08/04/17 09:00 09/03/17 08:59 08/05/17 08:23 Polyethylene Glycol (Miralax) 17 gm HSPRN PRN ORAL Constipation 08/02/17 21:00 09/01/17 20:59 Pregabalin (Lyrica) 75 mg THREE TIMES A DAY ORAL 08/03/17 09:00 09/02/17 08:59 08/05/17 13:37 Temazepam (Restoril) 15 mg HSPRN PRN ORAL Insomnia 08/02/17 21:00 08/09/17 20:59 08/03/17 21:35 ERICA LICONA Aug 05, 2017 16:57
[2017-08-05 20:00] VITALS: BP 92/56
[2017-08-06] VITALS: BP 110/70
[2017-08-06] MEDS: HYDROmorphone 1 MG in NS 55 ML IVPB PRN ×3 (02:43→13:36)
[2017-08-06 04:00] VITALS: BP 113/80
[2017-08-06] MEDS: D5 1/2NS 1,000 ML IV SCH (05:08)
[2017-08-06 07:11] LABS: BASOPHILS % (AUTO) 1.4 % (0.0-2.0); EOSINOPHILS % (AUTO) 2.1 % (0.0-3.0); HEMATOCRIT 38.3 % (37.0-47.0); HEMOGLOBIN 11.9 G/DL (12.0-16.0); LYMPHOCYTES % (AUTO) 45.4 % (20.0-45.0); MEAN CORPUSCULAR VOLUME 103 FL (80-99); MONOCYTES % (AUTO) 6.2 % (1.0-10.0); NEUTROPHILS % (AUTO) 44.9 % (45.0-75.0); PLATELET COUNT 242 K/UL (150-450); RED BLOOD COUNT 3.72 M/UL (4.20-5.40); RED CELL DISTRIBUTION WIDTH 11.3 % (11.6-14.8); WHITE BLOOD COUNT 7.2 K/UL (4.8-10.8)
[2017-08-06 07:36] LABS: ANION GAP 7 mmol/L (5-15); BLOOD UREA NITROGEN 10 mg/dL (7-18); CALCIUM 8.6 MG/DL (8.5-10.1); CARBON DIOXIDE 26 MMOL/L (21-32); CHLORIDE 107 MMOL/L (98-107); CREATININE 0.7 MG/DL (0.55-1.30); POTASSIUM 3.5 MMOL/L (3.5-5.1); SODIUM 140 MMOL/L (136-145)
[2017-08-06 08:00] VITALS: BP 108/75
--- NOTE | 2017-08-06 08:53 | General Progress Note ---
Assessment/Plan Assessment/Plan (1) Lumbar and Cervical DDD (2) Lumbar and Cervical Spondylosis (3) Lumbar and Cervical Radiculopathy (4) Multiple Joint pain and OA (5) Abdominal pain (6) Hiatal Hernia (7) Gastritis Pt will be continued on the Dilaudid and [place]. D/w Dr. Valencia and he concurred. Subjective Date patient seen: Aug 06, 2017 Time patient seen: 07:30 - am Allergies: Coded Allergies: CODEINE (Unverified Allergy, Unknown, 08/05/14) IBUPROFEN (Verified Allergy, Unknown, 08/05/15) Subjective REVIEW OF SYSTEMS: Denies rash, fever, chills, sweating, dizziness, drowsiness, blurred vision, sore throat, or change in weight. No shortness of breath or chest pain. No nausea, vomiting, or blood in the stool or urine. No bowel or bladder incontinence. No dysuria. She is complaining of abdominal pain, neck and low back pain. SUBJECTIVE: Her pain has been stable on the medication and is at a 4/10. She is looking forward to being discharged home. No Rx needed for discharge as [facility] as home. Objective Last 24 Hour Vital Signs Date Time Temp Pulse Resp B/P (MAP) Pulse Ox O2 Delivery O2 Flow Rate FiO2 08/06/17 04:00 98.3 81 18 113/80 95 Room Air 08/06/17 00:00 98.1 71 18 110/70 95 Room Air 08/05/17 20:00 98.0 80 18 92/56 94 Room Air 08/05/17 16:01 97.8 72 19 112/77 94 Room Air 08/05/17 12:00 98.3 74 17 105/71 95 Room Air Laboratory Tests 08/06/17 06:00: White Blood Count 7.2, Red Blood Count 3.72L, Hemoglobin 11.9L, Hematocrit 38.3 , Mean Corpuscular Volume 103H, Mean Corpuscular Hemoglobin 32.0H, Mean Corpuscular Hemoglobin Concent 31.0L, Red Cell Distribution Width 11.3L, Platelet Count 242, Mean Platelet Volume 6.6, Neutrophils (%) (Auto) 44.9L, Lymphocytes (%) (Auto) 45.4H, Monocytes (%) (Auto) 6.2, Eosinophils (%) (Auto) 2.1, Basophils (%) (Auto) 1.4, Sodium Level 140, Potassium Level 3.5, Chloride Level 107, Carbon Dioxide Level 26, Anion Gap 7, Blood Urea Nitrogen 10, Creatinine 0.7, Estimat Glomerular Filtration Rate > 60, Glucose Level 107H, Calcium Level 8.6 Height (Feet): 5 Height (Inches): 4.00 Weight (Pounds): 153 LESVIA GUTIERREZ PPedro Aug 06, 2017 08:53
[2017-08-06] MEDS: Lyrica 75mg cap ORAL SCH ×2 (09:03→12:44)
[2017-08-06] MEDS: Cefepime HCl 1 GM in D5W 55 ML IVPB SCH (09:04)
[2017-08-06] MEDS: Heparin 5000 units/ml inj SUBQ SCH (09:04)
[2017-08-06] MEDS: Pantoprazole Inj IVP SCH (09:05)
--- NOTE | 2017-08-06 11:01 | GI Progress Note ---
Assessment/Plan Problems: (1) Hiatal hernia ICD Codes: K44.9 - Diaphragmatic hernia without obstruction or gangrene SNOMED: 01531452 (2) Abdominal pain with vomiting ICD Codes: R10.9 - Unspecified abdominal pain; R11.10 - Vomiting, unspecified SNOMED: 62393165, 522421970 (3) Nausea, vomiting, and diarrhea ICD Codes: R11.2 - Nausea with vomiting, unspecified; R19.7 - Diarrhea, unspecified SNOMED: 8630284 (4) Diabetes ICD Codes: E11.9 - Type 2 diabetes mellitus without complications SNOMED: 25734590 (5) Persistent vomiting ICD Codes: R11.10 - Vomiting, unspecified SNOMED: 896931667 (6) Malingering ICD Codes: Z76.5 - Malingerer [conscious simulation] SNOMED: 72711683 Status: stable Status Narrative Discussed with Dr. Smith. Assessment/Plan s/p EGD SUMMARY OF FINDINGS 01/19/17: 1. Small inlet patch. 2. Hiatal hernia. 3. Gastritis, status post biopsy. >> negative for H. Pylori KUB reviewed >> no acute process okay for DC per GI standpoint symptomatic treatment pain mgmt zofran prn, reglan prn for persistent vomiting ppi fu labs Subjective Gastrointestinal/Abdominal: Reports: no symptoms Subjective generalized pain Objective Last 24 Hour Vital Signs Date Time Temp Pulse Resp B/P (MAP) Pulse Ox O2 Delivery O2 Flow Rate FiO2 08/06/17 08:23 98.3 08/06/17 08:23 98.3 08/06/17 08:00 97.8 68 16 108/75 98 Room Air 08/06/17 04:00 98.3 81 18 113/80 95 Room Air 08/06/17 00:00 98.1 71 18 110/70 95 Room Air 08/05/17 20:00 98.0 80 18 92/56 94 Room Air 08/05/17 16:01 97.8 72 19 112/77 94 Room Air 08/05/17 12:00 98.3 74 17 105/71 95 Room Air Intake and Output 08/06/17 08/07/17 19:00 07:00 Intake Total 250 ml Balance 250 ml Intake Oral 250 ml # Voids 1 Laboratory Tests Test 08/06/17 06:00 White Blood Count 7.2 K/UL (4.8-10.8) Red Blood Count 3.72 M/UL (4.20-5.40) L Hemoglobin 11.9 G/DL (12.0-16.0) L Hematocrit 38.3 % (37.0-47.0) Mean Corpuscular Volume 103 FL (80-99) H Mean Corpuscular Hemoglobin 32.0 PG (27.0-31.0) H Mean Corpuscular Hemoglobin Concent 31.0 G/DL (32.0-36.0) L Red Cell Distribution Width 11.3 % (11.6-14.8) L Platelet Count 242 K/UL (150-450) Mean Platelet Volume 6.6 FL (6.5-10.1) Neutrophils (%) (Auto) 44.9 % (45.0-75.0) L Lymphocytes (%) (Auto) 45.4 % (20.0-45.0) H Monocytes (%) (Auto) 6.2 % (1.0-10.0) Eosinophils (%) (Auto) 2.1 % (0.0-3.0) Basophils (%) (Auto) 1.4 % (0.0-2.0) Sodium Level 140 MMOL/L (136-145) Potassium Level 3.5 MMOL/L (3.5-5.1) Chloride Level 107 MMOL/L (98-107) Carbon Dioxide Level 26 MMOL/L (21-32) Anion Gap 7 mmol/L (5-15) Blood Urea Nitrogen 10 mg/dL (7-18) Creatinine 0.7 MG/DL (0.55-1.30) Estimat Glomerular Filtration Rate > 60 mL/min (>60) Glucose Level 107 MG/DL (74-106) H Calcium Level 8.6 MG/DL (8.5-10.1) Height (Feet): 5 Height (Inches): 4.00 Weight (Pounds): 153 General Appearance: WD/WN, no apparent distress, alert Cardiovascular: normal rate Respiratory/Chest: normal breath sounds, no respiratory distress Abdominal Exam: normal bowel sounds, non tender, soft Extremities: normal range of motion, non-tender Regina Bradshaw N.P. Aug 06, 2017 11:01
--- NOTE | 2017-08-06 11:01 | GI Progress Note ---
Assessment/Plan Problems: (1) Hiatal hernia ICD Codes: K44.9 - Diaphragmatic hernia without obstruction or gangrene SNOMED: 42355201 (2) Abdominal pain with vomiting ICD Codes: R10.9 - Unspecified abdominal pain; R11.10 - Vomiting, unspecified SNOMED: 82022706, 039622392 (3) Nausea, vomiting, and diarrhea ICD Codes: R11.2 - Nausea with vomiting, unspecified; R19.7 - Diarrhea, unspecified SNOMED: 5291546 (4) Diabetes ICD Codes: E11.9 - Type 2 diabetes mellitus without complications SNOMED: 82092565 (5) Persistent vomiting ICD Codes: R11.10 - Vomiting, unspecified SNOMED: 347527697 (6) Malingering ICD Codes: Z76.5 - Malingerer [conscious simulation] SNOMED: 01528501 Status: stable Status Narrative Discussed with Dr. Smith. Assessment/Plan s/p EGD SUMMARY OF FINDINGS 01/19/17: 1. Small inlet patch. 2. Hiatal hernia. 3. Gastritis, status post biopsy. >> negative for H. Pylori KUB reviewed >> no acute process okay for DC per GI standpoint symptomatic treatment pain mgmt zofran prn, reglan prn for persistent vomiting ppi fu labs Subjective Gastrointestinal/Abdominal: Reports: no symptoms Subjective generalized pain Objective Last 24 Hour Vital Signs Date Time Temp Pulse Resp B/P (MAP) Pulse Ox O2 Delivery O2 Flow Rate FiO2 08/06/17 08:23 98.3 08/06/17 08:23 98.3 08/06/17 08:00 97.8 68 16 108/75 98 Room Air 08/06/17 04:00 98.3 81 18 113/80 95 Room Air 08/06/17 00:00 98.1 71 18 110/70 95 Room Air 08/05/17 20:00 98.0 80 18 92/56 94 Room Air 08/05/17 16:01 97.8 72 19 112/77 94 Room Air 08/05/17 12:00 98.3 74 17 105/71 95 Room Air Intake and Output 08/06/17 08/07/17 19:00 07:00 Intake Total 250 ml Balance 250 ml Intake Oral 250 ml # Voids 1 Laboratory Tests Test 08/06/17 06:00 White Blood Count 7.2 K/UL (4.8-10.8) Red Blood Count 3.72 M/UL (4.20-5.40) L Hemoglobin 11.9 G/DL (12.0-16.0) L Hematocrit 38.3 % (37.0-47.0) Mean Corpuscular Volume 103 FL (80-99) H Mean Corpuscular Hemoglobin 32.0 PG (27.0-31.0) H Mean Corpuscular Hemoglobin Concent 31.0 G/DL (32.0-36.0) L Red Cell Distribution Width 11.3 % (11.6-14.8) L Platelet Count 242 K/UL (150-450) Mean Platelet Volume 6.6 FL (6.5-10.1) Neutrophils (%) (Auto) 44.9 % (45.0-75.0) L Lymphocytes (%) (Auto) 45.4 % (20.0-45.0) H Monocytes (%) (Auto) 6.2 % (1.0-10.0) Eosinophils (%) (Auto) 2.1 % (0.0-3.0) Basophils (%) (Auto) 1.4 % (0.0-2.0) Sodium Level 140 MMOL/L (136-145) Potassium Level 3.5 MMOL/L (3.5-5.1) Chloride Level 107 MMOL/L (98-107) Carbon Dioxide Level 26 MMOL/L (21-32) Anion Gap 7 mmol/L (5-15) Blood Urea Nitrogen 10 mg/dL (7-18) Creatinine 0.7 MG/DL (0.55-1.30) Estimat Glomerular Filtration Rate > 60 mL/min (>60) Glucose Level 107 MG/DL (74-106) H Calcium Level 8.6 MG/DL (8.5-10.1) Height (Feet): 5 Height (Inches): 4.00 Weight (Pounds): 153 General Appearance: WD/WN, no apparent distress, alert Cardiovascular: normal rate Respiratory/Chest: normal breath sounds, no respiratory distress Abdominal Exam: normal bowel sounds, non tender, soft Extremities: normal range of motion, non-tender Regina Bradshaw N.P. Aug 06, 2017 11:01
--- NOTE | 2017-08-06 11:01 | GI Progress Note ---
Assessment/Plan Problems: (1) Hiatal hernia ICD Codes: K44.9 - Diaphragmatic hernia without obstruction or gangrene SNOMED: 35707557 (2) Abdominal pain with vomiting ICD Codes: R10.9 - Unspecified abdominal pain; R11.10 - Vomiting, unspecified SNOMED: 19391819, 047088048 (3) Nausea, vomiting, and diarrhea ICD Codes: R11.2 - Nausea with vomiting, unspecified; R19.7 - Diarrhea, unspecified SNOMED: 8202809 (4) Diabetes ICD Codes: E11.9 - Type 2 diabetes mellitus without complications SNOMED: 47545224 (5) Persistent vomiting ICD Codes: R11.10 - Vomiting, unspecified SNOMED: 238400594 (6) Malingering ICD Codes: Z76.5 - Malingerer [conscious simulation] SNOMED: 23701997 Status: stable Status Narrative Discussed with Dr. Smith. Assessment/Plan s/p EGD SUMMARY OF FINDINGS 01/19/17: 1. Small inlet patch. 2. Hiatal hernia. 3. Gastritis, status post biopsy. >> negative for H. Pylori KUB reviewed >> no acute process okay for DC per GI standpoint symptomatic treatment pain mgmt zofran prn, reglan prn for persistent vomiting ppi fu labs Subjective Gastrointestinal/Abdominal: Reports: no symptoms Subjective generalized pain Objective Last 24 Hour Vital Signs Date Time Temp Pulse Resp B/P (MAP) Pulse Ox O2 Delivery O2 Flow Rate FiO2 08/06/17 08:23 98.3 08/06/17 08:23 98.3 08/06/17 08:00 97.8 68 16 108/75 98 Room Air 08/06/17 04:00 98.3 81 18 113/80 95 Room Air 08/06/17 00:00 98.1 71 18 110/70 95 Room Air 08/05/17 20:00 98.0 80 18 92/56 94 Room Air 08/05/17 16:01 97.8 72 19 112/77 94 Room Air 08/05/17 12:00 98.3 74 17 105/71 95 Room Air Intake and Output 08/06/17 08/07/17 19:00 07:00 Intake Total 250 ml Balance 250 ml Intake Oral 250 ml # Voids 1 Laboratory Tests Test 08/06/17 06:00 White Blood Count 7.2 K/UL (4.8-10.8) Red Blood Count 3.72 M/UL (4.20-5.40) L Hemoglobin 11.9 G/DL (12.0-16.0) L Hematocrit 38.3 % (37.0-47.0) Mean Corpuscular Volume 103 FL (80-99) H Mean Corpuscular Hemoglobin 32.0 PG (27.0-31.0) H Mean Corpuscular Hemoglobin Concent 31.0 G/DL (32.0-36.0) L Red Cell Distribution Width 11.3 % (11.6-14.8) L Platelet Count 242 K/UL (150-450) Mean Platelet Volume 6.6 FL (6.5-10.1) Neutrophils (%) (Auto) 44.9 % (45.0-75.0) L Lymphocytes (%) (Auto) 45.4 % (20.0-45.0) H Monocytes (%) (Auto) 6.2 % (1.0-10.0) Eosinophils (%) (Auto) 2.1 % (0.0-3.0) Basophils (%) (Auto) 1.4 % (0.0-2.0) Sodium Level 140 MMOL/L (136-145) Potassium Level 3.5 MMOL/L (3.5-5.1) Chloride Level 107 MMOL/L (98-107) Carbon Dioxide Level 26 MMOL/L (21-32) Anion Gap 7 mmol/L (5-15) Blood Urea Nitrogen 10 mg/dL (7-18) Creatinine 0.7 MG/DL (0.55-1.30) Estimat Glomerular Filtration Rate > 60 mL/min (>60) Glucose Level 107 MG/DL (74-106) H Calcium Level 8.6 MG/DL (8.5-10.1) Height (Feet): 5 Height (Inches): 4.00 Weight (Pounds): 153 General Appearance: WD/WN, no apparent distress, alert Cardiovascular: normal rate Respiratory/Chest: normal breath sounds, no respiratory distress Abdominal Exam: normal bowel sounds, non tender, soft Extremities: normal range of motion, non-tender Regina Bradshaw N.P. Aug 06, 2017 11:01
[2017-08-06 12:00] VITALS: BP 111/68
[2017-08-06] MEDS ORDERED: HYDROmorphone 1mg/ml Carpuject ONE (12:37)
--- NOTE | 2017-08-06 14:53 | Infectious Diseases Prog Note ---
Assessment/Plan Problems: (1) Acute pyelonephritis Assessment & Plan: with urine culture positive for strep agalactia but small colony most likely contaminant , will stop iv cefepime since blood culture is negative , US of the kidney ruled out obstructive stone (2) Sepsis Assessment & Plan: due to the above, await blood culture and continue cefepime empirically (3) Abdominal pain with vomiting Assessment & Plan: with gastritis and H.H, S/P EGD . continue supportive care , renal US ruled out obstructive stone Subjective Constitutional: Reports: no symptoms HEENT: Reports: no symptoms Respiratory: Reports: no symptoms Breasts: Reports: no symptoms Cardiovascular: Reports: no symptoms Gastrointestinal/Abdominal: Reports: no symptoms Genitourinary: Reports: no symptoms Neurologic: Reports: no symptoms Psychiatric: Reports: no symptoms Skin: Reports: no symptoms Endocrine: Reports: no symptoms Hematologic: Reports: no symptoms Musculoskeletal: Reports: no symptoms Allergies: Coded Allergies: CODEINE (Unverified Allergy, Unknown, 08/05/14) IBUPROFEN (Verified Allergy, Unknown, 08/05/15) Objective Vital Signs Last 24 Hour Vital Signs Date Time Temp Pulse Resp B/P (MAP) Pulse Ox O2 Delivery O2 Flow Rate FiO2 08/06/17 13:43 98.3 08/06/17 13:43 98.3 08/06/17 12:00 98.2 63 18 111/68 96 Room Air 08/06/17 08:00 97.8 68 16 108/75 98 Room Air 08/06/17 04:00 98.3 81 18 113/80 95 Room Air 08/06/17 00:00 98.1 71 18 110/70 95 Room Air 08/05/17 20:00 98.0 80 18 92/56 94 Room Air 08/05/17 16:01 97.8 72 19 112/77 94 Room Air Height (Feet): 5 Height (Inches): 4.00 Weight (Pounds): 153 General Appearance: WD/WN, no acute distress HEENT: normocephalic, atraumatic, anicteric, mucous membranes moist, PERRL Respiratory/Chest: chest wall non-tender, lungs clear, normal breath sounds, no respiratory distress, no accessory muscle use Cardiovascular: normal peripheral pulses, normal rate, regular rhythm, no gallop/murmur, no JVD Abdomen: normal bowel sounds, soft, non tender, no organomegaly, non distended , no mass, no scars Extremities: no cyanosis, no clubbing Skin: no rash, no lesions, no ulcers 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: alert, oriented x 3 Microbiology Date/Time Source Procedure Growth Status 08/04/17 07:40 Blood Blood Culture - Preliminary NO GROWTH AFTER 24 HOURS Resulted 08/04/17 07:30 Blood Blood Culture - Preliminary NO GROWTH AFTER 24 HOURS Resulted Laboratory Tests Test 08/06/17 06:00 White Blood Count 7.2 K/UL (4.8-10.8) Red Blood Count 3.72 M/UL (4.20-5.40) L Hemoglobin 11.9 G/DL (12.0-16.0) L Hematocrit 38.3 % (37.0-47.0) Mean Corpuscular Volume 103 FL (80-99) H Mean Corpuscular Hemoglobin 32.0 PG (27.0-31.0) H Mean Corpuscular Hemoglobin Concent 31.0 G/DL (32.0-36.0) L Red Cell Distribution Width 11.3 % (11.6-14.8) L Platelet Count 242 K/UL (150-450) Mean Platelet Volume 6.6 FL (6.5-10.1) Neutrophils (%) (Auto) 44.9 % (45.0-75.0) L Lymphocytes (%) (Auto) 45.4 % (20.0-45.0) H Monocytes (%) (Auto) 6.2 % (1.0-10.0) Eosinophils (%) (Auto) 2.1 % (0.0-3.0) Basophils (%) (Auto) 1.4 % (0.0-2.0) Sodium Level 140 MMOL/L (136-145) Potassium Level 3.5 MMOL/L (3.5-5.1) Chloride Level 107 MMOL/L (98-107) Carbon Dioxide Level 26 MMOL/L (21-32) Anion Gap 7 mmol/L (5-15) Blood Urea Nitrogen 10 mg/dL (7-18) Creatinine 0.7 MG/DL (0.55-1.30) Estimat Glomerular Filtration Rate > 60 mL/min (>60) Glucose Level 107 MG/DL (74-106) H Calcium Level 8.6 MG/DL (8.5-10.1) Current Medications Medications (Trade) Dose Ordered Sig/Ewa Route PRN Reason Start Time Stop Time Status Last Admin Dose Admin Acetaminophen (Tylenol) 650 mg Q4H PRN ORAL fever, pain 08/03/17 21:00 09/02/17 20:59 Acetaminophen/ Hydrocodone Bitart ([place] 5/325) 1 tab Q6H PRN ORAL Severe Breakthru Pain (>7) 08/04/17 01:21 08/11/17 01:20 08/04/17 01:30 Al Hydroxide/Mg Hydroxide (Mylanta II) 30 ml Q6H PRN ORAL dyspepsia 08/02/17 21:00 09/01/17 20:59 Cefepime HCl 1 gm/ Dextrose 55 ml @ 110 mls/hr EVERY 12 HOURS IVPB 08/05/17 21:00 08/12/17 20:59 08/06/17 09:04 Dextrose (Dextrose 50%) STAT PRN IV Hypoglycemia 08/02/17 21:00 09/01/17 20:59 Dextrose/Sodium Chloride 1,000 ml @ 75 mls/hr [id number] IV 08/02/17 22:00 09/01/17 21:59 08/06/17 05:08 Diphenhydramine HCl (Benadryl) 25 mg Q6H PRN ORAL Itching/Pruritis 08/02/17 21:00 09/01/17 20:59 Heparin Sodium (Porcine) (Heparin 5000 units/ml) 5,000 units EVERY 12 HOURS SUBQ 08/02/17 22:00 09/01/17 21:59 08/06/17 09:04 Hydromorphone HCl 1 mg/Sodium Chloride 56 ml @ 224 mls/hr Q4H PRN IVPB Severe Pain (Pain Scale 7-10) 08/04/17 01:22 08/11/17 01:21 08/06/17 13:36 Metoclopramide HCl (Reglan) 10 mg Q8H PRN IVP Nausea & Vomiting 08/03/17 11:00 09/02/17 10:59 08/03/17 11:54 Nitroglycerin (Ntg) 0.4 mg Q5M X 3 DOSES PRN SL Prn Chest Pain 08/02/17 21:00 09/01/17 20:59 Ondansetron HCl (Zofran) 4 mg Q6H PRN IVP Nausea & Vomiting 08/02/17 21:00 09/01/17 20:59 08/02/17 23:31 Pantoprazole (Protonix) 40 mg DAILY IVP 08/04/17 09:00 09/03/17 08:59 08/06/17 09:05 Polyethylene Glycol (Miralax) 17 gm HSPRN PRN ORAL Constipation 08/02/17 21:00 09/01/17 20:59 Pregabalin (Lyrica) 75 mg THREE TIMES A DAY ORAL 08/03/17 09:00 09/02/17 08:59 08/06/17 12:44 Temazepam (Restoril) 15 mg HSPRN PRN ORAL Insomnia 08/02/17 21:00 08/09/17 20:59 08/03/17 21:35 Juliet Triplett M.D. Aug 06, 2017 14:53
--- NOTE | 2017-08-06 15:29 | General Progress Note ---
Assessment/Plan Problem List: (1) Leukocytosis ICD Codes: D72.829 - Elevated white blood cell count, unspecified SNOMED: 795630962, 675373261 (2) Hiatal hernia ICD Codes: K44.9 - Diaphragmatic hernia without obstruction or gangrene SNOMED: 88930145 (3) Persistent vomiting ICD Codes: R11.10 - Vomiting, unspecified SNOMED: 713178962 (4) Nausea, vomiting, and diarrhea ICD Codes: R11.2 - Nausea with vomiting, unspecified; R19.7 - Diarrhea, unspecified SNOMED: 0903205 (5) Hypokalemia ICD Codes: E87.6 - Hypokalemia SNOMED: 93870129 (6) UTI (urinary tract infection) ICD Codes: N39.0 - Urinary tract infection, site not specified SNOMED: 63181255 Qualifiers: Qualified Codes: N30.00 - Acute cystitis without hematuria (7) Abdominal pain with vomiting ICD Codes: R10.9 - Unspecified abdominal pain; R11.10 - Vomiting, unspecified SNOMED: 45931371, 407827246 Status: stable, progressing, tolerating diet Assessment/Plan ot pt diet ivf abx pain control dc home w hh Subjective Constitutional: Reports: weakness Allergies: Coded Allergies: CODEINE (Unverified Allergy, Unknown, 08/05/14) IBUPROFEN (Verified Allergy, Unknown, 08/05/15) All Systems: reviewed and negative except above Subjective weak, feeling better Objective Last 24 Hour Vital Signs Date Time Temp Pulse Resp B/P (MAP) Pulse Ox O2 Delivery O2 Flow Rate FiO2 08/06/17 13:43 98.3 08/06/17 13:43 98.3 08/06/17 12:00 98.2 63 18 111/68 96 Room Air 08/06/17 08:00 97.8 68 16 108/75 98 Room Air 08/06/17 04:00 98.3 81 18 113/80 95 Room Air 08/06/17 00:00 98.1 71 18 110/70 95 Room Air 08/05/17 20:00 98.0 80 18 92/56 94 Room Air 08/05/17 16:01 97.8 72 19 112/77 94 Room Air Intake and Output 08/06/17 08/07/17 19:00 07:00 Intake Total 500 ml Balance 500 ml Intake Oral 500 ml # Voids 2 Laboratory Tests 08/06/17 06:00: White Blood Count 7.2, Red Blood Count 3.72L, Hemoglobin 11.9L, Hematocrit 38.3 , Mean Corpuscular Volume 103H, Mean Corpuscular Hemoglobin 32.0H, Mean Corpuscular Hemoglobin Concent 31.0L, Red Cell Distribution Width 11.3L, Platelet Count 242, Mean Platelet Volume 6.6, Neutrophils (%) (Auto) 44.9L, Lymphocytes (%) (Auto) 45.4H, Monocytes (%) (Auto) 6.2, Eosinophils (%) (Auto) 2.1, Basophils (%) (Auto) 1.4, Sodium Level 140, Potassium Level 3.5, Chloride Level 107, Carbon Dioxide Level 26, Anion Gap 7, Blood Urea Nitrogen 10, Creatinine 0.7, Estimat Glomerular Filtration Rate > 60, Glucose Level 107H, Calcium Level 8.6 Height (Feet): 5 Height (Inches): 4.00 Weight (Pounds): 153 General Appearance: alert EENT: normal ENT inspection Neck: normal alignment Cardiovascular: normal peripheral pulses, normal rate, regular rhythm Respiratory/Chest: chest wall non-tender, lungs clear, normal breath sounds Abdomen: normal bowel sounds, non tender, soft Extremities: normal inspection Edema: no edema noted Arm (L), no edema noted Arm (R), no edema noted Leg (L), no edema noted Leg (R), no edema noted Pedal (L), no edema noted Pedal (R), no edema noted Generalized Neurologic: responsive, motor weakness Skin: normal pigmentation, warm/dry JOY GUERRA Aug 06, 2017 15:29
--- NOTE | 2017-08-06 15:29 | General Progress Note ---
Assessment/Plan Problem List: (1) Leukocytosis ICD Codes: D72.829 - Elevated white blood cell count, unspecified SNOMED: 897800941, 695985342 (2) Hiatal hernia ICD Codes: K44.9 - Diaphragmatic hernia without obstruction or gangrene SNOMED: 38727270 (3) Persistent vomiting ICD Codes: R11.10 - Vomiting, unspecified SNOMED: 231280901 (4) Nausea, vomiting, and diarrhea ICD Codes: R11.2 - Nausea with vomiting, unspecified; R19.7 - Diarrhea, unspecified SNOMED: 6588494 (5) Hypokalemia ICD Codes: E87.6 - Hypokalemia SNOMED: 03585694 (6) UTI (urinary tract infection) ICD Codes: N39.0 - Urinary tract infection, site not specified SNOMED: 07909802 Qualifiers: Qualified Codes: N30.00 - Acute cystitis without hematuria (7) Abdominal pain with vomiting ICD Codes: R10.9 - Unspecified abdominal pain; R11.10 - Vomiting, unspecified SNOMED: 00947417, 180295326 Status: stable, progressing, tolerating diet Assessment/Plan ot pt diet ivf abx pain control dc home w hh Subjective Constitutional: Reports: weakness Allergies: Coded Allergies: CODEINE (Unverified Allergy, Unknown, 08/05/14) IBUPROFEN (Verified Allergy, Unknown, 08/05/15) All Systems: reviewed and negative except above Subjective weak, feeling better Objective Last 24 Hour Vital Signs Date Time Temp Pulse Resp B/P (MAP) Pulse Ox O2 Delivery O2 Flow Rate FiO2 08/06/17 13:43 98.3 08/06/17 13:43 98.3 08/06/17 12:00 98.2 63 18 111/68 96 Room Air 08/06/17 08:00 97.8 68 16 108/75 98 Room Air 08/06/17 04:00 98.3 81 18 113/80 95 Room Air 08/06/17 00:00 98.1 71 18 110/70 95 Room Air 08/05/17 20:00 98.0 80 18 92/56 94 Room Air 08/05/17 16:01 97.8 72 19 112/77 94 Room Air Intake and Output 08/06/17 08/07/17 19:00 07:00 Intake Total 500 ml Balance 500 ml Intake Oral 500 ml # Voids 2 Laboratory Tests 08/06/17 06:00: White Blood Count 7.2, Red Blood Count 3.72L, Hemoglobin 11.9L, Hematocrit 38.3 , Mean Corpuscular Volume 103H, Mean Corpuscular Hemoglobin 32.0H, Mean Corpuscular Hemoglobin Concent 31.0L, Red Cell Distribution Width 11.3L, Platelet Count 242, Mean Platelet Volume 6.6, Neutrophils (%) (Auto) 44.9L, Lymphocytes (%) (Auto) 45.4H, Monocytes (%) (Auto) 6.2, Eosinophils (%) (Auto) 2.1, Basophils (%) (Auto) 1.4, Sodium Level 140, Potassium Level 3.5, Chloride Level 107, Carbon Dioxide Level 26, Anion Gap 7, Blood Urea Nitrogen 10, Creatinine 0.7, Estimat Glomerular Filtration Rate > 60, Glucose Level 107H, Calcium Level 8.6 Height (Feet): 5 Height (Inches): 4.00 Weight (Pounds): 153 General Appearance: alert EENT: normal ENT inspection Neck: normal alignment Cardiovascular: normal peripheral pulses, normal rate, regular rhythm Respiratory/Chest: chest wall non-tender, lungs clear, normal breath sounds Abdomen: normal bowel sounds, non tender, soft Extremities: normal inspection Edema: no edema noted Arm (L), no edema noted Arm (R), no edema noted Leg (L), no edema noted Leg (R), no edema noted Pedal (L), no edema noted Pedal (R), no edema noted Generalized Neurologic: responsive, motor weakness Skin: normal pigmentation, warm/dry JOY GUERRA Aug 06, 2017 15:29
--- NOTE | 2017-08-06 15:29 | General Progress Note ---
Assessment/Plan Problem List: (1) Leukocytosis ICD Codes: D72.829 - Elevated white blood cell count, unspecified SNOMED: 156620579, 614595752 (2) Hiatal hernia ICD Codes: K44.9 - Diaphragmatic hernia without obstruction or gangrene SNOMED: 49523800 (3) Persistent vomiting ICD Codes: R11.10 - Vomiting, unspecified SNOMED: 812275656 (4) Nausea, vomiting, and diarrhea ICD Codes: R11.2 - Nausea with vomiting, unspecified; R19.7 - Diarrhea, unspecified SNOMED: 8770600 (5) Hypokalemia ICD Codes: E87.6 - Hypokalemia SNOMED: 60067183 (6) UTI (urinary tract infection) ICD Codes: N39.0 - Urinary tract infection, site not specified SNOMED: 09137335 Qualifiers: Qualified Codes: N30.00 - Acute cystitis without hematuria (7) Abdominal pain with vomiting ICD Codes: R10.9 - Unspecified abdominal pain; R11.10 - Vomiting, unspecified SNOMED: 81844818, 811897590 Status: stable, progressing, tolerating diet Assessment/Plan ot pt diet ivf abx pain control dc home w hh Subjective Constitutional: Reports: weakness Allergies: Coded Allergies: CODEINE (Unverified Allergy, Unknown, 08/05/14) IBUPROFEN (Verified Allergy, Unknown, 08/05/15) All Systems: reviewed and negative except above Subjective weak, feeling better Objective Last 24 Hour Vital Signs Date Time Temp Pulse Resp B/P (MAP) Pulse Ox O2 Delivery O2 Flow Rate FiO2 08/06/17 13:43 98.3 08/06/17 13:43 98.3 08/06/17 12:00 98.2 63 18 111/68 96 Room Air 08/06/17 08:00 97.8 68 16 108/75 98 Room Air 08/06/17 04:00 98.3 81 18 113/80 95 Room Air 08/06/17 00:00 98.1 71 18 110/70 95 Room Air 08/05/17 20:00 98.0 80 18 92/56 94 Room Air 08/05/17 16:01 97.8 72 19 112/77 94 Room Air Intake and Output 08/06/17 08/07/17 19:00 07:00 Intake Total 500 ml Balance 500 ml Intake Oral 500 ml # Voids 2 Laboratory Tests 08/06/17 06:00: White Blood Count 7.2, Red Blood Count 3.72L, Hemoglobin 11.9L, Hematocrit 38.3 , Mean Corpuscular Volume 103H, Mean Corpuscular Hemoglobin 32.0H, Mean Corpuscular Hemoglobin Concent 31.0L, Red Cell Distribution Width 11.3L, Platelet Count 242, Mean Platelet Volume 6.6, Neutrophils (%) (Auto) 44.9L, Lymphocytes (%) (Auto) 45.4H, Monocytes (%) (Auto) 6.2, Eosinophils (%) (Auto) 2.1, Basophils (%) (Auto) 1.4, Sodium Level 140, Potassium Level 3.5, Chloride Level 107, Carbon Dioxide Level 26, Anion Gap 7, Blood Urea Nitrogen 10, Creatinine 0.7, Estimat Glomerular Filtration Rate > 60, Glucose Level 107H, Calcium Level 8.6 Height (Feet): 5 Height (Inches): 4.00 Weight (Pounds): 153 General Appearance: alert EENT: normal ENT inspection Neck: normal alignment Cardiovascular: normal peripheral pulses, normal rate, regular rhythm Respiratory/Chest: chest wall non-tender, lungs clear, normal breath sounds Abdomen: normal bowel sounds, non tender, soft Extremities: normal inspection Edema: no edema noted Arm (L), no edema noted Arm (R), no edema noted Leg (L), no edema noted Leg (R), no edema noted Pedal (L), no edema noted Pedal (R), no edema noted Generalized Neurologic: responsive, motor weakness Skin: normal pigmentation, warm/dry JOY GUERRA Aug 06, 2017 15:29
[2017-08-06 16:00] VITALS: BP 125/89
[2017-08-06] MEDS ORDERED: D5 1/2NS 1000ml IV ONE (16:29)
--- NOTE | 2017-08-06 18:22 | Pulmonology Progress Note ---
Assessment/Plan Problems: (1) Pyuria (2) Persistent vomiting (3) Chest pain (4) Diabetes Assessment/Plan feeling better advance diet symptomatic treatment dc planning Subjective ROS Limited/Unobtainable: No Constitutional: Reports: no symptoms HEENT: Repors: no symptoms Allergies: Coded Allergies: CODEINE (Unverified Allergy, Unknown, 08/05/14) IBUPROFEN (Verified Allergy, Unknown, 08/05/15) Objective Last 24 Hour Vital Signs Date Time Temp Pulse Resp B/P (MAP) Pulse Ox O2 Delivery O2 Flow Rate FiO2 08/06/17 16:00 98.4 76 17 125/89 98 Room Air 08/06/17 13:43 98.3 08/06/17 13:43 98.3 08/06/17 12:00 98.2 63 18 111/68 96 Room Air 08/06/17 08:00 97.8 68 16 108/75 98 Room Air 08/06/17 04:00 98.3 81 18 113/80 95 Room Air 08/06/17 00:00 98.1 71 18 110/70 95 Room Air 08/05/17 20:00 98.0 80 18 92/56 94 Room Air Intake and Output 08/06/17 08/07/17 19:00 07:00 Intake Total 500 ml Balance 500 ml Intake Oral 500 ml # Voids 2 Objective General Appearance: WD/WN, no apparent distress Lines, tubes and drains: peripheral, PICC HEENT: normocephalic, anicteric Neck: non-tender, normal alignment Respiratory/Chest: chest wall non-tender, lungs clear Cardiovascular/Chest: normal rate, regular rhythm Abdomen: non tender, soft Genitourinary/Rectal: normal genital exam, normal rectal exam Extremities: normal range of motion, non-pitting Microbiology Date/Time Source Procedure Growth Status 08/04/17 07:40 Blood Blood Culture - Preliminary NO GROWTH AFTER 24 HOURS Resulted 08/04/17 07:30 Blood Blood Culture - Preliminary NO GROWTH AFTER 24 HOURS Resulted Laboratory Tests 08/06/17 06:00: White Blood Count 7.2, Red Blood Count 3.72L, Hemoglobin 11.9L, Hematocrit 38.3 , Mean Corpuscular Volume 103H, Mean Corpuscular Hemoglobin 32.0H, Mean Corpuscular Hemoglobin Concent 31.0L, Red Cell Distribution Width 11.3L, Platelet Count 242, Mean Platelet Volume 6.6, Neutrophils (%) (Auto) 44.9L, Lymphocytes (%) (Auto) 45.4H, Monocytes (%) (Auto) 6.2, Eosinophils (%) (Auto) 2.1, Basophils (%) (Auto) 1.4, Sodium Level 140, Potassium Level 3.5, Chloride Level 107, Carbon Dioxide Level 26, Anion Gap 7, Blood Urea Nitrogen 10, Creatinine 0.7, Estimat Glomerular Filtration Rate > 60, Glucose Level 107H, Calcium Level 8.6 ERICA LICONA Aug 06, 2017 18:22
--- NOTE | 2017-08-07 15:30 | Discharge Summary ---
Discharge Summary Hospital Course Date of Admission Aug 02, 2017 at 21:22 Date of Discharge Aug 06, 2017 at 16:30 Admitting Diagnosis abdominal pain/UTI HPI Marisol Mar is a 62 year old female who was admitted on Aug 02, 2017 at 21:22 for Abdominal Pain/[place] Infection Hospital Course [id number] Discharge Discharge Disposition Patient was discharged to Home with Home Health(06) Discharge Diagnoses: Marisa Peterson NP Aug 07, 2017 15:30
--- NOTE | 2017-08-07 15:30 | Discharge Summary ---
Discharge Summary Hospital Course Date of Admission Aug 02, 2017 at 21:22 Date of Discharge Aug 06, 2017 at 16:30 Admitting Diagnosis abdominal pain/UTI HPI Marisol Mar is a 62 year old female who was admitted on Aug 02, 2017 at 21:22 for Abdominal Pain/[place] Infection Hospital Course [id number] Discharge Discharge Disposition Patient was discharged to Home with Home Health(06) Discharge Diagnoses: Marisa Peterson NP Aug 07, 2017 15:30
--- NOTE | 2017-08-07 15:30 | Discharge Summary ---
Discharge Summary Hospital Course Date of Admission Aug 02, 2017 at 21:22 Date of Discharge Aug 06, 2017 at 16:30 Admitting Diagnosis abdominal pain/UTI HPI Marisol Mar is a 62 year old female who was admitted on Aug 02, 2017 at 21:22 for Abdominal Pain/[place] Infection Hospital Course [id number] Discharge Discharge Disposition Patient was discharged to Home with Home Health(06) Discharge Diagnoses: Marisa Peterson NP Aug 07, 2017 15:30
--- NOTE | 2017-08-08 00:45 | Discharge Summary 2 SIG ---
DATE OF ADMISSION: 08/02/2017 DATE OF DISCHARGE: 08/06/2017 CONSULTANTS: 1. Juliet Triplett M.D. 2. Belinda Pelletier M.D. 3. Broderick Smith M.D. 4. Ernesto Valencia M.D. BRIEF HOSPITAL COURSE: The patient is a 62-year-old female, who lives at home, presented to ED, complaining of increased nausea, vomiting, and weakness. She was diagnosed with hiatal hernia and has been vomiting, unable to keep any medication, and nothing has helped with nausea. Pain was severe and somewhat exertional. She was feeling weak and dehydrated. On evaluation at ED, she was given IV hydration, Reglan, Benadryl, Pepcid, and Dilaudid. Laboratories were significant for low potassium and was given potassium supplements. Lipase was normal. Urinalysis showed 5 to 10 WBC, 2 to 4 RBC, 3+ leukocyte esterase, and negative nitrite. Urine toxicology was negative. She was started on cefepime for acute pyelonephritis. Renal ultrasound was unremarkable. She was seen by pain management and was given Dilaudid and [place]. Abdominal x-ray done showed no acute findings. She was given symptomatic treatment with Zofran and Reglan. Urine culture was positive for Streptococcus agalactiae, but small colony, most likely contaminant. Blood culture was negative. Intravenous antibiotic was discontinued. Diet was advanced and she was eventually discharged home with home health. FINAL DIAGNOSES: 1. Acute pyelonephritis. 2. Abdominal pain with vomiting. 3. Gastritis. 4. Diabetes mellitus, type 2. 5. Hiatal hernia without obstruction or gangrene. DISPOSITION: The patient was discharged home with home health. DISCHARGE MEDICATIONS: Refer to medication list. FOLLOWUP: The patient was advised to follow up within a week. Aneudy Zapata D.O. I have been assigned to dictate discharge summary on this account and I was not involved in the patient's management. Marisa Peterson N.P. DR: CONOR JOB#: [id number] CC:
== END 2017-08-06 16:30 | disposition home or self-care (01) | DRG 690 ==
LOC: EDBD 15:35 → EMR 16:10 → EDBEDREQ 20:00 → 3E 21:22
DX: N10 Acute pyelonephritis (principal); K76.0 Fatty (change of) liver, not elsewhere classified; E11.9 Type 2 diabetes mellitus without complications; E87.6 Hypokalemia; R10.9 Unspecified abdominal pain; R11.2 Nausea with vomiting, unspecified; M15.9 Polyosteoarthritis, unspecified; K44.9 Diaphragmatic hernia without obstruction or gangrene; K29.70 Gastritis, unspecified, without bleeding; Z88.6 Allergy status to analgesic agent; Z76.5 Malingerer [conscious simulation]; R19.7 Diarrhea, unspecified; Z96.643 Presence of artificial hip joint, bilateral; M47.22 Other spondylosis with radiculopathy, cervical region; M47.26 Other spondylosis with radiculopathy, lumbar region
CPT/HCPCS: 36415; 71010; 74000; 76775; 80048; 80053; 80307; 80329; 81003; 82150; 82248; 83690; 83735; 84100; 84484; 85025; 85610; 85730; 87040; 87086; 93005; 97803; 99285; J2405; J2765; J8499